=== PATIENT | female | born 1935 | race Caucasian/White ===

== ENCOUNTER → 2016-08-16 | Outpatient (CLI) | payer OTHER, MEDICARE ==
[~2016-08-16] MED LIST: AMX500 PO; ARTISOL8 OP; CALCIUM PLUS PO; CENTTAB41 PO; CRG3125 PO; FEXO60TA PO; FLUT50SP14 NAE; HYDC25 PO; LISI-461 PO; co q 10 PO
[2016-08-16 10:54] LABS: BLOOD UREA NITROGEN 16 mg/dl (7-18); CREATININE 0.69 mg/dl (0.60-1.20); GLUCOSE 96 mg/dl (70-99)
[2016-08-16 10:55] LABS: ALT/SGPT 27 U/L (12-78); AST/SGOT 16 U/L (15-37); CALCIUM 8.6 mg/dl (8.5-10.1); CARBON DIOXIDE 24 mmol/L (21-32); CHLORIDE 105 mmol/L (98-107); MAGNESIUM 2.1 mg/dl (1.8-2.4); POTASSIUM 3.9 mmol/L (3.5-5.1); SODIUM 139 mmol/L (136-145)
[2016-08-16 11:06] LABS: FERRITIN 114.2 ng/ml (8.0-388.0)
== END | disposition home or self-care (01) ==
LOC: C.LABVPSUW 10:06
DX: E78.5 Hyperlipidemia, unspecified (principal); I10 Essential (primary) hypertension; R53.83 Other fatigue

== ENCOUNTER → 2016-08-22 | Outpatient (CLI) | payer OTHER, MEDICARE ==
--- NOTE | 2016-08-22 15:52 | ECHOCARDIOGRAM REPORT ---
*NOTICE TO RECEIVING [employer]ENCY This information is strictly Confidential and protected under [place] law. [place] law prohibits you from making any further disclosure of this information unless further disclosure is expressly permitted by the written consent of the person to whom it pertains or is authorized by law. A general authorization for the release of medical or other information is not sufficient for this purpose. Hospital accepts no responsibility if the information is made available to any other person, INCLUDING THE PATIENT. Interpretation Summary * Name: JACOB LOVETT Study Date: 08/22/2016 01:06 PM BP: 129/70 mmHg * Patient Location: [facility] HR: 81 * : 1935 (M/d/yyyy) Gender: Female Height: 62 in * Age: 81 yrs Ethnicity: CA Weight: 180 lb * Ordering Physician: Fritz Bartholomew * Referring Physician: Fritz Bartholomew D.O. * Performed By: Viri Xiao RCS * * Reason For Study: Valvular Heart Dz, Myxomatous Mitral Valve * BSA: 1.8 m2 * Normal biventricular systolic function. * Left ventricular diastolic dysfunction. * Mild left atrial dilatation. * Mild- moderate mitral regurgitation. * Mild tricuspid regurgitation. * Mildly elevated estimated right ventricular systolic pressure. * Normal central venous pressure. * Compared to an echo of 09/09/2015 there has been no significant interval change. Procedure Details * A complete two-dimensional transthoracic echocardiogram was performed (2D, M-mode, Doppler and color flow Doppler). Left Ventricle * The left ventricle is normal in size. * There is normal left ventricular wall thickness. * Ejection Fraction = 65-70%. * A full diastolic examination was done with clinical findings of Class I diastolic dysfunction. * The left ventricular wall motion is normal. Right Ventricle * The right ventricle is normal in size and function. Atria * The left atrium is mildly dilated. * Right atrial size is normal. * No ASD detected; PFO is not assessed. Mitral Valve * Mild myxomatous changes. * There is no evidence of mitral valve prolapse. * There is no mitral valve stenosis. * There is mild to moderate mitral regurgitation. Tricuspid Valve * The tricuspid valve is normal. * There is no tricuspid stenosis. * There is mild tricuspid regurgitation. * Right ventricular systolic pressure is elevated at 30-40mmHg. Aortic Valve * The aortic valve is trileaflet. * The aortic valve opens well. * Aortic stenosis is absent. * No aortic regurgitation is present. Pulmonic Valve * The pulmonic valve is not well seen, but is grossly normal. * There is no pulmonic valvular regurgitation. Great Vessels * The aortic root is normal size. Pericardium/Pleural * There is no pericardial effusion. Great Vessels * Normal inferior vena cava diameter and respiratory variation suggests normal central venous pressure. MMode 2D Measurements and Calculations IVSd 1.0 cm IVSs 1.2 cm LVIDd 4.8 cm LVIDs 2.9 cm LVPWd 0.89 cm LVPWs 1.2 cm IVS/LVPW 1.2 FS 39.5 % EDV(Teich) 108.0 ml ESV(Teich) 32.5 ml EF(Teich) 69.9 % EDV(cubed) 111.3 ml ESV(cubed) 24.7 ml EF(cubed) 77.8 % % IVS thick 15.7 % % LVPW thick 39.8 % LV mass(C)d 163.5 grams LV mass(C)dI 89.4 grams/m\S\2 LV mass(C)s 108.7 grams LV mass(C)sI 59.5 grams/m\S\2 CO(Teich) 5.2 l/min CI(Teich) 2.9 l/min/m\S\2 SV(Teich) 75.5 ml SI(Teich) 41.3 ml/m\S\2 CO(cubed) 6.0 l/min CI(cubed) 3.3 l/min/m\S\2 SV(cubed) 86.6 ml SI(cubed) 47.4 ml/m\S\2 Ao root diam 3.6 cm Ao root area 10.4 cm\S\2 ACS 1.6 cm LA dimension 4.2 cm LA/Ao 1.1 LVAd ap4 27.6 cm\S\2 LVLd ap4 7.3 cm EDV(MOD-sp4) 86.0 ml LVAs ap4 15.0 cm\S\2 LVLs ap4 6.0 cm ESV(MOD-sp4) 32.0 ml EF(MOD-sp4) 62.8 % LVAd ap2 30.1 cm\S\2 LVLd ap2 8.2 cm EDV(MOD-sp2) 96.0 ml LVAs ap2 14.5 cm\S\2 LVLs ap2 6.3 cm ESV(MOD-sp2) 29.0 ml EF(MOD-sp2) 69.8 % CO(MOD-sp4) 3.7 l/min CI(MOD-sp4) 2.0 l/min/m\S\2 SV(MOD-sp4) 54.0 ml SI(MOD-sp4) 29.5 ml/m\S\2 CO(MOD-sp2) 4.6 l/min CI(MOD-sp2) 2.5 l/min/m\S\2 SV(MOD-sp2) 67.0 ml SI(MOD-sp2) 36.7 ml/m\S\2 Doppler Measurements and Calculations MV E max jez 66.6 cm/sec MV A max jez 94.8 cm/sec MV E/A 0.70 MV P1/2t max jez 92.7 cm/sec MV P1/2t 75.4 msec MVA(P1/2t) 2.9 cm\S\2 MV dec slope 360.1 cm/sec\S\2 MV dec time 0.28 sec Ao V2 max 143.2 cm/sec Ao max PG 8.2 mmHg Ao max PG (full) 1.5 mmHg LV V1 max PG 6.7 mmHg LV V1 max 129.5 cm/sec PA V2 max 127.8 cm/sec PA max PG 6.5 mmHg TR max jez 273.1 cm/sec
== END | disposition home or self-care (01) ==
LOC: C.CPL 12:53
DX: I34.1 Nonrheumatic mitral (valve) prolapse (principal); I34.0 Nonrheumatic mitral (valve) insufficiency

== ENCOUNTER → 2017-02-12 | Outpatient (CLI) | payer OTHER, MEDICARE ==
--- NOTE | 2017-02-12 09:20 | DIAGNOSTIC IMAGING REPORT ---
RIGHT HAND MIN 3 VIEWS ROUTINE CLINICAL HISTORY: ARHRITIS,PT TO LAB 1 Right COMPARISON STUDY: None. FINDINGS: The bones are osteopenic. No acute fractures within the right hand. Severe cartilage space narrowing with large marginal osteophytes at the DIP joints. There is moderate to severe cartilage space narrowing at the PIP and MCP joints. There are severe cartilage space narrowing with [id number] articulation at the STT joint. Mild widening of the scapholunate joint consistent with this dissociation. Mild subluxation and angulation at the DIP joints of the second and third digits likely due to the long-standing degenerative change. Mild erosive component to the interphalangeal joint of the thumb and DIP joints of the second and third digits. 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 Electronically signed by: Edvin Tamez M.D. 02/12/2017 9:18 AM Dictated Date/Time: 02/12/2017 9:14 AM
[2017-02-12 09:37] LABS: BASO ABS # 0.06 K/uL (0-0.2); COMPLETE YES; EOS % 18.3 %; HEMATOCRIT 40.9 % (37-47); IG% 0.2 %; MEAN CELL VOLUME 96.5 fL (80-100); MEAN CORPUSCULAR HGB CONC 34.2 g/dl (32-36); MEAN PLATELET VOLUME 10.2 fL (7.4-10.4); MONO % 11.5 %; PLATELET COUNT 217 K/uL (130-400); RED BLOOD COUNT 4.24 M/uL (4.2-5.4); WHITE BLOOD COUNT 6.19 K/uL (4.8-10.8)
[2017-02-12 10:23] LABS: CHOLESTEROL 210 mg/dl (0-200); CHOLESTEROL/HDL RATIO 3.8; FERRITIN 138.3 ng/ml (8.0-388.0); HDL CHOLESTEROL 56 mg/dl; LDL CHOLESTEROL CALCULATED 138 mg/dl; MAGNESIUM 2.1 mg/dl (1.8-2.4); RHEUMATOID FACTOR < 10.0 U/mL (0-15); TRIGLYCERIDES 82 mg/dl (0-150); VERY LOW DENSITY LIPOPROT CALC 16 mg/dl
[2017-02-14 15:55] LABS: ANA TITER 1:40 TITER (<1:40)
--- NOTE | 2017-02-19 13:22 | CODING QUERY MEDICAL NECESSITY ---
SUPPORTING DIAGNOSIS NEEDED A supporting diagnosis is required for the test/procedure performed on this patient in order for us to be reimbursed by the patient's insurance. Please provide a supporting diagnosis for the following test/procedure listed below next to the test name along with your signature. *If there is no additional diagnosis for this patient that would support the following test/procedure please document that below next to the test/procedure. Test(s)/Procedure(s) that require a supporting diagnosis: * VITAMIN B12 DIAGNOSIS: * VITAMIN D, 25-HYDROXY DIAGNOSIS: Provider Signature: Date: Thank you Caryn Lima [employer] Information Management Once completed, please kindly fax back to [phone] For questions please call [phone]
== END | disposition home or self-care (01) ==
LOC: C.RAD 08:33
DX: R53.83 Other fatigue (principal); M19.90 Unspecified osteoarthritis, unspecified site; I10 Essential (primary) hypertension; E78.5 Hyperlipidemia, unspecified; E55.9 Vitamin D deficiency, unspecified; E53.8 Deficiency of other specified B group vitamins

== ENCOUNTER → 2017-03-22 | Outpatient (CLI) | payer OTHER, MEDICARE ==
--- NOTE | 2017-03-22 13:47 | DIAGNOSTIC IMAGING REPORT ---
ULTRASOUND LEFT VENOUS DOPP LOWER EXT UNILAT CLINICAL HISTORY: Left leg swelling COMPARISON STUDY: No previous studies for comparison. FINDINGS: Real-time and color flow Doppler imaging were performed. Flow was seen within the femoral, popliteal and calf veins with no intraluminal thrombus demonstrated. The saphenous vein is patent. There is a 8 x 2 x 4 cm complex left popliteal cyst. IMPRESSION: No evidence of left lower extremity DVT. Electronically signed by: Augusto Renee M.D. 03/22/2017 1:46 PM Dictated Date/Time: 03/22/2017 1:45 PM
--- NOTE | 2017-03-26 13:35 | CODING QUERY MEDICAL NECESSITY ---
SUPPORTING DIAGNOSIS NEEDED A supporting diagnosis is required for the test/procedure performed on this patient in order for us to be reimbursed by the patient's insurance. Please provide a supporting diagnosis for the following test/procedure listed below next to the test name along with your signature. *If there is no additional diagnosis for this patient that would support the following test/procedure please document that below next to the test/procedure. Test(s)/Procedure(s) that require a supporting diagnosis: * ([id number]) VENOUS DOPPLER LOWER EXT UNILA DIAGNOSIS: DATE OF SERVICE: 03/22/17 Provider Signature: Date: Thank you Ernesto Coates [facility] Information Management Once completed, please kindly fax back to [phone] For questions please call [phone]
== END | disposition home or self-care (01) ==
LOC: C.ULTRBC 13:23
DX: M79.89 Other specified soft tissue disorders (principal)

== ENCOUNTER → 2017-04-17 | Outpatient (CLI) | payer OTHER, MEDICARE ==
[2017-04-17 10:20] LABS: BLOOD UREA NITROGEN 12 mg/dl (7-18); BUN/CREATININE RATIO 20.7 (10-20); CALCIUM 9.1 mg/dl (8.5-10.1); CARBON DIOXIDE 24 mmol/L (21-32); CHLORIDE 104 mmol/L (98-107); CREATININE 0.59 mg/dl (0.60-1.20); GLUCOSE 86 mg/dl (70-99); POTASSIUM 4.2 mmol/L (3.5-5.1); SODIUM 136 mmol/L (136-145)
== END | disposition home or self-care (01) ==
LOC: C.LABVPSUW 09:19
DX: R60.9 Edema, unspecified (principal)

== ENCOUNTER → 2017-05-01 | Outpatient (CLI) | payer OTHER, MEDICARE ==
[2017-05-01 10:14] LABS: IMMUNOGLOBULN M 20.7 mg/dL (40-230)
[2017-05-03 03:41] LABS: ANTI-SS-A <1.0 NEG AI (<1.0 NEG); ANTI-SS-B <1.0 NEG AI (<1.0 NEG)
== END | disposition home or self-care (01) ==
LOC: C.LABVPSUW 09:21
PROVIDERS: ATTEND Internal Medicine
DX: H04.123 Dry eye syndrome of bilateral lacrimal glands (principal); R89.4 Abnormal immunological findings in specimens from other organs, systems and tissues

== ENCOUNTER → 2017-05-03 | Outpatient (CLI) | payer OTHER, MEDICARE | END | disposition home or self-care (01) | LOC: C.LABVPSUW 09:16 | PROVIDERS: ATTEND Internal Medicine | DX: H04.123 Dry eye syndrome of bilateral lacrimal glands (principal); R89.4 Abnormal immunological findings in specimens from other organs, systems and tissues ==

== ENCOUNTER → 2017-05-06 | Outpatient (CLI) | payer OTHER, MEDICARE ==
--- NOTE | 2017-05-06 14:28 | DIAGNOSTIC IMAGING REPORT ---
LUMBAR SPINE 2 OR 3 VIEWS CLINICAL HISTORY: M48.061 LOW BACK PAIN, SPINAL STENOSIS BY HISTORY pain COMPARISON STUDY: None FINDINGS: Mild S-shaped scoliosis. Slight grade 1 retrolisthesis L2 on L3. Moderate degenerative disc change throughout. Moderate anterior osteophytic change from L1 through L4. No evidence for an acute compression deformity. IMPRESSION: Moderate degenerative change. Scoliosis. No acute process. The above report was generated using voice recognition software. It may contain grammatical, syntax or spelling errors. Electronically signed by: Shaka Segura M.D. 05/06/2017 2:27 PM Dictated Date/Time: 05/06/2017 2:25 PM
== END | disposition home or self-care (01) ==
LOC: C.RAD 14:01
PROVIDERS: ATTEND Internal Medicine
DX: M48.061 Spinal stenosis, lumbar region without neurogenic claudication (principal); M51.36 Other intervertebral disc degeneration, lumbar region; M41.9 Scoliosis, unspecified

== ENCOUNTER → 2017-05-13 | Outpatient (CLI) | payer OTHER, MEDICARE | END | disposition home or self-care (01) | LOC: C.LABSPEC 16:25 | PROVIDERS: ATTEND Obstetrics & Gynecology | DX: N81.11 Cystocele, midline (principal); N76.0 Acute vaginitis ==

== ENCOUNTER → 2017-06-24 | Outpatient (CLI) | payer OTHER, MEDICARE ==
--- NOTE | 2017-06-25 07:49 | MAMMOGRAPHY REPORT ---
BILATERAL DIGITAL DIAGNOSTIC MAMMOGRAM TOMOSYNTHESIS WITH CAD AND TARGETED BILATERAL ULTRASOUND: 06/14 CLINICAL HISTORY: 82-year-old woman presents for diagnostic evaluation of both breasts. She underwen t ultrasound-guided core biopsy in the 8:00 right breast on 07/11/2016, which yielded benign patholog y results. After the biopsy, a short interval follow-up was recommended in the right breast in 6 mon ths to ensure stability of other nodularity in the lateral right breast. Patient failed to follow-up and presents one year after the biopsy, at the time of annual screening exam. TECHNIQUE: Bilateral breast tomosynthesis in addition to standard 2D mammography was performed. Curre nt study was also evaluated with a Computer Aided Detection (CAD) system. COMPARISON: Comparison is made to exams dated: 06/26/2016 ultrasound, 06/26/2016 mammogram, 6 mammogram, 12/26/2009 mammogram, 04/20/2004 mammogram, and 11/11/1998 mammogram - [facility]. BREAST COMPOSITION: There are scattered areas of fibroglandular density in both breasts. FINDINGS: There is a stable ribbon-shaped biopsy marker clip in the 8:00 middle one third of the rig ht breast, denoting the site of prior benign ultrasound-guided core biopsy. Mammographically based o n the CC view, there is stable nodularity when comparing to the 06/21/2016 mammogram and also likely the 12/26/2009 mammogram. No obvious new mass, asymmetry, area of distortion or new suspicious calci fications are seen in the right breast. There is a stable intramammary lymph node in the upper outer middle one third of the left breast. Th ere is a small focal area of architectural distortion in the lateral, middle one third of the left br east on the CC view (tomosynthesis slice 20-23/70), thought to project along the posterior nipple joseph e on the MLO view, for which further evaluation with ultrasound was performed. No other suspicious ma ss, architectural distortion or cluster of microcalcifications is seen. Targeted ultrasound was performed in the lateral aspect of each breast. In the left 2:00 axis, 6 in meters from the nipple, a lymph node is identified measuring 5.3 mm in length with a thin cortex aline uring 2.1 mm. A small hypoechoic solid versus cystic mass measuring 4.3 x 2.4 mm is identified in th e 3:00 left breast, 4 cm from the nipple. It is unclear if this correlates with the mammographic fin ding. In the right breast, masses are no longer identified in the 11:00 axis, and the previously biopsied b enign mass in the 8:00 axis is no longer clearly identified. However, in the 9:30 right breast, 3 cm from the nipple, a previously observed cystic appearing mass now has a more lobulated contour and po ssible solid component. This measures approximately 3 x 5 mm and is indeterminate. Given the interv al change in size, definitive characterization with an ultrasound-guided core biopsy is recommended. IMPRESSION: ACR BI-RADS CATEGORY 4: SUSPICIOUS, TARGETED ULTRASOUND ACR BI-RADS CATEGORY 4: SUSPICIO US 1. Stereotactic tomosynthesis guided biopsy is recommended for a newly visualized small subtle focal area of architectural distortion in the lateral, middle one third of the left breast, best seen on t he CC tomosynthesis images (slice 2023), without definite sonographic correlate. 2. Ultrasound-guided core biopsy is also recommended in the 9:30 right breast for increased size and lobulated contour of a small partially cystic and solid mass identified on ultrasound. 3. Stable postbiopsy changes in the 8:00 right breast mammographically, with decreased visibility of the lesion on ultrasound. Other indeterminate subcentimeter masses in the 11:00 right breast are no longer seen, confirming benignity. These results and recommendations were discussed with the patient at the time of the exam. She tenta tively scheduled the bilateral breast biopsies prior to leaving our department. Approximately 10% of breast cancers are not detected with mammography. A negative mammographic report should not delay biopsy if a clinically suggestive mass is present. Neealm Rodriguez M.D. ay/:06/24/2017 15:26:43 [employer] Coordinator: Stacy MARIE)(Kim), [facility] letter sent: Abnormal 4/5 BI-RADS Code: ACR BI-RADS Category 4: Suspicious Ultrasound BI-RADS: ACR BI-RADS Category 4: Suspici ous
== END | disposition home or self-care (01) ==
LOC: C.MAMM 13:35
PROVIDERS: ATTEND Obstetrics & Gynecology
DX: R92.8 Other abnormal and inconclusive findings on diagnostic imaging of breast (principal); N63.10 Unspecified lump in the right breast, unspecified quadrant

== ENCOUNTER → 2017-08-29 | Outpatient (CLI) | payer OTHER, MEDICARE ==
[2017-08-29 10:08] LABS: BLOOD UREA NITROGEN 18 mg/dl (7-18); CALCIUM 8.7 mg/dl (8.5-10.1); CARBON DIOXIDE 26 mmol/L (21-32); CREATININE 0.67 mg/dl (0.60-1.20); GLUCOSE 109 mg/dl (70-99); POTASSIUM 3.8 mmol/L (3.5-5.1); SODIUM 135 mmol/L (136-145)
[2017-08-30 14:28] LABS: ANTI-SS-A <1.0 NEG AI (<1.0 NEG); ANTI-SS-B <1.0 NEG AI (<1.0 NEG)
== END | disposition home or self-care (01) ==
LOC: C.LABVPSUW 09:35
PROVIDERS: ATTEND Internal Medicine
DX: H04.123 Dry eye syndrome of bilateral lacrimal glands (principal)

== ENCOUNTER → 2017-11-21 | Outpatient (CLI) | payer OTHER, MEDICARE ==
[2017-11-21 10:03] LABS: BASO % 0.5 %; BASO ABS # 0.03 K/uL (0-0.2); EOS % 5.9 %; EOS ABS # 0.35 K/uL (0-0.5); HEMATOCRIT 39.9 % (37-47); HEMOGLOBIN 13.6 g/dL (12.0-16.0); IG# 0.01 K/uL (0.00-0.02); LYMPH ABS # 1.79 K/uL (1.2-3.4); MEAN CELL VOLUME 95.2 fL (80-100); MEAN CORPUSCULAR HEMOGLOBIN 32.5 pg (25-34); MEAN CORPUSCULAR HGB CONC 34.1 g/dl (32-36); MEAN PLATELET VOLUME 9.7 fL (7.4-10.4); MONO % 7.2 %; MONO ABS # 0.43 K/uL (0.11-0.59); NEUT % 56.2 %; NEUT ABS # 3.35 K/uL (1.4-6.5); PLATELET COUNT 246 K/uL (130-400); RED CELL DISTRIBUTION WIDTH CV 12.6 % (11.5-14.5); RED CELL DISTRIBUTION WIDTH SD 43.5 fL (36.4-46.3); WHITE BLOOD COUNT 5.96 K/uL (4.8-10.8)
[2017-11-21 10:12] LABS: BLOOD UREA NITROGEN 15 mg/dl (7-18); CALCIUM 8.5 mg/dl (8.5-10.1); CARBON DIOXIDE 24 mmol/L (21-32); CHOLESTEROL 132 mg/dl (0-200); CREATININE 0.69 mg/dl (0.60-1.20); GLUCOSE 101 mg/dl (70-99); POTASSIUM 4.3 mmol/L (3.5-5.1); SODIUM 137 mmol/L (136-145)
[2017-11-21 10:22] LABS: LDL CHOLESTEROL CALCULATED 59 mg/dl; TRANSFERRIN 245 mg/dl (200-360)
== END ==
LOC: C.LABVPSUW 09:54
DX: E78.5 Hyperlipidemia, unspecified (principal); I10 Essential (primary) hypertension; R60.9 Edema, unspecified; R53.83 Other fatigue; M19.90 Unspecified osteoarthritis, unspecified site

== ENCOUNTER 2018-02-27 21:07 | Emergency (ER) | payer OTHER, MEDICARE ==
[~2018-02-27] VITALS: Ht 157.5 cm; Wt 84.1 kg
[2018-02-27 21:28] VITALS: TEMP 36.6; Ht 157.5 cm; Wt 84.1 kg
[2018-02-27] MEDS ORDERED: LORAZEPAM 0.5 MG TAB PO STA (22:07)
[2018-02-27 22:58] LABS: BASO % 0.4 %; BASO ABS # 0.03 K/uL (0-0.2); EOS % 2.4 %; EOS ABS # 0.17 K/uL (0-0.5); HEMATOCRIT 39.5 % (37-47); HEMOGLOBIN 13.5 g/dL (12.0-16.0); IG# 0.02 K/uL (0.00-0.02); LYMPH % 16.3 %; LYMPH ABS # 1.18 K/uL (1.2-3.4); MEAN CELL VOLUME 96.1 fL (80-100); MEAN CORPUSCULAR HEMOGLOBIN 32.8 pg (25-34); MEAN CORPUSCULAR HGB CONC 34.2 g/dl (32-36); MEAN PLATELET VOLUME 9.6 fL (7.4-10.4); MONO % 11.8 %; MONO ABS # 0.85 K/uL (0.11-0.59); NEUT % 68.8 %; NEUT ABS # 4.97 K/uL (1.4-6.5); PLATELET COUNT 212 K/uL (130-400); RED CELL DISTRIBUTION WIDTH CV 12.6 % (11.5-14.5); WHITE BLOOD COUNT 7.22 K/uL (4.8-10.8)
[2018-02-27 23:28] LABS: ALBUMIN 3.6 gm/dl (3.4-5.0); ALKALINE PHOSPHATASE 64 U/L (45-117); ALT/SGPT 26 U/L (12-78); AST/SGOT 22 U/L (15-37); BLOOD UREA NITROGEN 12 mg/dl (7-18); CALCIUM 8.6 mg/dl (8.5-10.1); CARBON DIOXIDE 23 mmol/L (21-32); CREATININE 0.55 mg/dl (0.60-1.20); GLUCOSE 110 mg/dl (70-99); POTASSIUM 3.7 mmol/L (3.5-5.1); SODIUM 133 mmol/L (136-145); TOTAL PROTEIN 7.3 gm/dl (6.4-8.2)
[2018-02-27 23:50] VITALS: BP 151/77; PULSE 75; O2SAT 95
--- NOTE | 2018-02-27 23:50 | EMERGENCY ROOM VISIT NOTE ---
History Report prepared by Eunice: Gabriela Flower Under the Supervision of: Dr. Lexx Carbajal M.D. First contact with patient: 21:48 Chief Complaint: HYPERTENSION Stated Complaint: ELEVATED BP 182/99 History of Present Illness The patient is an 82 year old female with a past medical history of HTN who presents to the ED with a cc of an episode of hypertension beginning this morning. The patient states that she did not feel well when she woke up this morning. She states that she felt dizzy and weak. She states that she had her blood pressure checked and it was elevated. She reports that it was 182/99. She states that she has been taking her blood pressure medications and there have been no changes to it, but notes that she was placed on Prednisone for her Rheumatoid Arthritis a little bit ago. She states that the first week of taking it she felt lightheaded, but it passed. The patient's daughter notes that she missed her diuretic a few days, but did take it today. Positive chronic leg swelling. Negative headache, chest pain, abdominal pain, urinary symptoms, abnormal bowel movements, and a history of chronic kidney problems. Source of History: patient Onset: this morning Symptom Intensity: 182/99 Quality: other (hypertension) Timing: other (episode) Associated Symptoms: + weakness, No headache, No chest pain, No abdominal pain, No urinary symptoms Note: The patient complains of dizziness and chronic leg swelling. The patient denies abnormal bowel movements. Review of Systems See HPI for pertinent positives and negatives. A total of ten systems were reviewed and were otherwise negative. Past Medical & Surgical Medical Problems: (1) HTN (hypertension) Family History Hypertension Social History Smoking Status: Never Smoker Marital Status: Housing Status: mcc Current/Historical Medications Scheduled Amoxicillin (Amoxil *), 500 MG PO UD Artificial Tears (Artificial Tears), 1-2 DROPS OP PRN Carvedilol (Coreg *), 3.125 MG PO BID Fexofenadine Hcl (Abbey Allergy), 30 MG PO DAILY PRN Fluticasone Propionate (Flonase Nasal [place]), 2 SPRAYS GLADYS DAILY PRN Hydrochlorothiazide (Hctz *), 25 MG PO DAILY Lisinopril (Zestril), 20 MG PO BID [Calcium Plus], 1 TAB PO DAILY [Centrum Silver], 1 TAB PO DAILY [co q 10], 1 TAB PO DAILY Allergies Coded Allergies: Dust (Verified Allergy, Unknown, UNKNOWN, 10/23/11) Prednisone (Verified Adverse Reaction, Unknown, HEADACHE, 10/23/11) Physical Exam Vital Signs Date Time Temp Pulse Resp B/P (MAP) Pulse Ox O2 Delivery O2 Flow Rate FiO2 02/27/18 23:23 80 18 154/78 94 Room Air 02/27/18 22:37 Room Air 02/27/18 21:28 36.6 77 18 172/89 93 Room Air Physical Exam GENERAL: Awake, alert, anxious-appearing, NAD HENT: Normocephalic, atraumatic. EYES: Normal conjunctiva. Sclera non-icteric. PERRL. No anisocoria. NECK: Supple. No nuchal rigidity. FROM. RESPIRATORY: CTAB, no rhonchi, wheezing, crackles CARDIAC: RRR, no MRG ABDOMEN: Soft, NTND, BS+ MSK: No chest wall TTP, trace bilateral LE edema. No asymmetry. NEURO: GCS 15, CN 2-12 intact, moves all 4s on command SKIN: No rash or jaundice noted. Medical Decision & Procedures Laboratory Results 02/27/18 22:47 Red Blood Count 4.11, Mean Corpuscular Volume 96.1, Mean Corpuscular Hemoglobin 32.8, Mean Corpuscular Hemoglobin Concent 34.2, Mean Platelet Volume 9.6, Neutrophils (%) (Auto) 68.8, Lymphocytes (%) (Auto) 16.3, Monocytes (%) (Auto) 11.8, Eosinophils (%) (Auto) 2.4, Basophils (%) (Auto) 0.4, Neutrophils # (Auto ) 4.97, Lymphocytes # (Auto) 1.18, Monocytes # (Auto) 0.85, Eosinophils # (Auto ) 0.17, Basophils # (Auto) 0.03 02/27/18 22:47 Test 02/27/18 22:47 White Blood Count 7.22 K/uL (4.8-10.8) Red Blood Count 4.11 M/uL (4.2-5.4) Hemoglobin 13.5 g/dL (12.0-16.0) Hematocrit 39.5 % (37-47) Mean Corpuscular Volume 96.1 fL (80-100) Mean Corpuscular Hemoglobin 32.8 pg (25-34) Mean Corpuscular Hemoglobin Concent 34.2 g/dl (32-36) Platelet Count 212 K/uL (130-400) Mean Platelet Volume 9.6 fL (7.4-10.4) Neutrophils (%) (Auto) 68.8 % Lymphocytes (%) (Auto) 16.3 % Monocytes (%) (Auto) 11.8 % Eosinophils (%) (Auto) 2.4 % Basophils (%) (Auto) 0.4 % Neutrophils # (Auto) 4.97 K/uL (1.4-6.5) Lymphocytes # (Auto) 1.18 K/uL (1.2-3.4) Monocytes # (Auto) 0.85 K/uL (0.11-0.59) Eosinophils # (Auto) 0.17 K/uL (0-0.5) Basophils # (Auto) 0.03 K/uL (0-0.2) RDW Standard Deviation 44.0 fL (36.4-46.3) RDW Coefficient of Variation 12.6 % (11.5-14.5) Immature Granulocyte % (Auto) 0.3 % Immature Granulocyte # (Auto) 0.02 K/uL (0.00-0.02) Prothrombin Time 10.1 SECONDS (9.0-12.0) Prothromb Time International Ratio 1.0 (0.9-1.1) Activated Partial Thromboplast Time 25.0 SECONDS (21.0-31.0) Partial Thromboplastin Ratio 1.0 Anion Gap 10.0 mmol/L (3-11) Est Creatinine Clear Calc Drug Dose 79.3 ml/min Estimated GFR () 101.2 Estimated GFR (Non- 87.4 BUN/Creatinine Ratio 22.2 (10-20) Calcium Level 8.6 mg/dl (8.5-10.1) Magnesium Level 1.9 mg/dl (1.8-2.4) Total Bilirubin 0.5 mg/dl (0.2-1) Direct Bilirubin 0.1 mg/dl (0-0.2) Aspartate Amino Transf (AST/SGOT) 22 U/L (15-37) Alanine Aminotransferase (ALT/SGPT) 26 U/L (12-78) Alkaline Phosphatase 64 U/L (45-117) Troponin I < 0.015 ng/ml (0-0.045) Total Protein 7.3 gm/dl (6.4-8.2) Albumin 3.6 gm/dl (3.4-5.0) Thyroid Stimulating Hormone (TSH) 1.830 uIu/ml (0.300-4.500) Laboratory results reviewed by me Medications Administered Medications (Trade) Dose Ordered Sig/Wilmer Route Start Time Stop Time Status Last Admin Dose Admin Lorazepam (Ativan Tab) 0.5 mg NOW STAT PO 02/27/18 22:07 02/27/18 22:08 DC 02/27/18 22:23 0.5 MG ECG Per My Interpretation Indication: weakness Rate (beats per minute): 76 Rhythm: normal sinus Findings: other (normal intervals, normal axis, no STS change or TWI) ED Course 2155: The patient was evaluated in room B5. A complete history and physical exam was performed. 0: I reevaluated the patient. Discussed results and discharge instructions: She verbalized understanding and agreement. The patient is ready for discharge. Medical Decision The patient is an 82 year old female with a past medical history of HTN who presents to the ED with a cc of an episode of hypertension beginning this morning. Nursing notes reviewed. Ancillary studies and prior records reviewed. Differential diagnosis: Etiologies such as metabolic, infection, hypo/hyperglycemia, electrolyte abnormalities, cardiac sources, intracerebral event, toxicologic, neurologic, as well as others were entertained. Patient was seen and evaluated the bedside. Patient was referred for hypertension. The patient is fairly well-appearing although the patient does complain of feeling a little anxious and restless. Patient is requesting something to relax. The patient denies any chest pain shortness of breath or headache. The patient does not have any focal neuro deficits. The patient states that she has been intermittently taking her diuretic medication. The patient has also recently started taking prednisone. I discussed with the patient that is important that she continues to take her medication as prescribed although could consider stopping the prednisone as this is likely causing an increase in fluid retention as well as increase in blood pressure. Patient did have blood work completed along with an EKG. The patient was also given 0.5 mg of Ativan. The patient's blood work is fairly unremarkable. EKG is nonischemic. Patient has normal kidney function and normal TSH. I believe the patient's hypertension is a combination of factors which include the noncompliance with the medication, starting prednisone, and being preoccupied with her blood pressure numbers. Patient was given strict follow-up, discharge , and return precautions. All questions were answered. Patient was deemed suitable for outpatient follow-up at this time. Patient agreed with the plan of care and was safely discharged home. Medication Reconcilliation Current Medication List: was personally reviewed by me Blood Pressure Screening Patient's blood pressure: Elevated blood pressure Blood pressure disposition: Referred to PCP Impression Primary Impression: HTN (hypertension) Additional Impression: Acute anxiety Scribe Attestation The scribe's documentation has been prepared under my direction and personally reviewed by me in its entirety. I confirm that the note above accurately reflects all work, treatment, procedures, and medical decision making performed by me. Departure Information Dispostion Home / Self-Care Referrals [facility] (PCP) Forms HOME CARE DOCUMENTATION FORM, IMPORTANT VISIT INFORMATION, WORK / SCHOOL INSTRUCTIONS Patient Instructions Hypertension Dc, My [facility] Additional Instructions Please return to the emergency department if you have worsening or recurrent symptoms not amenable to at-home treatment. Please call for a follow-up appointment with her primary care physician. Please take your medications as prescribed. If you have other concerns and/or complaints please feel free to also call your primary care physician's office or return the ED for further evaluation, management, and treatment. You may take tylenol 650 mg every 6 hours as needed for pain/fever unless told by your physician to not take it or have liver problems. Take your medications as prescribed. You have been examined and treated today on an emergency basis only. This is not a substitute for, or an effort to provide, complete comprehensive medical care. It is impossible to recognize and treat all injuries or illnesses in a single emergency department visit. It is therefore important that you follow up closely with [facility], your PCP, and/or your specialist(s). Call as soon as possible for an appointment. Thank you for your time and consideration. I look forward to speaking with you again soon. Please don't hesitate to call us if you have any questions. Problem Qualifiers Primary Impression: HTN (hypertension) Hypertension type: unspecified Qualified Codes: I10 - Essential (primary) hypertension
== END 2018-02-28 00:06 | disposition home or self-care (01) ==
LOC: C.EDB 21:09
DX: I10 Essential (primary) hypertension (principal); F41.9 Anxiety disorder, unspecified; M06.9 Rheumatoid arthritis, unspecified; Z82.49 Family history of ischemic heart disease and other diseases of the circulatory system; Z79.899 Other long term (current) drug therapy; Z88.8 Allergy status to other drugs, medicaments and biological substances; Z91.048 Other nonmedicinal substance allergy status

== ENCOUNTER 2023-01-24 11:25 | Inpatient (IN) ==
--- NOTE | 2023-01-24 12:14 | Emergency Department Note ---
Impression & Plan MITCH (acute kidney injury), Bladder cancer, Ureteral obstruction ED Provider Note NAME: JACOB LOVETT AGE: 87 SEX: F : 1935 ARRIVES VIA: Walk-In INFORMANT: Patient ED PROVIDER(S): Willy Suarez DO CHIEF COMPLAINT: weak HPI: Patient is an 87-year-old female who presents the ER for increasing renal function. Patient notes that she does feel little weak and rundown. She denies any headache or change in vision. She had a creatinine checked as an outpatient and was significantly elevated as well as having ultrasound which showed no ureteral jet. 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 She denies any headache or change in vision. No chest pain or shortness of breath. No dysuria urgency or frequency. No other exacerbating or remitting factors. She been eating and drinking normally. PAST MEDICAL HISTORY:See Below PAST SURGICAL HISTORY:See Below FAMILY HISTORY:See Below SOCIAL HISTORY:See Below HOME MEDICATIONS:See Below ALLERGIES:See Below VITALS:See Below PHYSICAL EXAMINATION: GENERAL: Sitting up in bed, alert, chronically ill-appearing, disheveled EYE EXAM: normal conjunctiva. PERRL and EOM's grossly intact. OROPHARYNX: no exudate, no erythema, lips, buccal mucosa, and tongue normal and mucous membranes are moist NECK: supple, no nuchal rigidity, no adenopathy, non-tender LUNGS: Clear to auscultation. Normal chest wall mechanics HEART: no murmurs, S1 normal and S2 normal ABDOMEN: abdomen soft, non-tender, normo-active bowel sounds, no masses, no rebound or guarding. UPPER EXTREMITIES: upper extremities are grossly normal. LOWER EXTREMITIES: No pitting edema. NEURO EXAM: Normal sensorium, cranial nerves II-XII grossly intact, normal speech, no gross weakness of arms, no gross weakness of legs. MEDICAL DECISION MAKING: Patient is an 87-year-old female with a past medical history of nephrectomy secondary to kidney cancer. She has been following with Dr. Wang from [facility]. Ultrasound was done as an outpatient which showed no ureteral jet. Creatinine has been trending up and is 3 yesterday. IV was established blood work was obtained. Labs show no leukocytosis. Mild anemia at 8.8. BMP with creatinine 2.5 which is actually improved from yesterday of 3. LFTs bilirubin was unremarkable. UA was slightly contaminated. Will cover with a dose of Rocephin to be on the safe side. Patient was given IV fluids. Discussed with urology who recommended transfer after seeing the patient at bedside. Discussed with Dr. Imtiaz Raymond at [facility]. He will speak with interventional radiology as well as urology and likely accept however he notes that they will not have a bed until tomorrow. I discussed with Dr. Joel Haas for further evaluation management treatment here. Did update family. Triage Nursing notes reviewed. Limited review of prior medical records performed Vital Signs: reviewed and remarkable for no significant abnormalities Differential diagnosis: Infection, dehydration, metabolic abnormality, hypo/hyperglycemia, electrolyte disturbance, anemia, hypoxia, cardiac sources, intracerebral event, toxicologic, neurologic, as well as other pathologies. ER treatment provided: See below Diagnostics interpreted by me include EKG and cardiac monitoring as listed below: -Cardiac Monitoring: An order was placed for continuous cardiac monitoring. The monitor shows a rate of 60 with sinus rhythm. -ECG: none -Laboratory studies:Interpreted by me as stated above in MDM and shown below. 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 no longer is presribed omeprazole. Hyperlipidemia Hypertension Hypothyroidism Immunotherapy currently receiving through [facility]. & to follow up with [facility] Heme/Oncology Macular degeneration Migraines Mitral valve regurgitation Moderate - follows with Dr. Hernandez Nausea and vomiting after administration of anesthetic agent nausea after procedure feb 2022/given pill for nausea and that helped Osteopenia PMR (polymyalgia rheumatica) Follows with rheum - Dr. Mays Port-A-Cath in place Power Port - implantable port [place]. patient will bring the device card DOS. placed 11/14/2022 at [facility] Presence of pessary Renal arterial aneurysm Follows with Dr. 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 [id number]. Recurrence/progression 02/2022 s/p large TURBT 03/08/22& repeat cystoscopy TURBT 04/2022 and 07/2022 Cutaneous metastases On Keytruda Venous insufficiency Both legs Surgical History H/O nephroureterectomy left kidney and ureter at [facility]. H/O transurethral resection of bladder tumor (TURBT) multiple; last done 11/27/2022 08/02/2022 at [facility] Grade 1 view, MAC 3, ETT 7. H/O unilateral oophorectomy History of colonoscopy History of dilatation and curettage History of surgery feb 2022 for bladder cancer History of surgery "power port, implantable port [place]" Power port placed per patient and daughter at [facility] 11/14/22 History of surgery Resection of uterine fibroid History of transurethral resection of bladder tumor (TURBT) 04/2022 [facility] S/P biopsy ureter S/p nephrectomy left kidney and left ureter 10/30/2021 [facility] [place] teeth removed Family History Sister Breast cancer Mother , 88yo Stroke Hypertension Father , 54yo Black lung disease Brother Aneurysm Hypertension Brother Lung cancer Brother Addiction Daughter No problems noted. Other No family history of adverse response to anesthesia No pertinent family history Denies family history of Ovarian cancer Prostate cancer Myocardial infarction Colorectal cancer Social History Smoking Status: Never smoker Second Hand Exposure: No; Do You Dip or Chew Tobacco: No; Hx Alcohol Use: No Hx Substance Use: No Preferred Language: Sudanese Communication Ability: Effective Visual Impairment: No Limitations Hearing Ability: Normal Color Coater Required: No Beliefs That Will Affect Care: None marital status: / Current Living Situation: Alone Current Living Situation Comment: L[facility] INDEPEND[facility] AT [facility] current occupational status: retired current occupation: [employer] How many Children do You have: 1 Feels Safe at Home: Yes Diet: regular caffeine: No during the past year weight has: remained stable Seatbelt Use: always Sunscreen Use: Yes Assistive Devices: CPAP, Glasses and Walker Allergies Allergies Allergy/AdvReac Type Severity Reaction Status Date / Time pepper (genus Capsicum) Allergy Intermediate Gastrointestinal Unverified 01/24/23 12:30 Upset capsaicin Allergy Unknown Verified 01/23/23 14:07 prednisone AdvReac Intermediate Dizziness Verified 01/23/23 14:07 & weird dreams gabapentin Allergy Nausea Uncoded 01/23/23 14:07 vomiting tramadol Allergy Vomiting Uncoded 01/23/23 14:07 collin inhibitors AdvReac Mild Cough Uncoded 01/23/23 14:07 arb angiotensin receptor AdvReac Mild Cough Uncoded 01/23/23 14:07 antagonist Home Meds Home Medications Medication Instructions Recorded Confirmed fexofenadine 180 mg tablet 180 mg PO QAM PRN ALLERGY RELIEF 04/01/19 01/24/23 (Abbey Allergy) multivitamin (Daily Multi-Vitamin 1 tab PO QPM 04/01/19 01/24/23 tablet) simethicone 125 mg capsule 125 mg PO QAM PRN BLOATING/GAS 10/21/20 01/24/23 RELIEF vit C 250 mg-vit E 90 mg-zinc 40 1 tab PO BID 10/21/20 01/24/23 mg-copper 1 [id number] capsule (PreserVision AREDS-2) famotidine 20 mg tablet (Pepcid AC) 20 mg PO BID 08/09/21 01/24/23 ascorbic acid 1,000 1 ea PO QAM 09/26/21 01/24/23 [id number]-[id number] powder effervescent pack (Emergen-C) acetaminophen 500 mg capsule 500 mg PO UD PRN Pain 04/16/22 01/24/23 levothyroxine 50 mcg tablet 50 mcg PO 1600 04/16/22 01/24/23 cholecalciferol (vitamin D3) 25 25 mcg PO QAM 11/19/22 01/24/23 mcg (1,000 unit) tablet (Vitamin D3) estradiol 0.01% (0.1 mg/gram) 1 g vaginal .Once/week 11/20/22 01/24/23 vaginal cream lidocaine 5 % topical ointment 1 applic topical BID PRN pain 11/20/22 01/24/23 sennosides 8.6 mg tablet (senna) 8.6 mg PO DAILY Constipation 01/22/23 01/24/23 Previous Rx's Medication Instructions Recorded carvedilol 3.125 mg tablet (Coreg) 3.125 mg PO BID #180 tabs 04/13/22 diphenhydramine-zinc acetate 2 1 applic topical TID PRN itching 07/11/22 %-0.1 % topical cream (Anti-Itch on back #35 grams (diphenhydramine) with Zinc) hydroxyzine HCl 25 mg tablet 25 mg PO TID PRN anxiety #90 tabs 12/07/22 fluocinolone acetonide oil 0.01 % 4 drp otic (ear) BID PRN ear 12/18/22 ear drops itching #20 mL ipratropium bromide 21 mcg (0.03 2 spray intranasal BID PRN nasal 12/18/22 %) nasal spray drainage #30 mL Results & Data (ED) Vital Signs Vital Signs - 24 hr 01/24/23 11:29 01/24/23 13:00 01/24/23 13:44 Temperature 37.2 C Temperature Source Temporal Artery Scan Pulse Rate 70 63 Pulse Rate [Right Brachial] 97 H Pulse Rhythm Pulse Rhythm [Right Brachial] Regular Pulse Strength [Right Brachial] Normal Respiratory Rate 20 19 Respiratory Effort / Characteristics Non-Labored Non-Labored Spontaneous Respiratory Depth Normal Normal Respiratory Pattern Regular Blood Pressure 159/89 H Blood Pressure [Right Arm] 163/85 H Blood Pressure Mean 112 Blood Pressure Mean [Right Arm] 111 Blood Pressure Position [Right Arm] Lying Pulse Oximetry 98 95 Oxygen Delivery Method Room Air Room Air Oxygen Flow Rate Sepsis Recent Fever Within 48 Hours No Sepsis New/Unexplained Change in Mental Status N/A Sepsis Action Taken by Nursing No Action Required 01/24/23 13:55 Temperature Temperature Source Pulse Rate 58 L Pulse Rate [Right Brachial] Pulse Rhythm Regular Pulse Rhythm [Right Brachial] Pulse Strength [Right Brachial] Respiratory Rate 18 Respiratory Effort / Characteristics Respiratory Depth Respiratory Pattern Blood Pressure Blood Pressure [Right Arm] Blood Pressure Mean Blood Pressure Mean [Right Arm] Blood Pressure Position [Right Arm] Pulse Oximetry 93 Oxygen Delivery Method Nasal Cannula Oxygen Flow Rate 2 Sepsis Recent Fever Within 48 Hours Sepsis New/Unexplained Change in Mental Status Sepsis Action Taken by Nursing Laboratory Data 01/24/23 12:22 01/24/23 14:15 Lab Results 01/24/23 01/24/23 01/24/23 Range/Units 12:22 12:22 12:22 WBC 6.22 (4.8-10.8) K/ul RBC 2.74 L (4.20-5.40) M/uL Hgb 8.8 L (12.0-16.0) g/dl Hct 26.6 L (37.0-47.0) % MCV 97.1 (80.0-100.0) fL MCH 32.1 (25.0-34.0) pg MCHC 33.1 (32.0-36.0) g/dL RDW Std Deviation 48.9 H (36.4-46.3) fL RDW Coeff of Cathy 13.6 (11.5-14.5) % Plt Count 244 (130-400) K/uL MPV 9.3 L (9.4-12.4) fL Immature Gran % (Auto) 0.5 % Neut % (Auto) 54.6 % Lymph % (Auto) 20.1 % [place] % (Auto) 13.7 % Eos % (Auto) 10.5 % Baso % (Auto) 0.6 % Neut # (Auto) 3.40 (1.40-6.50) K/uL Lymph # (Auto) 1.25 (1.2-3.4) K/uL [place] # (Auto) 0.85 H (0.11-0.59) K/uL Eos # (Auto) 0.65 H (0-0.50) K/uL Baso # (Auto) 0.04 (0-0.2) K/uL Immature Gran # (Auto) 0.03 (0.01-0.20) K/uL Sodium Cancelled Potassium Cancelled Chloride Cancelled Carbon Dioxide Cancelled Anion Gap Cancelled BUN Cancelled Creatinine Cancelled Est Cr Clr Drug Dosing Cancelled Est GFR ( Amer) Cancelled Est GFR (Non-Af Amer) Cancelled BUN/Creatinine Ratio Cancelled Glucose Cancelled Calcium Cancelled Total Bilirubin Cancelled AST Cancelled ALT Cancelled Alkaline Phosphatase Cancelled Total Protein Cancelled Albumin Cancelled Globulin Cancelled Albumin/Globulin Ratio Cancelled Lipase Cancelled Urine Color Yellow Urine Appearance Cloudy A (Clear) Urine pH 6.0 (4.5-7.5) Ur Specific [place] 1.008 (1.000-1.030) Urine Protein Negative (Negative) Urine Glucose (UA) Negative (Negative) Urine Ketones Negative (Negative) Urine Blood Trace H (Negative) Urine Nitrite Negative (Negative) Urine Bilirubin Negative (Negative) Urine Urobilinogen Negative (Negative) Ur Leukocyte Esterase 3+ H (Negative) Urine WBC (Auto) >30 H (0-5) /hpf Urine RBC (Auto) 0-4 (0-4) /hpf U Hyaline Cast (Auto) 1-5 (0-5) /lpf U Epithel Cells (Auto) 20-30 H (0-5) /lpf Urine Bacteria (Auto) Negative (Negative) SARS-CoV-2, RNA, NAAT (NEGATIVE) 01/24/23 01/24/23 Range/Units 14:15 Unknown WBC (4.8-10.8) K/ul RBC (4.20-5.40) M/uL Hgb (12.0-16.0) g/dl Hct (37.0-47.0) % MCV (80.0-100.0) fL MCH (25.0-34.0) pg MCHC (32.0-36.0) g/dL RDW Std Deviation (36.4-46.3) fL RDW Coeff of Cathy (11.5-14.5) % Plt Count (130-400) K/uL MPV (9.4-12.4) fL Immature Gran % (Auto) % Neut % (Auto) % Lymph % (Auto) % [place] % (Auto) % Eos % (Auto) % Baso % (Auto) % Neut # (Auto) (1.40-6.50) K/uL Lymph # (Auto) (1.2-3.4) K/uL [place] # (Auto) (0.11-0.59) K/uL Eos # (Auto) (0-0.50) K/uL Baso # (Auto) (0-0.2) K/uL Immature Gran # (Auto) (0.01-0.20) K/uL Sodium 139 Potassium 3.9 Chloride 111 H Carbon Dioxide 20 L Anion Gap 8 BUN 34 H Creatinine 2.58 H D Est Cr Clr Drug Dosing 13.9 Est GFR ( Amer) 18.7 Est GFR (Non-Af Amer) 16.1 BUN/Creatinine Ratio 13.2 Glucose 86 Calcium 8.4 L Total Bilirubin 0.5 AST 14 ALT 10 Alkaline Phosphatase 74 Total Protein 6.4 Albumin 3.5 Globulin 2.9 Albumin/Globulin Ratio 1.2 Lipase 21 Urine Color Urine Appearance (Clear) Urine pH (4.5-7.5) Ur Specific [place] (1.000-1.030) Urine Protein (Negative) Urine Glucose (UA) (Negative) Urine Ketones (Negative) Urine Blood (Negative) Urine Nitrite (Negative) Urine Bilirubin (Negative) Urine Urobilinogen (Negative) Ur Leukocyte Esterase (Negative) Urine WBC (Auto) (0-5) /hpf Urine RBC (Auto) (0-4) /hpf U Hyaline Cast (Auto) (0-5) /lpf U Epithel Cells (Auto) (0-5) /lpf Urine Bacteria (Auto) (Negative) SARS-CoV-2, RNA, NAAT NEGATIVE (NEGATIVE) Imaging Data Radiologist's Impression: Abdomen/Pelvis CT 01/24/23 11:34 CT abd pelvis wo con CLINICAL HISTORY: stone TECHNIQUE: Helical axial images of the abdomen and pelvis were obtained. Automated dose lowering techniques and/or adjustment according to patient size were utilized for this exam. This exam was performed without intravenous contrast. CT DOSE: 1262.38 mGy.cm COMPARISON: None available at the time of this dictation. FINDINGS: Lower chest: Bibasilar atelectasis versus scarring is seen. Liver: Hepatic cysts are seen. Gallbladder and biliary tree: No calcified gallstones. Normal caliber wall. Physiologic prominence of the biliary ducts is noted. Pancreas: Unremarkable, no focal lesions. Spleen: Unremarkable. Adrenals: Unremarkable. Kidneys and ureters: Patient is status post left nephrectomy. Multiple right renal cysts are seen. There is right hydronephrosis and hydroureter ureter. Bladder: Diffuse homogeneous wall thickening is seen. Reproductive organs: Unremarkable. Bowel: Diverticulosis is seen without diverticulitis. The appendix is normal. A small hiatal hernia is seen. Lymph nodes Retroperitoneal: Unremarkable. Pelvic: Unremarkable. Mesenteric: Unremarkable. Peritoneum: Mild fat stranding seen about the right ureter. Vessels: Atherosclerotic calcifications are seen. Abdominal wall: Midline incision and fat-containing hernia noted. Bones: Degenerative changes in the visualized spine. IMPRESSION: 1. There is right hydronephrosis and hydroureter without visualized stone. Findings may represent recently passed stone. 2. Thickening of the bladder wall is noted, urinalysis correlation is recommended to exclude cystitis and/or ascending infection. 3. Additional findings as above. ACT 112: Negative or not required by law. Electronically signed by: Phan Dumas M.D. 01/24/2023 12:44 PM Discharge Plan Visit Data Chief Complaint: Referred by Doctor Stated Complaint: KIDNEY BLOCKAGE ED Provider: Willy Suarez Discharge Problem: MITCH (acute kidney injury), Bladder cancer, Ureteral obstruction Forms Stand Alone Forms: [facility] Daily Prescriptions Prescriptions: No Action lidocaine 5 % ointment 1 applic topical BID PRN (Reason: pain) hydroxyzine HCl 25 mg tablet 25 mg PO TID PRN (Reason: anxiety) Qty: 90 1RF Anti-Itch(diphenhyd) with Zinc 2-0.1 % cream 1 applic topical TID PRN (Reason: itching on back) Qty: 35 3RF ipratropium bromide 21 mcg (0.03 %) spray,non-aerosol 2 spray intranasal BID PRN (Reason: nasal drainage) Qty: 30 2RF Rx Instructions: administer into each nostril fluocinolone acetonide oil 0.01 % drops 4 drp otic (ear) BID PRN (Reason: ear itching) Qty: 20 3RF Rx Instructions: Apply to affected ear BID 2-3 days/week PRN itchy ear carvedilol [Coreg] 3.125 mg tablet 3.125 mg PO BID Qty: 180 3RF sennosides [senna] 8.6 mg tablet 8.6 mg PO DAILY fexofenadine [Abbey Allergy] 180 mg tablet 180 mg PO QAM PRN (Reason: ALLERGY RELIEF) multivitamin [Daily Multi-Vitamin] tablet 1 tab PO QPM PreserVision AREDS-2 250-90-40-1 mg capsule 1 tab PO BID simethicone 125 mg capsule 125 mg PO QAM PRN (Reason: BLOATING/GAS RELIEF) Patient Comments: very seldom famotidine [Pepcid AC] 20 mg Tablet 20 mg PO BID Hold Instructions: pt not taking Patient Comments: and maybe during the day as needed an exra one Emergen-C 1,000 mg Powder Effervescent In Packet 1 ea PO QAM levothyroxine 50 mcg tablet 50 mcg PO 1600 Patient Comments: take at 4 pm acetaminophen 500 mg Capsule 500 mg PO UD PRN (Reason: Pain) estradiol 0.01 % (0.1 mg/gram) cream 1 g PV .Once/week Rx Instructions: Saturday cholecalciferol (vitamin D3) [Vitamin D3] 25 mcg (1,000 unit) Tablet 25 mcg PO QAM Referrals Referrals: Megan Escalona MD [Primary Care Provider] -
[2023-01-24 12:38] LABS: Appearance Urine Cloudy (Clear); Bacteria Urine Automated Negative (Negative); Bilirubin Urine Negative (Negative); Blood Urine Trace (Negative); Color Urine Yellow; Epithelial Cell Urine Auto 20-30 /lpf (0-5); Glucose Urine UA Negative (Negative); Ketones Urine Negative (Negative); Leukocyte Esterase Urine 3+ (Negative); Nitrite Urine Negative (Negative); Protein Urine Negative (Negative); RBC Urine Automated 0-4 /hpf (0-4); Specific Gravity Urine 1.008 (1.000-1.030); Urobilinogen Urine Negative (Negative); WBC Urine Automated >30 /hpf (0-5)
--- NOTE | 2023-01-24 12:46 | CT Scan Report ---
CT abd pelvis wo con CLINICAL HISTORY: stone TECHNIQUE: Helical axial images of the abdomen and pelvis were obtained. Automated dose lowering tech niques and/or adjustment according to patient size were utilized for this exam. This exam was perfor med without intravenous contrast. CT DOSE: 1262.38 mGy.cm COMPARISON: None available at the time of this dictation. FINDINGS: Lower chest: Bibasilar atelectasis versus scarring is seen. Liver: Hepatic cysts are seen. Gallbladder and biliary tree: No calcified gallstones. Normal caliber wall. Physiologic prominence of the biliary ducts is noted. Pancreas: Unremarkable, no focal lesions. Spleen: Unremarkable. Adrenals: Unremarkable. Kidneys and ureters: Patient is status post left nephrectomy. Multiple right renal cysts are seen. Th ere is right hydronephrosis and hydroureter ureter. Bladder: Diffuse homogeneous wall thickening is seen. Reproductive organs: Unremarkable. Bowel: Diverticulosis is seen without diverticulitis. The appendix is normal. A small hiatal hernia i s seen. Lymph nodes Retroperitoneal: Unremarkable. Pelvic: Unremarkable. Mesenteric: Unremarkable. Peritoneum: Mild fat stranding seen about the right ureter. Vessels: Atherosclerotic calcifications are seen. Abdominal wall: Midline incision and fat-containing hernia noted. Bones: Degenerative changes in the visualized spine. IMPRESSION: 1. There is right hydronephrosis and hydroureter without visualized stone. Findings may represent re cently passed stone. 2. Thickening of the bladder wall is noted, urinalysis correlation is recommended to exclude cystiti s and/or ascending infection. 3. Additional findings as above. ACT 112: Negative or not required by law. Electronically signed by: Phan Dumas M.D. 01/24/2023 12:44 PM
[2023-01-24 13:29] LABS: Basophils # (auto) 0.04 K/uL (0-0.2); Basophils % (auto) 0.6 %; Eosinophils # (auto) 0.65 K/uL (0-0.50); Eosinophils % (auto) 10.5 %; Hematocrit (blood only) 26.6 % (37.0-47.0); Hemoglobin 8.8 g/dl (12.0-16.0); Immature Granulocytes # (auto) 0.03 K/uL (0.01-0.20); Immature Granulocytes % (auto) 0.5 %; Lymphocytes # (auto) 1.25 K/uL (1.2-3.4); Lymphocytes % (auto) 20.1 %; Mean Corpuscular Hemoglobin 32.1 pg (25.0-34.0); Mean Corpuscular Hgb Conc 33.1 g/dL (32.0-36.0); Mean Corpuscular Volume 97.1 fL (80.0-100.0); Mean Platelet Volume 9.3 fL (9.4-12.4); Monocytes # (auto) 0.85 K/uL (0.11-0.59); Monocytes % (auto) 13.7 %; Neutrophils % (auto) 54.6 %; Platelet Count 244 K/uL (130-400); RDW Coefficient of Variation 13.6 % (11.5-14.5); RDW Standard Deviation 48.9 fL (36.4-46.3); Red Blood Count 2.74 M/uL (4.20-5.40); White Blood Count 6.22 K/ul (4.8-10.8)
--- NOTE | 2023-01-24 14:25 | History & Physical Report ---
Date of Service January 24, 2023 History of Present Illness Primary Care Provider: Megan Escalona MD Allergies Allergy/AdvReac Type Severity Reaction Status Date / Time pepper (genus Capsicum) Allergy Intermediate Gastrointestinal Unverified 01/24/23 12:30 Upset capsaicin Allergy Unknown Verified 01/23/23 14:07 prednisone AdvReac Intermediate Dizziness Verified 01/23/23 14:07 & weird dreams gabapentin Allergy Nausea Uncoded 01/23/23 14:07 vomiting tramadol Allergy Vomiting Uncoded 01/23/23 14:07 collin inhibitors AdvReac Mild Cough Uncoded 01/23/23 14:07 arb angiotensin receptor AdvReac Mild Cough Uncoded 01/23/23 14:07 antagonist Home Medications Medication Instructions Recorded Confirmed Type fexofenadine 180 mg tablet 180 mg PO QAM PRN ALLERGY RELIEF 04/01/19 01/24/23 History ([place] Allergy) multivitamin (Daily Multi-Vitamin 1 tab PO QPM 04/01/19 01/24/23 History tablet) simethicone 125 mg capsule 125 mg PO QAM PRN BLOATING/GAS 10/21/20 01/24/23 History RELIEF vit C 250 mg-vit E 90 mg-zinc 40 1 tab PO BID 10/21/20 01/24/23 History mg-copper 1 jc-tjeyhl-bclrfq capsule (PreserVision AREDS-2) famotidine 20 mg tablet (Pepcid AC) 20 mg PO BID 08/09/21 01/24/23 History ascorbic acid 1,000 1 ea PO QAM 09/26/21 01/24/23 History hi-wnfpzxtxajah-qnrfisav powder effervescent pack (Emergen-C) carvedilol 3.125 mg tablet (Coreg) 3.125 mg PO BID #180 tabs 04/13/22 01/24/23 Rx acetaminophen 500 mg capsule 500 mg PO UD PRN Pain 04/16/22 01/24/23 History levothyroxine 50 mcg tablet 50 mcg PO 1600 04/16/22 01/24/23 History diphenhydramine-zinc acetate 2 1 applic topical TID PRN itching 07/11/22 01/24/23 Rx %-0.1 % topical cream (Anti-Itch on back #35 grams (diphenhydramine) with Zinc) cholecalciferol (vitamin D3) 25 25 mcg PO QAM 11/19/22 01/24/23 History mcg (1,000 unit) tablet (Vitamin D3) estradiol 0.01% (0.1 mg/gram) 1 g vaginal .Once/week 11/20/22 01/24/23 History vaginal cream lidocaine 5 % topical ointment 1 applic topical BID PRN pain 11/20/22 01/24/23 History hydroxyzine HCl 25 mg tablet 25 mg PO TID PRN anxiety #90 tabs 12/07/22 01/24/23 Rx fluocinolone acetonide oil 0.01 % 4 drp otic (ear) BID PRN ear 12/18/22 01/24/23 Rx ear drops itching #20 mL ipratropium bromide 21 mcg (0.03 2 spray intranasal BID PRN nasal 12/18/22 01/24/23 Rx %) nasal spray drainage #30 mL sennosides 8.6 mg tablet (senna) 8.6 mg PO DAILY Constipation 01/22/23 01/24/23 History Past Med/Surg History Medical History (Updated 01/24/23 @ 08:54 by Catia Ramsey PA-C) Allergic rhinitis Anemia Anxiety Bladder carcinoma High grade s/p TURBT 02/2022, 04/2022, and 07/2022- on Keytruda Cardiomyopathy Valvular cardiomyopathy, 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 no longer is presribed omeprazole. Hyperlipidemia Hypertension Hypothyroidism Immunotherapy currently receiving through [facility]. & to follow up with [facility] Heme/Oncology Macular degeneration Migraines Mitral valve regurgitation Moderate - follows with Dr. Hernandez Nausea and vomiting after administration of anesthetic agent nausea after procedure feb 2022/given pill for nausea and that helped Osteopenia PMR (polymyalgia rheumatica) Follows with rheum - Dr. Mays Port-A-Cath in place Power Port - implantable port [place]. patient will bring the device card DOS. placed 11/14/2022 at [facility] Presence of pessary Renal arterial aneurysm Follows with Dr. 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 [id number]. Recurrence/progression 02/2022 s/p large TURBT 03/08/22& repeat cystoscopy TURBT 04/2022 and 07/2022 Cutaneous metastases On Keytruda Venous insufficiency Both legs Surgical History H/O nephroureterectomy left kidney and ureter at [facility]. H/O transurethral resection of bladder tumor (TURBT) multiple; last done 11/27/2022 08/02/2022 at [facility] Grade 1 view, MAC 3, ETT 7. H/O unilateral oophorectomy History of colonoscopy History of dilatation and curettage History of surgery feb 2022 for bladder cancer History of surgery "power port, implantable port [place]" Power port placed per patient and daughter at [facility] 11/14/22 History of surgery Resection of uterine fibroid History of transurethral resection of bladder tumor (TURBT) 04/2022 [facility] S/P biopsy ureter S/p nephrectomy left kidney and left ureter 10/30/2021 [facility] [place] teeth removed Family History Sister Breast cancer Mother , 88yo Stroke Hypertension Father , 54yo Black lung disease Brother Aneurysm Hypertension Brother Lung cancer Brother Addiction Daughter No problems noted. Other No family history of adverse response to anesthesia No pertinent family history Denies family history of Ovarian cancer Prostate cancer Myocardial infarction Colorectal cancer Social History Smoking Status: Never smoker Second Hand Exposure: No; Do You Dip or Chew Tobacco: No; Hx Alcohol Use: No Hx Substance Use: No Preferred Language: Finnish Communication Ability: Effective Visual Impairment: No Limitations Hearing Ability: Normal Hogshead Head Matcher Required: No Beliefs That Will Affect Care: None marital status: / Current Living Situation: Alone Current Living Situation Comment: LIVES INDEPENDENT AT [facility] 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 How many Children do You have: 1 Feels Safe at Home: Yes Diet: regular caffeine: No during the past year weight has: remained stable Seatbelt Use: always Sunscreen Use: Yes Assistive Devices: CPAP, Glasses and Walker Results & Data Results & Data Vital Signs (Past 12 Hours) Vital Signs Temp Pulse Pulse Resp BP BP Pulse Ox 01/24/23 13:55 58 L 18 93 01/24/23 13:44 63 01/24/23 13:00 97 H 19 163/85 H 95 01/24/23 11:29 37.2 C 70 20 159/89 H 98 O2 Del Method O2 Flow Rate 01/24/23 13:55 Nasal Cannula 2 01/24/23 13:44 01/24/23 13:00 Room Air 01/24/23 11:29 Room Air Laboratory Results Abnormal lab results 01/24/23 01/24/23 Range/Units 12:22 12:22 RBC 2.74 L (4.20-5.40) M/uL Hgb 8.8 L (12.0-16.0) g/dl Hct 26.6 L (37.0-47.0) % RDW Std Deviation 48.9 H (36.4-46.3) fL MPV 9.3 L (9.4-12.4) fL [place] # (Auto) 0.85 H (0.11-0.59) K/uL Eos # (Auto) 0.65 H (0-0.50) K/uL Urine Appearance Cloudy A (Clear) Urine Blood Trace H (Negative) Ur Leukocyte Esterase 3+ H (Negative) Urine WBC (Auto) >30 H (0-5) /hpf U Epithel Cells (Auto) 20-30 H (0-5) /lpf Diagnostic Findings CT abd pelvis wo con CLINICAL HISTORY: stone TECHNIQUE: Helical axial images of the abdomen and pelvis were obtained. Automated dose lowering techniques and/or adjustment according to patient size were utilized for this exam. This exam was performed without intravenous contrast. CT DOSE: 1262.38 mGy.cm COMPARISON: None available at the time of this dictation. FINDINGS: Lower chest: Bibasilar atelectasis versus scarring is seen. Liver: Hepatic cysts are seen. Gallbladder and biliary tree: No calcified gallstones. Normal caliber wall. Physiologic prominence of the biliary ducts is noted. Pancreas: Unremarkable, no focal lesions. Spleen: Unremarkable. Adrenals: Unremarkable. Kidneys and ureters: Patient is status post left nephrectomy. Multiple right rico al cysts are seen. There is right hydronephrosis and hydroureter ureter. Bladder: Diffuse homogeneous wall thickening is seen. Reproductive organs: Unremarkable. Bowel: Diverticulosis is seen without diverticulitis. The appendix is normal. A small hiatal hernia is seen. Lymph nodes Retroperitoneal: Unremarkable. Pelvic: Unremarkable. Mesenteric: Unremarkable. Peritoneum: Mild fat stranding seen about the right ureter. Vessels: Atherosclerotic calcifications are seen. Abdominal wall: Midline incision and fat-containing hernia noted. Bones: Degenerative changes in the visualized spine. IMPRESSION: 1. There is right hydronephrosis and hydroureter without visualized stone. Findings may represent recently passed stone. 2. Thickening of the bladder wall is noted, urinalysis correlation is rec ommended to exclude cystitis and/or ascending infection. 3. Additional findings as above. PG Care Time/CCT Total # of Minutes Spent Total Time Spent with Patient: Total time spent is greater than 50% in coordination of care (as documented) at patient's floor/unit and/or counseling patient: Coding Diagnoses
[2023-01-24 14:53] LABS: Albumin Globulin Ratio 1.2 (0.9-2); Albumin Level 3.5 gm/dl (3.4-5.0); BUN Creatinine Ratio 13.2 (10-20); Bilirubin,Total 0.5 mg/dl (0.2-1.0); Calcium 8.4 mg/dl (8.6-10.3); Creatinine Clr Calc Pharmacy 13.9 ml/min; Est GFR (African American) 18.7 ml/min; Est GFR (Non-African American) 16.1 ml/min; Globulin 2.9 gm/dl (2.5-4.0); Potassium 3.9 mmol/L (3.5-5.1); Total Protein 6.4 gm/dl (6.0-8.3)
--- NOTE | 2023-01-24 14:58 | Urology Consultation ---
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 Plan of care and imaging reviewed with Dr. Wang. She is afebrile, hypertensive. Labs show no leukocytosis and repeat creatinine of 2.58 (was previously 3.04). Urine culture pending- IV Ceftriaxone given in ED. We reviewed her renal ultrasound and CT abdomen pelvis today showing right-sided hydronephrosis. We discussed that given her history and new finding of right hydronephrosis and worsening renal function, our recommendation would be for transfer to tertiary center with IR for nephrostomy tube placement. We discussed that we could attempt cystoscopy and ureteral stent placement, however there is a chance that this would be unsuccessful and would still require transfer for nephrostomy tube placement. Patient/daughter agreeable to transfer to tertiary center for nephrostomy tube placement. Discussed with ED provider who will initiate transfer. Please see attending note. History of Present Illness History of Present Illness 87-year-old female with a history of metastatic upper tract urothelial carcinoma status post left nephroureterectomy 10/2021 who presented to the ED today due to worsening renal function on outpatient labs. Patient is well-known to the urology service, follows with Dr. Wang. Hx of metastatic upper tract urothelial carcinoma s/p left nephroureterecomy in [place] 10/2021. Hx recurrent high-grade noninvasive bladder cancer s/p TURBT 03/08/2022. Repeat TURBT showed identical pathology, which was performed on 04/19/2022. She completed 5 courses of induction BCG but then developed gross hematuria. Cystoscopy showed recurrence of bladder tumor. She underwent another TURBT on 08/02/2022 which returned high-grade pool player. She is currently on Keytruda and has had palliative radiation to a metastatic site on her abdomen. Recently found to have another recurrence of bladder cancer and was scheduled for repeat TURBT 01/29/[address] Wang. She had outpatient labs showing a creatinine of 3.04 and a renal ultrasound that showed right hydronephrosis and the right ureteral jet was not seen and concerning for ureteral obstruction. On arrival to the ED, she was afebrile, hypertensive, otherwise stable. Labs show no leukocytosis, hemoglobin 8.8, creatinine Urinalysis with trace blood, negative nitrite, 3+ LE, negative bacteria. CT abdomen pelvis shows right hydronephrosis and hydroureter, no stones, and bladder wall thickening. Patient was examined at bedside in the ED. Daughter at bedside. She is awake and resting in bed in no acute distress. Daughter reports she has been feeling tired. Also reported a low-grade temp of 99 at home. She denies any significant pain or discomfort at present. Allergies Allergy/AdvReac Type Severity Reaction Status Date / Time pepper (genus Capsicum) Allergy Intermediate Gastrointestinal Unverified 01/24/23 12:30 Upset capsaicin Allergy Unknown Verified 01/23/23 14:07 prednisone AdvReac Intermediate Dizziness Verified 01/23/23 14:07 & weird dreams gabapentin Allergy Nausea Uncoded 01/23/23 14:07 vomiting tramadol Allergy Vomiting Uncoded 01/23/23 14:07 collin inhibitors AdvReac Mild Cough Uncoded 01/23/23 14:07 arb angiotensin receptor AdvReac Mild Cough Uncoded 01/23/23 14:07 antagonist Home Medications Medication Instructions Recorded Confirmed Type fexofenadine 180 mg tablet 180 mg PO QAM PRN ALLERGY RELIEF 04/01/19 01/24/23 History ([place] Allergy) multivitamin (Daily Multi-Vitamin 1 tab PO QPM 04/01/19 01/24/23 History tablet) simethicone 125 mg capsule 125 mg PO QAM PRN BLOATING/GAS 10/21/20 01/24/23 History RELIEF vit C 250 mg-vit E 90 mg-zinc 40 1 tab PO BID 10/21/20 01/24/23 History mg-copper 1 na-cybayc-cfqxvo capsule (PreserVision AREDS-2) famotidine 20 mg tablet (Pepcid AC) 20 mg PO BID 08/09/21 01/24/23 History ascorbic acid 1,000 1 ea PO QAM 09/26/21 01/24/23 History vn-comhbltmjwqj-qmgpwhbe powder effervescent pack (Emergen-C) carvedilol 3.125 mg tablet (Coreg) 3.125 mg PO BID #180 tabs 04/13/22 01/24/23 Rx acetaminophen 500 mg capsule 500 mg PO UD PRN Pain 04/16/22 01/24/23 History levothyroxine 50 mcg tablet 50 mcg PO 1600 04/16/22 01/24/23 History diphenhydramine-zinc acetate 2 1 applic topical TID PRN itching 07/11/22 01/24/23 Rx %-0.1 % topical cream (Anti-Itch on back #35 grams (diphenhydramine) with Zinc) cholecalciferol (vitamin D3) 25 25 mcg PO QAM 11/19/22 01/24/23 History mcg (1,000 unit) tablet (Vitamin D3) lidocaine 5 % topical ointment 1 applic topical BID PRN pain 11/20/22 01/24/23 History hydroxyzine HCl 25 mg tablet 25 mg PO TID PRN anxiety #90 tabs 12/07/22 01/24/23 Rx fluocinolone acetonide oil 0.01 % 4 drp otic (ear) BID PRN ear 12/18/22 01/24/23 Rx ear drops itching #20 mL ipratropium bromide 21 mcg (0.03 2 spray intranasal BID PRN nasal 12/18/22 01/24/23 Rx %) nasal spray drainage #30 mL sennosides 8.6 mg tablet (senna) 8.6 mg PO DAILY Constipation 01/22/23 01/24/23 History estradiol 0.01% (0.1 mg/gram) 1 g vaginal .Once/week #42.5 grams 01/24/23 Rx vaginal cream Patient History Medical History (Updated 01/24/23 @ 16:05 by Alexandre Cardoso PA-C) Allergic rhinitis Anemia Anxiety Bladder carcinoma High grade s/p TURBT 02/2022, 04/2022, and 07/2022- on Keytruda Cardiomyopathy Valvular cardiomyopathy, 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 no longer is presribed omeprazole. Hyperlipidemia Hypertension Hypothyroidism Immunotherapy currently receiving through [facility]. & to follow up with [facility] Heme/Oncology Macular degeneration Migraines Mitral valve regurgitation Moderate - follows with Dr. Hernandez Nausea and vomiting after administration of anesthetic agent nausea after procedure feb 2022/given pill for nausea and that helped Osteopenia PMR (polymyalgia rheumatica) Follows with rheum - Dr. Mays Port-A-Cath in place Power Port - implantable port [place]. patient will bring the device card DOS. placed 11/14/2022 at [facility] Presence of pessary Renal arterial aneurysm Follows with Dr. 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 [id number]. Recurrence/progression 02/2022 s/p large TURBT 03/08/22& repeat cystoscopy TURBT 04/2022 and 07/2022 Cutaneous metastases On Keytruda Venous insufficiency Both legs Surgical History H/O nephroureterectomy left kidney and ureter at [facility]. H/O transurethral resection of bladder tumor (TURBT) multiple; last done 11/27/2022 08/02/2022 at [facility] Grade 1 view, MAC 3, ETT 7. H/O unilateral oophorectomy History of colonoscopy History of dilatation and curettage History of surgery feb 2022 for bladder cancer History of surgery "power port, implantable port [place]" Power port placed per patient and daughter at [facility] 11/14/22 History of surgery Resection of uterine fibroid History of transurethral resection of bladder tumor (TURBT) 04/2022 [facility] S/P biopsy ureter S/p nephrectomy left kidney and left ureter 10/30/2021 [facility] [place] teeth removed Family History Sister Breast cancer Mother , 88yo Stroke Hypertension Father , 54yo Black lung disease Brother Aneurysm Hypertension Brother Lung cancer Brother Addiction Daughter No problems noted. Other No family history of adverse response to anesthesia No pertinent family history Denies family history of Ovarian cancer Prostate cancer Myocardial infarction Colorectal cancer Social History Smoking Status: Never smoker Second Hand Exposure: No; Do You Dip or Chew Tobacco: No; Hx Alcohol Use: No Hx Substance Use: No Preferred Language: Danish Communication Ability: Effective Visual Impairment: No Limitations Hearing Ability: Normal Securities Analyst Required: No Beliefs That Will Affect Care: None marital status: / Current Living Situation: Alone Current Living Situation Comment: LIVES INDEPENDENT AT [facility] 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 How many Children do You have: 1 Feels Safe at Home: Yes Diet: regular caffeine: No during the past year weight has: remained stable Seatbelt Use: always Sunscreen Use: Yes Assistive Devices: CPAP, Glasses and Walker Review of Systems Review of Systems: All systems reviewed & are unremarkable except as noted in HPI & below Physical Exam Constitutional: no acute distress chronically ill-appearing Neck: normal visual inspection Respiratory: no respiratory distress and no labored breathing Gastrointestinal (Abdomen): Inspection/Auscultation: abdomen normal to inspection Musculoskeletal: Head/Neck/Chest: normocephalic Skin: Warm and dry Neurologic: awake Psychiatric: Orientation: alert, oriented x 3 and cooperative Results & Data Vital Signs (Past 12 Hours) Vital Signs Temp Pulse Pulse Resp BP BP Pulse Ox 01/24/23 13:44 63 01/24/23 13:00 97 H 19 163/85 H 95 01/24/23 11:29 37.2 C 70 20 159/89 H 98 O2 Del Method 01/24/23 13:44 01/24/23 13:00 Room Air 01/24/23 11:29 Room Air PG Care Time/CCT Total # of Minutes Spent Total Time Spent with Patient: Total time spent is greater than 50% in coordination of care (as documented) at patient's floor/unit and/or counseling patient: Coding Level of Care Code 09206 INT INP/OBS CARE 2/55MIN Diagnoses Metastatic urothelial carcinoma C79.10 Bladder carcinoma C67.9 Hydronephrosis, right N13.30
[2023-01-24] MEDS ORDERED: ONDANSETRON INJ 2 MG/ML 2 ML VIAL IV STA (15:10)
[2023-01-24] MEDS ORDERED: SODIUM CHLORIDE 0.9% 1000ML 1,000 ML IV ONE (15:10)
[2023-01-24] MEDS ORDERED: cefTRIAXone SODIUM 2,000 MG/70 ML BAG IV STA (15:11)
--- NOTE | 2023-01-24 15:26 | History & Physical Report ---
Date of Service January 24, 2023 Assessment & Plan (1) MITCH (acute kidney injury): Plan: -Admit to med/tele -Currently stable -Initially found to have a Cr of 3.0 earlier today, baseline is approximately 1.0 -Cr down to 2.53 after initial treated in the ED, patient is making urine -Likely due to obstruction causing right hydronephrosis and hydroureter, no stone seen on CT today -Evaluated by Urology who recommended transfer for IR placement of right nephrostomy tube -Patient has been accepted to [facility], confirmed she was accepted by Dr.Samjeev Eagle >Transfer paperwork completed by the ED staff -Will stop the NSS and start her on Sodium bicarb drip at 80/mL/hr for now with her elevated chloride level and mildly decreased bicarb -Patient received a dose of Ceftriaxone in the ED, UA is equivocal and patient is asymptomatic, will hold additional abx at this time, continue to monitor urine culture and fever curve -Avoid nephrotoxic agents -Monitor intake and output q6h -SQ heparin for DVT PPX -HH diet once she takes her afternoon levothyroxine -AM CBC, CMP, Mag (2) Hyperchloremia: Plan: -Chloride elevated at 111 with Bicarb of 20 and AG WNL -Likely due to her MITCH -Received 1L NSS in the ED -Switching her to Sodium Bicarb drip ay 80 mL/hr for now -Monitor am renal function and electrolytes (3) Hydronephrosis, right: Plan: -See MITCH (4) Bladder carcinoma: Plan: -Follows with [facility] Urology and [facility] Oncology -Currently receiving q3w Keytruda treatment, last dose was January 16 -Continue to FU with Oncology and Urology (5) Hypertension: Plan: -Improved since arrival -Continue Coreg (6) Hypothyroidism: Plan: -Continue levothyroxine Plan The patient was discussed with Dr. 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 Urology, [facility] Onc), HTN, and hypothyroidism who presented to the [facility] ED on 01/24 at the recommendation of her PCP due to abnormal outpatient labs and imaging. Per chart review, the patient had a follow-up appointment with her PCP on 01/22 and was noted to have an MITCH on labs. They ordered an US of her right kidney and repeat labs for today. Her Cr today was noted to be 3.04 (baseline is approximately 1.0) and renal US was read as "Right hydronephrosis and cysts. Right jet is not seen concerning for ureteral obstruction. Patient is status post left nephrectomy.". In the ED today she was noted to be hypertensive at 176/80 but otherwise stable. Labs were significant for an improving Cr of 2.58, chloride of 111, with AG WNL and bicarb of 20, and UA noting cloudy urine with trace blood, 3+ leukocyte esterase, > 30 WBC, 20-30 epithelial cells, and negative bacteria. CT of the abd/pelvis without con was read as "1. There is right hydronephrosis and hydroureter without visualized stone. Findings may represent recently passed stone. 2. Thickening of the bladder wall is noted, urinalysis correlation is recommended to exclude cystitis and/or ascending infection. 3. Additional findings as above.". Urology was consulted and recommended transfer to [facility] with IR for nephrostomy tube placement. The patient was accepted by Dr Lambert Eagle at [facility] but will likely not have an available bed until tomorrow. We were asked to admit the patient until she can be transferred to [facility] for further treatment. Prior to admission the patient was given a dose of ceftriaxone, 1L NSS, and 4 mg IV zofran. At the time of the exam the patient was lying in bed in no acute distress with her Daughter/POA sitting bedsides. They confirmed the history as stated above. She is currently cold and hungry but is otherwise without complaints. She receives Keytruda every 3 weeks with her last dose of January 16. She denies recent fever, chest pain, SOB, abd pain, nausea, vomiting, diarrhea, dysuria hematuria, increased urinary frequency, diarrhea, LE swelling, and recent trauma. She is a full code and would want her Daughter to make medical decisions for her if she could not make them herself. Please refer to Dr. Haas's attestation for any changes to the treatment plan Allergies Allergy/AdvReac Type Severity Reaction Status Date / Time pepper (genus Capsicum) Allergy Intermediate Gastrointestinal Unverified 01/24/23 12:30 Upset capsaicin Allergy Unknown Verified 01/23/23 14:07 prednisone AdvReac Intermediate Dizziness Verified 01/23/23 14:07 & weird dreams gabapentin Allergy Nausea Uncoded 01/23/23 14:07 vomiting tramadol Allergy Vomiting Uncoded 01/23/23 14:07 collin inhibitors AdvReac Mild Cough Uncoded 01/23/23 14:07 arb angiotensin receptor AdvReac Mild Cough Uncoded 01/23/23 14:07 antagonist Home Medications Medication Instructions Recorded Confirmed Type fexofenadine 180 mg tablet 180 mg PO QAM PRN ALLERGY RELIEF 04/01/19 01/24/23 History ([place] Allergy) multivitamin (Daily Multi-Vitamin 1 tab PO QPM 04/01/19 01/24/23 History tablet) simethicone 125 mg capsule 125 mg PO QAM PRN BLOATING/GAS 10/21/20 01/24/23 His tory RELIEF vit C 250 mg-vit E 90 mg-zinc 40 1 tab PO BID 10/21/20 01/24/23 History mg-copper 1 lr-qflzau-ivtqpu capsule (PreserVision AREDS-2) famotidine 20 mg tablet (Pepcid AC) 20 mg PO BID 08/09/21 01/24/23 History ascorbic acid 1,000 1 ea PO QAM 09/26/21 01/24/23 History pu-bumvtcsahbcu-mekkirjc powder effervescent pack (Emergen-C) carvedilol 3.125 mg tablet (Coreg) 3.125 mg PO BID #180 tabs 04/13/22 01/24/23 Rx acetaminophen 500 mg capsule 500 mg PO UD PRN Pain 04/16/22 01/24/23 History levothyroxine 50 mcg tablet 50 mcg PO 1600 04/16/22 01/24/23 History diphenhydramine-zinc acetate 2 1 applic topical TID PRN itching 07/11/22 01/24/23 Rx %-0.1 % topical cream (Anti-Itch on back #35 grams (diphenhydramine) with Zinc) cholecalciferol (vitamin D3) 25 25 mcg PO QAM 11/19/22 01/24/23 History mcg (1,000 unit) tablet (Vitamin D3) lidocaine 5 % topical ointment 1 applic topical BID PRN pain 11/20/22 01/24/23 History hydroxyzine HCl 25 mg tablet 25 mg PO TID PRN anxiety #90 tabs 12/07/22 01/24/23 Rx fluocinolone acetonide oil 0.01 % 4 drp otic (ear) BID PRN ear 12/18/22 01/24/23 Rx ear drops itching #20 mL ipratropium bromide 21 mcg (0.03 2 spray intranasal BID PRN nasal 12/18/22 01/24/23 Rx %) nasal spray drainage #30 mL sennosides 8.6 mg tablet (senna) 8.6 mg PO DAILY Constipation 01/22/23 01/24/23 History estradiol 0.01% (0.1 mg/gram) 1 g vaginal .Once/week #42.5 grams 01/24/23 Rx vaginal cream Past Med/Surg History Medical History (Updated 01/24/23 @ 16:05 by Alexandre Cardoso PA-C) Allergic rhinitis Anemia Anxiety Bladder carcinoma High grade s/p TURBT 02/2022, 04/2022, and 07/2022- on Keytruda Cardiomyopathy Valvular cardiomyopathy, 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 no longer is presribed omeprazole. Hyperlipidemia Hypertension Hypothyroidism Immunotherapy currently receiving through [facility]. & to follow up with [facility] Heme/Oncology Macular degeneration Migraines Mitral valve regurgitation Moderate - follows with Dr. Hernandez Nausea and vomiting after administration of anesthetic agent nausea after procedure feb 2022/given pill for nausea and that helped Osteopenia PMR (polymyalgia rheumatica) Follows with rheum - Dr. Mays Port-A-Cath in place Power Port - implantable port [place]. patient will bring the device card DOS. placed 11/14/2022 at [facility] Presence of pessary Renal arterial aneurysm Follows with Dr. 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 [id number]. Recurrence/progression 02/2022 s/p large TURBT 03/08/22& repeat cystoscopy TURBT 04/2022 and 07/2022 Cutaneous metastases On Keytruda Venous insufficiency Both legs Surgical History H/O nephroureterectomy left kidney and ureter at [facility]. H/O transurethral resection of bladder tumor (TURBT) multiple; last done 11/27/2022 08/02/2022 at [facility] Grade 1 view, MAC 3, ETT 7. H/O unilateral oophorectomy History of colonoscopy History of dilatation and curettage History of surgery feb 2022 for bladder cancer History of surgery "power port, implantable port [place]" Power port placed per patient and daughter at [facility] 11/14/22 History of surgery Resection of uterine fibroid History of transurethral resection of bladder tumor (TURBT) 04/2022 [facility] S/P biopsy ureter S/p nephrectomy left kidney and left ureter 10/30/2021 [facility] [place] teeth removed Family History Sister Breast cancer Mother , 88yo Stroke Hypertension Father , 54yo Black lung disease Brother Aneurysm Hypertension Brother Lung cancer Brother Addiction Daughter No problems noted. Other No family history of adverse response to anesthesia No pertinent family history Denies family history of Ovarian cancer Prostate cancer Myocardial infarction Colorectal cancer Social History Smoking Status: Never smoker Second Hand Exposure: No; Do You Dip or Chew Tobacco: No; Hx Alcohol Use: No Hx Substance Use: No Preferred Language: Singaporean Communication Ability: Effective Visual Impairment: No Limitations Hearing Ability: Normal Basting Puller Required: No Beliefs That Will Affect Care: None marital status: / Current Living Situation: Alone and Personal Care Facility Current Living Situation Comment: [facility] 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 How many Children do You have: 1 Feels Safe at Home: Yes Diet: regular caffeine: No during the past year weight has: remained stable Seatbelt Use: always Sunscreen Use: Yes Assistive Devices: CPAP Physical Exam Physical Exam: Physical Exam: General: In no acute distress, stated age, well-nourished, non-toxic appearing HEENT: Normocephalic, atraumatic, no scleral icterus, pupils around round, symmetrical, and reactive to light, moist mucus membranes, trachea midline, no thyromegaly Chest/Pulm: Mediport located in the right upper chest is without signs of in fection, No respiratory distress, symmetrical chest expansion, clear breath sounds throughout Cardiac: RRR, systolic murmur noted Abdomen: Negative for ascites and bruising, normoactive bowel sounds, soft, non-tender to palpation throughout Musculoskeletal: Symmetrical and without signs of acute trauma, upper and lower extremities with full ROM, no atrophy, spasticity, or flaccidity Extremities: Radial, dorsalis pedis, and posterior tibial pulses are intact and symmetrical, no edema noted in the BL LE's Skin: Warm, dry, no rashes , lesions, or scars noted Neuro: Alert and oriented to person, place, month, year, and president, no fo michael defects, no tremors noted Psych: No acute distress, calm and cooperative during the exam Results & Data Results & Data Vital Signs (Past 12 Hours) Vital Signs Temp Pulse Pulse Resp BP BP Pulse Ox 01/24/23 13:55 58 L 18 93 01/24/23 13:44 63 01/24/23 13:00 97 H 19 163/85 H 95 01/24/23 11:29 37.2 C 70 20 159/89 H 98 O2 Del Method O2 Flow Rate 01/24/23 13:55 Nasal Cannula 2 01/24/23 13:44 01/24/23 13:00 Room Air 01/24/23 11:29 Room Air Laboratory Results Abnormal lab results 01/24/23 01/24/23 01/24/23 Range/Units 12:22 12:22 14:15 RBC 2.74 L (4.20-5.40) M/uL Hgb 8.8 L (12.0-16.0) g/dl Hct 26.6 L (37.0-47.0) % RDW Std Deviation 48.9 H (36.4-46.3) fL MPV 9.3 L (9.4-12.4) fL Clarke # (Auto) 0.85 H (0.11-0.59) K/uL Eos # (Auto) 0.65 H (0-0.50) K/uL Chloride 111 H (98-107) mmol/L Carbon Dioxide 20 L (21-32) mmol/L BUN 34 H (6-23) mg/dl Creatinine 2.58 H D (0.6-1.2) mg/dl Calcium 8.4 L (8.6-10.3) mg/dl Urine Appearance Cloudy A (Clear) Urine Blood Trace H (Negative) Ur Leukocyte Esterase 3+ H (Negative) Urine WBC (Auto) >30 H (0-5) /hpf U Epithel Cells (Auto) 20-30 H (0-5) /lpf Diagnostic Findings Abdomen/Pelvis CT 01/24/23 11:34 CT abd pelvis wo con CLINICAL HISTORY: stone TECHNIQUE: Helical axial images of the abdomen and pelvis were obtained. Automated dose lowering techniques and/or adjustment according to patient size were utilized for this exam. This exam was performed without intravenous contrast. CT DOSE: 1262.38 mGy.cm COMPARISON: None available at the time of this dictation. FINDINGS: Lower chest: Bibasilar atelectasis versus scarring is seen. Liver: Hepatic cysts are seen. Gallbladder and biliary tree: No calcified gallstones. Normal caliber wall. Physiologic prominence of the biliary ducts is noted. Pancreas: Unremarkable, no focal lesions. Spleen: Unremarkable. Adrenals: Unremarkable. Kidneys and ureters: Patient is status post left nephrectomy. Multiple right renal cysts are seen. There is right hydronephrosis and hydroureter ureter. Bladder: Diffuse homogeneous wall thickening is seen. Reproductive organs: Unremarkable. Bowel: Diverticulosis is seen without diverticulitis. The appendix is normal. A small hiatal hernia is seen. Lymph nodes Retroperitoneal: Unremarkable. Pelvic: Unremarkable. Mesenteric: Unremarkable. Peritoneum: Mild fat stranding seen about the right ureter. Vessels: Atherosclerotic calcifications are seen. Abdominal wall: Midline incision and fat-containing hernia noted. Bones: Degenerative changes in the visualized spine. IMPRESSION: 1. There is right hydronephrosis and hydroureter without visualized stone. Findings may represent recently passed stone. 2. Thickening of the bladder wall is noted, urinalysis correlation is recommended to exclude cystitis and/or ascending infection. 3. Additional findings as above. ACT 112: Negative or not required by law. Electronically signed by: Phan Dumas M.D. 01/24/2023 12:44 PM ECG Additional Comments: Will obtain on admission Code Status & VTE Plan Code Status Full code VTE Prophylaxis Plan VTE Prophylaxis will be ordered: Yes Supervising Physician Co-Signing Physician Notes I personally saw and examined the patient. I verified all wang points and agree with Alexandre Cardoso PA-C with the following exceptions and/or additions: 87 year old female presents to the ER on advice of PCP for abnormal outpatient labs and imaging. Plan from urology is for transfer to [facility] once bed becaomes available for MITCH. In the mean time will place on sodium bicarb IV drip for minimally low bicarb with hyperchloremia. No acute urinary symptoms per patient. O/E HS RRR, no murmurs, Chest CTAB, Abdo SNT, No CVA tednerness A/P MITCH - Sodium bicarb 150 meq in sterile water @ 80ml/hr, transfer to [facility] once bed available. PG Care Time/CCT Total # of Minutes Spent Total Time Spent with Patient: Total time spent is greater than 50% in coordination of care (as documented) at patient's floor/unit and/or counseling patient: Coding [place] [address] INT INP/OBS CARE 2/55MIN Patient Type Established Medical Decision Making High Complexity Diagnoses MITCH (acute kidney injury) N17.9 Hyperchloremia E87.8 Hydronephrosis, right N13.30 Bladder carcinoma C67.9 Hypertension I10 Hypothyroidism E03.9
[2023-01-24] MEDS ORDERED: SODIUM BICARBONATE 8.4% 150 MEQ in WATER, STERILE 1,000 ML IV SCH (15:45)
[2023-01-24] MEDS ORDERED: LEVOTHYROXINE SODIUM 50 MCG TABLET PO STA (15:52)
[2023-01-24] MEDS ORDERED: FEXOFENADINE HCL 180 MG TAB PO PRN (18:22)
[2023-01-24] MEDS ORDERED: hydrOXYzine HCl 25 MG TAB PO PRN (18:22)
[2023-01-24] MEDS ORDERED: CALCIUM CARBONATE 500 MG CHEWABLE TAB PO PRN (19:48)
[2023-01-24] MEDS ORDERED: FAMOTIDINE 20 MG TAB PO SCH (21:00)
[2023-01-24] MEDS ORDERED: HEPARIN SOD 5,000 UNIT/0.5 ML VIAL SQ SCH (21:00)
[2023-01-24] MEDS ORDERED: carvediloL 3.125 MG TAB PO SCH (21:00)
[2023-01-25] MEDS ORDERED: FAMOTIDINE 20 MG TAB PO SCH (09:00)
[2023-01-25] MEDS ORDERED: CEROVITE ADV FORMULA TAB PO SCH (09:00)
--- NOTE | 2023-01-25 12:10 | Electrocardiogram Report ---
Test Reason : Blood Pressure : / mmHG Vent. Rate : 058 BPM Atrial Rate : 058 BPM P-R Int : 164 ms QRS Dur : 082 ms QT Int : 450 ms P-R-T Axes : 066 049 062 degrees QTc Int : 441 ms Sinus bradycardia with Premature atrial complexes Otherwise normal ECG When compared with ECG of 23-JAN-2023 15:52, Premature atrial complexes are now Present Confirmed by Dillon Bello ([id number]) on 01/25/2023 12:10:27 PM Referred By: REFERRED SELF Confirmed By:Deep Bello
--- NOTE | 2023-01-25 12:15 | Discharge Summary ---
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 Per chart review, the patient had a follow-up appointment with her PCP on 01/22 and was noted to have an MITCH on labs. They ordered an US of her right kidney and repeat labs for today. Her Cr today was noted to be 3.04 (baseline is approximately 1.0) and renal US was read as "Right hydronephrosis and cysts. Right jet is not seen concerning for ureteral obstruction. Patient is status post left nephrectomy.". In the ED today she was noted to be hypertensive at 176/80 but otherwise stable. Labs were significant for an improving Cr of 2.58, chloride of 111, with AG WNL and bicarb of 20, and UA noting cloudy urine with trace blood, 3+ leukocyte esterase, > 30 WBC, 20-30 epithelial cells, and negative bacteria. CT of the abd/pelvis without con was read as "1. There is right hydronephrosis and hydroureter without visualized stone. Findings may represent recently passed stone. 2. Thickening of the bladder wall is noted, urinalysis correlation is recommended to exclude cystitis and/or ascending infection. 3. Additional findings as above.". Urology was consulted [facility]. [facility] but will likely not have an available bed until tomorrow. We were asked to admit the patient until she can be transferred to [facility] for further treatment. Prior to admission the patient was given a dose of ceftriaxone, 1L NSS, and 4 mg IV zofran. At the time of the exam the patient was lying in bed in no acute distress with her Daughter/POA sitting bedsides. They confirmed the history as stated above. She is currently cold and hungry but is otherwise without complaints. She receives Keytruda every 3 weeks with her last dose of January 16. She denies recent fever, chest pain, SOB, abd pain, nausea, vomiting, diarrhea, dysuria hematuria, increased urinary frequency, diarrhea, LE swelling, and recent trauma. She is a full code and would want her Daughter to make medical decisions for her if she could not make them herself. Please refer to Dr. Haas's attestation for any changes to the treatment plan Admission Exam Per Admitting Provider Physical Exam: General:In no acute distress, stated age, well-nourished, non-toxic appearing HEENT:Normocephalic, atraumatic, no scleral icterus, pupils around round, symmetrical, and reactive to light, moist mucus membranes, trachea midline, no thyromegaly Chest/Pulm:Mediport located in the right upper chest is without signs of infection, No respiratory distress, symmetrical chest expansion, clear breath sounds throughout Cardiac:RRR, systolic murmur noted Abdomen:Negative for ascites and bruising, normoactive bowel sounds, soft, non-tender to palpation throughout Musculoskeletal:Symmetrical and without signs of acute trauma, upper and lower extremities with full ROM, no atrophy, spasticity, or flaccidity Extremities:Radial, dorsalis pedis, and posterior tibial pulses are intact and symmetrical, no edema noted in the BL LE's Skin:Warm, dry, no rashes , lesions, or scars noted Neuro:Alert and oriented to person, place, month, year, and president, no focal defects, no tremors noted Psych:No acute distress, calm and cooperative during the exam Principal Diagnosis Acute renal failure, hydronephrosis, hydroureter Discharge Exam Patient was not examined on day of discharge as she was transferred overnight Discharge Data Allergies Allergy/AdvReac Type Severity Reaction Status Date / Time pepper (genus Capsicum) Allergy Intermediate Gastrointestinal Unverified 01/24/23 12:30 Upset capsaicin Allergy Unknown Verified 01/23/23 14:07 prednisone AdvReac Intermediate Dizziness Verified 01/23/23 14:07 & weird dreams gabapentin Allergy Nausea Uncoded 01/23/23 14:07 vomiting tramadol Allergy Vomiting Uncoded 01/23/23 14:07 collin inhibitors AdvReac Mild Cough Uncoded 01/23/23 14:07 arb angiotensin receptor AdvReac Mild Cough Uncoded 01/23/23 14:07 antagonist Consultations 01/24/23 18:18 Burn CD for patient Stat Ordered Studies 01/24/23 11:34 CT stones [CT abd pelvis wo con] Stat Hospital Course (1) MITCH (acute kidney injury): -Patient presented to the [facility] ED on 01/24 at the recommendation of her PCP for MITCH on outpatient labs and abnormal outpatient renal US. In the ED the patient remained stable. Labs confirmed an MITCH as Cr was 2.58, with a baseline of 1.0. CT of the abdomen/pelvis wo con showed right hydronephrosis and hydroureter without visualized stone. Urology was consulted and recommended transfer to a tertiary care center for right nephrostomy tube placement as she has a complex Urologic history. The patient was admitted to [facility] for medical management until she had an available bed at [facility]. She was transferred to [facility] [place] on the morning of 01/25 in stable condition (2) Hydronephrosis, right: -See MITCH Plan Transferred to [facility] for possible IR placement of nephrostomy tube Total Time Total Time Spent Total Time Spent (In Minutes): 15 Discharge Plan Discharge Items Patient Disposition: Transfer Acute Care Hospital Reason For Visit: MITCH, HYDRONEPHROSIS Discharge Diagnosis: MITCH, hydronephrosis, hydroureter Condition on Discharge: Fair Activity: Resume your previous activity Lifting: Wait until after follow-up appointment Bathing: No limitations Sexual Activity: When tolerated Exercise/Sports: Wait until after follow-up appointment Non-emergency contact: Primary Care Provider Call non-emergency contact if: you have any medication questions Follow-up/Referrals: Megan Escalona MD [Primary Care Provider] - Diet: Heart Healthy Addtl Attending Provider Instructions: Follow up with Urology and your regular oncologist Pending Studies at Discharge: No Stand-Alone Forms: My [facility] Skilled Items Patient informed of condition?: Yes DNR: No Discharge Level of Care: Other Communicable Disease: No Discharge Prognosis: Stable Lines: Mid-Line Urinary Catheter: No Medications and DC Order Prescriptions: Continued lidocaine 5 % ointment 1 applic topical BID PRN (Reason: pain) hydroxyzine HCl 25 mg tablet 25 mg PO TID PRN (Reason: anxiety) Qty: 90 1RF estradiol 0.01 % (0.1 mg/gram) cream 1 g PV .Once/week Qty: 42.5 3RF Rx Instructions: Saturday Anti-Itch(diphenhyd) with Zinc 2-0.1 % cream 1 applic topical TID PRN (Reason: itching on back) Qty: 35 3RF ipratropium bromide 21 mcg (0.03 %) spray,non-aerosol 2 spray intranasal BID PRN (Reason: nasal drainage) Qty: 30 2RF Rx Instructions: administer into each nostril fluocinolone acetonide oil 0.01 % drops 4 drp otic (ear) BID PRN (Reason: ear itching) Qty: 20 3RF Rx Instructions: Apply to affected ear BID 2-3 days/week PRN itchy ear carvedilol [Coreg] 3.125 mg tablet 3.125 mg PO BID Qty: 180 3RF sennosides [senna] 8.6 mg tablet 8.6 mg PO DAILY fexofenadine [Abbey Allergy] 180 mg tablet 180 mg PO QAM PRN (Reason: ALLERGY RELIEF) multivitamin [Daily Multi-Vitamin] tablet 1 tab PO QPM PreserVision AREDS-2 250-90-40-1 mg capsule 1 tab PO BID simethicone 125 mg capsule 125 mg PO QAM PRN (Reason: BLOATING/GAS RELIEF) Patient Comments: very seldom famotidine [Pepcid AC] 20 mg Tablet 20 mg PO BID Hold Instructions: pt not taking Patient Comments: and maybe during the day as needed an exra one Emergen-C 1,000 mg Powder Effervescent In Packet 1 ea PO QAM levothyroxine 50 mcg tablet 50 mcg PO 1600 Patient Comments: take at 4 pm acetaminophen 500 mg Capsule 500 mg PO UD PRN (Reason: Pain) cholecalciferol (vitamin D3) [Vitamin D3] 25 mcg (1,000 unit) Tablet 25 mcg PO QAM Discharge Orders: Discharge Order (Routine); Ordered 01/24/23 Ordered By: Cierra Gardner Admission Data Admit Date/Time: 01/24/23 15:33 Attending Provider: Joel Haas Admit Provider: Joel Haas Primary Care Provider: Megan Escalona Other Interventions: Discharge Summary Assessment (RN) Last Done: 01/25/23 01:00 Coding Level of Care Code None Diagnoses IMTCH (acute kidney injury) N17.9 Hydronephrosis, right N13.30
[2023-01-25] MEDS ORDERED: LEVOTHYROXINE SODIUM 50 MCG TABLET PO SCH (16:00)
== END 2023-01-24 23:30 | disposition short-term general hospital (02) | DRG 694 ==
LOC: ED 11:25 → 2N 15:33

== ENCOUNTER 2023-09-27 18:30 | Inpatient (IN) ==
[2023-09-27 19:17] LABS: Hematocrit (blood only) 26.4 % (37.0-47.0); Hemoglobin 8.1 g/dl (12.0-16.0); Mean Corpuscular Hemoglobin 31.4 pg (25.0-34.0); Mean Corpuscular Hgb Conc 30.7 g/dL (32.0-36.0); Mean Corpuscular Volume 102.3 fL (80.0-100.0); Mean Platelet Volume 9.2 fL (9.4-12.4); Platelet Count 191 K/uL (130-400); RDW Coefficient of Variation 16.1 % (11.5-14.5); RDW Standard Deviation 60.4 fL (36.4-46.3); Red Blood Count 2.58 M/uL (4.20-5.40); White Blood Count 8.48 K/ul (4.8-10.8)
[2023-09-27 19:38] LABS: Albumin Globulin Ratio 1.2 (0.9-2); Albumin Level 3.3 gm/dl (3.4-5.0); Bilirubin,Total 0.6 mg/dl (0.2-1.0); Calcium 7.9 mg/dl (8.6-10.3); Creatinine Clr Calc Pharmacy 35.3 ml/min; Est GFR (African American) 67.1 ml/min; Est GFR (Non-African American) 57.9 ml/min; Globulin 2.8 gm/dl (2.5-4.0); Magnesium 1.7 mg/dl (1.7-2.4); Potassium 3.7 mmol/L (3.5-5.1); Total Protein 6.1 gm/dl (6.0-8.3)
[2023-09-27 19:44] LABS: Basophils # (auto) 0.02 K/uL (0.00-0.20); Basophils % (auto) 0.2 %; Eosinophils # (auto) 0.01 K/uL (0.00-0.50); Eosinophils % (auto) 0.1 %; Immature Granulocytes # (auto) 0.05 K/uL (0.01-0.20); Immature Granulocytes % (auto) 0.6 %; Lymphocytes # (auto) 0.24 K/uL (1.20-3.40); Lymphocytes % (auto) 2.8 %; Monocytes # (auto) 0.15 K/uL (0.11-0.59); Monocytes % (auto) 1.8 %; Neutrophils # (auto) 8.01 K/uL (1.40-6.50); Neutrophils % (auto) 94.5 %; Troponin I High Sensitivity 16.3 pg/ml (0-14)
[2023-09-27 19:45] LABS: Partial Thromboplastin Ratio 1.1; Partial Thromboplastin Time 31 Seconds (21-31); Prothrombin Time 11.4 Seconds (9.0-12.0)
[2023-09-27] MEDS: SODIUM CHLORIDE 0.9% 500 ML IV SCH (19:50)
[2023-09-27] MEDS: SODIUM CHLORIDE 0.9% 500 ML IV ONE (19:50)
[2023-09-27] MEDS: cefTRIAXone SODIUM 2,000 MG/50 ML BAG IV STA (19:50)
[2023-09-27 19:52] LABS: Appearance Urine Clear (Clear); Bacteria Urine Automated Negative (Negative); Bilirubin Urine Negative (Negative); Blood Urine 3+ (Negative); Color Urine Yellow; Glucose Urine UA Negative (Negative); Ketones Urine Negative (Negative); Leukocyte Esterase Urine 1+ (Negative); Nitrite Urine Negative (Negative); Protein Urine 1+ (Negative); RBC Urine Automated >30 /hpf (0-4); Specific Gravity Urine 1.012 (1.000-1.030); Urobilinogen Urine Negative (Negative)
[2023-09-27 19:53] LABS: Thyroid Stimulating Hormone 1.023 uIu/ml (0.300-4.500)
--- NOTE | 2023-09-27 20:24 | CT Scan Report ---
Exam(s): CT ABDOMEN + PELVIS Without Contrast EXAM: CT Abdomen and Pelvis Without Intravenous Contrast CLINICAL HISTORY: Reason for exam: abdominal wall cellulitis, umbilical hernia, fever. TECHNIQUE: Axial computed tomography images of the abdomen and pelvis without intravenous contrast. CTDI is 24.66 mGy and DLP is 1153.79 mGy-cm. Automated exposure control was utilized for the study. A dose lowering technique was utilized adhering to the principles of ALARA. COMPARISON: CT chest/abdomen/pelvis on 05/28/2023 FINDINGS: Lung bases: Unremarkable. No mass. No consolidation. Mediastinum: Small hiatal hernia. ABDOMEN: Liver: Small left hepatic cysts. Gallbladder and bile ducts: Unremarkable. No calcified stones. No ductal dilation. Pancreas: Unremarkable. No ductal dilation. Spleen: Unremarkable. No splenomegaly. Adrenals: Unremarkable. No mass. Kidneys and ureters: Stable severe right hydronephrosis with right ureteral stent in place. No significant hydroureter. Left nephrectomy change. Stomach and bowel: Evaluation of the stomach is limited by underdistention. Similar small to moderate fat-containing umbilical or periumbilical hernia with fat stranding. Small to moderate right paraumbilical hernia containing nonobstructed small bowel. Diverticulosis without evidence of diverticulitis. No small bowel obstruction. PELVIS: Appendix: Normal appendix. Bladder: Unremarkable. No stones. Reproductive: Vaginal pessary noted. Subperitoneal space: Trace presacral fluid. ABDOMEN and PELVIS: Intraperitoneal space: Unremarkable. No free air. No significant fluid collection. Bones/joints: Degenerative changes of the hips and spine. Grade 1 anterolisthesis of L5 on S1. No acute fracture. No dislocation. Soft tissues: Injection granuloma in the right gluteal soft tissues. Small calcification in the right breast. Vasculature: Atherosclerotic changes of the vasculature. No aortic aneurysm. Phleboliths in the pelvis. Lymph nodes: Unremarkable. No enlarged lymph nodes. IMPRESSION: 1. Stable severe right hydronephrosis with right ureteral stent in place. No significant hydroureter. 2. Similar small to moderate fat-containing umbilical or periumbilical hernia with fat stranding. Small to moderate right paraumbilical hernia containing nonobstructed small bowel. Electronically signed by: Ketan Kaufman M.D. 09/27/23 20:23 PM
--- NOTE | 2023-09-27 23:07 | Emergency Department Note ---
Impression & Plan Febrile illness, acute, Cellulitis, History of chemotherapy ED Provider Note NAME: JACOB LOVETT AGE: 88 SEX: Female INFORMANT: Patient and granddaughter ED PROVIDER(S): Ramin Power MD CHIEF COMPLAINT: Weakness and fever PLAN: Disposition: Admitted Outpatient prescription management: none Referral: None MEDICAL DECISION MAKING: Patient presented because of profound weakness. She had a fever. Patient was found to have a large erythematous area on her lower abdominal wall concerning for cellulitis. Family noted that this was new. She has an old umbilical hernia. CT imaging was performed of the abdomen pelvis as well as blood work and cath urinalysis specimen. Patient has a indwelling stent and chronic appearing hydronephrosis per radiology patient does have some red and white cells on urine. Culture was sent. Patient had blood work including blood cultures. Lactate normal. Patient does have a stable anemia on CBC. Patient has mild hyponatremia. Troponin is borderline. Patient was hydrated and given Rocephin. Given her profound weakness to the point where she cannot get up and ambulate on her own further management in the hospital was deemed appropriate. [facility] Patient was evaluated in the ER and admitted for further management. 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 Vital Signs: reviewed and remarkable for no significant abnormalities Additional History obtained from: Family. No prior history of the abdominal wall erythema. No prior history of trauma or injection in that area Chronic Medical/Social Conditions affecting care: Bladder cancer, chemotherapy, hydronephrosis Prior/ Outside/ External records reviewed: none Differential Diagnosis: Infection, dehydration, metabolic abnormality, hypo/hyperglycemia, electrolyte disturbance, anemia, hypoxia, cardiac sources, intracerebral event, toxicologic, neurologic, as well as other pathologies. Diagnostics, independently interpreted by me: ECG: Twelve-lead ECG reveals normal sinus rhythm at [address] elevation or depression. No PACs or PVCs Cardiac Monitoring: Cardiac monitoring ordered by me: The patient was placed on continuous cardiac monitoring and observed. It revealed a normal sinus rhythm at 90 beats per minute without ectopy or evidence of dysrhythmia. Medical decision rules: none Imaging studies: Chest x-ray. Findings: A chest x-ray was performed and revealed no pneumothorax, effusion, infiltrate, pulmonary edema, free air under the diaphragm, or wide mediastinum. Mediport present HPI: 88 year old Female arrives for evaluation of weakness and fever. This started today. Family is present and helps with history. Patient was found to have a temperature of 100.9 at home. She became increasingly weak throughout the day. She had chemotherapy for a bladder cancer last week. Patient had increasing weakness throughout the day to the point where she could not get out of her chair. Due to the increased weakness and fever patient was brought to emergency department for further evaluation. No sick contacts. Patient denies any headache, chest pain, shortness of breath, abdominal pain, flank pain, bloody stool, diarrhea, numbness, or other complaints. PAST MEDICAL HISTORY: See Below, bladder CA PAST SURGICAL HISTORY: See Below, SOCIAL HISTORY: Retired, see below HOME MEDICATIONS: See Below ALLERGIES: See Below VITALS: See Below PHYSICAL EXAMINATION: GENERAL: Awake, alert, mildly ill-appearing, in no distress HENT: Normocephalic, atraumatic. Oropharynx unremarkable. EYES: Normal conjunctiva. Sclera non-icteric. NECK: Inspection normal. Non-tender. Supple. No nuchal rigidity. FROM. No masses. RESPIRATORY: Clear to auscultation. No wheezes. No rales. Normal respiratory effort. CARDIAC: Normal rate. Normal rhythm. No murmurs. No rubs. Extremities warm and well perfused. Pulses equal. No JVD. GI: Soft, non-distended. Umbilical hernia present. This is nontender. The patient does have lower abdominal wall erythema from below the umbilicus to the suprapubic area and extending all the way to the left and right hips. This is warm and mildly tender. No rebound or guarding. No masses. RECTAL: Deferred. MUSCULOSKELETAL: Atraumatic. Chest examination reveals no tenderness. The back is symmetrical on inspection without obvious abnormality. There is no CVA tenderness to palpation. No joint edema. LOWER EXTREMITIES: Calves are equal size bilaterally and non-tender. No edema. No discoloration. NEURO: Normal sensorium. No sensory or motor deficits noted. SKIN: No other rash or jaundice noted. PROCEDURES: none CRITICAL CARE: none OBSERVATION NOTE: none Past Med/Surg History Medical History CKD (chronic kidney disease), stage III Pelvis neoplasm Ureteral obstruction Anemia Osteopenia Allergic rhinitis Migraines Hyperlipidemia Cardiomyopathy Immunotherapy Port-A-Cath in place Bladder carcinoma Presence of pessary Anxiety Mitral valve regurgitation Urothelial cancer Renal arterial aneurysm Stress incontinence GERD (gastroesophageal reflux disease) Hypothyroidism Macular degeneration Venous insufficiency Cystocele with prolapse PMR (polymyalgia rheumatica) Sleep apnea Hypertension Surgical History History of surgery History of dilatation and curettage History of surgery H/O nephroureterectomy H/O transurethral resection of bladder tumor (TURBT) History of transurethral resection of bladder tumor (TURBT) Nausea and vomiting after administration of anesthetic agent History of surgery S/P biopsy S/p nephrectomy H/O unilateral oophorectomy History of colonoscopy [place] teeth removed Family History Sister Breast cancer Mother Stroke Hypertension Father Black lung disease Brother Aneurysm Hypertension Brother Lung cancer Brother Addiction Daughter No problems noted. Other No family history of adverse response to anesthesia No pertinent family history Denies family history of Ovarian cancer Prostate cancer Myocardial infarction Colorectal cancer Social History Smoking Status: Former smoker Second Hand Exposure: No; Do You Dip or Chew Tobacco: No; Hx Alcohol Use: No Hx Substance Use: No Preferred Language: Montenegrin Communication Ability: Effective Visual Impairment: No Limitations Hearing Ability: Normal Welt Sewer Required: No Beliefs That Will Affect Care: None marital status: / Current Living Situation: Alone and Personal Care Facility Current Living Situation Comment: [facility]. 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 How many Children do You have: 1 Feels Safe at Home: Yes Diet: regular caffeine: No during the past year weight has: remained stable Seatbelt Use: always Sunscreen Use: Yes Assistive Devices: CPAP, Glasses and Walker Allergies Allergies Allergy/AdvReac Type Severity Reaction Status Date / Time capsaicin Allergy Unknown Unknown Verified 09/06/23 14:26 pepper (genus Capsicum) AdvReac Intermediate Gastrointestinal Verified 09/06/23 14:26 Upset prednisone AdvReac Intermediate Dizziness Verified 09/06/23 14:26 & weird dreams SARA Inhibitors AdvReac Mild Cough Verified 09/06/23 14:26 ARB-Angiotensin Receptor AdvReac Mild Cough Verified 09/06/23 14:26 Antagonist gabapentin AdvReac Mild Nausea Verified 09/06/23 14:26 tramadol AdvReac Mild Vomiting Verified 09/06/23 14:26 Home Meds Home Medications Medication Instructions Recorded Confirmed multivitamin (Daily Multi-Vitamin 1 tab PO QDL 04/01/19 09/27/23 tablet) famotidine 20 mg tablet (Pepcid AC) 20 mg PO BID 08/09/21 09/27/23 ascorbic acid 1,000 1 ea PO QAM 09/26/21 09/27/23 pb-ayybyneozyeh-odmhnhln powder effervescent pack (Emergen-C) cholecalciferol (vitamin D3) 25 25 mcg PO QAM 11/19/22 09/27/23 mcg (1,000 unit) tablet (Vitamin D3) sennosides 8.6 mg tablet (senna) 8.6 mg PO AMPM Constipation 03/07/23 09/27/23 lidocaine-prilocaine 2.5 %-2.5 % 1 applic topical UD 04/19/23 09/27/23 topical cream acetaminophen 500 mg capsule 1,000 mg PO QAM Pain 04/24/23 09/27/23 docusate sodium 100 mg capsule 100 mg PO DAILY PRN Constipation 09/27/23 09/27/23 (Stool Softener) estradiol 0.01% (0.1 mg/gram) 1 g vaginal 3XWK 09/27/23 09/27/23 vaginal cream hydrocortisone 2.5 % topical cream 1 applic topical BID 09/27/23 09/27/23 levothyroxine 50 mcg tablet 50 mcg PO .DAILY AT 4PM 09/27/23 09/27/23 polyethylene glycol 3350 17 17 g PO 3XWK 09/27/23 09/27/23 gram/dose oral powder (Miralax) vit C 250 mg-E 90 mg-zinc 40 1 tab PO AMPM 09/27/23 09/27/23 mg-copper 1 od-kqkrac-yqkvbp chew tablet (PreserVision AREDS-2) Previous Rx's Medication Instructions Recorded ipratropium bromide 21 mcg (0.03 2 spray intranasal BID PRN nasal 12/18/22 %) nasal spray drainage #30 mL oxycodone 5 mg tablet 5 mg PO Q6H PRN pain #5 tabs 02/18/23 carvedilol 3.125 mg tablet (Coreg) 3.125 mg PO BID #180 tabs 05/01/23 hydroxyzine HCl 50 mg tablet 50 mg PO HS itching #30 tabs 09/11/23 Results & Data (ED) Vital Signs Vital Signs - 24 hr 09/27/23 18:40 09/27/23 18:40 09/27/23 18:40 Temperature 37.2 C 37.2 C Temperature Source Oral Oral Pulse Rate 83 Pulse Rate from SpO2 Sensor Pulse Rhythm Regular Pulse Strength Normal Respiratory Rate 20 19 Respiratory Effort / Characteristics Non-Labored Spontaneous Non-Labored Spontaneous Respiratory Depth Normal Normal Respiratory Pattern Regular Blood Pressure 124/75 Blood Pressure Mean 91 Blood Pressure Position Semi-fowlers Pulse Oximetry 93 93 93 Oxygen Delivery Method Room Air Room Air Room Air Sepsis Recent Fever Within 48 Hours Yes Sepsis New/Unexplained Change in Mental Status No Sepsis Action Taken by Nursing No Action Required 09/27/23 18:51 09/27/23 18:56 09/27/23 18:56 Temperature Temperature Source Pulse Rate 85 Pulse Rate from SpO2 Sensor Pulse Rhythm Pulse Strength Respiratory Rate 17 Respiratory Effort / Characteristics Respiratory Depth Respiratory Pattern Blood Pressure Blood Pressure Mean Blood Pressure Position Pulse Oximetry 93 93 Oxygen Delivery Method Room Air Room Air Sepsis Recent Fever Within 48 Hours Sepsis New/Unexplained Change in Mental Status Sepsis Action Taken by Nursing 09/27/23 20:00 09/27/23 20:30 09/27/23 21:00 Temperature Temperature Source Pulse Rate 77 74 73 Pulse Rate from SpO2 Sensor 73 74 74 Pulse Rhythm Pulse Strength Respiratory Rate 20 20 20 Respiratory Effort / Characteristics Respiratory Depth Respiratory Pattern Blood Pressure 106/60 101/62 109/52 L Blood Pressure Mean 75 75 71 Blood Pressure Position Pulse Oximetry 98 96 95 Oxygen Delivery Method Room Air Room Air Room Air Sepsis Recent Fever Within 48 Hours Sepsis New/Unexplained Change in Mental Status Sepsis Action Taken by Nursing 09/27/23 21:30 09/27/23 22:00 09/27/23 22:30 Temperature Temperature Source Pulse Rate 75 77 73 Pulse Rate from SpO2 Sensor 77 72 Pulse Rhythm Pulse Strength Respiratory Rate 20 20 21 Respiratory Effort / Characteristics Respiratory Depth Respiratory Pattern Blood Pressure 104/51 L 102/53 L 97/53 L Blood Pressure Mean 68 69 71 Blood Pressure Position Pulse Oximetry 98 96 95 Oxygen Delivery Method Room Air Room Air Sepsis Recent Fever Within 48 Hours Sepsis New/Unexplained Change in Mental Status Sepsis Action Taken by Nursing 09/27/23 22:50 09/27/23 22:57 Temperature 37.6 C Temperature Source Oral Pulse Rate 74 Pulse Rate from SpO2 Sensor Pulse Rhythm Pulse Strength Respiratory Rate Respiratory Effort / Characteristics Respiratory Depth Respiratory Pattern Blood Pressure Blood Pressure Mean Blood Pressure Position Pulse Oximetry Oxygen Delivery Method Sepsis Recent Fever Within 48 Hours Sepsis New/Unexplained Change in Mental Status Sepsis Action Taken by Nursing Laboratory Data 09/27/23 19:00 09/27/23 19:00 Lab Results 09/27/23 09/27/23 Range/Units 19:00 19:19 WBC 8.48 (4.8-10.8) K/ul RBC 2.58 L (4.20-5.40) M/uL Hgb 8.1 L (12.0-16.0) g/dl Hct 26.4 L (37.0-47.0) % MCV 102.3 H (80.0-100.0) fL MCH 31.4 (25.0-34.0) pg MCHC 30.7 L (32.0-36.0) g/dL RDW Std Deviation 60.4 H (36.4-46.3) fL RDW Coeff of Cathy 16.1 H (11.5-14.5) % Plt Count 191 (130-400) K/uL MPV 9.2 L (9.4-12.4) fL Immature Gran % (Auto) 0.6 % Neut % (Auto) 94.5 % Lymph % (Auto) 2.8 % Day % (Auto) 1.8 % Eos % (Auto) 0.1 % Baso % (Auto) 0.2 % Neut # (Auto) 8.01 H (1.40-6.50) K/uL Lymph # (Auto) 0.24 L (1.20-3.40) K/uL Day # (Auto) 0.15 (0.11-0.59) K/uL Eos # (Auto) 0.01 (0.00-0.50) K/uL Baso # (Auto) 0.02 (0.00-0.20) K/uL Immature Gran # (Auto) 0.05 (0.01-0.20) K/uL PT 11.4 (9.0-12.0) Seconds INR 1.0 (0.9-1.1) APTT 31 (21-31) Seconds PTT Ratio 1.1 Sodium 129 L (136-145) mmol/L Potassium 3.7 (3.5-5.1) mmol/L Chloride 101 (98-107) mmol/L Carbon Dioxide 22 (21-32) mmol/L Anion Gap 6 (3-11) BUN 24 H (6-23) mg/dl Creatinine 0.89 (0.6-1.2) mg/dl Est Cr Clr Drug Dosing 35.3 ml/min Est GFR ( Amer) 67.1 ml/min Est GFR (Non-Af Amer) 57.9 ml/min BUN/Creatinine Ratio 27.0 H (10-20) Glucose 131 H (70-99(Fasting)) mg/dl Calcium 7.9 L (8.6-10.3) mg/dl Magnesium 1.7 (1.7-2.4) mg/dl Total Bilirubin 0.6 (0.2-1.0) mg/dl AST 28 (13-39) U/L ALT 15 (7-52) U/L Alkaline Phosphatase 68 (34-104) U/L Troponin I High Sens 16.3 H (0-14) pg/ml Total Protein 6.1 (6.0-8.3) gm/dl Albumin 3.3 L (3.4-5.0) gm/dl Globulin 2.8 (2.5-4.0) gm/dl Albumin/Globulin Ratio 1.2 (0.9-2) TSH 1.023 (0.300-4.500) uIu/ml Urine Color Yellow Urine Appearance Clear (Clear) Urine pH 7.0 (4.5-7.5) Ur Specific Echo 1.012 (1.000-1.030) Urine Protein 1+ H (Negative) Urine Glucose (UA) Negative (Negative) Urine Ketones Negative (Negative) Urine Blood 3+ H (Negative) Urine Nitrite Negative (Negative) Urine Bilirubin Negative (Negative) Urine Urobilinogen Negative (Negative) Ur Leukocyte Esterase 1+ H (Negative) Urine WBC (Auto) 10-30 H (0-5) /hpf Urine RBC (Auto) >30 H (0-4) /hpf U Hyaline Cast (Auto) 1-5 (0-5) /lpf U Epithel Cells (Auto) 10-20 H (0-5) /lpf Urine Bacteria (Auto) Negative (Negative) Administered Medications Sodium Chloride (Nss) 500 mls @ 125 mls/hr IV .Q4H JACOBY Stop: 10/27/23 19:29 Last Admin: 09/27/23 19:50 Dose: 125 mls/hr Documented By: DANIELITO Discontinued Medications Ceftriaxone Sodium (Rocephin) 2,000 mg in 50 mls @ 100 mls/hr IV NOW STA Stop: 09/27/23 19:55 Last Infusion: 09/27/23 22:14 Dose: Infused Documented By: Admin: 09/27/23 19:50 Dose: 100 mls/hr Documented By: DANIELITO Sodium Chloride (Nss) 500 mls @ 999 mls/hr IV .Q31M ONE Stop: 09/27/23 19:57 Last Infusion: 09/27/23 22:14 Dose: Infused Documented By: Admin: 09/27/23 19:50 Dose: 999 mls/hr Documented By: DANIELITO Imaging Data Radiologist's Impression: Abdomen/Pelvis CT 09/27/23 19:26 Exam(s): CT ABDOMEN + PELVIS Without Contrast EXAM: CT Abdomen and Pelvis Without Intravenous Contrast CLINICAL HISTORY: Reason for exam: abdominal wall cellulitis, umbilical hernia, fever. TECHNIQUE: Axial computed tomography images of the abdomen and pelvis without intravenous contrast. CTDI is 24.66 mGy and DLP is 1153.79 mGy-cm. Automated exposure control was utilized for the study. A dose lowering technique was utilized adhering to the principles of ALARA. COMPARISON: CT chest/abdomen/pelvis on 05/28/2023 FINDINGS: Lung bases: Unremarkable. No mass. No consolidation. Mediastinum: Small hiatal hernia. ABDOMEN: Liver: Small left hepatic cysts. Gallbladder and bile ducts: Unremarkable. No calcified stones. No ductal dilation. Pancreas: Unremarkable. No ductal dilation. Spleen: Unremarkable. No splenomegaly. Adrenals: Unremarkable. No mass. Kidneys and ureters: Stable severe right hydronephrosis with right ureteral stent in place. No significant hydroureter. Left nephrectomy change. Stomach and bowel: Evaluation of the stomach is limited by underdistention. Similar small to moderate fat-containing umbilical or periumbilical hernia with fat stranding. Small to moderate right paraumbilical hernia containing nonobstructed small bowel. Diverticulosis without evidence of diverticulitis. No small bowel obstruction. PELVIS: Appendix: Normal appendix. Bladder: Unremarkable. No stones. Reproductive: Vaginal pessary noted. Subperitoneal space: Trace presacral fluid. ABDOMEN and PELVIS: Intraperitoneal space: Unremarkable. No free air. No significant fluid collection. Bones/joints: Degenerative changes of the hips and spine. Grade 1 anterolisthesis of L5 on S1. No acute fracture. No dislocation. Soft tissues: Injection granuloma in the right gluteal soft tissues. Small calcification in the right breast. Vasculature: Atherosclerotic changes of the vasculature. No aortic aneurysm. Phleboliths in the pelvis. Lymph nodes: Unremarkable. No enlarged lymph nodes. IMPRESSION: 1. Stable severe right hydronephrosis with right ureteral stent in place. No significant hydroureter. 2. Similar small to moderate fat-containing umbilical or periumbilical hernia with fat stranding. Small to moderate right paraumbilical hernia containing nonobstructed small bowel. Electronically signed by: Ketan Kaufman M.D. 09/27/23 20:23 PM Discharge Plan Visit Data Chief Complaint: Weakness Stated Complaint: WEAKNESS ED Provider: Ramin Power Discharge Problem: Febrile illness, acute, Cellulitis, History of chemotherapy Forms Stand Alone Forms: My [facility] Prescriptions Prescriptions: No Action carvedilol [Coreg] 3.125 mg tablet 3.125 mg PO BID Qty: 180 3RF hydroxyzine HCl 50 mg tablet 50 mg PO HS Qty: 30 0RF ipratropium bromide 21 mcg (0.03 %) spray,non-aerosol 2 spray intranasal BID PRN (Reason: nasal drainage) Qty: 30 2RF Rx Instructions: administer into each nostril sennosides [senna] 8.6 mg tablet 8.6 mg PO AMPM multivitamin [Daily Multi-Vitamin] tablet 1 tab PO QDL oxycodone 5 mg tablet 5 mg PO Q6H PRN (Reason: pain) Qty: 5 0RF Patient Comments: has not used recently lidocaine-prilocaine 2.5-2.5 % Cream 1 applic topical UD Rx Instructions: prior to port access famotidine [Pepcid AC] 20 mg Tablet 20 mg PO BID Hold Instructions: pt not taking Emergen-C 1,000 mg Powder Effervescent In Packet 1 ea PO QAM acetaminophen 500 mg capsule 1,000 mg PO QAM cholecalciferol (vitamin D3) [Vitamin D3] 25 mcg (1,000 unit) Tablet 25 mcg PO QAM hydrocortisone 2.5 % cream 1 applic TOPICAL BID estradiol 0.01 % (0.1 mg/gram) cream 1 g PV 3XWK levothyroxine 50 mcg tablet 50 mcg PO .DAILY AT 4PM PreserVision AREDS-2 250-90-40-1 mg Tablet,Chewable 1 tab PO AMPM docusate sodium [Stool Softener] 100 mg Capsule 100 mg PO DAILY PRN (Reason: Constipation) polyethylene glycol 3350 [Miralax] 17 gram/dose Powder 17 g PO 3XWK Referrals Referrals: Megan Escalona MD [Primary Care Provider] -
--- NOTE | 2023-09-27 23:09 | History & Physical Report ---
Date of Service September 27, 2023 Assessment & Plan (1) Cellulitis: Plan: Patient with new onset rash on lower abdomen. Possibly infectious cellulitis vs adverse effect from Gemcitabine/pseudocellulitis. No crepitus or bullae noted, no evidence of necrosis. -Admit to medical for continued observation - patient immunocompromised on chemotherapy -Ceftriaxone -Follow cultures (2) Metastatic urothelial carcinoma: Plan: Noted. Patient currently on Gemcitabine therapy -Symptomatic management - Oxycodone, Zofran PRN (3) Hypothyroidism: Plan: Chronic. TSH within normal limits at 1.023 -Continue Synthroid History of Present Illness Chief Complaint: weakness and fatigue Primary Care Provider: Megan Escalona MD Karen Rivera is an 88yo female with history of invasive papillary urothelial carcinoma s/p TURBT, intravesicular BCG and Keytruda. Presently on Gemcitabine with improvement in tumor size on last imaging. Patient with known metastatic disease to left anterior abdominal wall. She has a ureteral stent indwelling at this time She presents today with generalized weakness, inability to ambulate as well as fever, chills and body aches. She also noted a rash on her lower abdomen today. No additional complaints - patient denies chest pain, cough or SOB. Denies abdominal pain, nausea, vomiting, diarrhea, urinary complaints. No sick contacts, recent travel or exposure to tick bites. In the ER she is afebrile, HD stable Allergies Allergy/AdvReac Type Severity Reaction Status Date / Time capsaicin Allergy Unknown Unknown Verified 09/06/23 14:26 pepper (genus Capsicum) AdvReac Intermediate Gastrointestinal Verified 09/06/23 14:26 Upset prednisone AdvReac Intermediate Dizziness Verified 09/06/23 14:26 & weird dreams SARA Inhibitors AdvReac Mild Cough Verified 09/06/23 14:26 ARB-Angiotensin Receptor AdvReac Mild Cough Verified 09/06/23 14:26 Antagonist gabapentin AdvReac Mild Nausea Verified 09/06/23 14:26 tramadol AdvReac Mild Vomiting Verified 09/06/23 14:26 Home Medications Medication Instructions Recorded Confirmed Type multivitamin (Daily Multi-Vitamin 1 tab PO QDL 04/01/19 09/27/23 History tablet) famotidine 20 mg tablet (Pepcid AC) 20 mg PO BID 08/09/21 09/27/23 History ascorbic acid 1,000 1 ea PO QAM 09/26/21 09/27/23 History az-bftdsxjmzujd-fyhqgrqg powder effervescent pack (Emergen-C) cholecalciferol (vitamin D3) 25 25 mcg PO QAM 11/19/22 09/27/23 History mcg (1,000 unit) tablet (Vitamin D3) ipratropium bromide 21 mcg (0.03 2 spray intranasal BID PRN nasal 12/18/22 09/27/23 Rx %) nasal spray drainage #30 mL oxycodone 5 mg tablet 5 mg PO Q6H PRN pain #5 tabs 02/18/23 09/27/23 Rx sennosides 8.6 mg tablet (senna) 8.6 mg PO AMPM Constipation 03/07/23 09/27/23 History lidocaine-prilocaine 2.5 %-2.5 % 1 applic topical UD 04/19/23 09/27/23 History topical cream acetaminophen 500 mg capsule 1,000 mg PO QAM Pain 04/24/23 09/27/23 History carvedilol 3.125 mg tablet (Coreg) 3.125 mg PO BID #180 tabs 05/01/23 09/27/23 Rx hydroxyzine HCl 50 mg tablet 50 mg PO HS itching #30 tabs 09/11/23 09/27/23 Rx docusate sodium 100 mg capsule 100 mg PO DAILY PRN Constipation 09/27/23 09/27/23 History (Stool Softener) estradiol 0.01% (0.1 mg/gram) 1 g vaginal 3XWK 09/27/23 09/27/23 History vaginal cream hydrocortisone 2.5 % topical cream 1 applic topical BID 09/27/23 09/27/23 History levothyroxine 50 mcg tablet 50 mcg PO .DAILY AT 4PM 09/27/23 09/27/23 History polyethylene glycol 3350 17 17 g PO 3XWK 09/27/23 09/27/23 History gram/dose oral powder (Miralax) vit C 250 mg-E 90 mg-zinc 40 1 tab PO AMPM 09/27/23 09/27/23 History mg-copper 1 hp-bwsifs-xkgcra chew tablet (PreserVision AREDS-2) Past Med/Surg History Medical History (Updated 09/28/23 @ 04:49 by Cierra Gardner DO) Hypothyroidism CKD (chronic kidney disease), stage III 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) Ureteral obstruction Admitted to [facility] 01/24/23 and transferred to [facility] ([facility]) 01/25/23 with IR for nephrostomy tube placement Anemia Osteopenia Allergic rhinitis Migraines Hyperlipidemia Cardiomyopathy Valvular cardiomyopathy Immunotherapy history of- switched to chemo/no longer on immunotherapy Port-A-Cath in place Power Port - implantable port Puhi Patient will bring the device card DOS Placed 11/14/2022 at [facility] Bladder carcinoma High grade s/p TURBT>currently on chemo @ [facility] weekly Presence of pessary Anxiety Mitral valve regurgitation Echo 01/2023: Moderate to severe MR Follows with Dr. Hernandez Urothelial cancer Dx 07/2021 S/p L nephroureterectomy 10/2021. [id number]. Recurrence/progression 02/2022 > multiple TURBTs Cutaneous metastases On Keytruda in the past- no longer taking per urology records Renal arterial aneurysm Follows with Dr. Archibald- last seen 03/2022- "aneurysm of right renal artery has not changed since her last visit and is only 0.8cm"- follow up in two years Stress incontinence Pessary in place GERD (gastroesophageal reflux disease) Macular degeneration Venous insufficiency Both legs Cystocele with prolapse PMR (polymyalgia rheumatica) Follows with rheum (Dr. Rothman) Sleep apnea CPAP (Compliant) Hypertension Surgical History History of surgery Resection of uterine fibroid History of dilatation and curettage History of surgery "Power Port, implantable port Puhi" H/O nephroureterectomy for ureter cancer > left kidney and ureter at [facility] H/O transurethral resection of bladder tumor (TURBT) multiple>with stent exchanges *last done 05/21/23 at [facility] TURBT (02/18/23): Grade view 1, Graves#2, ETT 7.0 at [facility] History of transurethral resection of bladder tumor (TURBT) 04/2022 [facility] Nausea and vomiting after administration of anesthetic agent History of surgery nephrostomy tube placement, [facility] 01/2023, subsequent removal S/P biopsy ureter S/p nephrectomy left kidney and left ureter 10/2021 [facility] H/O unilateral oophorectomy History of colonoscopy [place] teeth removed Family History Sister Breast cancer Mother , 88yo Stroke Hypertension Father , 54yo Black lung disease Brother Aneurysm Hypertension Brother Lung cancer Brother Addiction Daughter No problems noted. Other No family history of adverse response to anesthesia No pertinent family history Denies family history of Ovarian cancer Prostate cancer Myocardial infarction Colorectal cancer Social History Smoking Status: Never smoker Second Hand Exposure: No; Do You Dip or Chew Tobacco: No; Hx Alcohol Use: No Hx Substance Use: No Preferred Language: [place] Communication Ability: Effective Visual Impairment: No Limitations Hearing Ability: Normal Technical Training Coordinator Required: No Beliefs That Will Affect Care: None marital status: / Current Living Situation: Personal Care Facility Current Living Situation Comment: [facility]. current occupational status: retired current occupation: [employer] How many Children do You have: 1 Other Information That Helps Us Care for You: No Feels Safe at Home: Yes Safety Concerns: Feels Safe At This Time Diet: regular caffeine: No during the past year weight has: remained stable Seatbelt Use: always Sunscreen Use: Yes Assistive Devices: CPAP, Glasses and Walker Review of Systems Review of Systems: All systems reviewed & are unremarkable except as noted in HPI & below Physical Exam Physical Exam: General: chronically ill in appearance, somnolent but arousable, answers questions briefly then returns to sleep Skin: warm, dry, intact, warm erythematous rash present on lower abdomen HEENT: NC/AT, PERRL, EOMI, anicteric sclera, conjunctiva without injection, external ear normal to inspection and nontender, nares patent, dry mucus membranes, dentition intact, no oropharyngeal lesions, neck supple, trachea midline, no LAD, no thyromegaly, no JVD Heart: +S1/S2, regular, no m/r/g Lungs: equal air entry bilaterally, no rales/rhonchi/wheezes Abd: +BS, soft, NT/ND, no masses/organomegaly/ascites Ext: warm, 2+ pulses in UE/LE bilaterally, no clubbing/cyanosis or edema Neuro: nonfocal, patient AA&O x 4, speech intact, no facial droop, moving all extremities on command with equal strength 5/5 Results & Data Results & Data Vital Signs (Past 12 Hours) Vital Signs Temp Pulse Resp BP Pulse Ox O2 Del Method 09/27/23 22:57 37.6 C 09/27/23 22:50 74 09/27/23 22:30 73 21 97/53 L 95 Room Air 09/27/23 22:00 77 20 102/53 L 96 09/27/23 21:30 75 20 104/51 L 98 Room Air 09/27/23 21:00 73 20 109/52 L 95 Room Air 09/27/23 20:30 74 20 101/62 96 Room Air 09/27/23 20:00 77 20 106/60 98 Room Air 09/27/23 18:56 17 93 Room Air 09/27/23 18:56 93 Room Air 09/27/23 18:51 85 09/27/23 18:40 37.2 C 19 93 Room Air 09/27/23 18:40 93 Room Air 09/27/23 18:40 37.2 C 83 20 124/75 93 Room Air Laboratory Results Laboratory Results WBC 8.48 K/ul (4.8-10.8) 09/27/23 19:00 RBC 2.58 M/uL (4.20-5.40) L 09/27/23 19:00 Hgb 8.1 g/dl (12.0-16.0) L 09/27/23 19:00 Hct 26.4 % (37.0-47.0) L 09/27/23 19:00 MCV 102.3 fL (80.0-100.0) H 09/27/23 19:00 MCH 31.4 pg (25.0-34.0) 09/27/23 19:00 MCHC 30.7 g/dL (32.0-36.0) L 09/27/23 19:00 RDW Std Deviation 60.4 fL (36.4-46.3) H 09/27/23 19:00 RDW Coeff of Cathy 16.1 % (11.5-14.5) H 09/27/23 19:00 Plt Count 191 K/uL (130-400) 09/27/23 19:00 MPV 9.2 fL (9.4-12.4) L 09/27/23 19:00 Immature Gran % (Auto) 0.6 % 09/27/23 19:00 Neut % (Auto) 94.5 % 09/27/23 19:00 Lymph % (Auto) 2.8 % 09/27/23 19:00 Rhea % (Auto) 1.8 % 09/27/23 19:00 Eos % (Auto) 0.1 % 09/27/23 19:00 Baso % (Auto) 0.2 % 09/27/23 19:00 Neut # (Auto) 8.01 K/uL (1.40-6.50) H 09/27/23 19:00 Lymph # (Auto) 0.24 K/uL (1.20-3.40) L 09/27/23 19:00 Rhea # (Auto) 0.15 K/uL (0.11-0.59) 09/27/23 19:00 Eos # (Auto) 0.01 K/uL (0.00-0.50) 09/27/23 19:00 Baso # (Auto) 0.02 K/uL (0.00-0.20) 09/27/23 19:00 Immature Gran # (Auto) 0.05 K/uL (0.01-0.20) 09/27/23 19:00 PT 11.4 Seconds (9.0-12.0) 09/27/23 19:00 INR 1.0 (0.9-1.1) 09/27/23 19:00 APTT 31 Seconds (21-31) 09/27/23 19:00 PTT Ratio 1.1 09/27/23 19:00 Sodium 129 mmol/L (136-145) L 09/27/23 19:00 Potassium 3.7 mmol/L (3.5-5.1) 09/27/23 19:00 Chloride 101 mmol/L (98-107) 09/27/23 19:00 Carbon Dioxide 22 mmol/L (21-32) 09/27/23 19:00 Anion Gap 6 (3-11) 09/27/23 19:00 BUN 24 mg/dl (6-23) H 09/27/23 19:00 Creatinine 0.89 mg/dl (0.6-1.2) 09/27/23 19:00 Est Cr Clr Drug Dosing 35.3 ml/min 09/27/23 19:00 Est GFR ( Amer) 67.1 ml/min 09/27/23 19:00 Est GFR (Non-Af Amer) 57.9 ml/min 09/27/23 19:00 BUN/Creatinine Ratio 27.0 (10-20) H 09/27/23 19:00 Glucose 131 mg/dl (70-99(Fasting)) H 09/27/23 19:00 Osmolality 276 mOsm/kg (280-300) L 09/28/23 Unknown Calcium 7.9 mg/dl (8.6-10.3) L 09/27/23 19:00 Phosphorus 2.7 mg/dl (2.5-4.9) 09/27/23 19:00 Magnesium 1.7 mg/dl (1.7-2.4) 09/27/23 19:00 Total Bilirubin 0.6 mg/dl (0.2-1.0) 09/27/23 19:00 AST 28 U/L (13-39) 09/27/23 19:00 ALT 15 U/L (7-52) 09/27/23 19:00 Alkaline Phosphatase 68 U/L (34-104) 09/27/23 19:00 Troponin I High Sens 16.3 pg/ml (0-14) H 09/27/23 19:00 Total Protein 6.1 gm/dl (6.0-8.3) 09/27/23 19:00 Albumin 3.3 gm/dl (3.4-5.0) L 09/27/23 19:00 Globulin 2.8 gm/dl (2.5-4.0) 09/27/23 19:00 Albumin/Globulin Ratio 1.2 (0.9-2) 09/27/23 19:00 Procalcitonin 0.23 ng/ml (0-0.5) 09/28/23 Unknown TSH 1.023 uIu/ml (0.300-4.500) 09/27/23 19:00 Urine Color Yellow 09/27/23 19:19 Urine Appearance Clear (Clear) 09/27/23 19:19 Urine pH 7.0 (4.5-7.5) 09/27/23 19:19 Ur Specific Alston 1.012 (1.000-1.030) 09/27/23 19:19 Urine Protein 1+ (Negative) H 09/27/23 19:19 Urine Glucose (UA) Negative (Negative) 09/27/23 19:19 Urine Ketones Negative (Negative) 09/27/23 19:19 Urine Blood 3+ (Negative) H 09/27/23 19:19 Urine Nitrite Negative (Negative) 09/27/23 19:19 Urine Bilirubin Negative (Negative) 09/27/23 19:19 Urine Urobilinogen Negative (Negative) 09/27/23 19:19 Ur Leukocyte Esterase 1+ (Negative) H 09/27/23 19:19 Urine WBC (Auto) 10-30 /hpf (0-5) H 09/27/23 19:19 Urine RBC (Auto) >30 /hpf (0-4) H 09/27/23 19:19 U Hyaline Cast (Auto) 1-5 /lpf (0-5) 09/27/23 19:19 U Epithel Cells (Auto) 10-20 /lpf (0-5) H 09/27/23 19:19 Urine Bacteria (Auto) Negative (Negative) 09/27/23 19:19 Adenovirus (PCR) Not Detected (NotDetected) 09/27/23 19:19 B. pertussis DNA (PCR) Not Detected (NotDetected) 09/27/23 19:19 B.parapertussis DNA PCR Not Detected (NotDetected) 09/27/23 19:19 C. pneumoniae DNA (PCR) Not Detected (NotDetected) 09/27/23 19:19 Coronavirus OC43 (PCR) Not Detected (NotDetected) 09/27/23 19:19 Coronavirus HKU1 (PCR) Not Detected (NotDetected) 09/27/23 19:19 Coronavirus 229E (PCR) Not Detected (NotDetected) 09/27/23 19:19 SARS-CoV-2 (PCR) Not Detected (NotDetected) 09/27/23 19:19 Coronavirus NL63 (PCR) Not Detected (NotDetected) 09/27/23 19:19 Human Metapneumovir PCR Not Detected (NotDetected) 09/27/23 19:19 Influenza Type A (PCR) Not Detected (NotDetected) 09/27/23 19:19 Influenza Type B (PCR) Not Detected (NotDetected) 09/27/23 19:19 M. pneumoniae (PCR) Not Detected (NotDetected) 09/27/23 19:19 Parainfluenza 1 (PCR) Not Detected (NotDetected) 09/27/23 19:19 Parainfluenza 2 (PCR) Not Detected (NotDetected) 09/27/23 19:19 Parainfluenza 3 (PCR) Not Detected (NotDetected) 09/27/23 19:19 Parainfluenza 4 (PCR) Not Detected (NotDetected) 09/27/23 19:19 RSV (PCR) Not Detected (NotDetected) 09/27/23 19:19 Entero/Rhino (PCR) Not Detected (NotDetected) 09/27/23 19:19 Impressions Abdomen/Pelvis CT 09/27/23 19:26 Exam(s): CT ABDOMEN + PELVIS Without Contrast EXAM: CT Abdomen and Pelvis Without Intravenous Contrast CLINICAL HISTORY: Reason for exam: abdominal wall cellulitis, umbilical hernia, fever. TECHNIQUE: Axial computed tomography images of the abdomen and pelvis without intravenous contrast. CTDI is 24.66 mGy and DLP is 1153.79 mGy-cm. Automated exposure control was utilized for the study. A dose lowering technique was utilized adhering to the principles of ALARA. COMPARISON: CT chest/abdomen/pelvis on 05/28/2023 FINDINGS: Lung bases: Unremarkable. No mass. No consolidation. Mediastinum: Small hiatal hernia. ABDOMEN: Liver: Small left hepatic cysts. Gallbladder and bile ducts: Unremarkable. No calcified stones. No ductal dilation. Pancreas: Unremarkable. No ductal dilation. Spleen: Unremarkable. No splenomegaly. Adrenals: Unremarkable. No mass. Kidneys and ureters: Stable severe right hydronephrosis with right ureteral stent in place. No significant hydroureter. Left nephrectomy change. Stomach and bowel: Evaluation of the stomach is limited by underdistention. Similar small to moderate fat-containing umbilical or periumbilical hernia with fat stranding. Small to moderate right paraumbilical hernia containing nonobstructed small bowel. Diverticulosis without evidence of diverticulitis. No small bowel obstruction. PELVIS: Appendix: Normal appendix. Bladder: Unremarkable. No stones. Reproductive: Vaginal pessary noted. Subperitoneal space: Trace presacral fluid. ABDOMEN and PELVIS: Intraperitoneal space: Unremarkable. No free air. No significant fluid collection. Bones/joints: Degenerative changes of the hips and spine. Grade 1 anterolisthesis of L5 on S1. No acute fracture. No dislocation. Soft tissues: Injection granuloma in the right gluteal soft tissues. Small calcification in the right breast. Vasculature: Atherosclerotic changes of the vasculature. No aortic aneurysm. Phleboliths in the pelvis. Lymph nodes: Unremarkable. No enlarged lymph nodes. IMPRESSION: 1. Stable severe right hydronephrosis with right ureteral stent in place. No significant hydroureter. 2. Similar small to moderate fat-containing umbilical or periumbilical hernia with fat stranding. Small to moderate right paraumbilical hernia containing nonobstructed small bowel. Electronically signed by: Ketan Kaufman M.D. 09/27/23 20:23 PM PG Care Time/CCT Total # of Minutes Spent Total Time Spent with Patient: Total time spent is greater than 50% in coordination of care (as documented) at patient's floor/unit and/or counseling patient: Coding Level of Care Code 27751 INT INP/OBS CARE 2MIN Diagnoses Cellulitis L03.90 Metastatic urothelial carcinoma C79.10 Hypothyroidism E03.9
[2023-09-27 23:50] LABS: Adenovirus PCR Not Detected (NotDetected); Bordetella parapertussis PCR Not Detected (NotDetected); Bordetella pertussis PCR Not Detected (NotDetected); Chlamydia pneumoniae PCR Not Detected (NotDetected); Coronavirus 229E PCR Not Detected (NotDetected); Coronavirus CoV-2 (COVID19)PCR Not Detected (NotDetected); Coronavirus HKU1 PCR Not Detected (NotDetected); Coronavirus NL63 PCR Not Detected (NotDetected); Coronavirus OC43PCR Not Detected (NotDetected); Human Metapneumovirus PCR Not Detected (NotDetected); Influenza A PCR Not Detected (NotDetected); Influenza B PCR Not Detected (NotDetected); Mycoplasma pneumoniae PCR Not Detected (NotDetected); Parainfluenza Virus 1 PCR Not Detected (NotDetected); Parainfluenza Virus 2 PCR Not Detected (NotDetected); Parainfluenza Virus 3 PCR Not Detected (NotDetected); Parainfluenza Virus 4 PCR Not Detected (NotDetected); Respiratory Syncytial VirusPCR Not Detected (NotDetected); Rhinovirus/Enterovirus PCR Not Detected (NotDetected)
[2023-09-28] MEDS ORDERED: DOCUSATE SODIUM 100 MG CAP PO PRN (02:39)
[2023-09-28] MEDS ORDERED: oxyCODONE HCL IR 5 MG TAB (IMMEDIATE RELEASE) PO PRN (02:39)
[2023-09-28] MEDS ORDERED: ONDANSETRON INJ 2 MG/ML 2 ML VIAL IV PRN (02:39)
[2023-09-28] MEDS: SODIUM CHLORIDE 0.9% 1,000 ML IV SCH (02:54)
[2023-09-28 03:22] LABS: Phosphorus 2.7 mg/dl (2.5-4.9)
[2023-09-28 04:48] LABS: Folate (Folic Acid),Ser orPlas > 22.30 ng/ml (>5.38)
[2023-09-28 04:49] LABS: Vitamin B12 307 pg/ml (180-914)
[2023-09-28 06:54] LABS: Hematocrit (blood only) 23.5 % (37.0-47.0); Hemoglobin 7.6 g/dl (12.0-16.0); Mean Corpuscular Hemoglobin 32.9 pg (25.0-34.0); Mean Corpuscular Hgb Conc 32.3 g/dL (32.0-36.0); Mean Corpuscular Volume 101.7 fL (80.0-100.0); Mean Platelet Volume 9.3 fL (9.4-12.4); Platelet Count 183 K/uL (130-400); RDW Coefficient of Variation 16.1 % (11.5-14.5); RDW Standard Deviation 60.2 fL (36.4-46.3); Red Blood Count 2.31 M/uL (4.20-5.40); White Blood Count 7.37 K/ul (4.8-10.8)
[2023-09-28 07:26] LABS: BUN Creatinine Ratio 25.3 (10-20); Calcium 7.7 mg/dl (8.6-10.3); Creatinine Clr Calc Pharmacy 39.8 ml/min; Est GFR (African American) 77.5 ml/min; Est GFR (Non-African American) 66.8 ml/min; Potassium 3.5 mmol/L (3.5-5.1)
[2023-09-28] MEDS: FAMOTIDINE 20 MG TAB PO SCH (08:58)
[2023-09-28] MEDS: SENNA 8.6 MG TAB PO SCH (08:58)
[2023-09-28] MEDS: carvediloL 3.125 MG TAB PO SCH (08:59)
[2023-09-28] MEDS: cefTRIAXone SODIUM 1,000 MG in DEXTROSE 5 % MINI-B 50 ML IV SCH (09:03)
--- NOTE | 2023-09-28 09:40 | XRay Report ---
XR chest 1V not portable CLINICAL HISTORY: Weakness COMPARISON STUDY: Chest CT September 12, 2022. Chest radiograph January 23, 2023. FINDINGS: Right internal jugular [id number] is unchanged in position. Lung volumes are normal. Alka gs are clear. There is no pneumothorax or pleural effusion. Cardiomegaly is stable. Mediastinal conto urs are normal. There is no evidence for pulmonary edema. IMPRESSION: No acute cardiopulmonary findings. No change in appearance of the chest. ACT 112: Negative or not required by law. Electronically signed by: Flip Samayoa M.D. 09/28/2023 9:39 AM
--- NOTE | 2023-09-28 11:28 | Hospitalist Progress Note ---
Date of Service September 28, 2023 Assessment & Plan (1) Cellulitis: Plan: Patient with new onset rash on lower abdomen. Possibly infectious cellulitis vs adverse effect from Gemcitabine/pseudocellulitis. No crepitus or bullae noted, no evidence of necrosis. - Patient immunocompromised due to chemotherapy - abx escalated to daptomycin + cefepime - MRSA nasal swab -troponin downtrending, peak 16 -Urine culture -no growth - Blood cultures: pending - area of infection outlined PT/OT -Vit D3, probiotic restarted at pt request AM CBC, BMP (2) Hypotension: Plan: Baseline hypertension on carvedilol 3.125mg BID - hypotensive since admission, suspect component of dehydration - continue IVFs, NSS x 2L - AM cortisol ordered (3) Metastatic urothelial carcinoma: Plan: - Patient currently on Gemcitabine therapy, last dose 09/24. States that she normally responds well to this, was out exercising/walking the following day. - Follows with [facility] - mets to left abdominal wall 09/2022 -Symptomatic management - Oxycodone, Zofran PRN (4) Anemia: Plan: Hgb on admission 8.1. Baseline of recent ~10, prior ~13 - Iron studies - transferrin stat 5%, TIBC 229 - IV Venofer ordered - Vitamin B12: 307 - folate: >22.3 (5) Hypothyroidism: Plan: Chronic. TSH within normal limits at 1.023 -Continue Synthroid Plan Dispo: continued inpatient stay DVT proh: heparin SQ Daughter updated by phone. States that mom has caregivers coming in to the [facility] 3 times a day when she is not there to provide 24 hour care. Admission and Anticipated Discharge Date Admission Date: September 27, 2023 Supervising Physician Co-Signing Physician Notes PA Supervision Note: I did not personally see or examine the patient today, but I verified all wang points of SHAW Ambrocio's assessment and plan with the following exceptions/additions: None Subjective Patient sitting up in bed, granddaughter Ashley, present at bedside. Patient reports abrupt onset of lower extremity weakness. last dose of chemo 09/24, states she has been tolerating this well. Then went for a walk on 09/25 because the weather was so nice. says she was still drinking water after this. Denies diarrhea or poor appetite at home. Denies abdominal pain, has a chronic hernia, but reports only hurts when you push on it. answers orientation questions appropriately - except that the month is August. Upset she is missing her "Best man's" 89 birthday celebration at her living center. Review of Systems Review of Systems: All systems reviewed & are unremarkable except as noted in Subjective Physical Exam Physical Exam: General: NAD, VS as above Resp: normal respiratory effort, lungs clear to auscultation, coughs with deep breathing CV: RRR, no murmur, Abd: umbilical hernia, non strangulated, painful to palpation. Mild erythema and warmth to bilateral lower abdomen, non painful to palpation. Extremities: Moves all extremities, no edema Neuro: A&O x3, Skin: abdominal erythema as above. sacral wound bandage in place, no other skin possible sources of infection idenitified Results & Data Results & Data Vital Signs (Past 12 Hours) Vital Signs Temp Pulse Pulse Resp BP Pulse Ox O2 Del Method 09/28/23 08:55 78 100/54 L 09/28/23 08:15 Room Air 09/28/23 08:15 105/60 09/28/23 07:21 37.3 C 79 16 91/55 L 96 Room Air 09/28/23 02:39 Room Air, CPAP 09/28/23 02:39 37 C 81 18 110/70 96 Room Air 09/28/23 01:30 74 17 107/57 L 94 Room Air 09/28/23 00:00 75 18 98/55 L 97 Room Air 09/27/23 23:30 77 20 95/48 L 94 Room Air Laboratory Results CBC, chemistry, iron studies and troponin reviewed PG Care Time/CCT Total # of Minutes Spent Total Time Spent with Patient: Total time spent is greater than 50% in coordination of care (as documented) at patient's floor/unit and/or counseling patient: Coding Level of Care Code 32460 SUB INP/OBS CARE 3/50MIN Diagnoses Cellulitis L03.90 Hypotension I95.9 Metastatic urothelial carcinoma C79.10 Anemia D64.9 Hypothyroidism E03.9
[2023-09-28] MEDS: ADVANCED PROBIOTIC 625 MG CAPSULE PO SCH (12:27)
[2023-09-28] MEDS: CHOLECALCIFEROL 25 MCG (1000 UNITS) TAB PO SCH (12:28)
[2023-09-28] MEDS: CEROVITE ADV FORMULA TAB PO SCH (12:28)
[2023-09-28] MEDS: DAPTOmycin 275 MG in SYRINGE 0 ML IV SCH (13:06)
--- NOTE | 2023-09-28 13:26 | Electrocardiogram Report ---
Test Reason : Blood Pressure : / mmHG Vent. Rate : 085 BPM Atrial Rate : 085 BPM P-R Int : 166 ms QRS Dur : 084 ms QT Int : 350 ms P-R-T Axes : 028 041 052 degrees QTc Int : 416 ms Normal sinus rhythm with sinus arrhythmia Normal ECG When compared with ECG of 24-JAN-2023 16:15, Premature atrial complexes are no longer Present Confirmed by German Rodriguez ([id number]) on 09/28/2023 1:25:48 PM Referred By: Megan Escalona Confirmed By:German Rodriguez
[2023-09-28 13:36] LABS: Troponin I High Sensitivity 15.3 pg/ml (0-14)
[2023-09-28 13:50] LABS: Ferritin 128.6 ng/ml (8-388)
[2023-09-28] MEDS: CEFEPIME 2,000 MG in SYRINGE 0 ML IV SCH (13:55)
[2023-09-28] MEDS: LEVOTHYROXINE SODIUM 50 MCG TABLET PO SCH (15:47)
--- OUTSIDE RECORDS SUMMARY | 2023-09-28 16:16 | External Medical Summary | Summary of Care ---
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) Procedures [place] INJ GEMCITABINE HCL (ACCORD) Cullen Hooker MD [address] [place] [address] Anc Hem/Onc Renay Marques DEPT CLOSED - 05/28/23 [facility] [place] [address] Referral ID Status Reason Start Date Expiration Date V isits Requested Visits Authorized [id number] Authorized 05/31/2023 06/14/[phone] Encounter Details Date Type Department Care Team (Latest Contact Info) Description 07/18/2023 3:00 PM EST Hem/Onc Treatment Hematology/Oncolog y Treatment, [place] [address] [place] [address] She[place], Chair 7 Hem Onc Scenery [facility] [place] [address] Cancer, 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 3 04/09/20 16 Active amoxicillin (AMOXIL) 500 MG Capsule TAKE 4 CAPSULES BY MOUTH 1 HOUR PRIOR TO APPOINTMENT 1 04/13/20 17 Active levothyroxine (LEVOXYL) 50 MCG Tablet 1 tab daily 0 12/04/19 18 Active fluticasone (FLONASE) 50 MCG/ACT nasal spray 2 sprays in each nostril twice daily 0 12/08/19 20 Active ProAir HFA 108 (90 Base) MCG/ACT Inhalation Aerosol Solution Inhale 2 Puffs by mouth. As needed 0 10/12/19 20 Active Fexofenadine HCl 180 MG Oral Tablet (Abbey) Take 1 Tablet by mouth. As needed 0 Active Lidocaine 5 % External Ointment Apply to affected area every 4-6 hours as needed. Do not apply more than twice daily. 0 04/28/20 20 Active Estradiol 0.1 MG/GM Vaginal Cream Pt states she is applying once weekly 0 10/28/19 21 Active Ipratropium [place] 0.03 % Nasal Solution (Atrovent) 0 02/10/20 21 Active Omeprazole 10 MG Oral Capsule Delayed Release (Prilosec)Indicati ons:Encounter for long-term (current) use of medications,Urothe lial cancer (HCC) Take 1 Capsule by mouth in the morning. 90 Capsule 3 11/07/19 23 Active Prosight Oral Tablet Start: 04/09/22 13:31:00 EDT, See Instructions, 2 tabs po daily 0 04/09/20 22 Active Emergen-C Vitamin C Oral Packet DAILY IN THE MORNING 0 09/27/19 22 Active Famotidine 20 MG Oral Tablet 1 Tablet. 0 04/09/20 22 Active Cholecalciferol 50 MCG (2000 UT) Oral Tablet DAILY IN THE MORNING 0 09/27/19 22 Active CPAP every night at bedtime. 0 Active Triamcinolone Acetonide 0.1 % External Cream (Aristocort)Indica tions:Dermatitis Apply to itching areas on the back twice daily as needed 80 g 1 12/26/19 23 Active Sodium Chloride (PF) 0.9 % Injection Solution Flush 10 mL catheter in the morning. (Dispense 30 pre-filled flushes for Nephrostomy tube flushes). 300 mL 3 01/27/20 23 Active Lidocaine-Prilocai ne 2.5-2.5 % External Cream (Emla)Indications: Encounter for antineoplastic chemotherapy APPLY TO SKIN OVER MEDIPORT AND COVER 1 HOUR PRIOR TO ACCESSING 30 g 3 03/07/20 23 Active Diclofenac Sodium 1 % External Gel (Voltaren) Apply topically to affected area 2 times a day. Apply to HANDS AND KNEES 100 g 1 04/10/20 23 Active Fluocinolone Acetonide 0.01 % Otic Oil 2 times a day. 0 12/19/19 23 Active Mupirocin 2 % External Ointment 2 times a day. 0 11/28/19 23 Active Keytruda 100 MG/4ML Intravenous Solution (Pembrolizumab) Administer 2 mg/kg intravenously once. 0 Active Ondansetron HCl 8 MG Oral Tablet (Zofran)Indication s:Urothelial cancer (HCC) Take 1 Tablet by mouth every 8 hours as needed for Nausea. 30 Tablet 1 06/19/20 23 Active Docusate Sodium 100 MG Oral Capsule 1 Capsule. 0 03/08/20 22 024 Discontinued Polyethylene Glycol 3350 17 GM/SCOOP Oral Powder (Miralax) Use as Directed 0 04/16/20 22 024 Discontinued(Re fill) hydrOXYzine HCl 25 MG Oral Tablet Take 1 Tablet by mouth 3 times a day as needed. 0 024 Discontinued(Re fill) Sennosides 8.6 MG Oral Tablet Take 1 Tablet by mouth in the morning and 1 Tablet before bedtime. 0 024 Discontinued oxyCODONE-Acetamin ophen 5-325 MG Oral Tablet (Percocet)Indicati ons:Cancer related pain Take 1 Tablet by mouth every 4 hours as needed for Pain, Severe. 15 Tablet 0 04/10/20 23 024 Discontinued dexAMETHasone 2 MG Oral Tablet (Decadron)Indicati ons:Cancer related pain Take 1 Tablet by mouth daily with breakfast. 30 Tablet 0 04/12/20 23 024 Discontinued oxyCODONE HCl 5 MG Oral Tablet (Oxy IR) 1 Tablet. 0 11/28/19 23 024 Discontinued Hydrocortisone 2.5 % External Cream Apply topically to affected area 2 times a day. 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 DDD (degenerative disc disease), lumbar 11/26/19 18 Primary osteoarthritis of both knees 11/25/2017 Lymphedema of left leg Hyperlipidemia HTN (hypertension) Dry eyes documented as of this encounter (statuses as of 09/09/2023) Immunizations Name Administration Dates Next Due COVID-19 mRNA, LNP-s, No Pre serve, 2-Dose Series ([employer]) 03/21/2021,09/07/2020,08/17/2020 Pneumococcal Polysaccharide PPV23 (Pneumovax) 04/29/2020,04/14/2004 Seasonal Influenza, Quadriva lent Hd, 65+ Yrs 04/30/2020 Seasonal Influenza, Split, I IV3, With Preserve, Inj 04/28/2019,05/28/2011 Seasonal Influenza, Trivalen t, High Dose, No Preserve, IM 04/28/2019,05/02/2018 Zoster Vaccine Recombinant (Shingrix) 09/12/2019 ,05/23/2019 documented as of this encounter Social History Tobacco Use Types Packs/Day Years Used Date Smoking Tobacco: Never Smokeless Tobacco: Never Alcohol Use Standard Drinks/Week Comments Yes 0 (1 standard drink = 0.6 oz pur e alcohol) Sex and Gender Information Value Date Recorded Sex Assigned at Female 03/19/2021 12:48 PM EDT Gender Identity Female 03/19/2021 12:48 PM EDT Sexual Orientation Straight 03/19/2021 12 :48 PM EDT Job Start Date Occupation Industry Not on file Not on file Not on file documented as of this encounter Last Filed Vital Signs Vital Sign Reading Time Taken Comments Blood Pressure 122/83 07/18/2023 3:12 PM EST Pulse 80 07/18/2023 3:12 PM EST Temperature 36.6 C (97.8 F) 07/18/2023 3:12 PM ES T Respiratory Rate 18 07/18/2023 3:12 PM EST Oxygen Saturation 98% 07/18/2023 3:12 PM EST Inhaled Oxygen Concentration - - Weight - - Height - - Body Mass Index - - documented in this encounter Functional Status Functional Status Response Date of Assess ment Are you deaf or do you have serious difficulty h earing? No 01/25/2023 Are you blind or do you have serious difficulty seeing, even when wearing glasses? No 01/25/2023 Do you have serious difficul ty walking or climbing stairs? (5 years old or older) No 01/25/2023 Do you have difficulty dress ing or bathing? (5 years old or older) No 01/25/2023 Because of a physical, menta l, or emotional condition, do you have difficulty doing errands alone such as visiting a doctor s office or shopping? (15 years old or older) No 01/26/20 Cognitive Status Response Date of Assessm ent Because of a physical, menta l, or emotional condition, do you have serious difficulty concentrating, remembering, or making decisions? (5 years old or older) No 01/25/2023 documented as of this encounter Nursing Notes * Bia Rosen, RN - 07/18/2023 4:30 PM EST Functional status at today's visit: Capable of only limited selfcare, confined to bed or chair more than 50% of waking hours The drug name, dose, infusion volume, rate and route of administration, expiration date and time, appearance and physical integrity of the drug and rate set on the pump and sequencing of drug administration (as applicable) were verified by me and second sign-in RN. Patient was assessed for symptoms or adverse side effects during treatment. Pt completed treatment without issues. VAD flushed with 10 ml NSS and Heparin 5 ml (100 units/ml). Sierra needle removed intact. Goals: Pt will remain free from injury. Possible barriers to meeting goals: pt is a high fall risk Stability of the patient: Moderately stable - low risk of patient condition declining or worsening Summary regarding today's goals: Met: Pt remained free from injury during treatment today. Discharged in stable condition. No coverage. * Bia Rosen RN - 07/18/2023 4:03 PM EST Chair 8 Chemo agents Gemzar Appetite stable Nausea/Vomiting no Diarrhea intermittent, but managing Constipation no Mucositis no Fatigue yes, stable Bleeding no Infection no Rash no Numbness tingling no Pain no Radiation n/a ABN Labs okay for treatment Alt in Tx: no Return in 2 weeks VAD accessed; NSS infusing. Safety and Risk for Injury Patient will remain free from injury. Ensure appropriate safety devices are available. Provide and maintain safe environment. documented in this encounter Plan of Treatment Upcoming Encounters Date Type Department Care Team (Late st Contact Info) Description 09/12/2023 9:00 AM EST Scheduled Telephone Palliative Medicine, [address] [place] [address] Fl, Nurse Palliative Medicine [facility] [address] [place] [address] 09/18/2023 1:10 PM EST Laboratory Laboratory Scenery [place] [address] [place] [phone] She[place], Lab Scenery [address] [place] [address] 09/18/2023 1:45 PM EST Hem/Onc Treatment Hematology/Oncology Treatment, [place] [address] [place] [phone] Shelli, Chair 2 Hem Onc Scenery [address] [place] [address] 09/25/2023 1:00 PM EDT Laboratory Laboratory [facility] [place] [address] [place], [place] [phone] She[place], Lab Scenery [address] [place], [place] [address] 09/25/2023 1:30 PM EDT [facility], [place] [phone] Shelli, Chair 8 Hem Onc Scenery [address] [place], [place] [address] 10/10/2023 9:10 AM EDT Laboratory Laboratory [facility] [place] [address] [place], [place] [phone] She[place], Lab Scenery [address] [place], [place] [address] 10/10/2023 9:30 AM EDT Office Visit Hematology/Oncology [facility] [place] [address] [place], [place] [phone] Lizzy Rosales CRNP [address] [place] [address] 10/10/2023 10:00 AM EDT Hem/Onc Treatment Hematology/Oncology Treatment [place] 200 [facility], [place] [phone] She[place], Chair 1 Hem Onc Scenery [address] [place] [address] 04/20/2024 11:00 AM EDT Office Visit Rheumatology [place] [phone] [facility] [place], [place] [address] Iglesia Rothman MD [address] [place], [place] [address] Health Maintenance Due Date Last Done Comments Depression Screening 1947 Albumin/Creatinine Ratio 1953 DTaP,Tdap,and Td Vaccines (1 - Tdap) 1954 Pneumococcal Vaccine: 65+ Years (3 of 3 - PCV) 04/29/2021 04/29/2020, 04/14/2004 Influenza Vaccine (FLU shot) (#1) 2023 04/30/2020, 04/28/2019, 04/28/2019, Additional history exists TSH 09/05/2024 09/05/2023, 08/15, 08/15/2023, Additional history exists DXA Scan 07/26/2027 07/26/2020 Zoster Vaccines Completed 09/12/2019, 05/23/2019 COVID-19 Vaccine Completed 04/26/2023, , 10/20/2021, Additional history exists GARDASIL-HPV IMMUNIZATION SERIES Aged Out No longer eligible based on patient's age to complete this topic Hepatitis B Aged Out No longer eligi ble based on patient's age to complete this topic MENINGOCOCCAL (MENACTRA/MENVEO) Aged Out No longer eligible based on patient's age to complete this topic documented as of this encounter Medical Devices Implanted Type Area Pastrycook'S Assistant Device Identifier Shelf Expiration Date Model / Serial / Lot Port Implant W/8f Poly Cath - [id number] Implanted:Qty : 1 on 11/14/2022 by Shaka Sims DO at OR 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 Encounter for antineoplastic chemotherapy documented in this encounter Administered Medications Inactive Administered Medications - up to 3 most recent administrations Medication Order MAR Action Action Date Dose Rate Site gemcitabine (Gemzar) 1,400 mg in NSS 250 mL infusion 1,400 mg (rounded from 1,380 mg = 750 mg/m2 1.84 m2 Treatment Plan BSA from Recorded weight), IV Piggyback, ONCE, 1 dose, On Keri 07/18/23 at 1645, Administer over 30 Minutes Start Infusion 07/18/2023 3:34 PM EST 1,400 mg 500 mL/hr hEParin 100 UNIT/ML Lock Flush inj 500 Units 500 Units (5 mL), IV Lock, PRN Other, IV Flush, Starting on Keri 07/18/23 at 1506, Until Keri 07/18/23 at 2033, For 24 hours, Do not flush if lock, PICC, or central line not in place; IV infusing or unable to flush. Given 07/18/2023 4:08 PM EST 500 Units NSS infusion Intravenous, at 50 mL/hr, PRN, Starting on Keri 07/18/23 at 1615, Until Keri 07/18/23 at 2033, Maintenance line Start Infusion 07/18/2023 3:32 PM EST 50 mL/hr ondansetron (Zofran) tab 8 mg 8 mg, Oral, ONCE, On Keri 07/18/23 at 1615, For 1 dose, Give 30 minutes prior to chemotherapy. Given 07/18/2023 3:31 PM EST 8 mg sodium chloride 0.9 % flush central line 10 mL 10 mL, IV Push, PRN Other, IV Flush, Starting on Keri 07/18/23 at 1506, Until Keri 07/18/23 at 2033, For 24 hours, Do not flush if lock, PICC, or central line not in place; IV infusing or unable to flush. 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 Question Answer Comments Discussion of Advance Directives occurred with: Patient Care Teams Associate Brand Manager Relationship Specialty Start Date End Date Megan Escalona MD [address] [place] [address] PCP - General Internal Medicine 10/24/22 documented as of this encounter
--- OUTSIDE RECORDS SUMMARY | 2023-09-28 16:16 | External Medical Summary ---
Author Name Unknown Address Unknown Organization [id number]:[facility] [place] [address] Laboratory Report Ordering Provider Test Date Status SARAHI AQUINO 09/25/2023 13:01:02 Final Observation Date Value Abnormality Reference (Units ) Status WBC, Total 09/25/2023 13:01:02 7.11 4.00-10.8 0 (K/uL) Final RBC 09/25/2023 13:01:02 2.79 3.85-5.15 (M/uL) Final Hemoglobin 09/25/2023 13:01:02 9.1 Below low normal 12 .0-15.3 (g/dL) Final HCT 09/25/2023 13:01:02 29.7 Below low normal 36. 0-45.2 (%) Final MCV 09/25/2023 13:01:02 106.5 81.5-97.5 (fL) Final MCH 09/25/2023 13:01:02 32.6 27.0-34.0 (pg) Final MCHC 09/25/2023 13:01:02 30.6 32.0-36.0 (g/dL) Final RDW 09/25/2023 13:01:02 18.2 11.5-15.5 (%) Final Platelets 09/25/2023 13:01:02 314 140-400 (K /uL) Final MPV 09/25/2023 13:01:02 8.6 6.6-11.1 ( fL) Final Performing Location [facility] [place] [address]
--- OUTSIDE RECORDS SUMMARY | 2023-09-28 16:16 | External Medical Summary | Summary of Care ---
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) Procedures [place] INJ GEMCITABINE HCL (ACCORD) Cullen Hooker MD [address] [place] [address] Anc Hem/Onc Renay Marques DEPT CLOSED - 05/28/23 200 [facility] [place] [phone] Referral ID Status Reason Start Date Expiration Date V isits Requested Visits Authorized [id number] Authorized 05/31/2023 06/14/[phone] Encounter Details Date Type Department Care Team (Latest Contact Info) Description 07/18/2023 3:00 PM EST Hem/Onc Treatment Hematology/Oncolog y Treatment, [place] [address] [place] [phone] [place], Chair 7 Hem Onc Scenery 200 [facility] [place] [address] Cancer, 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)*; Urothelial [...] once weekly 0 10/28/19 21 Active Ipratropium [place] 0.03 % Nasal Solution (Atrovent) 0 02/10/20 [...] mRNA, LNP-s, No Pre serve, 2-Dose Series ([employer]) 03/21/2021,09/07/2020,08/17/2020 Pneumococcal Polysaccharide PPV23 (Pneumovax) 04/29/2020,04/14/2004 Seasonal [...] 9:00 AM EST Scheduled Telephone Palliative Medicine, [address]th [place] [address] Fl, Nurse Palliative Medicine [facility] [address] [place] [address] 09/18/2023 1:10 PM EST Laboratory Laboratory Scenery [place] [address] [place] [phone] She[place], Lab Scenery [address] [place] [address] 09/18/2023 1:45 PM EST Hem/Onc Treatment Hematology/Oncology Treatment, [place] [address] [place] [phone] She[place], Chair 2 Hem Onc Scenery [address] [place] [address] 09/25/2023 1:00 PM EDT Laboratory Laboratory [facility] [place] [address] [place], [place] [phone] She[place], Lab Scenery [address] [place], [place] [address] 09/25/2023 1:30 PM EDT [facility], [place] [phone] She[place], Chair 8 Hem Onc Scenery [address] [place], [place] [address] 10/10/2023 9:10 AM EDT Laboratory Laboratory [facility] [place] [address] [place], [place] [phone] She[place], Lab Scenery [address] [place], [place] [address] 10/10/2023 9:30 AM EDT Office Visit Hematology/Oncology [facility] [place] [address] [place], [place] [phone] Lizzy Rosales CRNP [address] [place] [address] 10/10/2023 10:00 AM EDT Hem/Onc Treatment Hematology/Oncology Treatment [place] 200 [facility], [place] [phone] She[place], Chair 1 Hem Onc Scenery [address] [place] [address] 04/20/2024 11:00 AM EDT Office Visit Rheumatology [place] [phone] [facility] [place], [place] [address] Iglesia Rothman MD [address] [place], [place] [address] Health Maintenance Due Date Last Done Comments [...] this encounter Medical Devices Implanted Type Area Room Service Attendant Device Identifier Shelf Expiration Date Model / Serial / Lot Port Implant W/8f Poly Cath - [id number] Implanted:Qty : 1 on 11/14/2022 by Shaka Sims DO at OR [facility] Right: Chest CR BARD : PERIPHERAL VASCULAR [id number] 11/12/2023 [id number] / / [id number] documented as of this encounter Visit Diagnoses [...] Documents on File Type Date Recorded Patient Petroleum Geologist Expl anation POLST 04/10/2023 [place] OR [facility] FOR LIFE-SUSTAINING TREATMENT Latest Code Status on File Code Status Date Activated Date Inactivated Comments Full Code 01/25/2023 2:55 AM 01/26/2023 5:53 PM This order reflects the patients wishes and were consensually agreed upon. Question Answer Comments Discussion of Advance Directives occurred with: Patient Care Teams Slab Lifting Supervisor Relationship Specialty Start Date End Date Megan Escalona MD [address] [place] [address] PCP - General Internal Medicine 10/24/22 documented as of this encounter
--- OUTSIDE RECORDS SUMMARY | 2023-09-28 16:16 | External Medical Summary ---
Author Name Unknown Address Unknown Organization K09:[facility] [address] [place] [address] Laboratory Report Ordering Provider Test Date Status SARAHI AQUINO 09/18/2023 12:54:01 Final Observation Date Value Abnormality Reference (Units ) Status BUN 09/18/2023 12:54:01 19 6-20 (mg/dL) Final Creatinine 09/18/2023 12:54:01 0.9 0.5-1.0 (mg/dL) Final Glomerular filtration rate/1.73 sq M.predicted [Volume Rate/Area] in Serum, Plasma or Blood by Creatinine-based formula (CKD-EPI) 09/18/2023 12:54:01 60 >=60 (mL/min) Final eGFR is calculated based on the CKD-EPI 2020 equation SODIUM 09/18/2023 12:54:01 136 135-146 (m mol/L) Final Potassium 09/18/2023 12:54:01 4.8 3.5-5.1 (m mol/L) Final Cl 09/18/2023 12:54:01 104 98-107 (mm ol/L) Final CO2 09/18/2023 12:54:01 24 22-32 (mmo l/L) Final Anion gap 09/18/2023 12:54:01 8 7-15 (mmol /L) Final Glucose 09/18/2023 12:54:01 93 70-120 (mg /dL) Final Albumin 09/18/2023 12:54:01 3.6 Below low normal 3.8 -5.0 (g/dL) Final AST (Aspartate aminotransferase) 09/18/2023 12:54:01 17 10-35 (U/L) Fin al Alk Phos 09/18/2023 12:54:01 109 35-130 (U/ L) Final Bilirubin, Total 09/18/2023 12:54:01 0.2 <=1 .2 (mg/dL) Final Calcium 09/18/2023 12:54:01 9.1 8.4-10.2 ( mg/dL) Final Protein 09/18/2023 12:54:01 6.4 6.0-8.3 (g /dL) Final ALT (Alanine aminotransferase) 09/18/2023 12:54:01 13 10-35 (U/L) Serge pappas Performing Location [facility] [address] [place] [address]
--- OUTSIDE RECORDS SUMMARY | 2023-09-28 16:16 | External Medical Summary | Summary of Care ---
Author Name Unknown Organization [facility] Address [address] [place] [address] Phone [phone] Care Team Providers Care Plumbing Inspector Name Role Phone Megan Escalona MD Primary Care Provide r Reason for Visit * Reason Comments Outpatient Testing Encounter Details Date Type Department Care Team (Late st Contact Info) Description 09/25/2023 1:00 PM EDT Laboratory Laboratory [facility] [address] [place] [phone] [place], Lab Scenery [address] [place], [place] [address] Urothelial cancer (HCC); Dehydration; Stage 3a chronic kidney disease (HCC); Encounter for antineoplastic chemotherapy; Personal history of kidney cancer; Encounter for long-term (current) use of other medications Allergies Active Allergy Reactions Criticality Noted Date Comments Capsaicin 11/03/2020 GENERALIZED DERMATITIS Prednisone High 04/30/2017 Severe headache Other reaction(s): Dizziness & weird dreams documented as of this encounter (statuses as of 09/25/2023) Medications Medication Sig Dispensed Refills Start Date End Date Status carvedilol (COREG) 3.125 MG Tablet Take 1 Tablet by mouth in the morning and 1 Tablet before bedtime. 3 04/09/2016 Active amoxicillin (AMOXIL) 500 MG Capsule TAKE 4 CAPSULES BY MOUTH 1 HOUR PRIOR TO APPOINTMENT 1 04/13/2017 Active levothyroxine (LEVOXYL) 50 MCG Tablet 1 tab daily 0 12/03/2017 Active fluticasone (FLONASE) 50 MCG/ACT nasal spray 2 sprays in each nostril twice daily 0 12/08/2019 Active ProAir HFA 108 (90 Base) MCG/ACT Inhalation Aerosol Solution Inhale 2 Puffs by mouth. As needed 0 10/12/2019 Active Fexofenadine HCl 180 MG Oral Tablet (Abbey) Take 1 Tablet by mouth. As needed 0 Active Lidocaine 5 % External Ointment Apply to affected area every 4-6 hours as needed. Do not apply more than twice daily. 0 04/28/2020 Active Estradiol 0.1 MG/GM Vaginal Cream Pt states she is applying once weekly 0 10/27/2020 Active Ipratropium [place] 0.03 % Nasal Solution (Atrovent) 0 02/09/2021 Activ e Omeprazole 10 MG Oral Capsule Delayed Release (Prilosec)Indication s:Encounter for long-term (current) use of medications,Urotheli al cancer (HCC) Take 1 Capsule by mouth in the morning. 90 Capsule 3 11/06/2022 Active Prosight Oral Tablet Start: 04/09/22 13:31:00 EDT, See Instructions, 2 tabs po daily 0 04/09/2022 Active Emergen-C Vitamin C Oral Packet DAILY IN THE MORNING 0 09/26/2021 Active Famotidine 20 MG Oral Tablet 1 Tablet. 0 04/09/2022 Active Cholecalciferol 50 MCG (2000 UT) Oral Tablet DAILY IN THE MORNING 0 09/26/2021 Active CPAP every night at bedtime. 0 Active Triamcinolone Acetonide 0.1 % External Cream (Aristocort)Indicati ons:Dermatitis Apply to itching areas on the back twice daily as needed 80 g 1 12/25/2022 Active Sodium Chloride (PF) 0.9 % Injection Solution Flush 10 mL catheter in the morning. (Dispense 30 pre-filled flushes for Nephrostomy tube flushes). 300 mL 3 01/26/2023 Active Lidocaine-Prilocaine 2.5-2.5 % External Cream (Emla)Indications:En counter for antineoplastic chemotherapy APPLY TO SKIN OVER MEDIPORT AND COVER 1 HOUR PRIOR TO ACCESSING 30 g 3 03/07/2023 Active Diclofenac Sodium 1 % External Gel (Voltaren) Apply topically to affected area 2 times a day. Apply to HANDS AND KNEES 100 g 1 04/10/2023 Active Fluocinolone Acetonide 0.01 % Otic Oil 2 times a day. 0 12/18/2022 Active Mupirocin 2 % External Ointment 2 times a day. 0 11/27/2022 Act filemon Keytruda 100 MG/4ML Intravenous Solution (Pembrolizumab) Administer 2 mg/kg intravenously once. 0 Active Ondansetron HCl 8 MG Oral Tablet (Zofran)Indications: Urothelial cancer (HCC) Take 1 Tablet by mouth every 8 hours as needed for Nausea. 30 Tablet 1 06/19/2023 Active hydrOXYzine HCl 25 MG Oral Tablet Take 2 Tablets by mouth at bedtime. 0 08/28/2023 Active Polyethylene Glycol 3350 17 GM/SCOOP Oral Powder (Miralax)Indications :Constipation, unspecified constipation type Take 17 g by mouth in the morning. Use as directed.. 255 g 0 08/28/2023 Active Hydrocortisone 2.5 % External Cream Apply topically to affected area 2 times a day. 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 DDD (degenerative disc disease), lumbar 11/26/19 Primary osteoarthritis of both knees 11/25/2017 Lymphedema of left leg Hyperlipidemia HTN (hypertension) Dry eyes documented as of this encounter (statuses as of 09/25/2023) Immunizations Name Administration Dates Next Due COVID-19 mRNA, LNP-s, No Pre serve, 2-Dose Series ([employer]) 03/21/2021,09/07/2020,08/17/2020 Pneumococcal Polysaccharide PPV23 (Pneumovax) 04/29/2020,04/14/2004 Seasonal [...] on file documented as of this encounter Functional Status Functional Status Response [...] No 01/25/2023 documented as of this encounter Plan of Treatment Upcoming Encounters Date Type Department Care Team (Late st Contact Info) Description 09/25/2023 1:30 PM EDT Hem/Onc Treatment Hematology/Oncology Treatment, [place] [address] [place] [phone] Shelli, Chair 8 Hem Onc Scenery [address] [place] [address] Arrived 10/10/2023 1:30 PM EDT Laboratory Laboratory [facility] [address] [place] [phone] She[place], Lab [facility] [address] [facility] [place] [address] 10/10/2023 2:00 PM EDT Office Visit Hematology/Oncology [facility] [place] [address] [place] [phone] Lizzy Rosales CRNP [address] [facility] [place] [address] 10/10/2023 2:30 PM EDT Hem/Onc Treatment Hematology/Oncology [facility] [address] [place] [phone] Shelli, Chair 1 Hem Onc [facility] [address] [facility] [place] [address] 04/20/2024 11:00 AM EDT Office Visit Rheumatology [place] [phone] [employer] [place], [place] [address] Iglesia Rothman MD [address] [place], [place] [address] Pending Results Name Type Priority Associated Diagnoses Date /Time COMPREHENSIVE METABOLIC PANEL Lab STAT Urothelial cancer (HCC) Dehydration Stage 3a chronic kidney disease (HCC) Encounter for antineoplastic chemotherapy Personal history of kidney cancer Encounter for long-term (current) use of other medications 09/25/2023 1:01 PM EDT Health Maintenance Due Date Last Done Comments [...] this encounter Medical Devices Implanted Type Area Registered Nurse Device Identifier Shelf Expiration Date Model / Serial / Lot Port Implant W/8f Poly Cath - [id number] Implanted:Qty : 1 on 11/14/2022 by Shaka Sims, DO at OR [facility] Right: Chest CR BARD : PERIPHERAL VASCULAR [id number] 11/12/2023 [id number] / / [id number] documented as of this encounter Procedures Procedure Name Priority Date/Time Associated Diagnosis Comments DIFFERENTIAL, AUTOMATED STAT 09/25/2023 1:01 PM EDT Urothelial cancer (HCC) Dehydration Stage 3a chronic kidney disease (HCC) Encounter for antineoplastic chemotherapy Personal history of kidney cancer Encounter for long-term (current) use of other medications CBC STAT 09/25/2023 1:01 PM EDT Urothelial cancer (HCC) Dehydration Stage 3a chronic kidney disease (HCC) Encounter for antineoplastic chemotherapy Personal history of kidney cancer Encounter for long-term (current) use of other medications CBC STAT 09/25/2023 1:01 PM EDT Urothelial cancer (HCC) Dehydration Stage 3a chronic kidney disease (HCC) Encounter for antineoplastic chemotherapy Personal history of kidney cancer Encounter for long-term (current) use of other medications documented in this encounter Results * (ABNORMAL) DIFFERENTIAL, AUTOMATED (09/25/2023 1:01 PM EDT) WBC 7.11 4.00 - 10.80 K/uL 09/25/2023 1:06 PM EDT [facility] 56-02 Neutrophils % 65.2 40.0 - 75.0 % 09/25/2023 1:06 PM EDT [facility] 56- Lymphocytes % 12.1(L) 18.0 - 42.0 % 09/25/2023 1:06 PM EDT [facility] 56 Monocytes % 16.6(H) 1.0 - 11.0 % 09/25/2023 1:06 PM EDT [facility] 56 Eosinophils % 5.8 0.0 - 6.0 % 09/25/2023 1:06 PM EDT [facility] 56 Basophils % 0.3 0.0 - 2.0 % 09/25/2023 1:06 PM EDT [facility] 56- Absolute Neutrophils 4.64 1.80 - 7.70 K/uL 09/25/2023 1:06 PM EDT [facility] 56 Absolute Lymphocytes 0.86(L) 1.00 - 4.80 K/ul 09/25/2023 1:06 PM EDT [facility] 56 Absolute Monocytes 1.18(H) 0.00 - 1.10 K/uL 09/25/2023 1:06 PM EDT [facility] 56 Absolute Eosinophils 0.41 0.00 - 0.70 K/uL 09/25/2023 1:06 PM EDT [facility] 56 Absolute Basophils 0.02 0.00 - 0.20 K/uL 09/25/2023 1:06 PM EDT [facility] 56 Blood Venous blood specimen / Unknown Venipuncture / Unknown 09/25/2023 1:01 PM EDT 09/25/2023 1:01 PM EDT Cullen Hooker MD LAB BLOOD ORDERABLES [facility] [address] [place] [address] * (ABNORMAL) CBC (09/25/2023 1:01 PM EDT) WBC 7.11 4.00 - 10.80 K/uL 09/25/2023 1:[address]T [address] RBC 2.79 3.85 - 5.15 M/uL 09/25/2023 1:[address]T [address] HGB 9.1(L) 12.0 - 15.3 g/dL 09/25/2023 1:[address] HCT 29.7(L) 36.0 - 45.2 % 09/25/2023 1:[address]T [address] MCV 106.5 81.5 - 97.5 fL 09/25/2023 1:[address] PM EDT [address] MCH 32.6 27.0 - 34.0 pg 09/25/2023 1:06 PM EDT [address] MCHC 30.6 32.0 - 36.0 g/dL 09/25/2023 1:06 PM EDT [address] RDW 18.2 11.5 - 15.5 % 09/25/2023 1:[address] PLT 314 140 - 400 K/uL 09/25/2023 1:06 PM EDT [address] MPV 8.6 6.6 - 11.1 fL 09/25/2023 1:06 PM EDT [address] Blood Venous blood specimen / Unknown Venipuncture / Unknown 09/25/2023 1:01 PM EDT 09/25/2023 1:01 PM EDT Cullen Hooker MD LAB BLOOD ORDERABLES [address] [place] [address] documented in this encounter Visit Diagnoses Diagnosis 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 Dehydration Stage 3a chronic kidney disease (HCC) Encounter for antineoplastic chemotherapy Personal history of kidney cancer Personal history of malignant neoplasm of kidney Encounter for long-term (current) use of other medications documented in this encounter Advance Directives Documents on File Type Date Recorded Patient Tree Farmer Expl anation POLST 04/10/2023 [place] [facility] FOR LIFE-SUSTAINING TREATMENT Latest Code Status on File Code Status Date Activated Date Inactivated Comments Full Code 01/25/2023 2:55 AM 01/26/2023 5:53 PM This order reflects the patients wishes and were consensually agreed upon. Question Answer Comments Discussion of Advance Directives occurred with: Patient Care Teams Plumbing Inspector Relationship Specialty Start Date End Date Megan Escalona MD [address] [place] [address] PCP - General Internal Medicine 10/24/22 documented as of this encounter
--- OUTSIDE RECORDS SUMMARY | 2023-09-28 16:16 | External Medical Summary ---
Author Name Unknown Address Unknown Organization K09:[facility] [address] [place] [address] Laboratory Report Ordering Provider Test Date Status SARAHI AQUINO 09/25/2023 13:01:02 Final Observation Date Value Abnormality Reference (Units ) Status BUN 09/25/2023 13:01:02 22 Above high normal 6-20 (mg/dL) Final Creatinine 09/25/2023 13:01:02 1.0 0.5-1.0 (mg/dL) Final Glomerular filtration rate/1.73 sq M.predicted [Volume Rate/Area] in Serum, Plasma or Blood by Creatinine-based formula (CKD-EPI) 09/25/2023 13:01:02 56 Below low normal >=60 (mL/min) Final eGFR is calculated based on the CKD-EPI 2020 equation SODIUM 09/25/2023 13:01:02 139 135-146 (m mol/L) Final Potassium 09/25/2023 13:01:02 4.5 3.5-5.1 (m mol/L) Final Cl 09/25/2023 13:01:02 106 98-107 (mm ol/L) Final CO2 09/25/2023 13:01:02 25 22-32 (mmo l/L) Final Anion gap 09/25/2023 13:01:02 8 7-15 (mmol /L) Final Glucose 09/25/2023 13:01:02 106 70-120 (mg /dL) Final Albumin 09/25/2023 13:01:02 3.6 Below low normal 3.8 -5.0 (g/dL) Final AST (Aspartate aminotransferase) 09/25/2023 13:01:02 19 10-35 (U/L) Fin al Alk Phos 09/25/2023 13:01:02 119 35-130 (U/ L) Final Bilirubin, Total 09/25/2023 13:01:02 0.2 <=1 .2 (mg/dL) Final Calcium 09/25/2023 13:01:02 9.2 8.4-10.2 ( mg/dL) Final Protein 09/25/2023 13:01:02 6.7 6.0-8.3 (g /dL) Final ALT (Alanine aminotransferase) 09/25/2023 13:01:02 11 10-35 (U/L) Serge pappas Performing Location [facility] [address] [place] [address]
--- OUTSIDE RECORDS SUMMARY | 2023-09-28 16:16 | External Medical Summary | Summary of Care ---
Author Name Unknown Organization [facility] Address [address] [place] [address] Phone [phone] Care Team Providers Care Stove Mounter Name Role Phone Megan Escalona MD Primary Care Provide r Reason for Visit * Reason Onset Date Comments Advice 09/10/2023 [place] Encounter Details Date Type Department Care Team (Late st Contact Info) Description 09/10/2023 Telephone Hematology/Oncology [facility] [address] [place] [address] Services, Scheduling [address] [place] [address] Advice ([place] ) Allergies Active Allergy Reactions Criticality Noted Date Comments Capsaicin 11/03/2020 GENERALIZED DERMATITIS Prednisone High 04/30/2017 Severe headache Other reaction(s): Dizziness & weird dreams documented as of this encounter (statuses as of 09/10/2023) Medications Medication Sig Dispensed Refills Start Date [...] Active Fexofenadine HCl 180 MG Oral Tablet (Abeby) Take 1 Tablet by mouth. As needed 0 Active Lidocaine 5 % External Ointment Apply to affected area every 4-6 hours as needed. Do not apply more than twice daily. 0 04/28/2020 Active Estradiol 0.1 MG/GM Vaginal Cream Pt states she is applying once weekly 0 10/27/2020 Active Ipratropium [place] 0.03 % Nasal Solution (Atrovent) 0 02/09/2021 [...] Tablet. 0 04/09/2022 Active Cholecalciferol 50 MCG (1999 UT) Oral Tablet DAILY IN THE MORNING [...] as of this encounter (statuses as of 09/10/2023) Active Problems Problem Noted Date Diagnosed Date [...] as of this encounter (statuses as of 09/10/2023) Immunizations Name Administration Dates Next Due COVID-19 mRNA, LNP-s, No Pre serve, 2-Dose Series ([employer]) 03/21/2021,09/07/2020,08/17/2020 Pneumococcal Polysaccharide PPV23 (Pneumovax) 04/29/2020,04/14/2004 Seasonal [...] No 01/25/2023 documented as of this encounter Miscellaneous Notes * Telephone Encounter - Rachel Henry LPN - 09/10/2023 1:40 PM EST Called and spoke with Tamra; advised I was able to reschedule an afternoon patient to the morning andput Karen in the afternoon . So is still scheduled for 10/09 130lab 2pm Lizzy and 230pm for tx * Telephone Encounter - Nayely Riggins OSA - 09/10/2023 9:57 AM EST Hello, Daughter Juliette would like to change 3/28 appt to 10/08 if possible. Patient can't do an early appt.So she can either do 10/08 or 10/09 but after 1:30 pm. Please advise. Thank you! documented in this encounter Plan of Treatment Upcoming Encounters Date Type Department Care Team (Late st Contact Info) Description 09/12/2023 9:00 AM EST Scheduled Telephone Palliative Medicine, [facility] [address] [facility] 5th Floor [place] [address] [place], Nurse Palliative Medicine [facility] 5th 400 [facility] [place] [address] 09/18/2023 1:10 PM EST Laboratory Laboratory [facility] [place] [address] [place] [phone] Shelli, Lab Scen[address] [facility], [place] [address] 09/18/2023 1:45 PM EST Hem/Onc Treatment Hematology/Oncology Treatment, [place] [address] [facility] [address] [place] [phone] Shelli, Chair 2 Hem Onc Scenery [address] [place] [address] 09/25/2023 1:00 PM EDT Laboratory Laboratory [facility] [place] [address] [place] [address] Shelli, Lab Scenery [address] [facility] [place] [address] 09/25/2023 1:30 PM EDT Hem/Onc Treatment Hematology/Oncology Treatment, [place] [address] [place] [address] Shelli, Chair 8 Hem Onc Scenery [address] [place] [address] 10/10/2023 1:30 PM EDT Laboratory Laboratory [facility] [address] [place] [phone] Shelli, Lab [facility] [address] [facility] [place] [address] 10/10/2023 2:00 PM EDT Office Visit Hematology/Oncology [facility] [place] [address] [place] [phone] Lizzy Rosales CRNP [address] [facility] [place] [address] 10/10/2023 2:30 PM EDT Hem/Onc Treatment Hematology/Oncology [facility] [address] [place] [phone] Shelli, Chair 1 Hem Onc [facility] [address] [facility] [place] [address] 04/20/2024 11:00 AM EDT Office Visit Rheumatology [facility] [address] [place], [place] [address] Iglesia Rothman MD [address] [employer] [place], [place] [address] Health Maintenance Due Date Last Done Comments [...] this encounter Medical Devices Implanted Type Area Staff Nuclear Medicine Technologist Device Identifier Shelf Expiration Date Model / Serial / Lot Port Implant W/8f Poly Cath - [id number] Implanted:Qty : 1 on 11/14/2022 by Shaka Sims, DO at OR [facility] Right: Chest CR BARD : PERIPHERAL VASCULAR [id number] 11/12/2023 [id number] / / [id number] documented as of this encounter Advance Directives Documents on File Type Date Recorded Patient Apparel Merchandiser Expl anation POLST 04/10/2023 [place] OR [facility] FOR LIFE-SUSTAINING TREATMENT Latest Code Status on File Code Status Date Activated Date Inactivated Comments Full Code 01/25/2023 2:55 AM 01/26/2023 5:53 PM This order reflects the patients wishes and were consensually agreed upon. Question Answer Comments Discussion of Advance Directives occurred with: Patient Care Teams Stove Mounter Relationship Specialty Start Date End Date Megan Escalona MD [address] [place] [address] PCP - General Internal Medicine 10/24/22 documented as of this encounter
--- OUTSIDE RECORDS SUMMARY | 2023-09-28 16:16 | External Medical Summary | Summary of Care ---
Author Name Unknown Organization [facility] Address [address] [place] [address] Phone [phone] Care Team Providers Care White Kid Buffer Name Role Phone Megan Escalona MD Primary Care Provide r Reason for Visit * Reason Comments Nurse Documentation Delay treatment Encounter Details Date Type Department Care Team (Late st Contact Info) Description 09/18/2023 1:45 PM EST Hem/Onc Treatment Hematology/Oncology Treatment, [place] [address] [place] [address] Shelli, Chair 2 Hem Onc Scenery [address] [place] [address] Allergies Active Allergy Reactions Criticality Noted Date Comments Capsaicin 11/03/2020 GENERALIZED DERMATITIS Prednisone High 04/30/2017 Severe headache Other reaction(s): Dizziness & weird dreams documented as of this encounter (statuses as of 09/18/2023) Medications Medication Sig Dispensed Refills Start Date [...] applying once weekly 0 10/27/2020 Active Ipratropium [place] 0.03 % Nasal Solution (Atrovent) 0 02/09/2021 [...] as of this encounter (statuses as of 09/18/2023) Active Problems Problem Noted Date Diagnosed Date [...] as of this encounter (statuses as of 09/18/2023) Immunizations Name Administration Dates Next Due COVID-19 mRNA, LNP-s, No Pre serve, 2-Dose Series ([employer]) 03/21/2021,09/07/2020,08/17/2020 Pneumococcal Polysaccharide PPV23 (Pneumovax) 04/29/2020,04/14/2004 Seasonal [...] (15 years old or older) No 01/26/20 23 Cognitive Status Response Date of Assessm ent Because of a physical, menta l, or emotional condition, do you have serious difficulty concentrating, remembering, or making decisions? (5 years old or older) No 01/25/2023 documented as of this encounter Nursing Notes * Bia Rosen, VINITA - 09/18/2023 3:[address] Hooker, delay treatment 1 week due to Hgb downward trend. Reviewed labs with pt and caregiver; pt verbalized understanding. Pt discharged in stable condition. documented in this encounter Plan of Treatment Upcoming Encounters Date Type Department Care Team (Late st Contact Info) Description 09/25/2023 1:00 PM EDT Laboratory Laboratory [facility] [place] [address] [place] [phone] Shelli, Lab [facility] [address] [facility] [place], [place] [address] 09/25/2023 1:30 PM EDT [facility] 200 [facility], [place] [phone] Shelli, Chair 8 Hem Onc [facility] [address] [facility] [place], [place] [address] 10/10/2023 1:30 PM EDT Laboratory Laboratory [facility] [place] [address] [facility] [place] [phone] Shelli, Lab [facility] [address] [facility] [place] [address] 10/10/2023 2:00 PM EDT Office Visit Hematology/Oncology [facility] [place] [address] [facility] [place], [place] [phone] Lizzy Rosales CRNP [address] [place] [address] 10/10/2023 2:30 PM EDT Hem/Onc Treatment [facility]/Oncology [facility] 200 [facility], [place] [phone] Shelli, Chair 1 Hem Onc [facility] [address] [facility] [place], [place] [address] 04/20/2024 11:00 AM EDT Office Visit Rheumatology [place] [address] [employer] [place], [place] [address] Iglesia Rothman MD [address] [place], [place] [address] Health Maintenance Due Date Last Done Comments [...] this encounter Medical Devices Implanted Type Area Piano Regulator Inspector Device Identifier Shelf Expiration Date Model / Serial / Lot Port Implant W/8f Poly Cath - [id number] Implanted:Qty : 1 on 11/14/2022 by Shaka Sims, at OR [facility] Right: Chest CR BARD : PERIPHERAL VASCULAR [id number] 11/12/2023 [id number] / / [id number] documented as of this encounter Advance Directives Documents on File Type Date Recorded Patient Shopper Marketing Manager Expl anation POLST 04/10/2023 [place] [facility] FOR LIFE-SUSTAINING TREATMENT Latest Code Status on File Code Status Date Activated Date Inactivated Comments Full Code 01/25/2023 2:55 AM 01/26/2023 5:53 PM This order reflects the patients wishes and were consensually agreed upon. Question Answer Comments Discussion of Advance Directives occurred with: Patient Care Teams White Kid Buffer Relationship Specialty Start Date End Date Megan Escalona MD [address] [address] PCP - General Internal Medicine 10/24/22 documented as of this encounter
--- OUTSIDE RECORDS SUMMARY | 2023-09-28 16:16 | External Medical Summary | Summary of Care ---
Author Name Unknown Organization [facility] Address [address] [place] [address] Phone [phone] Care Team Providers Care Lumber Bearer Name Role Phone Megan Escalona MD Primary Care Provide r Reason for Visit * Reason Comments Outpatient Testing Encounter Details Date Type Department Care Team (Late st Contact Info) Description 09/18/2023 1:10 PM EST Laboratory Laboratory [facility] [address] [place] [address] [place], Lab Scenery [address] [place] [address] Urothelial cancer (HCC); Dehydration; Stage 3a chronic [...] applying once weekly 0 10/27/2020 Active Ipratropium [place] 0.03 % Nasal Solution (Atrovent) 0 02/09/2021 [...] mRNA, LNP-s, No Pre serve, 2-Dose Series (Hublished) 03/21/2021,09/07/2020,08/17/2020 Pneumococcal Polysaccharide PPV23 (Pneumovax) 04/29/2020,04/14/2004 Seasonal [...] 1:45 PM EST Hem/Onc Treatment Hematology/Oncology Treatment, [place] [address] [place] [phone] She[place], Chair 2 Hem Onc Scenery [address] [place] [address] Arrived 09/25/2023 1:00 PM EDT Laboratory Laboratory [facility] [address] [place], [place] [phone] She[place], Lab Scenery [address] [place], [place] [address] 09/25/2023 1:30 PM EDT [facility] [phone] She[place], Chair 8 Hem Onc [facility] 200 [facility] [place], [place] [phone] 10/10/2023 1:30 PM EDT Laboratory Laboratory [facility] [place] [address] [place] [phone] [place], Lab [facility] 200 [facility] [place] [address] 10/10/2023 2:00 PM EDT Office Visit Hematology/Oncology [facility] [place] [address] [place] [phone] Lizzy Rosales CRNP [facility] [address] 10/10/2023 2:30 PM EDT Hem/Onc Treatment [facility]/Oncology [address], [place] [phone] Shelli, Chair 1 Hem Onc [facility] 200 [facility] [place], [place] [address] 04/20/2024 11:00 AM EDT Office Visit Rheumatology [place] [phone] [employer] [place], [place] [address] Iglesia Rothman MD [address] [place], [place] [address] Pending Results Name Type Priority Associated Diagnoses Date /Time COMPREHENSIVE METABOLIC PANEL Lab STAT Urothelial cancer (HCC) Dehydration Stage 3a chronic kidney disease (HCC) Encounter for antineoplastic chemotherapy Personal history of kidney cancer Encounter for long-term (current) use of other medications 09/18/2023 12:54 PM EST Health Maintenance Due Date Last Done Comments [...] this encounter Medical Devices Implanted Type Area Ball Shagger Device Identifier Shelf Expiration Date Model / Serial / Lot Port Implant W/8f Poly Cath - [id number] Implanted:Qty : 1 on 11/14/2022 by Shaka Sims DO at [facility] Right: Chest CR BARD : PERIPHERAL VASCULAR [id number] 11/12/2023 [id number] / / [id number] documented as of this encounter Procedures Procedure Name Priority Date/Time Associated Diagnosis Comments DIFFERENTIAL, AUTOMATED STAT 09/18/2023 12:54 PM EST Urothelial cancer (HCC) Dehydration Stage 3a chronic kidney disease (HCC) Encounter for antineoplastic chemotherapy Personal history of kidney cancer Encounter for long-term (current) use of other medications CBC STAT 09/18/2023 12:54 PM EST Urothelial cancer (HCC) Dehydration Stage 3a chronic kidney disease (HCC) Encounter for antineoplastic chemotherapy Personal history of kidney cancer Encounter for long-term (current) use of other medications CBC STAT 09/18/2023 12:54 PM EST Urothelial cancer (HCC) Dehydration Stage 3a chronic kidney disease (HCC) Encounter for antineoplastic chemotherapy Personal history of kidney cancer Encounter for long-term (current) use of other medications documented in this encounter Results * (ABNORMAL) DIFFERENTIAL, AUTOMATED (09/18/2023 12:54 PM EST) WBC 6.49 4.00 - 10.80 K/uL 09/18/2023 1:02 PM EST [facility] 56-02 Neutrophils % 55.5 40.0 - 75.0 % 09/18/2023 1:02 PM EST [facility] 56-02 Lymphocytes % 15.7(L) 18.0 - 42.0 % 09/18/2023 1:02 PM [facility] 56-02 Monocytes % 21.4(H) 1.0 - 11.0 % 09/18/2023 1:02 PM EST [facility] 56-02 Eosinophils % 6.8(H) 0.0 - 6.0 % 09/18/2023 1:02 PM EST [facility] 56-02 Basophils % 0.6 0.0 - 2.0 % 09/18/2023 1:02 PM EST [facility] 56-02 Absolute Neutrophils 3.60 1.80 - 7.70 K/uL 09/18/2023 1:02 PM [facility] 56-02 Absolute Lymphocytes 1.02 1.00 - 4.80 K/ul 09/18/2023 1:02 PM [facility] 56-02 Absolute Monocytes 1.39(H) 0.00 - 1.10 K/uL 09/18/2023 1:02 PM EST [facility] 56-02 Absolute Eosinophils 0.44 0.00 - 0.70 K/uL 09/18/2023 1:02 PM [facility] 56-02 Absolute Basophils 0.04 0.00 - 0.20 K/uL 09/18/2023 1:02 PM [facility] 56-02 Blood Venous blood specimen / Unknown Venipuncture / Unknown 09/18/2023 12:54 PM EST 09/18/2023 12:54 PM EST Cullen Hooker MD LAB BLOOD ORDERABLES [facility] 56- [address] [place] [address] * (ABNORMAL) CBC (09/18/2023 12:54 PM EST) WBC 6.49 4.00 - 10.80 K/uL 09/18/2023 1:02 PM [facility] 56- RBC 2.69 3.85 - 5.15 M/uL 09/18/2023 1:02 PM [facility] 56 HGB 8.7(L) 12.0 - 15.3 g/dL 09/18/2023 1:02 PM [facility] 56 HCT 28.3(L) 36.0 - 45.2 % 09/18/2023 1:02 PM [facility] 56 MCV 105.2 81.5 - 97.5 fL 09/18/2023 1:02 PM [facility] 56 MCH 32.3 27.0 - 34.0 pg 09/18/2023 1:02 PM [facility] 5602 MCHC 30.7 32.0 - 36.0 g/dL 09/18/2023 1:02 PM [facility] 5602 RDW 18.9 11.5 - 15.5 % 09/18/2023 1:02 PM [facility] 56-02 PLT 251 140 - 400 K/uL 09/18/2023 1:02 PM [facility] 56-02 MPV 8.7 6.6 - 11.1 fL 09/18/2023 1:02 PM [facility] 56-02 Blood Venous blood specimen / Unknown Venipuncture / Unknown 09/18/2023 12:54 PM EST 09/18/2023 12:54 PM EST Cullen Hooker MD LAB BLOOD ORDERABLES [facility] 56- 200 [facility] [place] [id number] documented in this encounter Visit Diagnoses Diagnosis 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 Dehydration Stage 3a chronic kidney disease (HCC) Encounter for antineoplastic chemotherapy Personal history of kidney cancer Personal history of malignant neoplasm of kidney Encounter for long-term (current) use of other medications documented in this encounter Advance Directives Documents on File Type Date Recorded Patient Captain Waiter Expl anation POLST 04/10/2023 [place] [facility] FOR LIFE-SUSTAINING TREATMENT Latest Code Status on File Code Status Date Activated Date Inactivated Comments Full Code 01/25/2023 2:55 AM 01/26/2023 5:53 PM This order reflects the patients wishes and were consensually agreed upon. Question Answer Comments Discussion of Advance Directives occurred with: Patient Care Teams Lumber Bearer Relationship Specialty Start Date End Date Megan Escalona MD [address] [facility] [place] [address] PCP - General Internal Medicine 10/24/22 documented as of this encounter
--- OUTSIDE RECORDS SUMMARY | 2023-09-28 16:16 | External Medical Summary | Summary of Care ---
Author Name Unknown Organization [facility] Address [address] [place] [address] Phone [phone] Care Team Providers Care Senior User Experience Architect Name Role Phone Megan Escalona MD Primary Care Provide r Reason for Visit * Reason Comments Chemotherapy Gemzar 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) Procedures [place] INJ GEMCITABINE HCL (ACCORD) Cullen Hooker MD [address] [place] [address] Anc Hem/Onc Renay Marques DEPT CLOSED - 05/28/23 200 [facility] [place] [phone] Referral ID Status Reason Start Date Expiration Date V isits Requested Visits Authorized [id number] Authorized 05/31/2023 06/14/[phone] Encounter Details Date Type Department Care Team (Latest Contact Info) Description 07/18/2023 3:00 PM EST Hem/Onc Treatment Hematology/Oncolog y Treatment, [place] [address] [place] [address] [place], Chair 7 Hem Onc Scenery 200 [facility] [place] [address] Cancer, 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)*; Urothelial [...] once weekly 0 10/28/19 21 Active Ipratropium [place] 0.03 % Nasal Solution (Atrovent) 0 02/10/20 [...] mRNA, LNP-s, No Pre serve, 2-Dose Series ([employer]) 03/21/2021,09/07/2020,08/17/2020 Pneumococcal Polysaccharide PPV23 (Pneumovax) 04/29/2020,04/14/2004 Seasonal [...] 9:00 AM EST Scheduled Telephone Palliative Medicine, [address] 5th [place] [address] Fl, Nurse Palliative Medicine [facility] [address] [place] [address] 09/18/2023 1:10 PM EST Laboratory Laboratory [facility]ery [place] [address] [place] [address] She[place], Lab Scenery [address] [place] [address] 09/18/2023 1:45 PM EST Hem/Onc Treatment Hematology/Oncology Treatment, [place] [address] [place] [phone] She[place], Chair 2 Hem Onc Scenery [address] [place] [address] 09/25/2023 1:00 PM EDT Laboratory Laboratory [facility] [place] [address] [place], [place] [phone] She[place], Lab Scenery [address] [place], [place] [address] 09/25/2023 1:30 PM EDT [facility] 200 [facility], [place] [address] She[place], Chair 8 Hem Onc Scenery [address] [place], [place] [address] 10/10/2023 9:10 AM EDT Laboratory Laboratory [facility] [place] [address] [place], [place] [phone] She[place], Lab Scenery [address] [place], [place] [address] 10/10/2023 9:30 AM EDT Office Visit Hematology/Oncology [facility] [place] [address] [place], [place] [phone] Lizzy Rosales CRNP [address] [place] [address] 10/10/2023 10:00 AM EDT Hem/Onc Treatment Hematology/Oncology Treatment [place] 200 [facility], [place] [phone] She[place], Chair 1 Hem Onc Scenery [address] [place] [address] 04/20/2024 11:00 AM EDT Office Visit Rheumatology [place] [phone] [facility] [place], [place] [address] Iglesia Rothman MD [address] [employer] [place], [place] [address] Health Maintenance Due Date Last Done Comments [...] this encounter Medical Devices Implanted Type Area Link Trainer Operator Device Identifier Shelf Expiration Date Model / Serial / Lot Port Implant W/8f Poly Cath - [id number] Implanted:Qty : 1 on 11/14/2022 by Shaka Sims DO at OR [facility] Right: Chest CR BARD : PERIPHERAL VASCULAR [id number] 11/12/2023 [id number] / / [id number] documented as of this encounter Visit Diagnoses [...] Documents on File Type Date Recorded Patient Moisture Meter Reader Expl anation POLST 04/10/[address] [place] [address] [facility] FOR LIFE-SUSTAINING TREATMENT Latest Code Status on File Code Status Date Activated Date Inactivated Comments Full Code 01/25/2023 2:55 AM 01/26/2023 5:53 PM This order reflects the patients wishes and were consensually agreed upon. Question Answer Comments Discussion of Advance Directives occurred with: Patient Care Teams Senior User Experience Architect Relationship Specialty Start Date End Date Megan Escalona MD [address] [place] [address] PCP - General Internal Medicine 10/24/22 documented as of this encounter
--- OUTSIDE RECORDS SUMMARY | 2023-09-28 16:16 | External Medical Summary | Summary of Care ---
Author Name Unknown Organization [facility] Address [address] [place] [address] Phone [phone] Care Team Providers Care Grading Machine Operator Name Role Phone Megan Escalona MD Primary Care Provide r Reason for Visit * Reason Onset Date Comments Palliative Care Follow-up 09/12/2023 Encounter Details Date Type Department Care Team (Late st Contact Info) Description 09/12/2023 9:00 AM EST Scheduled Telephone Palliative Medicine, [address] 5th Floor [place] [id number] [place], Nurse Palliative Medicine [address] [place] [address] Arrived Allergies Active Allergy Reactions Criticality Noted Date Comments Capsaicin 11/03/2020 GENERALIZED DERMATITIS Prednisone High 04/30/2017 Severe headache Other reaction(s): Dizziness & weird dreams documented as of this encounter (statuses as of 09/12/2023) Medications Medication Sig Dispensed Refills Start Date [...] applying once weekly 0 10/27/2020 Active Ipratropium [place] 0.03 % Nasal Solution (Atrovent) 0 02/09/2021 [...] as of this encounter (statuses as of 09/12/2023) Active Problems Problem Noted Date Diagnosed Date [...] as of this encounter (statuses as of 09/12/2023) Immunizations Name Administration Dates Next Due COVID-19 mRNA, LNP-s, No Pre serve, 2-Dose Series (Attunity) 03/21/2021,09/07/2020,08/17/2020 Pneumococcal Polysaccharide PPV23 (Pneumovax) 04/29/2020,04/14/2004 Seasonal [...] encounter Miscellaneous Notes * Telephone Encounter - Quyen Ng LPN - 09/12/2023 10:41 AM EST Palliative f/u phone call To check on bowels, and schedule visit in about 2 months Last visit 08/28: ASSESSMENT/PLAN: Karen Rivera is a 88 year old female seen in follow-up for goals of care and pain and symptom management. 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 - Pt is ok continuing chemo, has been doing well Cancer related pain - is off all narcotics now Constipation - Will switch Senna to Miralax or Metamucil Follow up w/phone call in 2 weeks, can always bring back in 2 mo or so if needed Call to Tamra currie No answer Left message requesting return call to [phone] documented in this encounter Plan of Treatment Upcoming Encounters Date Type Department Care Team (Late st Contact Info) Description 09/18/2023 1:10 PM EST Laboratory Laboratory [facility] [address] [place], [place] [address] She[place], Lab Scenery [address] [place], [place] [address] 09/18/2023 1:45 PM EST Hem/Onc Treatment Hematology/Oncology Treatment, [place] 200 [facility], [place] [address] Shelli, Chair 2 Hem Onc Scenery [address] [place], [place] [address] 09/25/2023 1:00 PM EDT Laboratory Laboratory [facility] [place] [address] [place], [place] [address] She[place], Lab Scenery [address] [place] [address] 09/25/2023 1:30 PM EDT Hem/Onc Treatment Hematology/Oncology Treatment, [place] 200 [facility], [place] [address] Shelli, Chair 8 Hem Onc Scenery [address] [place] [address] 10/10/2023 1:30 PM EDT Laboratory Laboratory [facility] [address] [place] [address] She[place], Lab Scenery [address] [place] [address] 10/10/2023 2:00 PM EDT Office Visit Hematology/Oncology [facility] 200 [facility] [place], [place] [address] Lizzy Rosales CRNP [address] [place] [address] 10/10/2023 2:30 PM EDT Hem/Onc Treatment Hematology/Oncology Treatment, [place] [facility] [phone] Shelli, Chair 1 Hem Onc [facility] 200 [facility] [place] [address] 04/20/2024 11:00 AM EDT Office Visit Rheumatology [facility] [address] [place] [address] Iglesia Rothman MD [address] [employer] [place] [address] Health Maintenance Due Date Last Done Comments [...] this encounter Medical Devices Implanted Type Area Cuprous Chloride Helper Device Identifier Shelf Expiration Date Model / Serial / Lot Port Implant W/8f Poly Cath - [id number] Implanted:Qty : 1 on 11/14/2022 by Shaka Sims DO at OR [facility] Right: Chest CR BARD : PERIPHERAL VASCULAR [id number] 11/12/2023 [id number] / / [id number] documented as of this encounter Advance Directives Documents on File Type Date Recorded Patient First Mate Expl anation POLST 04/10/2023 [place] OR [facility] FOR LIFE-SUSTAINING TREATMENT Latest Code Status on File Code Status Date Activated Date Inactivated Comments Full Code 01/25/2023 2:55 AM 01/26/2023 5:53 PM This order reflects the patients wishes and were consensually agreed upon. Question Answer Comments Discussion of Advance Directives occurred with: Patient Care Teams Grading Machine Operator Relationship Specialty Start Date End Date Megan Escalona MD [address] [place] [address] PCP - General Internal Medicine 10/24/22 documented as of this encounter
--- OUTSIDE RECORDS SUMMARY | 2023-09-28 16:16 | External Medical Summary | Summary of Care ---
Author Name Unknown Organization [facility] Address [address] [place] [address] Phone [phone] Care Team Providers Care Design Assembler Name Role Phone Megan Escalona MD Primary Care Provide r Reason for Visit * Reason Comments Chemotherapy Gemzar 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) Procedures [place] INJ GEMCITABINE HCL (ACCORD) Cullen Hooker MD [address] [place] [address] Anc Hem/Onc Renay Marques DEPT CLOSED - 05/28/23 200 [facility] [place] [place] [address] Referral ID Status Reason Start Date Expiration Date V isits Requested Visits Authorized [id number] Authorized 05/31/2023 06/14/[phone] Encounter Details Date Type Department Care Team (Latest Contact Info) Description 07/18/2023 3:00 PM EST Hem/Onc Treatment Hematology/Oncolog y Treatment, [place] [address] [place] [address] Shelli, Chair 7 Hem Onc Scenery 200 [facility] [address] [place] [address] Cancer, 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)*; Urothelial [...] once weekly 0 10/28/19 21 Active Ipratropium [place] 0.03 % Nasal Solution (Atrovent) 0 02/10/20 [...] mRNA, LNP-s, No Pre serve, 2-Dose Series ([employer]) 03/21/2021,09/07/2020,08/17/2020 Pneumococcal Polysaccharide PPV23 (Pneumovax) 04/29/2020,04/14/2004 Seasonal [...] 9:00 AM EST Scheduled Telephone Palliative Medicine, [address] 5th [place] [address] Fl, Nurse Palliative Medicine [facility] [address] [place] [address] 09/18/2023 1:10 PM EST Laboratory Laboratory Scenery [place] [address] [place] [address] Shelli, Lab Scenery [address] [place] [address] 09/18/2023 1:45 PM EST Hem/Onc Treatment Hematology/Oncology Treatment, [place] [address] [place] [phone] Shelli, Chair 2 Hem Onc Scenery [address] [place] [address] 09/25/2023 1:00 PM EDT Laboratory Laboratory [facility] [place] [address] [place], [place] [phone] She[place], Lab Scenery [address] [place], [place] [address] 09/25/2023 1:30 PM EDT Hem[facility] 200 [facility], [place] [address] Shelli, Chair 8 Hem Onc Scenery [address] [place], [place] [address] 10/10/2023 9:10 AM EDT Laboratory Laboratory [facility] [place] [address] [place], [place] [phone] She[place], Lab Scenery [address] [place], [place] [address] 10/10/2023 9:30 AM EDT Office Visit Hematology/Oncology [facility] [place] [address] [place], [place] [phone] Lizzy Rosales CRNP [address] [place] [address] 10/10/2023 10:00 AM EDT Hem/Onc Treatment Hematology/Oncology Treatment [place] 200 [facility], [place] [phone] Shelli, Chair 1 Hem Onc Scenery [address] [place] [address] 04/20/2024 11:00 AM EDT Office Visit Rheumatology [place] [address] [facility] [place], [place] [address] Iglesia Rothman MD [address] [place], [place] [address] Health Maintenance Due Date Last Done Comments [...] this encounter Medical Devices Implanted Type Area Exhibit Artist Device Identifier Shelf Expiration Date Model / Serial / Lot Port Implant W/8f Poly Cath - [id number] Implanted:Qty : 1 on 11/14/2022 by Shaka Sims DO at OR [facility] Right: Chest CR BARD : PERIPHERAL VASCULAR [id number] 11/12/2023 [id number] / / [id number] documented as of this encounter Visit Diagnoses [...] Documents on File Type Date Recorded Patient Plating Equipment Tender Expl anation POLST 04/10/2023 [place] [facility] FOR LIFE-SUSTAINING TREATMENT Latest Code Status on File Code Status Date Activated Date Inactivated Comments Full Code 01/25/2023 2:55 AM 01/26/2023 5:53 PM This order reflects the patients wishes and were consensually agreed upon. Question Answer Comments Discussion of Advance Directives occurred with: Patient Care Teams Design Assembler Relationship Specialty Start Date End Date Megan Escalona MD [address] [place] [address] PCP - General Internal Medicine 10/24/22 documented as of this encounter
--- OUTSIDE RECORDS SUMMARY | 2023-09-28 16:16 | External Medical Summary | Summary of Care ---
Author Name Unknown Organization [facility] Address [address] [place] [address] Phone [phone] Care Team Providers Care Adjunct Philosophy Faculty Name Role Phone Megan Escalona MD Primary Care Provide r Reason for Visit * Reason Comments Chemotherapy Gemzar. 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) Procedures [place] INJ GEMCITABINE HCL (ACCORD) Cullen Hooker MD [address] [place] [address] Anc Hem/Onc Renay Marques DEPT CLOSED - 05/28/23 [facility] [address] [place] [address] Referral ID Status Reason Start Date Expiration Date V isits Requested Visits Authorized [id number] Authorized 05/31/2023 06/14/2099 [id number] Encounter Details Date Type Department Care Team (Latest Contact Info) Description 09/25/2023 1:30 PM EDT Hem/Onc Treatment Hematology/Oncolog y Treatment, [place] [address] [place] [address] She[place], Chair 8 Hem Onc Scenery [address] [place] [address] Cancer, 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)*; Urothelial [...] applying once weekly 0 10/27/2020 Active Ipratropium [place] 0.03 % Nasal Solution (Atrovent) 0 02/09/2021 [...] mRNA, LNP-s, No Pre serve, 2-Dose Series ([employer]) 03/21/2021,09/07/2020,08/17/2020 Pneumococcal Polysaccharide PPV23 (Pneumovax) 04/29/2020,04/14/2004 Seasonal [...] Sign Reading Time Taken Comments Blood Pressure 124/75 09/25/2023 2:30 PM EDT Pulse 80 09/25/2023 2:30 PM EDT Temperature 36.7 C (98 F) 09/25/2023 2:30 PM EDT Respiratory Rate 18 09/25/2023 2:30 PM EDT Oxygen Saturation 95% 09/25/2023 2:30 PM EDT Inhaled Oxygen Concentration - - Weight 72.8 kg (160 lb 6.4 oz) 09/25/2023 2:30 P M EDT Height - - Body Mass Index 24.39 05/29/2023 9:29 AM EST documented in this encounter Functional Status Functional [...] as of this encounter Nursing Notes * Radhika Xavier RN - 09/25/2023 4:00 PM EDT Goals: Patient will remain free from injury. Possible barriers to meeting goals: Fall risk d/t ambulation with IV pole. Stability of the patient: Moderately unstable - medium risk of patient condition declining or worsening Summary regarding today's goals: Met: Patient remained free of injury. Patient tolerated infusion well. Discharged in stable condition. * Radhika Xavier RN - 09/25/2023 3:21 PM EDT Chair 9. Patient arrived for [facility] with no acute complaints. Labs reviewed with Dr. Hooker and per Dr. Talbot for treatment. VAD accessed. Chemotherapy/Immunotherapy agents: [facility] Consent for chemotherapy drug treatment complete, dated, and signed? yes, date - 05/29/23 Treatment lab parameters met? Yes Has treatment weight changed > than 10%? No Treatment preauthorized? Yes VITALS Filed Vitals: 09/25/23 1430 BP: 124/75 Pulse: 80 Resp: 18 Temp: 36.7 C (98 F) TempSrc: Tympanic SpO2: 95% Weight: 72.8 kg (160 lb 6.4 oz) Urine protein: N/A Patient education completed for treatment? Yes Blood transfusion consent signed and complete? NA Return appointment scheduled? Yes Patient had provider visit today? No - If no provider visit must complete Pretreatment Assessment Functional Status: Functional status at today's visit: Restricted in physically strenuous activity but ambulatory and able to carry out work on a light orsedentary nature, e.g. light house work, office work The drug name, dose, infusion volume, rate and route of administration, expiration date and time, appearance and physical integrity of the drug and rate set on the pump and sequencing of drug administration (as applicable) were verified by me and second sign-in RN. Patient was assessed for symptoms or adverse side effects during treatment. PRE-TREATMENT ASSESSMENT: NEURO: denies symptoms CV/RESP: denies symptoms GI/: denies symptoms OTHER: denies any additional symptoms PAIN: 0 Safety and Risk for Injury Patient will remain free from injury. Ensure appropriate safety devices are available. Provide and maintain safe environment. documented in this encounter Plan of Treatment Upcoming Encounters Date Type Department Care Team (Late st Contact Info) Description 10/02/2023 1:00 PM EDT Hem/Onc Treatment Hematology/Oncology Treatment, [place] [address] [place] [phone] Park, Chair 7 Hem Onc Scenery 200 [facility] [place] [address] 04/20/2024 11:00 AM EDT Office Visit Rheumatology [place] [address] [employer] [place] [address] Iglesia Rothman MD [address] [place] [address] Health Maintenance Due Date Last Done Comments [...] this encounter Medical Devices Implanted Type Area Certified Social Workers In Health Care Device Identifier Shelf Expiration Date Model / Serial / Lot Port Implant W/8f Poly Cath - [id number] Implanted:Qty : 1 on 11/14/2022 by Shaka Sims DO at OR [facility] Right: Chest CR BARD : PERIPHERAL VASCULAR [id number] 11/12/2023 [id number] / / [id number] documented as of this encounter Visit Diagnoses Diagnosis Cancer, 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)- Primary Secondary malignant neoplasm of skin 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 Encounter for antineoplastic chemotherapy documented in this encounter Administered Medications Active Administered Medications - up to 3 most recent administrations Medication Order MAR Action Action Date Dose Rate Site diphenhydrAMINE (Benadryl) inj 50 mg 50 mg, IV Push, ONCE PRN Other, Hypersensitivity Reaction, Starting on Sat09/25/23 at 1439, Until Keri 09/26/23 at 1438, For 24 hours EPINEPHrine 1 MG/ML inj 0.3 mg 0.3 mg, Intramuscular, ONCE PRN Other, Hypersensitivity Reaction or Anaphylaxis, Starting on Sat09/25/23 at 1439, Until Keri 09/26/23 at 1438, For 24 hours hEParin 100 UNIT/ML Lock Flush inj 500 Units 500 Units (5 mL), IV Lock, PRN Other, IV Flush, Starting on Sat09/25/23 at 1439, Until Keri 09/25/24 at 1438, For 24 hours, Do not flush if lock, PICC, or central line not in place; IV infusing or unable to flush. Given 09/25/2023 3:44 PM EDT 500 Units Hydrocortisone Sod Suc (PF) (Solu-Cortef) inj 100 mg 100 mg, IV Push, ONCE PRN Other, Hypersensitivity Reaction, Starting on Sat09/25/23 at 1439, Until Sat09/26/23 at 1438, For 24 hours LORAzepam (Ativan) tab 0.5 mg 0.5 mg, Oral, ONCE PRN Anxiety, Nausea, Starting on Sat09/25/23 at 1545, Until Discontinued NSS infusion Intravenous, at 50 mL/hr, PRN, Starting on Sat09/25/23 at 1545, Until Discontinued, Maintenance line Start Infusion 09/25/2023 2:40 PM EDT 50 mL/hr oxygen GAS Inhalation, OXYGEN, First dose on Sat09/25/23 at 1600, Until Discontinued, Device/Managed by: Low Flow Device, Goal SPO2 (%): 91-95, Starting Device: Nasal Cannula, Initial Flow Rate (LPM): 2, Lowest Support: Nasal Cannula: Flow 0-6 LPM. Titrate up/down by 1 LPM., Higher Support: Non-Rebreather (NRB) Mask: Minimum of 10 LPM. Titrate to maintain bag inflation., Titration Interval: Q2 minutes and as needed., Notify Provider: For sudden DECREASE in resting SPO2 to less than 85% and when escalating delivery device. sodium chloride 0.9 % flush central line 10 mL 10 mL, IV Push, PRN Other, IV Flush, Starting on Sat09/25/23 at 1439, Until Sat09/26/23 at 1438, For 24 hours, Do not flush if lock, PICC, or central line not in place; IV infusing or unable to flush. Given 09/25/2023 3:44 PM EDT 10 mL Inactive Administered Medications - up to 3 most recent administrations Medication Order MAR Action Action Date Dose Rate Site gemcitabine (Gemzar) 1,400 mg in NSS 250 mL infusion 1,400 mg (rounded from 1,380 mg = 750 mg/m2 1.84 m2 Treatment Plan BSA from Recorded weight), IV Piggyback, ONCE, 1 dose, On Sat09/25/23 at 1615, Administer over 30 Minutes Start Infusion 09/25/2023 3:12 PM EDT 1,400 mg 500 mL/hr ondansetron (Zofran) tab 8 mg 8 mg, Oral, ONCE, On Sat09/25/23 at 1545, For 1 dose, Give 30 minutes prior to chemotherapy. Given 09/25/2023 2:54 PM EDT 8 mg documented in this encounter Advance Directives Documents on File Type Date Recorded Patient Barrel Rifler Broach Expl anation POLST 04/10/2023 [place] OR [facility] FOR LIFE-SUSTAINING TREATMENT Latest Code Status on File Code Status Date Activated Date Inactivated Comments Full Code 01/25/2023 2:55 AM 01/26/2023 5:53 PM This order reflects the patients wishes and were consensually agreed upon. Question Answer Comments Discussion of Advance Directives occurred with: Patient Care Teams Adjunct Philosophy Faculty Relationship Specialty Start Date End Date Megan Escalona MD [address] [place] [address] PCP - General Internal Medicine 10/24/22 documented as of this encounter
--- OUTSIDE RECORDS SUMMARY | 2023-09-28 16:16 | External Medical Summary ---
Author Name Unknown Address Unknown Organization K09[facility] [place] [place] [address] Laboratory Report Ordering Provider Test Date Status SARAHI AQUINO 09/18/2023 12:54:01 Final Observation Date Value Abnormality Reference (Units ) Status SYNC LEUKOCYTES IN BLOOD BY AUTOMATED COUNT 09/18/2023 12:54:01 6.49 4.00-10.80 (K/uL) Final Segs 09/18/2023 12:54:01 55.5 40.0-75.0 (%) Final Lymphs % 09/18/2023 12:54:01 15.7 Below low normal 18.0-42.0 (%) Final Monos 09/18/2023 12:54:01 21.4 Above high normal 1.0-11.0 (%) Final Eosinophils 09/18/2023 12:54:01 6.8 Above high normal 0.0-6.0 (%) Final Basos 09/18/2023 12:54:01 0.6 0.0-2.0 (%) Final Absolute Segs 09/18/2023 12:54:01 3.60 1.80-7.70 (K/uL) Final Lymphs, absolute 09/18/2023 12:54:01 1.02 1.00-4.80 (K/ul) Final Monos, Abs 09/18/2023 12:54:01 1.39 Above high normal 0.00-1.10 (K/uL) Final Eos, Abs 09/18/2023 12:54:01 0.44 0.00-0.70 (K/uL) Final Basos, Abs 09/18/2023 12:54:01 0.04 0.00-0.20 (K/uL) Final Performing Location [facility] [place] [address]
--- OUTSIDE RECORDS SUMMARY | 2023-09-28 16:16 | External Medical Summary ---
Author Name Unknown Address Unknown Organization K09:[facility] [place] [address] Laboratory Report Ordering Provider Test Date Status SARAHI AQUINO 09/25/2023 13:01:02 Final Observation Date Value Abnormality Reference (Units ) Status SYNC LEUKOCYTES IN BLOOD BY AUTOMATED COUNT 09/25/2023 13:01:02 7.11 4.00-10.80 (K/uL) Final Segs 09/25/2023 13:01:02 65.2 40.0-75.0 (%) Final Lymphs % 09/25/2023 13:01:02 12.1 Below low normal 18.0-42.0 (%) Final Monos 09/25/2023 13:01:02 16.6 Above high normal 1.0-11.0 (%) Final Eosinophils 09/25/2023 13:01:02 5.8 0.0-6.0 (%) Final Basos 09/25/2023 13:01:02 0.3 0.0-2.0 (%) Final Absolute Segs 09/25/2023 13:01:02 4.64 1.80-7.70 (K/uL) Final Lymphs, absolute 09/25/2023 13:01:02 0.86 Below low normal 1.00-4.80 (K/ul) Final Monos, Abs 09/25/2023 13:01:02 1.18 Above high normal 0.00-1.10 (K/uL) Final Eos, Abs 09/25/2023 13:01:02 0.41 0.00-0.70 (K/uL) Final Basos, Abs 09/25/2023 13:01:02 0.02 0.00-0.20 (K/uL) Final Performing Location [facility] [place] [address]
--- OUTSIDE RECORDS SUMMARY | 2023-09-28 16:16 | External Medical Summary | Summary of Care ---
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) Procedures [place] INJ GEMCITABINE HCL (ACCORD) Cullen Hooker MD [address] [place] [address] Anc Hem/Onc Renay Marques DEPT CLOSED - 05/28/23 [facility] [address] [place] [address] Referral ID Status Reason Start Date Expiration Date V isits Requested Visits Authorized [id number] Authorized 05/31/2023 06/14/[phone] Encounter Details Date Type Department Care Team (Latest Contact Info) Description 07/18/2023 3:00 PM EST Hem/Onc Treatment Hematology/Oncolog y Treatment, [place] [address] [place] [address] [place], Chair 7 Hem Onc Scenery 200 [facility] [address] [place] [address] Cancer, 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)*; Urothelial [...] once weekly 0 10/28/19 21 Active Ipratropium [place] 0.03 % Nasal Solution (Atrovent) 0 02/10/20 [...] mRNA, LNP-s, No Pre serve, 2-Dose Series ([employer]) 03/21/2021,09/07/2020,08/17/2020 Pneumococcal Polysaccharide PPV23 (Pneumovax) 04/29/2020,04/14/2004 Seasonal [...] as of this encounter Nursing Notes * Bai Rosen, RN - 07/18/2023 4:30 PM EST [...] 9:00 AM EST Scheduled Telephone Palliative Medicine, [address] 5th [place] [address] Fl, Nurse Palliative Medicine [facility] [address] [place] [address] 09/18/2023 1:10 PM EST Laboratory Laboratory Sc[place]ery [place] [address] [place] [address] [place], Lab Scenery [address] [place] [address] 09/18/2023 1:45 PM EST Hem/Onc Treatment Hematology/Oncology Treatment, [place] [address] [place] [phone] [place], Chair 2 Hem Onc Scenery [address] [place] [address] 09/25/2023 1:00 PM EDT Laboratory Laboratory [facility] [place] [address] [place], [place] [phone] [place], Lab Scenery [address] [place], [place] [address] 09/25/2023 1:30 PM EDT [facility] 200 [facility] [place] [phone] Shelli, Chair 8 Hem Onc Scenery [address] [place], [place] [address] 10/10/2023 9:10 AM EDT Laboratory Laboratory [facility] [place] [address] [place], [place] [phone] [place], Lab Scenery [address] [place], [place] [address] 10/10/2023 9:30 AM EDT Office Visit Hematology/Oncology [facility] [place] [address] [place], [place] [phone] Lizzy Rosales CRNP [address] [place] [address] 10/10/2023 10:00 AM EDT Hem/Onc Treatment Hematology/Oncology Treatment [place] 200 [facility], [place] [phone] Shelli, Chair 1 Hem Onc Scenery [address] [place] [address] 04/20/2024 11:00 AM EDT Office Visit Rheumatology [place] [address] [facility] [place], [place] [address] Iglesia Rothman MD [address] [employer] [place], [place] [address] Health Maintenance Due Date Last Done Comments [...] this encounter Medical Devices Implanted Type Area Technical Applications Specialist Device Identifier Shelf Expiration Date Model / Serial / Lot Port Implant W/8f Poly Cath - [id number] Implanted:Qty : 1 on 11/14/2022 by Shaka Sims DO at OR [facility] Right: Chest CR BARD : PERIPHERAL VASCULAR [id number] 11/12/2023 [id number] / / [id number] documented as of this encounter Visit Diagnoses [...] Documents on File Type Date Recorded Patient Retirement Benefits Specialist Expl anation POLST 04/10/2023 [place] [facility] FOR LIFE-SUSTAINING TREATMENT Latest Code Status on File Code Status Date Activated Date Inactivated Comments Full Code 01/25/2023 2:55 AM 01/26/2023 5:53 PM This order reflects the patients wishes and were consensually agreed upon. Question Answer Comments Discussion of Advance Directives occurred with: Patient Care Teams Health Education Aide Relationship Specialty Start Date End Date Megan Escalona MD [address] [place] [address] PCP - General Internal Medicine 10/24/22 documented as of this encounter
--- OUTSIDE RECORDS SUMMARY | 2023-09-28 16:17 | External Medical Summary | Summary of Care ---
Author Name Unknown Organization [facility] Address [address] [place] [address] Phone [phone] Care Team Providers Care Bellhop Service Captain Name Role Phone Megan Escalona MD Primary Care Provide r Reason for Visit * Reason Onset Date Comments Appointment 09/09/2023 Dr. Morro francis Encounter Details Date Type Department Care Team (Late st Contact Info) Description 09/09/2023 Telephone Hematology/Oncology [facility] [address] [place] [address] Services, Scheduling [address] [place] [address] Appointment (Dr. Hooker patient ) Allergies Active Allergy Reactions Criticality Noted [...] applying once weekly 0 10/27/2020 Active Ipratropium [place] 0.03 % Nasal Solution (Atrovent) 0 02/09/2021 [...] mRNA, LNP-s, No Pre serve, 2-Dose Series ([employer]) 03/21/2021,09/07/2020,08/17/2020 Pneumococcal Polysaccharide PPV23 (Pneumovax) 04/29/2020,04/14/2004 Seasonal [...] encounter Miscellaneous Notes * Telephone Encounter - Edvin Bowen RN - 09/09/2023 11:19 AM EST Scheduling- please assist with rescheduling patients lab/Gemzar appointments as requested. Thank you. * Telephone Encounter - Mikayla Paz OSA - 09/09/2023 11:07 AM EST Patients daughter Tamra called to reschedule her September 18 and treatments. She advised she wouldlike to reschedule these to 3/6 and 3/13 in the afternoon if possible. If those days are unavailable she would like to keep them on 3/7 and 314 but change the time to around 1-1:30 pm. Please contact Tamra at [phone]. Thank you. documented in this encounter Plan of Treatment Upcoming Encounters Date Type Department Care Team (Late st Contact Info) Description 09/12/2023 9:00 AM EST Scheduled Telephone Palliative Medicine, [facility] [address] [facility] 5[address] [place] [address] Fl, Nurse Palliative Medicine [address] [address] 09/19/2023 10:00 AM EST Laboratory Laboratory [facility] [address] [place] [address] [place] [phone] Shelli Lab Scenery [address] [place], [place] [address] 09/19/2023 10:30 AM EST Hem/Onc Treatment Hematology/Oncology Treatment [place] 200 [facility], [place] [address] Shelli, Chair 6 Hem Onc Scene [address] [place], [place] [address] 09/26/2023 10:20 AM EDT Laboratory Laboratory [facility] [address] [place] [address] [place] [address] Shelli, Lab Scenery [address] [place] [address] 09/26/2023 11:00 AM EDT Hem/Onc Treatment Hematology/Oncology Treatment, [place] 200 [facility] [address] [place], [place] [address] Shelli, Chair 10 Hem Onc Scenery [address] [place] [address] 10/10/2023 9:10 AM EDT Laboratory Laboratory [facility] [place] [address] [place] [address] [place], Lab Scenery [address] [facility] [place] [address] 10/10/2023 9:30 AM EDT Office Visit Hematology/Oncology [facility] [place] [address] [place] [phone] Lizzy Rosales CRNP [address] [facility] [place] [address] 10/10/2023 10:00 AM EDT Hem/Onc Treatment Hematology/Oncology [facility] [address] [place] [phone] [place], Chair 1 Hem Onc [facility] [address] [place] [address] 04/20/2024 11:00 AM EDT Office Visit Rheumatology [place] [phone] [employer] [facility] [place], [place] [address] Iglesia Rothman MD [address] [employer] [place], [place] [address] Health Maintenance Due Date Last Done Comments [...] this encounter Medical Devices Implanted Type Area Microsoft Infrastructure Consultant Device Identifier Shelf Expiration Date Model / Serial / Lot Port Implant W/8f Poly Cath - [id number] Implanted:Qty : 1 on 11/14/2022 by Shaka Sism, DO at OR [facility] Right: Chest CR BARD : PERIPHERAL VASCULAR [id number] 11/12/2023 [id number] / / [id number] documented as of this encounter Advance Directives Documents on File Type Date Recorded Patient Housekeeping Worker Expl anation POLST 04/10/2023 [place] OR [facility] FOR LIFE-SUSTAINING TREATMENT Latest Code Status on File Code Status Date Activated Date Inactivated Comments Full Code 01/25/2023 2:55 AM 01/26/2023 5:53 PM This order reflects the patients wishes and were consensually agreed upon. Question Answer Comments Discussion of Advance Directives occurred with: Patient Care Teams Bellhop Service Captain Relationship Specialty Start Date End Date Mgean Escalona MD [address] [facility] [place] [address] PCP - General Internal Medicine 10/24/22 documented as of this encounter
--- OUTSIDE RECORDS SUMMARY | 2023-09-28 16:17 | External Medical Summary | Summary of Care ---
Author Name Unknown Organization [facility] Address [address] [place] [address] Phone [phone] Care Team Providers Care Sheetfed Press Operator Name Role Phone Megan Escalona MD Primary Care Provide r Reason for Visit * Reason Onset Date Comments Appointment 09/09/2023 Dr. Morro francis Encounter Details Date Type Department Care Team (Late st Contact Info) Description 09/09/2023 Telephone Hematology/Oncology [facility] [address] [place] [address] Services, Scheduling [address] [place] [address] Appointment (Dr. Hooker patient ) Allergies Active [...] applying once weekly 0 10/27/2020 Active Ipratropium [place] 0.03 % Nasal Solution (Atrovent) 0 02/09/2021 [...] mRNA, LNP-s, No Pre serve, 2-Dose Series ([place]) 03/21/2021,09/07/2020,08/17/2020 Pneumococcal Polysaccharide PPV23 (Pneumovax) 04/29/2020,04/14/2004 Seasonal [...] around 1-1:30 pm. Please contact Tamra at [phone]. Thank you. documented in this encounter Plan of Treatment Upcoming Encounters Date Type Department Care Team (Late st Contact Info) Description 09/12/2023 9:00 AM EST Scheduled Telephone Palliative Medicine, [facility] [address] [facility] 5th [place] [address] [place], Nurse Palliative Medicine [address] [address] 09/19/2023 10:00 AM EST Laboratory Laboratory [facility] [place]lli [place] [address] [place] [phone] Shelli Lab Scenery [address] [place], [place] [address] 09/19/2023 10:30 AM EST Hem/Onc Treatment Hematology/Oncology Treatment [place] [address] [facility], [place] [address] Shelli, Chair 6 Hem Onc Scene [address] [place], [place] [address] 09/26/2023 10:20 AM EDT Laboratory Laboratory [facility] She[place] [address] [place] [address] Shelli, Lab Scenery [address] [place] [address] 09/26/2023 11:00 AM EDT Hem/Onc Treatment Hematology/Oncology Treatment, [place] 200 [facility] Daniela [place], [place] [address] Shelli, Chair 10 Hem Onc Scenery [address] [place] [address] 10/10/2023 9:10 AM EDT Laboratory Laboratory [facility] [place] [address] [place] [address] Shelli, Lab Scenery [address] [facility] [place] [address] 10/10/2023 9:30 AM EDT Office Visit Hematology/Oncology [facility] [place] [address] [place] [phone] Lizzy Rosales CRNP [address] [facility] [place] [address] 10/10/2023 10:00 AM EDT Hem/Onc Treatment Hematology/Oncology [facility] [address] [place] [phone] Shelli, Chair 1 Hem Onc [facility] [address] [place] [address] 04/20/2024 11:00 AM EDT Office Visit Rheumatology [place] [phone] [employer] [place], [place] [address] Iglesia Rothman MD [address] [place], [place] [address] Health Maintenance Due Date Last Done Comments [...] this encounter Medical Devices Implanted Type Area Aligner Barrel And Receiver Device Identifier Shelf Expiration Date Model / Serial / Lot Port Implant W/8f Poly Cath - [id number] Implanted:Qty : 1 on 11/14/2022 by Shaka Sims, DO at OR [facility] Right: Chest CR BARD : PERIPHERAL VASCULAR [id number] 11/12/2023 [id number] / / [id number] documented as of this encounter Advance Directives Documents on File Type Date Recorded Patient Anesthesiologist Expl anation POLST 04/10/2023 [place] [facility] FOR LIFE-SUSTAINING TREATMENT Latest Code Status on File Code Status Date Activated Date Inactivated Comments Full Code 01/25/2023 2:55 AM 01/26/2023 5:53 PM This order reflects the patients wishes and were consensually agreed upon. Question Answer Comments Discussion of Advance Directives occurred with: Patient Care Teams Sheetfed Press Operator Relationship Specialty Start Date End Date Megan Escalona MD [address] [place] [facility] [place] [address] PCP - General Internal Medicine 10/24/22 documented as of this encounter
--- OUTSIDE RECORDS SUMMARY | 2023-09-28 16:17 | External Medical Summary | Summary of Care ---
Author Name Unknown Organization [facility] Address [address] [place] [address] Phone [phone] Care Team Providers Care Director Of Casino Marketing Name Role Phone Megan Escalona MD Primary Care Provide r Reason for Visit * Reason Onset Date Comments Appointment 09/09/2023 Dr. Morro francis Encounter Details Date Type Department Care Team (Late st Contact Info) Description 09/09/2023 Telephone Hematology/Oncology [facility] [address] [place] [address] Services, Scheduling [address] [place] [address] Appointment (Dr. Hooker patient ) Allergies Active [...] applying once weekly 0 10/27/2020 Active Ipratropium [place] 0.03 % Nasal Solution (Atrovent) 0 02/09/2021 [...] mRNA, LNP-s, No Pre serve, 2-Dose Series ([employer]) 03/21/2021,09/07/2020,08/17/2020 Pneumococcal Polysaccharide PPV23 (Pneumovax) 04/29/2020,04/14/2004 Seasonal [...] Telephone Encounter - Rachel Henry LPN - 09/09/2023 12:43 PM EST Called Tamra's cell phone advised were able to move appointment as follows: 09/18 to 3 1pm lab and 145pm tx 09/25 to 09/24 lpm lab and 130 tx * Telephone Encounter - Edvin Bowen RN - 09/09/2023 11:19 AM EST Scheduling- please assist with rescheduling patients lab/G[place] appointments as requested. Thank you. * Telephone Encounter - Mikayla Paz OSA - 09/09/2023 11:07 AM EST Patients daughter Tamra called to reschedule her September 18 and treatments. She advised she wouldlike to reschedule these to 3/6 and 3 in the afternoon if possible. If those days are unavailable she would like to keep them on 3/7 and 3 but change the time to around 1-1:30 pm. Please contact Tamra at [phone]. Thank you. documented in this encounter Plan of Treatment Upcoming Encounters Date Type Department Care Team (Late st Contact Info) Description 09/12/2023 9:00 AM EST Scheduled Telephone Palliative Medicine, [address] 5[address] [place] [address] [place], Nurse Palliative Medicine [address] [address] 09/18/2023 1:10 PM EST Laboratory Laboratory [facility] Shelli [place] [address] [place] [phone] Shelli Lab Scenery [address] [facility] [place] [address] 09/18/2023 1:45 PM EST Hem/Onc Treatment Hematology/Oncology Treatment, [place] [address] [place] [phone] Shelli, Chair 2 Hem Onc Scenery [address] [place] [address] 09/25/2023 1:00 PM EDT Laboratory [facility] [place] [address] [place] [phone] Shelli Lab Scenery [address] [place] [address] 09/25/2023 1:30 PM EDT Hem[facility] 200 [facility], [place] [phone] Shelli, Chair 8 Hem Onc Scenery 200 [facility] [place], [place] [address] 10/10/2023 9:10 AM EDT Laboratory Laboratory [facility] [place] [address] [facility] [place], [place] [phone] Shelli, Lab [facility] [address] [facility] [place], [place] [address] 10/10/2023 9:30 AM EDT Office Visit Hematology/Oncology [facility] [address] [facility] [place], [place] [phone] Lizzy Rosales CRNP [address] [place] [address] 10/10/2023 10:00 AM EDT Hem/Onc Treatment [facility] 200 [facility], [place] [phone] Shelli, Chair 1 Hem Onc [facility] [address] [facility] [place], [place] [address] 04/20/2024 11:00 AM EDT Office Visit Rheumatology [place] [phone] [employer] [place], [place] [address] Iglesia Rothman MD [address] [place] [address] Health Maintenance Due Date Last Done Comments [...] this encounter Medical Devices Implanted Type Area Chief Diversity Officer Device Identifier Shelf Expiration Date Model / Serial / Lot Port Implant W/8f Poly Cath - [id number] Implanted:Qty : 1 on 11/14/2022 by Shaka Sims, at OR [facility] Right: Chest CR BARD : PERIPHERAL VASCULAR [id number] 11/12/2023 [id number] / / [id number] documented as of this encounter Advance Directives Documents on File Type Date Recorded Patient Sexer Expl anation POLST 04/10/2023 [place] OR [facility] FOR LIFE-SUSTAINING TREATMENT Latest Code Status on File Code Status Date Activated Date Inactivated Comments Full Code 01/25/2023 2:55 AM 01/26/2023 5:53 PM This order reflects the patients wishes and were consensually agreed upon. Question Answer Comments Discussion of Advance Directives occurred with: Patient Care Teams Director Of Casino Marketing Relationship Specialty Start Date End Date Megan Escalona MD [address] [place] [address] PCP - General Internal Medicine 10/24/22 documented as of this encounter
[2023-09-28] MEDS: IRON SUCROSE 300 MG in SODIUM CHLORIDE 0.9% 250 ML IV ONE (18:04)
[2023-09-28] MEDS: hydrOXYzine HCl 25 MG TAB PO SCH (20:16)
[2023-09-28] MEDS: HEPARIN SOD 5,000 UNIT/0.5 ML VIAL SQ SCH (20:17)
[2023-09-29] MEDS: HEPARIN 100 UNIT/ML 5ML FLUSH IV PRN (01:35)
[2023-09-29 08:01] LABS: BUN Creatinine Ratio 23.9 (10-20); Calcium 7.4 mg/dl (8.6-10.3); Creatinine Clr Calc Pharmacy 35.7 ml/min; Est GFR (Non-African American) 58.7 ml/min; Potassium 3.6 mmol/L (3.5-5.1)
[2023-09-29 08:04] LABS: Basophils # (auto) 0.03 K/uL (0.00-0.20); Basophils % (auto) 0.4 %; Eosinophils # (auto) 0.31 K/uL (0.00-0.50); Eosinophils % (auto) 4.6 %; Hematocrit (blood only) 23.4 % (37.0-47.0); Hemoglobin 7.6 g/dl (12.0-16.0); Immature Granulocytes # (auto) 0.02 K/uL (0.01-0.20); Immature Granulocytes % (auto) 0.3 %; Lymphocytes # (auto) 0.35 K/uL (1.20-3.40); Lymphocytes % (auto) 5.2 %; Mean Corpuscular Hgb Conc 32.5 g/dL (32.0-36.0); Mean Corpuscular Volume 101.7 fL (80.0-100.0); Mean Platelet Volume 9.7 fL (9.4-12.4); Neutrophils # (auto) 5.83 K/uL (1.40-6.50); Neutrophils % (auto) 86.5 %; Platelet Count 188 K/uL (130-400); RDW Coefficient of Variation 15.7 % (11.5-14.5); RDW Standard Deviation 58.8 fL (36.4-46.3); White Blood Count 6.74 K/ul (4.8-10.8)
[2023-09-29 08:21] LABS: RBC Morphology Unremarkable
[2023-09-29] MEDS: ACETAMINOPHEN 325 MG TAB PO PRN (08:34)
--- NOTE | 2023-09-29 09:20 | Hospitalist Progress Note ---
Date of Service September 29, 2023 Assessment & Plan (1) Cellulitis: Plan: Patient with new onset rash on lower abdomen. Possibly infectious cellulitis vs adverse effect from Gemcitabine/pseudocellulitis. No crepitus or bullae noted, no evidence of necrosis. - Patient immunocompromised due to chemotherapy - continue daptomycin + cefepime - MRSA nasal swab - negative, plan to stop dapto if blood cultures remain negative at 48 hrs -troponin downtrending, peak 16 - Blood cultures: no growth 24 hours - area of infection outlined, area is receding PT/OT pending -Vit D3, probiotic restarted at pt request AM CBC, BMP (2) Hypotension: Plan: Baseline hypertension on carvedilol 3.125mg BID - hypotensive since admission, suspect component of dehydration - continue IVFs, NSS x 2L - AM cortisol WNL BP improving (3) Metastatic urothelial carcinoma: Plan: - Patient currently on Gemcitabine therapy, last dose 09/24. States that she normally responds well to this, was out exercising/walking the following day. - Follows with [facility] - mets to left abdominal wall 09/2022 -Symptomatic management - Oxycodone, Zofran PRN (4) Anemia: Plan: Hgb on admission 8.1. Baseline of recent ~10, prior ~13 - Iron studies - transferrin stat 5%, TIBC 229 - IV Venofer x3 ordered - Vitamin B12: 307 - folate: >22.3 (5) Hypothyroidism: Plan: Chronic. TSH within normal limits at 1.023 -Continue Synthroid Plan Dispo: continued inpatient stay DVT proh: heparin SQ Daughter reports that mom has caregivers coming in to the [facility] 3 times a day when she is not there to provide 24 hour care. Admission and Anticipated Discharge Date Admission Date: September 27, 2023 Supervising Physician Co-Signing Physician Notes PA Supervision Note: I did not personally see or examine the patient today, but I verified all wang points of [place] Ambrocio's assessment and plan with the following exceptions/additions: None Subjective Patient reports feeling okay today, might need to have a BM. Has not been out of bed yet. denies pain Review of Systems Review of Systems: All systems reviewed & are unremarkable except as noted in Subjective Physical Exam Physical Exam: General: NAD, VS as above Resp: normal respiratory effort, lungs clear to auscultation, coughs with deep breathing CV: RRR, no murmur, Abd: umbilical hernia, non strangulated, painful to palpation. Mild erythema and warmth to bilateral lower abdomen, not exceeding markered outline. erythema imporving Extremities: Moves all extremities, no edema Neuro: A&O x3, Results & Data Results & Data Vital Signs (Past 12 Hours) Vital Signs Temp Pulse Pulse Resp BP Pulse Ox O2 Del Method 09/29/23 07:31 37.6 C H 79 16 111/66 95 Room Air 09/29/23 03:40 88 24 97 09/28/23 23:21 57 L 18 92 FiO2 09/29/23 07:31 09/29/23 03:40 21 09/28/23 23:21 21 Laboratory Results CBC, chemistry and BC reviewed PG Care Time/CCT Total # of Minutes Spent Total Time Spent with Patient: Total time spent is greater than 50% in coordination of care (as documented) at patient's floor/unit and/or counseling patient: Coding Level of Care Code 56265 SUB INP/OBS CARE 2/35MIN Diagnoses Cellulitis L03.90 Hypotension I95.9 Metastatic urothelial carcinoma C79.10 Anemia D64.9 Hypothyroidism E03.9
[2023-09-29] MEDS: IRON SUCROSE 300 MG in SODIUM CHLORIDE 0.9% 250 ML IV SCH (13:04)
[2023-09-29] MEDS ORDERED: CETIRIZINE HCL 10 MG TABLET PO PRN (15:52)
[2023-09-30 08:30] LABS: Basophils # (auto) 0.02 K/uL (0.00-0.20); Basophils % (auto) 0.3 %; Eosinophils # (auto) 0.43 K/uL (0.00-0.50); Eosinophils % (auto) 7.5 %; Hematocrit (blood only) 24.7 % (37.0-47.0); Immature Granulocytes # (auto) 0.05 K/uL (0.01-0.20); Immature Granulocytes % (auto) 0.9 %; Lymphocytes # (auto) 0.59 K/uL (1.20-3.40); Lymphocytes % (auto) 10.3 %; Mean Corpuscular Hemoglobin 32.7 pg (25.0-34.0); Mean Corpuscular Hgb Conc 32.4 g/dL (32.0-36.0); Mean Corpuscular Volume 100.8 fL (80.0-100.0); Mean Platelet Volume 9.2 fL (9.4-12.4); Monocytes # (auto) 0.43 K/uL (0.11-0.59); Monocytes % (auto) 7.5 %; Neutrophils # (auto) 4.23 K/uL (1.40-6.50); Neutrophils % (auto) 73.5 %; Platelet Count 182 K/uL (130-400); RDW Coefficient of Variation 15.7 % (11.5-14.5); RDW Standard Deviation 57.3 fL (36.4-46.3); Red Blood Count 2.45 M/uL (4.20-5.40); White Blood Count 5.75 K/ul (4.8-10.8)
[2023-09-30] MEDS: POLYETHYLENE (MIRALAX) 17 GM PACK PO SCH (08:42)
[2023-09-30 08:45] LABS: Calcium 7.8 mg/dl (8.6-10.3); Est GFR (African American) 70.9 ml/min; Est GFR (Non-African American) 61.2 ml/min; Potassium 3.5 mmol/L (3.5-5.1)
--- NOTE | 2023-09-30 16:09 | Hospitalist Progress Note ---
Date of Service September 30, 2023 Assessment & Plan (1) Cellulitis: Plan: Patient with new onset rash on lower abdomen. Possibly infectious cellulitis vs adverse effect from Gemcitabine/pseudocellulitis. No crepitus or bullae noted, no evidence of necrosis. - Patient immunocompromised due to chemotherapy - continue daptomycin + cefepime - MRSA nasal swab - negative, plan to stop dapto if blood cultures remain negative at 48 hrs -troponin downtrending, peak 16 - Blood cultures: no growth 24 hours - area of infection outlined, area is receding PT/OT pending -Vit D3, probiotic restarted at pt request AM CBC, BMP (2) Hypotension: Plan: Baseline hypertension on carvedilol 3.125mg BID - hypotensive since admission, suspect component of dehydration - continue IVFs, NSS x 2L - AM cortisol WNL BP improving (3) Metastatic urothelial carcinoma: Plan: - Patient currently on Gemcitabine therapy, last dose 09/24. States that she normally responds well to this, was out exercising/walking the following day. - Follows with [facility] - mets to left abdominal wall 09/2022 -Symptomatic management - Oxycodone, Zofran PRN (4) Anemia: Plan: Hgb on admission 8.1. Baseline of recent ~10, prior ~13 - Iron studies - transferrin stat 5%, TIBC 229 - IV Venofer x3 ordered - Vitamin B12: 307 - folate: >22.3 (5) Hypothyroidism: Plan: Chronic. TSH within normal limits at 1.023 -Continue Synthroid Plan Dispo: continued inpatient stay DVT proh: heparin SQ Daughter reports that mom has caregivers coming in to the [facility] 3 times a day when she is not there to provide 24 hour care. Admission and Anticipated Discharge Date Admission Date: September 27, 2023 Results & Data Results & Data Vital Signs (Past 12 Hours) Vital Signs Temp Pulse Pulse Resp BP Pulse Ox O2 Del Method 09/30/23 14:51 36.6 C 65 16 117/74 98 Room Air 09/30/23 14:20 36.6 C 09/30/23 12:24 78 17 130/80 98 Room Air 09/30/23 08:25 36.6 C 80 18 124/74 99 Room Air PG Care Time/CCT Total # of Minutes Spent Total Time Spent with Patient: Total time spent is greater than 50% in coordination of care (as documented) at patient's floor/unit and/or counseling patient: Coding Diagnoses Cellulitis L03.90 Hypotension I95.9 Metastatic urothelial carcinoma C79.10 Anemia D64.9 Hypothyroidism E03.9
--- NOTE | 2023-09-30 18:04 | Discharge Summary ---
Discharge Summary Date of Service September 30, 2023 Notes For Next Care Provider admitted with abdominal cellulitis, escalated antibiotics due to chemotherapy and having a port. Responded well to dapto and cefepime, discharged with CTX and doxycycline to start 09/30 Medication Changes From Visit doxycyline and keflex for 7 days Admission HPI Per Admitting Provider Karen Rivera is an 88yo female with history of invasive papillary urothelial carcinoma s/p TURBT, intravesicular BCG and Keytruda. Presently on Gemcitabine with improvement in tumor size on last imaging. Patient with known metastatic disease to left anterior abdominal wall. She has a ureteral stent indwelling at this time She presents today with generalized weakness, inability to ambulate as well as fever, chills and body aches. She also noted a rash on her lower abdomen today. No additional complaints - patient denies chest pain, cough or SOB. Denies abdominal pain, nausea, vomiting, diarrhea, urinary complaints. No sick contacts, recent travel or exposure to tick bites. In the ER she is afebrile, HD stable Principal Dx & Hospital Course #1 = Principal Diagnosis (1) Cellulitis: Patient with new onset rash on lower abdomen. Possibly infectious cellulitis vs adverse effect from Gemcitabine/pseudocellulitis. No crepitus or bullae noted, no evidence of necrosis. - Patient immunocompromised due to chemotherapy - recieved daptomycin + cefepime while inpatient --> doxycycline and Keflex at discharge - MRSA nasal swab - however without wound culture will empirically cover for MRSA -troponin downtrending, peak 16 - Blood cultures: no growth 48 hours - area of infection outlined, area is receding. erythema improving PT/OT - recommend return to [facility], script for therapy provided to case management -Vit D3, probiotic restarted at pt request, continue at discharge (2) Hypotension: Baseline hypertension on carvedilol 3.125mg BID - hypotensive since admission, suspect component of dehydration - continue IVFs, NSS x 2L - AM cortisol WNL BP improving, stable at discharge (3) Metastatic urothelial carcinoma: - Patient currently on Gemcitabine therapy, last dose 09/24. States that she normally responds well to this, was out exercising/walking the following day. - Follows with [facility] - mets to left abdominal wall 09/2022 -Symptomatic management - Oxycodone, Zofran PRN (4) Anemia: Hgb on admission 8.1. Baseline of recent ~10, prior ~13 - Iron studies - transferrin stat 5%, TIBC 229 - IV Venofer x3 received - Vitamin B12: 307 - folate: >22.3 (5) Hypothyroidism: Chronic. TSH within normal limits at 1.023 -Continue Synthroid Plan Dispo: return to [facility] today daughter updated by phone Discharge Exam General: NAD, VS as above Resp: normal respiratory effort, lungs clear to auscultation, no coughing CV: RRR, no murmur, Abd: umbilical hernia, non strangulated, painful to palpation. erythema continues to improve, not warm today Extremities: Moves all extremities, no edema Neuro: A&O x3, Updated Medication List Medication Instructions Recorded Confirmed Type multivitamin (Daily Multi-Vitamin 1 tab PO QDL 04/01/19 09/27/23 History tablet) famotidine 20 mg tablet (Pepcid AC) 20 mg PO BID 08/09/21 09/27/23 History ascorbic acid 1,000 1 ea PO QAM 09/26/21 09/27/23 History uj-suplmllvcips-wlyujjrz powder effervescent pack (Emergen-C) cholecalciferol (vitamin D3) 25 25 mcg PO QAM 11/19/22 09/27/23 History mcg (1,000 unit) tablet (Vitamin D3) ipratropium bromide 21 mcg (0.03 2 spray intranasal BID PRN nasal 12/18/22 09/27/23 Rx %) nasal spray drainage #30 mL oxycodone 5 mg tablet 5 mg PO Q6H PRN pain #5 tabs 02/18/23 09/27/23 Rx sennosides 8.6 mg tablet (senna) 8.6 mg PO AMPM Constipation 03/07/23 09/27/23 History lidocaine-prilocaine 2.5 %-2.5 % 1 applic topical UD 04/19/23 09/27/23 History topical cream acetaminophen 500 mg capsule 1,000 mg PO QAM Pain 04/24/23 09/27/23 History carvedilol 3.125 mg tablet (Coreg) 3.125 mg PO BID #180 tabs 05/01/23 09/27/23 Rx hydroxyzine HCl 50 mg tablet 50 mg PO HS itching #30 tabs 09/11/23 09/27/23 Rx docusate sodium 100 mg capsule 100 mg PO DAILY PRN Constipation 09/27/23 09/27/23 History (Stool Softener) estradiol 0.01% (0.1 mg/gram) 1 g vaginal 3XWK 09/27/23 09/27/23 History vaginal cream hydrocortisone 2.5 % topical cream 1 applic topical BID 09/27/23 09/27/23 History levothyroxine 50 mcg tablet 50 mcg PO .DAILY AT 4PM 09/27/23 09/27/23 History polyethylene glycol 3350 17 17 g PO 3XWK 09/27/23 09/27/23 History gram/dose oral powder (Miralax) vit C 250 mg-E 90 mg-zinc 40 1 tab PO AMPM 09/27/23 09/27/23 History mg-copper 1 yz-yqjedh-yvxkuu chew tablet (PreserVision AREDS-2) cephalexin 500 mg capsule 500 mg PO QID 7 days #28 caps 09/30/23 Rx doxycycline hyclate 100 mg capsule 100 mg PO BID 7 days #14 caps 09/30/23 Rx Hospital Stay Data Diagnostic Imagining Performed Chest X-Ray 09/27/23 18:56 XR chest 1V not portable CLINICAL HISTORY: Weakness COMPARISON STUDY: Chest CT September 12, 2022. Chest radiograph January 23, 2023. FINDINGS: Right internal jugular [id number] is unchanged in position. Lung volumes are normal. Lungs are clear. There is no pneumothorax or pleural effusion. Cardiomegaly is stable. Mediastinal contours are normal. There is no evidence for pulmonary edema. IMPRESSION: No acute cardiopulmonary findings. No change in appearance of the chest. ACT 112: Negative or not required by law. Electronically signed by: Flip Samayoa M.D. 09/28/2023 9:39 AM Abdomen/Pelvis CT 09/27/23 19:26 Exam(s): CT ABDOMEN + PELVIS Without Contrast EXAM: CT Abdomen and Pelvis Without Intravenous Contrast CLINICAL HISTORY: Reason for exam: abdominal wall cellulitis, umbilical hernia, fever. TECHNIQUE: Axial computed tomography images of the abdomen and pelvis without intravenous contrast. CTDI is 24.66 mGy and DLP is 1153.79 mGy-cm. Automated exposure control was utilized for the study. A dose lowering technique was utilized adhering to the principles of ALARA. COMPARISON: CT chest/abdomen/pelvis on 05/28/2023 FINDINGS: Lung bases: Unremarkable. No mass. No consolidation. Mediastinum: Small hiatal hernia. ABDOMEN: Liver: Small left hepatic cysts. Gallbladder and bile ducts: Unremarkable. No calcified stones. No ductal dilation. Pancreas: Unremarkable. No ductal dilation. Spleen: Unremarkable. No splenomegaly. Adrenals: Unremarkable. No mass. Kidneys and ureters: Stable severe right hydronephrosis with right ureteral stent in place. No significant hydroureter. Left nephrectomy change. Stomach and bowel: Evaluation of the stomach is limited by underdistention. Similar small to moderate fat-containing umbilical or periumbilical hernia with fat stranding. Small to moderate right paraumbilical hernia containing nonobstructed small bowel. Diverticulosis without evidence of diverticulitis. No small bowel obstruction. PELVIS: Appendix: Normal appendix. Bladder: Unremarkable. No stones. Reproductive: Vaginal pessary noted. Subperitoneal space: Trace presacral fluid. ABDOMEN and PELVIS: Intraperitoneal space: Unremarkable. No free air. No significant fluid collection. Bones/joints: Degenerative changes of the hips and spine. Grade 1 anterolisthesis of L5 on S1. No acute fracture. No dislocation. Soft tissues: Injection granuloma in the right gluteal soft tissues. Small calcification in the right breast. Vasculature: Atherosclerotic changes of the vasculature. No aortic aneurysm. Phleboliths in the pelvis. Lymph nodes: Unremarkable. No enlarged lymph nodes. IMPRESSION: 1. Stable severe right hydronephrosis with right ureteral stent in place. No significant hydroureter. 2. Similar small to moderate fat-containing umbilical or periumbilical hernia with fat stranding. Small to moderate right paraumbilical hernia containing nonobstructed small bowel. Electronically signed by: Ketan Kaufman M.D. 09/27/23 20:23 PM Pending Results Patient Have Any Pending Studies at Discharge: Yes (blood cultures ) Discharge Instructions Given to Patient (Per Discharging Provider) Ms. Rivera, You were hospitalized after having concerns for cellulitis on your abdomen. You have greatly improved after IV antibiotics and we will continue oral antibiotics at discharge for 7 more days. You will start these in the morning of 09/30 -Doxycyline 100mg BID x 7 days, take this with food and glass of liquid -Keflex 500 mg 4 times a day x 7 days Your blood pressure were low when you arrived, and we suspect that is due to dehydration. THey have improved after we gave you fluids and we were able to continue your blood pressure medication. We also gave you 3 doses of IV iron, to held with your anemia. Consider taking it easy the day after chemo next time! Activity: You can do normal everyday activities as your body allows. Take rest breaks if you feel tired. Do not overexert. Stop activity if you have pain, shortness of breath or feel dizzy. Follow-up appointments: Make an appointment with your primary care physician within one week of discharge. A copy of this summary will be sent to them. Every time you see your primary care physician, or any other doctor, bring your medication list, and a list of questions. CONTACT YOUR PRIMARY CARE PROVIDER if you experience any of the following: Shortness of breath or difficulty breathing Fevers or chills Feeling tired with normal activity or experiencing dizziness or fainting Difficulty following your treatment plan, or difficulty taking medications CALL 911 OR GO TO THE EMERGENCY DEPARTMENT if you experience any of the following: Severe abdominal pain or nausea/vomiting Severe chest pain, or chest pain that radiates (moves) to your jaw or arm Sudden, severe shortness of breath or difficulty breathing Thank you for allowing us to participate in your care. Total Time Total Time Spent Total Time Spent (In Minutes): Time spend day of discharge 45 minutes including direct patient care, medication reconciliation, documentation, review of labs and images, and coordination of care. Coding Level of Care Code 46019 INP/OBS DISCH >30 MIN Diagnoses Cellulitis L03.90 Hypotension I95.9 Metastatic urothelial carcinoma C79.10 Anemia D64.9 Hypothyroidism E03.9
== END 2023-09-30 18:59 | disposition home or self-care (01) | DRG 603 ==
LOC: ED 18:30 → 3W 23:09 → SUATTDRO 23:09 → 3W 09-28 01:46

== ENCOUNTER 2023-11-09 18:30 | Inpatient (IN) ==
--- NOTE | 2023-11-09 18:56 | Emergency Department Note ---
Impression & Plan Sepsis, Elevated troponin, Pulmonary embolism, Hydronephrosis, right, Bladder cancer, Complicated UTI (urinary tract infection), Ureteral stent present ED Provider Note NAME: JACOB LOVETT AGE: 88 SEX: F : 1935 ARRIVES VIA: Ambulance INFORMANT: Patient ED PROVIDER(S): Augusto Gama MD CHIEF COMPLAINT: Fever, weakness. 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 Patient presents to the emergency department febrile and with delirium and is a poor historian at this time does not recall any details of any fall. She reports she did not hit her head or lose consciousness. Family at the bedside reports that they are aware that she had a ureteral stent replacement last week. She had been doing okay otherwise the rest of the week. She recently received chemotherapy and radiation treatment. On arrival the patient is ill-appearing but no acute distress, febrile to 39.3 with heart rate in the 90s, blood pressure 150s/120s and O2 saturation low 90s on 2 L nasal cannula. She appears clinically dry. She is moving all extremities equally with generalized weakness. Range of motion of bilateral shoulders is limited symmetrically to less than 90 degrees. Family bedside does not recall her ever having to lift her arms higher than that anyway. There is no gross deformity or tenderness to palpation. Distal PMS is intact. EKG without overt acute ischemia. CXR demonstrates interstitial thickening and lower lung airspace opacities which is nonspecific and may relate to pulmonary edema or infectious process better characterized on CT imaging. WBC within normal limits but with left shift. H/H similar to prior. Platelets within normal limits. Chemistry without metabolic acidosis. BUNs/creatinine 22, consistent the patient clinically dry appearance. AST is 43 and LFTs are otherwise unremarkable. Initial high-sensitivity troponin 78 with delta 2-hour HS troponin 91, nonspecific. Lipase is not elevated. Procalcitonin is elevated at 1.9. UA is suspicious for infection with 2+ leuk esterase and WBC is. Respiratory viral panel/[employer] was negative. CT of the head negative for acute abnormalities. CT of the C-spine negative for acute abnormalities. CT of the chest demonstrates lower lobe segmental and subsegmental pulmonary emboli without evidence of right heart strain. Additional description of small airway disease and superimposed pneumonitis is described. CT of the abdomen pelvis demonstrates persistence of right-sided hydronephrosis with right ureteral stent in place which is stable or minimally progressed. There is mild enhancement of the wall through the right ureter and urinary bladder which may be consistent with cystitis. Thickening of the wall to the left of the urinary bladder is consistent with patient's prior history of bladder cancer. The patient was treated with 30 cc/KG per IBW with 2 L normal saline with empiric antibiotics initially with cefepime which would be effective per patient's most recent urine culture from 10/27 which grew E. coli and Enterobacter cloacae. She additionally treated with IV APAP. Heparin drip initiated without bolus for treatment of PE. Close deferred at this time due to the patient being hemodynamically stable and risk of bleeding in the setting of patient age and comorbidities. Case was [place] [facility] [place] who will evaluate the patient for admission. Further management per admitting team Triage Nursing notes reviewed and agree them. Prior/external medical records reviewed Vital Signs: reviewed Differential diagnosis: Viral syndrome, otitis, pharyngitis, pneumonia, influenza, meningitis, urinary tract infection, sepsis, bacteremia, as well as other pathologies. ER treatment provided: See below. Diagnostics interpreted by me: ECG: Normal sinus rhythm, 95 bpm, no ectopy, no overt ST elevation or depression, QTc 429, QRS 90. Cardiac Monitoring: An order for continuous cardiac monitoring was placed and demonstrated Normal sinus rhythm, 95 bpm, no ectopy. Laboratory studies: See below Imaging studies: See below Consultation(s): Case was discussed with Dr. Marinelli [facility] [place], who will evaluate the patient for admission. HPI: The patient is a pleasant 88-year-old woman with a past medical history of metastatic bladder cancer/invasive papillary urothelial carcinoma s/p post TURBT, intravesicular BCG and Keytruda, right-sided hydronephrosis with indwelling ureteral stent following removal of right nephrostomy tube who presents to the emergency department from her assisted living at the [facility] for evaluation of generalized weakness, fever with unwitnessed fall where there was question of right shoulder pain. Patient presents to the emergency department febrile and with delirium and is a poor historian at this time does not recall any details of any fall. She reports she did not hit her head or lose consciousness. Family at the bedside reports that they are aware that she had a ureteral stent replacement last week. She had been doing okay otherwise the rest of the week. She recently received chemotherapy and radiation treatment. ROS: See above HPI for pertinent positives & negatives. A total of 10 systems reviewed and were otherwise negative. VITALS:See Below PHYSICAL EXAMINATION: GENERAL: Awake, alert, ill-appearing, in no distress HENT: Normocephalic, atraumatic. Oropharynx with dry mucous membranes and otherwise unremarkable. EYES: Normal conjunctiva. Sclera non-icteric. EOMI. No nystamgus. PEARRL. NECK: Supple. No nuchal rigidity. FROM. No JVD. RESPIRATORY: Clear to auscultation. CARDIAC: Regular rate, normal rhythm. Extremities warm and well perfused. Pulses equal. ABDOMEN: Soft, non-distended. No tenderness to palpation. No rebound or guarding. No masses. MUSCULOSKELETAL: Chest examination reveals no tenderness. The back is symmetrical on inspection without obvious abnormality. There is no CVA tenderness to palpation. No joint edema. Range of motion of bilateral shoulders is limited symmetrically to less than 90 degrees. LOWER EXTREMITIES: Calves are equal size bilaterally and non-tender. No edema. No discoloration. NEURO: Mild delirium, poor attention, alert and oriented to self and place. Confused to situation. No focal motor deficits noted. Generalized weakness in all extremities with 4/5 strength. SKIN: No rash or jaundice noted. ED COURSE: Critical Care: I have personally spent greater than 75 minutes of critical care time in the direct management of this patient. This includes bedside care, interpretation of diagnostic studies, and testing, discussion with consultants, patient, and family members, and other required patient management activities. This 75 minutes is in excess of all separately billable procedures. 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) Ureteral obstruction Admitted to [facility] 01/24/23 and transferred to [facility] ([facility]) 01/25/23 with IR for nephrostomy tube placement Anemia Osteopenia Allergic rhinitis Migraines Hyperlipidemia Cardiomyopathy Valvular cardiomyopathy Immunotherapy history of- switched to chemo/no longer on immunotherapy Port-A-Cath in place (~11/14/22) Power Port - implantable port [place] Patient will bring the device card DOS Placed 11/14/2022 at [facility] Bladder carcinoma High grade s/p TURBT>currently on chemo @ [facility] weekly Presence of pessary Anxiety Mitral valve regurgitation Echo 07/2023:Severe MR Follows with Dr. Hernandez Urothelial cancer Dx 07/2021 S/p L nephroureterectomy 10/2021. [id number]. Recurrence/progression 02/2022 > multiple TURBTs Cutaneous metastases On Keytruda in the past- no longer taking per urology records Renal arterial aneurysm Follows with Dr. Archibald- last seen 03/2022- "aneurysm of right renal artery has not changed since her last visit and is only 0.8cm"- follow up in two years Stress incontinence Pessary in place GERD (gastroesophageal reflux disease) Macular degeneration Venous insufficiency Both legs Cystocele with prolapse PMR (polymyalgia rheumatica) Follows with rheum (Dr. 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 H/O transurethral resection of bladder tumor (TURBT) multiple>with stent exchanges *last done 08/05/23 at [facility] Nausea and vomiting after administration of anesthetic agent History of surgery nephrostomy tube placement, [facility] 01/2023, subsequent removal S/P biopsy ureter S/p nephrectomy (~10[facility]2021[facility] unilateral [facility]omy History of colonoscopy [place] teeth removed Family History Sister Breast cancer Mother , 88yo Stroke Hypertension Father , 54yo Black lung disease Brother Aneurysm Hypertension Brother Lung cancer Brother Addiction Daughter No problems noted. Other No family history of adverse response to anesthesia No pertinent family history Denies family history of Ovarian cancer Prostate cancer Myocardial infarction Colorectal cancer Social History Smoking Status: Never smoker Second Hand Exposure: No; Do You Dip or Chew Tobacco: No; Hx Alcohol Use: No Hx Substance Use: No Preferred Language: [place] Communication Ability: Effective Visual Impairment: No Limitations Hearing Ability: Normal Multiple Resaw Operator Required: No Beliefs That Will Affect Care: None marital status: / Current Living Situation: Personal Care Facility Current Living Situation Comment: [facility] 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 states they use wheelchair and walker Allergies Allergies Allergy/AdvReac Type Severity Reaction Status Date / Time capsaicin Allergy Unknown Unknown Verified 11/07/23 11:42 house dust Allergy Unknown [place] Verified 11/09/23 19:17 MED LIST mold Allergy Unknown [place] Verified 11/09/23 19:17 MED LIST pollen extracts Allergy Unknown [place] Verified 11/09/23 19:17 MED LIST sulfamethoxazole Allergy Unknown [place] Verified 11/09/23 19:17 [From Bactrim] MED LIST trimethoprim [From Bactrim] Allergy Unknown [place] Verified 11/09/23 19:17 MED LIST SARA Inhibitors AdvReac Intermediate Cough Verified 11/09/23 19:17 ARB-Angiotensin Receptor AdvReac Intermediate Cough Verified 11/09/23 19:17 Antagonist pepper (genus Capsicum) AdvReac Intermediate Gastrointestinal Verified 11/09/23 19:17 Upset prednisone AdvReac Intermediate Dizziness Verified 11/09/23 19:17 & weird dreams tramadol AdvReac Intermediate Vomiting Verified 11/09/23 19:17 gabapentin AdvReac Mild Nausea Verified 11/09/23 19:17 Home Meds Home Medications Medication Instructions Recorded Confirmed multivitamin (Daily Multi-Vitamin 1 tab PO QDL 04/01/19 11/09/23 tablet) famotidine 20 mg tablet (Pepcid AC) 20 mg PO BID 08/09/21 11/09/23 ascorbic acid 1,000 1 ea PO QAM 09/26/21 11/09/23 [id number]-[id number] powder effervescent pack (Emergen-C) cholecalciferol (vitamin D3) 25 25 mcg PO QDD 11/19/22 11/09/23 mcg (1,000 unit) tablet (Vitamin D3) lidocaine-prilocaine 2.5 %-2.5 % 1 applic topical DIRECTED PRN 04/19/23 11/09/23 topical cream PORT ACCESS acetaminophen 500 mg capsule 1,000 mg PO QAM Pain 04/24/23 11/09/23 estradiol 0.01% (0.1 mg/gram) 1 g vaginal [id number] 09/27/23 11/09/23 vaginal cream (Estrace) levothyroxine 50 mcg tablet 50 mcg PO .DAILY AT 4PM 09/27/23 11/09/23 vit C 250 mg-E 90 mg-zinc 40 1 tab PO QDL 09/27/23 11/09/23 mg-copper 1 [id number] chew tablet (PreserVision AREDS-2) hydroxyzine HCl 50 mg tablet 50 mg PO HS PRN itching/anxiety 10/22/23 11/09/23 hydrocortisone 2.5 % topical cream 1 applic topical BID PRN Other 10/23/23 11/09/23 psyllium husk 0.4 gram capsule 0.4 g PO DAILY PRN Constipation 11/04/23 11/09/23 (Metamucil) acetaminophen 500 mg tablet 1,000 mg PO Q6H PRN PAIN/FEVER 11/09/23 11/09/23 (Tylenol Extra Strength) carvedilol 3.125 mg tablet (Coreg) 3.125 mg PO BIDM 11/09/23 11/09/23 diphenhydramine HCl 25 mg capsule 25 mg PO DIRECTED PRN Itching 11/09/23 11/09/23 (Benadryl) fexofenadine 180 mg tablet 180 mg PO DAILY PRN Itching 11/09/23 11/09/23 Results & Data (ED) Vital Signs Vital Signs - 24 hr 11/09/23 18:38 11/09/23 18:41 11/09/23 18:42 Temperature 39.3 C H Temperature Source Oral Pulse Rate 97 H 95 H Pulse Rate from SpO2 Sensor Respiratory Rate 12 Respiratory Effort / Characteristics Non-Labored Spontaneous Respiratory Depth Normal Blood Pressure Blood Pressure [Right Arm] 159/124 H Blood Pressure Mean Blood Pressure Mean [Right Arm] 135 Pulse Oximetry 93 Oxygen Delivery Method Room Air Oxygen Flow Rate Sepsis Recent Fever Within 48 Hours Yes Sepsis New/Unexplained Change in Mental Status N/A Sepsis Action Taken by Nursing No Action Required 11/09/23 18:42 11/09/23 18:45 11/09/23 18:51 Temperature Temperature Source Pulse Rate 95 H 91 H Pulse Rate from SpO2 Sensor 93 H 91 H Respiratory Rate 29 H 26 H Respiratory Effort / Characteristics Respiratory Depth Blood Pressure Blood Pressure [Right Arm] Blood Pressure Mean Blood Pressure Mean [Right Arm] Pulse Oximetry 88 L 97 94 Oxygen Delivery Method Room Air Nasal Cannula Nasal Cannula Oxygen Flow Rate 2 2 Sepsis Recent Fever Within 48 Hours Sepsis New/Unexplained Change in Mental Status Sepsis Action Taken by Nursing 11/09/23 19:00 11/09/23 19:00 11/09/23 19:15 Temperature Temperature Source Pulse Rate 90 91 H Pulse Rate from SpO2 Sensor 91 H 92 H Respiratory Rate 25 H 26 H Respiratory Effort / Characteristics Respiratory Depth Blood Pressure 170/93 H Blood Pressure [Right Arm] Blood Pressure Mean 126 Blood Pressure Mean [Right Arm] Pulse Oximetry 99 98 Oxygen Delivery Method Oxygen Flow Rate Sepsis Recent Fever Within 48 Hours Sepsis New/Unexplained Change in Mental Status Sepsis Action Taken by Nursing 11/09/23 19:30 11/09/23 19:31 11/09/23 19:31 Temperature Temperature Source Pulse Rate 88 88 Pulse Rate from SpO2 Sensor 88 88 Respiratory Rate 17 29 H Respiratory Effort / Characteristics Respiratory Depth Blood Pressure 154/89 H Blood Pressure [Right Arm] Blood Pressure Mean 104 Blood Pressure Mean [Right Arm] Pulse Oximetry 97 96 Oxygen Delivery Method Oxygen Flow Rate Sepsis Recent Fever Within 48 Hours Sepsis New/Unexplained Change in Mental Status Sepsis Action Taken by Nursing 11/09/23 19:45 11/09/23 19:51 11/09/23 20:08 Temperature 37.6 C H Temperature Source Oral Pulse Rate 85 Pulse Rate from SpO2 Sensor 85 81 Respiratory Rate 13 Respiratory Effort / Characteristics Respiratory Depth Blood Pressure Blood Pressure [Right Arm] Blood Pressure Mean Blood Pressure Mean [Right Arm] Pulse Oximetry 95 94 Oxygen Delivery Method Oxygen Flow Rate Sepsis Recent Fever Within 48 Hours Sepsis New/Unexplained Change in Mental Status Sepsis Action Taken by Nursing 11/09/23 20:15 11/09/23 20:15 11/09/23 20:30 Temperature Temperature Source Pulse Rate 83 82 Pulse Rate from SpO2 Sensor 83 81 Respiratory Rate 23 29 H Respiratory Effort / Characteristics Respiratory Depth Blood Pressure 116/60 Blood Pressure [Right Arm] Blood Pressure Mean 94 Blood Pressure Mean [Right Arm] Pulse Oximetry 96 96 Oxygen Delivery Method Oxygen Flow Rate Sepsis Recent Fever Within 48 Hours Sepsis New/Unexplained Change in Mental Status Sepsis Action Taken by Nursing 11/09/23 20:30 11/09/23 20:45 11/09/23 21:00 Temperature Temperature Source Pulse Rate 80 80 Pulse Rate from SpO2 Sensor 80 80 Respiratory Rate 32 H 21 Respiratory Effort / Characteristics Respiratory Depth Blood Pressure 116/62 Blood Pressure [Right Arm] Blood Pressure Mean 79 Blood Pressure Mean [Right Arm] Pulse Oximetry 96 98 Oxygen Delivery Method Oxygen Flow Rate Sepsis Recent Fever Within 48 Hours Sepsis New/Unexplained Change in Mental Status Sepsis Action Taken by Nursing 11/09/23 21:00 Temperature Temperature Source Pulse Rate Pulse Rate from SpO2 Sensor Respiratory Rate Respiratory Effort / Characteristics Respiratory Depth Blood Pressure 120/62 Blood Pressure [Right Arm] Blood Pressure Mean 86 Blood Pressure Mean [Right Arm] Pulse Oximetry Oxygen Delivery Method Oxygen Flow Rate Sepsis Recent Fever Within 48 Hours Sepsis New/Unexplained Change in Mental Status Sepsis Action Taken by Nursing Laboratory Data Attestation: I reviewed the patient's lab results. 11/09/23 18:45 11/09/23 18:45 Lab Results 11/09/23 11/09/23 11/09/23 Range/Units 18:45 19:09 19:11 WBC 8.13 (4.8-10.8) K/ul RBC 3.23 L (4.20-5.40) M/uL Hgb 10.5 L (12.0-16.0) g/dl Hct 31.4 L (37.0-47.0) % MCV 97.2 (80.0-100.0) fL MCH 32.5 (25.0-34.0) pg MCHC 33.4 (32.0-36.0) g/dL RDW Std Deviation 55.8 H (36.4-46.3) fL RDW Coeff of Cathy 15.9 H (11.5-14.5) % Plt Count 171 (130-400) K/uL MPV 10.1 (9.4-12.4) fL Immature Gran % (Auto) 4.1 % Neut % (Auto) 72.4 % Lymph % (Auto) 5.7 % Churchill % (Auto) 13.7 % Eos % (Auto) 3.7 % Baso % (Auto) 0.4 % Neut # (Auto) 5.90 (1.40-6.50) K/uL Lymph # (Auto) 0.46 L (1.20-3.40) K/uL Churchill # (Auto) 1.11 H (0.11-0.59) K/uL Eos # (Auto) 0.30 (0.00-0.50) K/uL Baso # (Auto) 0.03 (0.00-0.20) K/uL Immature Gran # (Auto) 0.33 H (0.01-0.20) K/uL PT 11.7 (9.0-12.0) Seconds INR 1.1 (0.9-1.1) VBG pH 7.46 H (7.36-7.41) VBG pCO2 36 L (38-50) mmHg VBG pO2 39 mmHg VBG HCO3 26 mmol/L VBG O2 Saturation 69.7 % VBG Base Excess 2.0 mEq/L Sodium 131 L (136-145) mmol/L Potassium 4.0 (3.5-5.1) mmol/L Chloride 99 (98-107) mmol/L Carbon Dioxide 22 (21-32) mmol/L Anion Gap 10 (3-11) BUN 24 H (6-23) mg/dl Creatinine 1.05 (0.6-1.2) mg/dl Est Cr Clr Drug Dosing 37.6 ml/min Est GFR ( Amer) 54.9 ml/min Est GFR (Non-Af Amer) 47.4 ml/min BUN/Creatinine Ratio 22.9 H (10-20) Glucose 115 H (70-99(Fasting)) mg/dl Lactate 1.0 (0.4-2.0) mmol/L Calcium 10.1 (8.6-10.3) mg/dl Magnesium 1.9 (1.7-2.4) mg/dl Total Bilirubin 0.5 (0.2-1.0) mg/dl Direct Bilirubin 0.2 (0-0.2) mg/dl AST 43 H (13-39) U/L ALT 21 (7-52) U/L Alkaline Phosphatase 89 (34-104) U/L Troponin I High Sens 78.6 H* (0-14) pg/ml Total Protein 6.5 (6.0-8.3) gm/dl Albumin 3.5 (3.4-5.0) gm/dl Lipase 12 (11-82) U/L Procalcitonin 1.94 H (0-0.5) ng/ml Urine Color Urine Appearance (Clear) Urine pH (4.5-7.5) Ur Specific [place] (1.000-1.030) Urine Protein (Negative) Urine Glucose (UA) (Negative) Urine Ketones (Negative) Urine Blood (Negative) Urine Nitrite (Negative) Urine Bilirubin (Negative) Urine Urobilinogen (Negative) Ur Leukocyte Esterase (Negative) Urine WBC (Auto) (0-5) /hpf Urine RBC (Auto) (0-2) /hpf U Hyaline Cast (Auto) (0-2) /lpf U Epithel Cells (Auto) (0-2) /hpf Urine Bacteria (Auto) (None Seen) Calcium Oxalate Crystal (None Prsent) Adenovirus (PCR) (NotDetected) B. pertussis DNA (PCR) (NotDetected) B.parapertussis DNA PCR (NotDetected) C. pneumoniae DNA (PCR) (NotDetected) Coronavirus OC43 (PCR) (NotDetected) Coronavirus HKU1 (PCR) (NotDetected) Coronavirus 229E (PCR) (NotDetected) SARS-CoV-2 (PCR) (NotDetected) Coronavirus NL63 (PCR) (NotDetected) Human Metapneumovir PCR (NotDetected) Influenza Type A (PCR) (NotDetected) Influenza Type B (PCR) (NotDetected) M. pneumoniae (PCR) (NotDetected) Parainfluenza 1 (PCR) (NotDetected) Parainfluenza 2 (PCR) (NotDetected) Parainfluenza 3 (PCR) (NotDetected) Parainfluenza 4 (PCR) (NotDetected) RSV (PCR) (NotDetected) Entero/Rhino (PCR) (NotDetected) 11/09/23 11/09/23 11/09/23 Range/Units 19:51 21:35 21:42 WBC (4.8-10.8) K/ul RBC (4.20-5.40) M/uL Hgb (12.0-16.0) g/dl Hct (37.0-47.0) % MCV (80.0-100.0) fL MCH (25.0-34.0) pg MCHC (32.0-36.0) g/dL RDW Std Deviation (36.4-46.3) fL RDW Coeff of Cathy (11.5-14.5) % Plt Count (130-400) K/uL MPV (9.4-12.4) fL Immature Gran % (Auto) % Neut % (Auto) % Lymph % (Auto) % [place] % (Auto) % Eos % (Auto) % Baso % (Auto) % Neut # (Auto) (1.40-6.50) K/uL Lymph # (Auto) (1.20-3.40) K/uL [place] # (Auto) (0.11-0.59) K/uL Eos # (Auto) (0.00-0.50) K/uL Baso # (Auto) (0.00-0.20) K/uL Immature Gran # (Auto) (0.01-0.20) K/uL PT (9.0-12.0) Seconds INR (0.9-1.1) VBG pH (7.36-7.41) VBG pCO2 (38-50) mmHg VBG pO2 mmHg VBG HCO3 mmol/L VBG O2 Saturation % VBG Base Excess mEq/L Sodium (136-145) mmol/L Potassium (3.5-5.1) mmol/L Chloride (98-107) mmol/L Carbon Dioxide (21-32) mmol/L Anion Gap (3-11) BUN (6-23) mg/dl Creatinine (0.6-1.2) mg/dl Est Cr Clr Drug Dosing ml/min Est GFR ( Amer) ml/min Est GFR (Non-Af Amer) ml/min BUN/Creatinine Ratio (10-20) Glucose (70-99(Fasting)) mg/dl Lactate (0.4-2.0) mmol/L Calcium (8.6-10.3) mg/dl Magnesium (1.7-2.4) mg/dl Total Bilirubin (0.2-1.0) mg/dl Direct Bilirubin (0-0.2) mg/dl AST (13-39) U/L ALT (7-52) U/L Alkaline Phosphatase (34-104) U/L Troponin I High Sens 91.5 H* D (0-14) pg/ml Total Protein (6.0-8.3) gm/dl Albumin (3.4-5.0) gm/dl Lipase (11-82) U/L Procalcitonin (0-0.5) ng/ml Urine Color Yellow Urine Appearance Cloudy A (Clear) Urine pH 7.5 (4.5-7.5) Ur Specific [place] 1.019 (1.000-1.030) Urine Protein 2+ H (Negative) Urine Glucose (UA) Negative (Negative) Urine Ketones Negative (Negative) Urine Blood 3+ H (Negative) Urine Nitrite Negative (Negative) Urine Bilirubin Negative (Negative) Urine Urobilinogen Negative (Negative) Ur Leukocyte Esterase 2+ H (Negative) Urine WBC (Auto) >50 H (0-5) /hpf Urine RBC (Auto) >20 H (0-2) /hpf U Hyaline Cast (Auto) 0-2 (0-2) /lpf U Epithel Cells (Auto) 0-2 (0-2) /hpf Urine Bacteria (Auto) None Seen (None Seen) Calcium Oxalate Crystal Present A (None Prsent) Adenovirus (PCR) Not Detected (NotDetected) B. pertussis DNA (PCR) Not Detected (NotDetected) B.parapertussis DNA PCR Not Detected (NotDetected) C. pneumoniae DNA (PCR) Not Detected (NotDetected) Coronavirus OC43 (PCR) Not Detected (NotDetected) Coronavirus HKU1 (PCR) Not Detected (NotDetected) Coronavirus 229E (PCR) Not Detected (NotDetected) SARS-CoV-2 (PCR) Not Detected (NotDetected) Coronavirus NL63 (PCR) Not Detected (NotDetected) Human Metapneumovir PCR Not Detected (NotDetected) Influenza Type A (PCR) Not Detected (NotDetected) Influenza Type B (PCR) Not Detected (NotDetected) M. pneumoniae (PCR) Not Detected (NotDetected) Parainfluenza 1 (PCR) Not Detected (NotDetected) Parainfluenza 2 (PCR) Not Detected (NotDetected) Parainfluenza 3 (PCR) Not Detected (NotDetected) Parainfluenza 4 (PCR) Not Detected (NotDetected) RSV (PCR) Not Detected (NotDetected) Entero/Rhino (PCR) Not Detected (NotDetected) Administered Medications Heparin Sodium/Dextrose (Heparin Sodium/Dextrose) 25,000 units in 500 mls @ 23 mls/hr IV .[id number] [facility]; Protocol Stop: 12/09/23 21:29 Last Admin: 11/09/23 21:46 Dose: 1,150 units/hr, 23 mls/hr Documented By: ACC Co-signed By: DANIELITO Discontinued Medications Heparin Sodium/Dextrose (Heparin Iv Adult Wt-Based Standard *No* Initial Bolus Protocol) 1 each IV ONE STA; Protocol Stop: 11/09/23 21:04 Last Admin: 11/09/23 21:48 Dose: Not Given Documented By: ACC Sodium Chloride (Nss) 1,000 mls @ 999 mls/hr IV .Q1H1M JACOBY Stop: 11/09/23 21:00 Last Infusion: 11/09/23 21:58 Dose: Infused Documented By: Admin: 11/09/23 19:40 Dose: 999 mls/hr Documented By: Infusion: 11/09/23 19:40 Dose: Infused Documented By: Admin: 11/09/23 19:24 Dose: 999 mls/hr Documented By: ACC Acetaminophen (Ofirmev) 1,000 mg in 100 mls @ 400 mls/hr IV NOW STA Stop: 11/09/23 19:06 Last Infusion: 11/09/23 19:34 Dose: Infused Documented By: Admin: 11/09/23 19:17 Dose: 400 mls/hr Documented By: ACC Cefepime HCl (Maxipime) 2,000 mg in 20 mls @ 5 mls/min IV NOW STA; Protocol Stop: 11/09/23 18:55 Last Admin: 11/09/23 19:17 Dose: 5 mls/min Documented By: ACC Ioversol (Optiray 320 125ml) 93 ml IV ONCE ONE Stop: 11/09/23 19:58 Last Admin: 11/09/23 19:58 Dose: 93 ml Documented By: EDK Imaging Data Radiologist's Impression: Chest X-Ray 11/09/23 18:51 XR chest 1V portable CLINICAL HISTORY: Sepsis. COMPARISON STUDY: Chest CT September 12, 2022. Chest radiograph September 27, 2023. FINDINGS: Right internal jugular [id number] is in place. Lung volumes are mildly diminished. No pneumothorax or pleural effusion is identified. There is mild fissural thickening. Left basilar opacity is also noted. There is minimal right basilar opacity. Mild cardiomegaly is unchanged. Mediastinal contours are stable. IMPRESSION: Mild interstitial thickening and lower lung airspace opacities. Although possibly related to a hypoventilatory study, pulmonary edema or an infectious process could have this imaging appearance. ACT 112: Negative or not required by law. Electronically signed by: Flip Samayoa M.D. 11/09/2023 7:40 PM Abdomen/Pelvis CT 11/09/23 19:36 Exam(s): CT ABDOMEN + PELVIS With Contrast IV Amt: OPTIRAY 320 93ML EXAM: CT Abdomen and Pelvis With Intravenous Contrast CLINICAL HISTORY: Reason for exam: sepsis, uti, ureteral stent. TECHNIQUE: Axial computed tomography images of the abdomen and pelvis with intravenous contrast. CTDI is 23.51 mGy and DLP is 1182.46 mGy-cm. Automated exposure control was utilized for the study. A dose lowering technique was utilized adhering to the principles of ALARA. CONTRAST: Patient received OPTIRAY 320 93ML of IV contrast COMPARISON: 09/27/2023. FINDINGS: Lung bases: Significant vascular crowding with mild vascular congestion not excluded. Posterior dependent atelectasis. Pleural space: Unremarkable. No pleural effusion or pneumothorax. Heart: Mild cardiomegaly. ABDOMEN: Liver: 2 adjacent cysts within the left liver lobe measuring total dimension of 2.5 cm. Otherwise normal liver. Gallbladder and bile ducts: Over distended gallbladder otherwise unremarkable gallbladder and biliary system. No calcified stones. No ductal dilation. Pancreas: Unremarkable. No mass. No ductal dilation. Spleen: Unremarkable. No splenomegaly. Adrenals: Unremarkable. No mass. Kidneys and ureters: There is moderate to severe right-sided hydronephrosis with right ureteral stent in place. There are right-sided simple renal cysts, largest seen in the lower pole measuring 5.6 x 6.0 cm. There is mild enhancement through the wall of the right renal pelvis and right ureter with mild stranding surrounding the urinary bladder, combination of findings suggestive of cystitis/urothelial infectious process. There is more focal urinary bladder wall thickening on the left side which may indicate the site of previous neoplasm, recurrent process versus scarring/inflammatory changes included in the differential diagnosis. Nonvisualized left kidney suggestive of previous nephrectomy. Stomach and bowel: There is a right para ventral hernia containing several small bowel loops with no signs of obstruction. There is a second umbilical hernia containing small amount of peritoneal fat with vascular structures. Diverticulosis throughout the colon more severe through the sigmoid. There is no focal inflammatory process to suggest diverticulitis, abnormal finding stable in the interval. There is a round structure in the right adnexa junction with the right sigmoid, image 67, series 11 measuring 2.2 cm, stable in the interval which could represent ovarian complex cyst versus prominent sigmoid diverticula. PELVIS: Appendix: No findings to suggest acute appendicitis. Bladder: Small amount of punctate air along the anterior and the dependent portion of the urinary bladder loss, and the associated with post catheterization attempt. Reproductive: The uterus is anteverted. A pessary is seen in place. ABDOMEN and PELVIS: Intraperitoneal space: There is indeterminate stranding in the right side of the peritoneum, unchanged in the interval. No free air. No significant fluid collection. Bones/joints: Degenerative disease of the lumbar spine with multilevel vacuum phenomenon. No acute fracture. No dislocation. Soft tissues: See above. Vasculature: Unremarkable. No abdominal aortic aneurysm. Lymph nodes: Indeterminate scattered lymph nodes along the distal periaortic region, stable in the interval and of indeterminate etiology. Tubes, lines and devices: Right-sided chest port in place. IMPRESSION: 1. Right-sided hydronephrosis with right ureteral stent in place, stable or minimally progressed in the interval. There is mild enhancement of the wall through the right ureter and urinary bladder wall which may indicate cystitis, correlation with urinalysis recommended. 2. Mild thickening of the wall to the left urinary bladder which may indicate the site of previous neoplasm, combination findings which may indicate residual inflammatory process versus scarring with recurrent neoplasm not entirely excluded. 3. Right-sided paracentral hernia containing small bowel loops with no signs of obstruction. No acute appendicitis. 4. Diverticulosis with no signs of diverticulitis. 5. Status post left nephrectomy. Electronically signed by: Elsa Palma MD 11/09/23 21:[address] 11/09/23 19:36 Exam(s): CT C SPINE EXAM: CT Cervical Spine Without Intravenous Contrast CLINICAL HISTORY: Reason for exam: sepsis, fall. TECHNIQUE: Axial computed tomography images of the cervical spine without intravenous contrast. CTDI is 23.74 mGy and DLP is 436.44 mGy-cm. Automated exposure control was utilized for the study. A dose lowering technique was utilized adhering to the principles of ALARA. COMPARISON: None. 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 No acute fracture. Discs/spinal canal/neural foramina: Degenerative disease with significant narrowing of disc height at C6-C7. Multilevel bilateral apophyseal hypertrophy contributing to variable degrees of neuroforaminal encroachment. No central canal stenosis. Soft tissues: Unremarkable. Vasculature: Calcified atherosclerotic disease throughout the bilateral carotid arteries. Lung apices: Question ground glass opacity within the right lung apex which may indicate pneumonitis versus pulmonary contusion in the appropriate clinical context. These findings are described in detail on the accompanying CTA chest. Pleural space: Lung apices revealed no pneumothorax. Tubes, lines and devices: There is a right-sided central line in place. IMPRESSION: Multilevel degenerative disease as described with no acute fracture or subluxation. Underlying osteopenia. Electronically signed by: Elsa Palma MD 11/09/23 20:45 PM Chest CTA 11/09/23 19:36 CR Exam(s): CTA CHEST IV Amt: OPTIRAY 320 93ML EXAM: CT Angiography Chest With Intravenous Contrast CLINICAL HISTORY: Reason for exam: sepsis, elevated trop, sob, r/o PE. TECHNIQUE: Axial computed tomographic angiography images of the chest with intravenous contrast. CTDI is 21.07 mGy and DLP is 627.64 mGy-cm. Automated exposure control was utilized for the study. A dose lowering technique was utilized adhering to the principles of ALARA. MIP reconstructed images were created and reviewed. COMPARISON: 08/20/2023. FINDINGS: Pulmonary arteries: There is filling defect identified within the right posterior proximal segmental pulmonary arteries and within the several additional right lower lobe mid distal subsegmental pulmonary arteries consistent with multiple pulmonary emboli. Aorta: Mild calcified atherosclerotic disease throughout the aorta with no aneurysm or dissection. Lungs: Decreased inspiratory effort with vascular crowding. Areas of myocyte pattern versus groundglass densities most compatible with small airway disease with superimposed pneumonitis not excluded. There is superimposed dependent atelectasis within the bilateral upper lobe and more severe through the bilateral lower lobes. No mass. Pleural space: Unremarkable. No pleural effusion or pneumothorax. Heart: RV/LV ratio is no evidence of right-sided cardiac strain. No cardiomegaly. No significant pericardial effusion. Bones/joints: Multilevel degenerative disease of the spine with no acute fracture or subluxation. Soft tissues: Unremarkable. Lymph nodes: Unremarkable. No enlarged lymph nodes. Liver: There is low attenuation structure at the anterior subcapsular region of the left liver lobe compatible with liver cysts measuring 1.4 and 1.3 cm. Remainder of the upper abdominal structures are unremarkable. Tubes, lines and devices: There is a right-sided chest port in place. IMPRESSION: 1. Lower lobe segmental and subsegmental pulmonary emboli. No evidence of right-sided cardiac strain. 2. Vascular crowding with suggestion of small airway disease with superimposed scattered pneumonitis not excluded. Depending atelectasis within the bilateral upper and lower lobes and more severe in the lower lobes. Communications: Call Doctor Other Electronically signed by: Elsa Palma MD 11/09/23 20:[address] 11/09/23 19:36 Exam(s): CT HEAD Without Contrast EXAM: CT Head Without Intravenous Contrast CLINICAL HISTORY: Reason for exam: sepsis, ams. TECHNIQUE: Axial computed tomography images of the head/brain without intravenous contrast. CTDI is 37.22 mGy and DLP is 546.36 mGy-cm. Automated exposure control was utilized for the study. A dose lowering technique was utilized adhering to the principles of ALARA. COMPARISON: 12/01/2019. FINDINGS: Brain: Mild to moderate generalized brain atrophy. Scattered decreased attenuation within the deep white matter including periventricular region compatible with microangiopathic disease. No hemorrhage. Ventricles: Unremarkable. No ventriculomegaly. Bones/joints: Unremarkable. No acute fracture. Soft tissues: Unremarkable. Sinuses: Unremarkable as visualized. No acute sinusitis. Mastoid air cells: Unremarkable as visualized. No mastoid effusion. IMPRESSION: 1. Chronic changes as described, stable study in the interval. 2. Specifically, no acute intracranial hemorrhage. No intra-parenchymal space-occupying lesion. Electronically signed by: Elsa Palma MD 11/09/23 20:42 PM Discharge Plan Visit Data Chief Complaint: Weakness Stated Complaint: ILLNESS, WEAKNESS ED Provider: Augusto Gama Discharge Problem: Sepsis, Elevated troponin, Pulmonary embolism, Hydronephrosis, right, Bladder cancer, Complicated UTI (urinary tract infection), Ureteral stent present Patient Disposition: Admitted As Inpatient Discharge Instructions Interventions: ED Discharge Assessment Last Done: 11/09/23 23:15 Discharge Problem: Sepsis Qualifiers: Sepsis type: sepsis due to unspecified organism Sepsis acute organ dysfunction status: without acute organ dysfunction Qualified Code(s): A41.9 - Sepsis, unspecified organism Pulmonary embolism Qualifiers: Pulmonary embolism type: unspecified Chronicity: acute Acute cor pulmonale presence: without acute cor pulmonale Qualified Code(s): I26.99 - Other pulmonary embolism without acute cor pulmonale Bladder cancer Qualifiers: Bladder location: unspecified site Qualified Code(s): C67.9 - Malignant neoplasm of bladder, unspecified
[2023-11-09 19:09] LABS: Basophils # (auto) 0.03 K/uL (0.00-0.20); Basophils % (auto) 0.4 %; Eosinophils % (auto) 3.7 %; Hematocrit (blood only) 31.4 % (37.0-47.0); Hemoglobin 10.5 g/dl (12.0-16.0); Immature Granulocytes # (auto) 0.33 K/uL (0.01-0.20); Immature Granulocytes % (auto) 4.1 %; Lymphocytes # (auto) 0.46 K/uL (1.20-3.40); Lymphocytes % (auto) 5.7 %; Mean Corpuscular Hemoglobin 32.5 pg (25.0-34.0); Mean Corpuscular Hgb Conc 33.4 g/dL (32.0-36.0); Mean Corpuscular Volume 97.2 fL (80.0-100.0); Mean Platelet Volume 10.1 fL (9.4-12.4); Monocytes # (auto) 1.11 K/uL (0.11-0.59); Monocytes % (auto) 13.7 %; Neutrophils % (auto) 72.4 %; Platelet Count 171 K/uL (130-400); RDW Coefficient of Variation 15.9 % (11.5-14.5); RDW Standard Deviation 55.8 fL (36.4-46.3); Red Blood Count 3.23 M/uL (4.20-5.40); White Blood Count 8.13 K/ul (4.8-10.8)
[2023-11-09 19:16] LABS: Albumin Level 3.5 gm/dl (3.4-5.0); BUN Creatinine Ratio 22.9 (10-20); Bilirubin Direct 0.2 mg/dl (0-0.2); Bilirubin,Total 0.5 mg/dl (0.2-1.0); Calcium 10.1 mg/dl (8.6-10.3); Creatinine Clr Calc Pharmacy 37.6 ml/min; Est GFR (African American) 54.9 ml/min; Est GFR (Non-African American) 47.4 ml/min; Magnesium 1.9 mg/dl (1.7-2.4); Total Protein 6.5 gm/dl (6.0-8.3)
[2023-11-09 19:17] LABS: HCO3 VBG 26 mmol/L; Oxygen Saturation VBG 69.7 %; PCO2 VBG 36 mmHg (38-50); PO2 VBG 39 mmHg; pH VBG 7.46 (7.36-7.41)
[2023-11-09] MEDS: CEFEPIME 2,000 MG/20 ML VIAL IV STA (19:17)
[2023-11-09] MEDS: ACETAMINOPHEN 1,000 MG/100 ML VIAL IV STA (19:17)
[2023-11-09] MEDS: SODIUM CHLORIDE 0.9% 1,000 ML IV SCH (19:24)
[2023-11-09 19:27] LABS: Troponin I High Sensitivity 78.6 pg/ml (0-14)
[2023-11-09 19:35] LABS: INR 1.1 (0.9-1.1); Prothrombin Time 11.7 Seconds (9.0-12.0)
--- NOTE | 2023-11-09 19:43 | XRay Report ---
XR chest 1V portable CLINICAL HISTORY: Sepsis. COMPARISON STUDY: Chest CT September 12, 2022. Chest radiograph September 27, 2023. FINDINGS: Right internal jugular [id number] is in place. Lung volumes are mildly diminished. No pn eumothorax or pleural effusion is identified. There is mild fissural thickening. Left basilar opacity is also noted. There is minimal right basilar opacity. Mild cardiomegaly is unchanged. Mediastinal c ontours are stable. IMPRESSION: Mild interstitial thickening and lower lung airspace opacities. Although possibly related to a hypoventilatory study, pulmonary edema or an infectious process could have this imaging appeara nce. ACT 112: Negative or not required by law. Electronically signed by: Flip Samayoa M.D. 11/09/2023 7:40 PM
[2023-11-09] MEDS: OPTIRAY 320 125ml IV ONE (19:58)
--- NOTE | 2023-11-09 20:43 | CT Scan Report ---
Exam(s): CT HEAD Without Contrast EXAM: CT Head Without Intravenous Contrast CLINICAL HISTORY: Reason for exam: sepsis, ams. TECHNIQUE: Axial computed tomography images of the head/brain without intravenous contrast. CTDI is 37.22 mGy and DLP is 546.36 mGy-cm. Automated exposure control was utilized for the study. A dose lowering technique was utilized adhering to the principles of ALARA. COMPARISON: 12/01/2019. FINDINGS: Brain: Mild to moderate generalized brain atrophy. Scattered decreased attenuation within the deep white matter including periventricular region compatible with microangiopathic disease. No hemorrhage. Ventricles: Unremarkable. No ventriculomegaly. Bones/joints: Unremarkable. No acute fracture. Soft tissues: Unremarkable. Sinuses: Unremarkable as visualized. No acute sinusitis. Mastoid air cells: Unremarkable as visualized. No mastoid effusion. IMPRESSION: 1. Chronic changes as described, stable study in the interval. 2. Specifically, no acute intracranial hemorrhage. No intra-parenchymal space-occupying lesion. Electronically signed by: Elsa Palma MD 11/09/23 20:42 PM
--- NOTE | 2023-11-09 20:46 | CT Scan Report ---
Exam(s): CT C SPINE EXAM: CT Cervical Spine Without Intravenous Contrast CLINICAL HISTORY: Reason for exam: sepsis, fall. TECHNIQUE: Axial computed tomography images of the cervical spine without intravenous contrast. CTDI is 23.74 mGy and DLP is 436.44 mGy-cm. Automated exposure control was utilized for the study. A dose lowering technique was utilized adhering to the principles of ALARA. COMPARISON: None. 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 No acute fracture. Discs/spinal canal/neural foramina: Degenerative disease with significant narrowing of disc height at C6-C7. Multilevel bilateral apophyseal hypertrophy contributing to variable degrees of neuroforaminal encroachment. No central canal stenosis. Soft tissues: Unremarkable. Vasculature: Calcified atherosclerotic disease throughout the bilateral carotid arteries. Lung apices: Question ground glass opacity within the right lung apex which may indicate pneumonitis versus pulmonary contusion in the appropriate clinical context. These findings are described in detail on the accompanying CTA chest. Pleural space: Lung apices revealed no pneumothorax. Tubes, lines and devices: There is a right-sided central line in place. IMPRESSION: Multilevel degenerative disease as described with no acute fracture or subluxation. Underlying osteopenia. Electronically signed by: Elsa Palma MD 11/09/23 20:45 PM
--- NOTE | 2023-11-09 20:53 | CT Scan Report ---
Exam(s): CTA CHEST IV Amt: OPTIRAY 320 93ML EXAM: CT Angiography Chest With Intravenous Contrast CLINICAL HISTORY: Reason for exam: sepsis, elevated trop, sob, r/o PE. TECHNIQUE: Axial computed tomographic angiography images of the chest with intravenous contrast. CTDI is 21.07 mGy and DLP is 627.64 mGy-cm. Automated exposure control was utilized for the study. A dose lowering technique was utilized adhering to the principles of ALARA. MIP reconstructed images were created and reviewed. COMPARISON: 08/20/2023. FINDINGS: Pulmonary arteries: There is filling defect identified within the right posterior proximal segmental pulmonary arteries and within the several additional right lower lobe mid distal subsegmental pulmonary arteries consistent with multiple pulmonary emboli. Aorta: Mild calcified atherosclerotic disease throughout the aorta with no aneurysm or dissection. Lungs: Decreased inspiratory effort with vascular crowding. Areas of myocyte pattern versus groundglass densities most compatible with small airway disease with superimposed pneumonitis not excluded. There is superimposed dependent atelectasis within the bilateral upper lobe and more severe through the bilateral lower lobes. No mass. Pleural space: Unremarkable. No pleural effusion or pneumothorax. Heart: RV/LV ratio is no evidence of right-sided cardiac strain. No cardiomegaly. No significant pericardial effusion. Bones/joints: Multilevel degenerative disease of the spine with no acute fracture or subluxation. Soft tissues: Unremarkable. Lymph nodes: Unremarkable. No enlarged lymph nodes. Liver: There is low attenuation structure at the anterior subcapsular region of the left liver lobe compatible with liver cysts measuring 1.4 and 1.3 cm. Remainder of the upper abdominal structures are unremarkable. Tubes, lines and devices: There is a right-sided chest port in place. IMPRESSION: 1. Lower lobe segmental and subsegmental pulmonary emboli. No evidence of right-sided cardiac strain. 2. Vascular crowding with suggestion of small airway disease with superimposed scattered pneumonitis not excluded. Depending atelectasis within the bilateral upper and lower lobes and more severe in the lower lobes. Communications: Call Doctor Other Electronically signed by: Elsa Palma MD 11/09/23 20:52 PM
[2023-11-09 20:54] LABS: Adenovirus PCR Not Detected (NotDetected); Bordetella parapertussis PCR Not Detected (NotDetected); Bordetella pertussis PCR Not Detected (NotDetected); Chlamydia pneumoniae PCR Not Detected (NotDetected); Coronavirus 229E PCR Not Detected (NotDetected); Coronavirus CoV-2 (COVID19)PCR Not Detected (NotDetected); Coronavirus HKU1 PCR Not Detected (NotDetected); Coronavirus NL63 PCR Not Detected (NotDetected); Coronavirus OC43PCR Not Detected (NotDetected); Human Metapneumovirus PCR Not Detected (NotDetected); Influenza A PCR Not Detected (NotDetected); Influenza B PCR Not Detected (NotDetected); Mycoplasma pneumoniae PCR Not Detected (NotDetected); Parainfluenza Virus 1 PCR Not Detected (NotDetected); Parainfluenza Virus 2 PCR Not Detected (NotDetected); Parainfluenza Virus 3 PCR Not Detected (NotDetected); Parainfluenza Virus 4 PCR Not Detected (NotDetected); Respiratory Syncytial VirusPCR Not Detected (NotDetected); Rhinovirus/Enterovirus PCR Not Detected (NotDetected)
--- NOTE | 2023-11-09 21:13 | CT Scan Report ---
Exam(s): CT ABDOMEN + PELVIS With Contrast IV Amt: OPTIRAY 320 93ML EXAM: CT Abdomen and Pelvis With Intravenous Contrast CLINICAL HISTORY: Reason for exam: sepsis, uti, ureteral stent. TECHNIQUE: Axial computed tomography images of the abdomen and pelvis with intravenous contrast. CTDI is 23.51 mGy and DLP is 1182.46 mGy-cm. Automated exposure control was utilized for the study. A dose lowering technique was utilized adhering to the principles of ALARA. CONTRAST: Patient received OPTIRAY 320 93ML of IV contrast COMPARISON: 09/27/2023. FINDINGS: Lung bases: Significant vascular crowding with mild vascular congestion not excluded. Posterior dependent atelectasis. Pleural space: Unremarkable. No pleural effusion or pneumothorax. Heart: Mild cardiomegaly. ABDOMEN: Liver: 2 adjacent cysts within the left liver lobe measuring total dimension of 2.5 cm. Otherwise normal liver. Gallbladder and bile ducts: Over distended gallbladder otherwise unremarkable gallbladder and biliary system. No calcified stones. No ductal dilation. Pancreas: Unremarkable. No mass. No ductal dilation. Spleen: Unremarkable. No splenomegaly. Adrenals: Unremarkable. No mass. Kidneys and ureters: There is moderate to severe right-sided hydronephrosis with right ureteral stent in place. There are right-sided simple renal cysts, largest seen in the lower pole measuring 5.6 x 6.0 cm. There is mild enhancement through the wall of the right renal pelvis and right ureter with mild stranding surrounding the urinary bladder, combination of findings suggestive of cystitis/urothelial infectious process. There is more focal urinary bladder wall thickening on the left side which may indicate the site of previous neoplasm, recurrent process versus scarring/inflammatory changes included in the differential diagnosis. Nonvisualized left kidney suggestive of previous nephrectomy. Stomach and bowel: There is a right para ventral hernia containing several small bowel loops with no signs of obstruction. There is a second umbilical hernia containing small amount of peritoneal fat with vascular structures. Diverticulosis throughout the colon more severe through the sigmoid. There is no focal inflammatory process to suggest diverticulitis, abnormal finding stable in the interval. There is a round structure in the right adnexa junction with the right sigmoid, image 67, series 11 measuring 2.2 cm, stable in the interval which could represent ovarian complex cyst versus prominent sigmoid diverticula. PELVIS: Appendix: No findings to suggest acute appendicitis. Bladder: Small amount of punctate air along the anterior and the dependent portion of the urinary bladder loss, and the associated with post catheterization attempt. Reproductive: The uterus is anteverted. A pessary is seen in place. ABDOMEN and PELVIS: Intraperitoneal space: There is indeterminate stranding in the right side of the peritoneum, unchanged in the interval. No free air. No significant fluid collection. Bones/joints: Degenerative disease of the lumbar spine with multilevel vacuum phenomenon. No acute fracture. No dislocation. Soft tissues: See above. Vasculature: Unremarkable. No abdominal aortic aneurysm. Lymph nodes: Indeterminate scattered lymph nodes along the distal periaortic region, stable in the interval and of indeterminate etiology. Tubes, lines and devices: Right-sided chest port in place. IMPRESSION: 1. Right-sided hydronephrosis with right ureteral stent in place, stable or minimally progressed in the interval. There is mild enhancement of the wall through the right ureter and urinary bladder wall which may indicate cystitis, correlation with urinalysis recommended. 2. Mild thickening of the wall to the left urinary bladder which may indicate the site of previous neoplasm, combination findings which may indicate residual inflammatory process versus scarring with recurrent neoplasm not entirely excluded. 3. Right-sided paracentral hernia containing small bowel loops with no signs of obstruction. No acute appendicitis. 4. Diverticulosis with no signs of diverticulitis. 5. Status post left nephrectomy. Electronically signed by: Elsa Palma MD 11/09/23 21:12 PM
--- NOTE | 2023-11-09 21:16 | History & Physical Report ---
Date of Service November 09, 2023 Assessment & Plan (1) Sepsis: Plan: Intermittent fever over the past week and unwitnessed fall on 11/08 No leukocytosis, but elevated from baseline; febrile in the ED at 39.3 C on arrival Lactate WNL Procalcitonin elevated 1.94 While urinalysis is not back, A/P CT did reveal right-sided hydronephrosis and suggested cystitis In the setting of recent stent removal on 11/03 Urine culture on 10/28/2023 grew E. coli and Enterobacter susceptible to cefepime Cefepime 2000 mg IV q8h Follow current blood/urine cx Acetaminophen as needed for pain/fever A.m. CBC, BMP, mag (2) Pulmonary embolism: Plan: Worsening productive cough x 1 week No hemoptysis or pleural CP Elevated troponin at 78.6-->91.5 Trend q6h x 2 Chest CTA revealed lower lobe segmental and subsegmental pulmonary embolism; no evidence of right-sided heart strain Patient is hypercoagulable in setting of recent cancer chemotherapy; will likely need to transition to Lovenox for DVT/PE PPx upon discharge Heparin standard dose IV started in the ED Continuous telemetry monitoring Continuous pulse oximetry Supplemental oxygen as needed to maintain SpO2 >94% While no RVSP on prior echo (LVEF 55-60%) caution against fluid overload in the setting of pulmonary edema on CXR and acute PE (3) Fall: Plan: Head/cervical spine CTs revealed no acute abnormalities Fall precautions PT/OT consulted (4) Hyponatremia: Plan: Na 131 on arrival NSS 2000 mL IV given in the ED Recheck a.m. 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 Patient was receiving Keytruda every 3 weeks, and recently finished her last chemotherapy treatment on 10/29 (6) Hypertension: Plan: Will hold carvedilol for now in setting of acute PE to maintain blood pressure (7) Sleep apnea: Plan: CPAP at bedtime (8) Elevated troponin: Plan Disposition: Admit to PCU telemetry DNR/DNI AHA diet VTE PPx: Heparin IV History of Present Illness Chief Complaint: Weakness, fever, fall Primary Care Provider: Megan Escalona MD Karen is a 88-year-old female with PMH of 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 She presented via BLS from [place] [facility] for fever, weakness, and fall on 11/08. Patient's granddaughter (Ashley) is present at the bedside and provides additional history. Granddaughter reports that the patient started to decline shortly after she received her final round of chemotherapy on October 29. She developed a fever after chemotherapy that resolved. The patient also had a ureteral stent removed with Dr. Wang on November 03; was placed on ciprofloxacin prophylactically both 3 days before and after the procedure. Patient has become increasingly confused since that time, and often reports that she cannot get her legs to move. Patient is mentating well in the room and is A&O x 3. She does report that she had an unwitnessed fall on 11/08. She was using her walker to get to the bathroom around 6:30 PM, and reports that her legs gave out. No lightheadedness prior to fall. No LOC. No head strike. She reports that she might have hurt her shoulder, and was unable to get off the ground; eventually a preventative maintenance technician came by and helped her get up. No history of blood thinners. No history of bleeding disorders. No history of prior DVT/PE. No supplemental oxygen at baseline, but patient does use CPAP at night. She denies smoking, tobacco use, and recent alcohol use. Patient is febrile at 37.6 C, tachypneic at 29 RPM, and hypertensive at 154/89 at time of admission; SpO2 96% on 2 L NC. ED course: Cefepime 2000 mg IV Acetaminophen 1000 mg IV Heparin IV drip NSS 1000 mL IV ROS: Patient endorses intermittent fever over the past week, runny nose, productive cough that has been worsening this past week, and lower extremity weakness. Patient denies chills, night sweats, body aches, dizziness, lightheadedness, headache, SOB at rest or with exertion, chest pain, pleuritic chest pain, chest palpitations, hemoptysis, abdominal pain, N/V/D, dysuria, burning with urination, or numbness or tingling in arms or legs. Spoke to patient's daughter on the phone and provided update regarding admission. Patient's daughter reconfirms that the patient is a DNR/DNI. She also notes that while her productive cough has been ongoing, she may have noted one instance of dark red blood in a napkin recently to suggest hemoptysis. Allergies Allergy/AdvReac Type Severity Reaction Status Date / Time capsaicin Allergy Unknown Unknown Verified 11/07/23 11:42 house dust Allergy Unknown ON [place] Verified 11/09/23 19:17 MED LIST mold Allergy Unknown ON [place] Verified 11/09/23 19:17 MED LIST pollen extracts Allergy Unknown ON [place] Verified 11/09/23 19:17 MED LIST sulfamethoxazole Allergy Unknown ON [place] Verified 11/09/23 19:17 [From Bactrim] MED LIST trimethoprim [From Bactrim] Allergy Unknown ON [place] Verified 11/09/23 19:17 MED LIST SARA Inhibitors AdvReac Intermediate Cough Verified 11/09/23 19:17 ARB-Angiotensin Receptor AdvReac Intermediate Cough Verified 11/09/23 19:17 Antagonist pepper (genus Capsicum) AdvReac Intermediate Gastrointestinal Verified 11/09/23 19:17 Upset prednisone AdvReac Intermediate Dizziness Verified 11/09/23 19:17 & weird dreams tramadol AdvReac Intermediate Vomiting Verified 11/09/23 19:17 gabapentin AdvReac Mild Nausea Verified 11/09/23 19:17 Home Medications Medication Instructions Recorded Confirmed Type multivitamin (Daily Multi-Vitamin 1 tab PO QDL 04/01/19 11/09/23 History tablet) famotidine 20 mg tablet (Pepcid AC) 20 mg PO BID 08/09/21 11/09/23 History ascorbic acid 1,000 1 ea PO QAM 09/26/21 11/09/23 History qi-nkyctfxcumen-lbivwqdd powder effervescent pack (Emergen-C) cholecalciferol (vitamin D3) 25 25 mcg PO QDD 11/19/22 11/09/23 History mcg (1,000 unit) tablet (Vitamin D3) lidocaine-prilocaine 2.5 %-2.5 % 1 applic topical DIRECTED PRN 04/19/23 11/09/23 History topical cream PORT ACCESS acetaminophen 500 mg capsule 1,000 mg PO QAM Pain 04/24/23 11/09/23 History estradiol 0.01% (0.1 mg/gram) 1 g vaginal 3XWK 09/27/23 11/09/23 History vaginal cream (Estrace) levothyroxine 50 mcg tablet 50 mcg PO .DAILY AT 4PM 09/27/23 11/09/23 History vit C 250 mg-E 90 mg-zinc 40 1 tab PO QDL 09/27/23 11/09/23 History mg-copper 1 bm-rcxahm-wfnvtf chew tablet (PreserVision AREDS-2) hydroxyzine HCl 50 mg tablet 50 mg PO HS PRN itching/anxiety 10/22/23 11/09/23 History hydrocortisone 2.5 % topical cream 1 applic topical BID PRN Other 10/23/23 11/09/23 History psyllium husk 0.4 gram capsule 0.4 g PO DAILY PRN Constipation 11/04/23 11/09/23 History (Metamucil) acetaminophen 500 mg tablet 1,000 mg PO Q6H PRN PAIN/FEVER 11/09/23 11/09/23 History (Tylenol Extra Strength) carvedilol 3.125 mg tablet (Coreg) 3.125 mg PO BIDM 11/09/23 11/09/23 History diphenhydramine HCl 25 mg capsule 25 mg PO DIRECTED PRN Itching 11/09/23 11/09/23 History (Benadryl) fexofenadine 180 mg tablet 180 mg PO DAILY PRN Itching 11/09/23 11/09/23 History Past Med/Surg History Medical History Hypertension History of cellulitis (~09/27/23) abdomen, admit at [facility] x 3days, tx with abx, now resolved History of chemotherapy Hypothyroidism CKD (chronic kidney disease), stage III 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) Ureteral obstruction Admitted to [facility] 01/24/23 and transferred to [facility] ([facility]) 01/25/23 with IR for nephrostomy tube placement Anemia Osteopenia Allergic rhinitis Migraines Hyperlipidemia Cardiomyopathy Valvular cardiomyopathy Immunotherapy history of- switched to chemo/no longer on immunotherapy Port-A-Cath in place (~11/14/22) Power Port - implantable port Rampart Patient will bring the device card DOS Placed 11/14/2022 at [facility] Bladder carcinoma High grade s/p TURBT>currently on chemo @ [facility] weekly Presence of pessary Anxiety Mitral valve regurgitation Echo 07/2023:Severe MR Follows with Dr. Hernandez Urothelial cancer Dx 07/2021 S/p L nephroureterectomy 10/2021. [id number]. Recurrence/progression 02/2022 > multiple TURBTs Cutaneous metastases On Keytruda in the past- no longer taking per urology records Renal arterial aneurysm Follows with Dr. Archibald- last seen 03/2022- "aneurysm of right renal artery has not changed since her last visit and is only 0.8cm"- follow up in two years Stress incontinence Pessary in place GERD (gastroesophageal reflux disease) Macular degeneration Venous insufficiency Both legs Cystocele with prolapse PMR (polymyalgia rheumatica) Follows with rheum (Dr. Rothman) Sleep apnea CPAP (Compliant) Surgical History History of surgery Resection of uterine fibroid History of dilatation and curettage History of surgery "Power Port, implantable port Rampart" H/O nephroureterectomy for ureter cancer > left kidney and ureter at [facility] H/O transurethral resection of bladder tumor (TURBT) multiple>with stent exchanges *last done 08/05/23 at [facility] Nausea and vomiting after administration of anesthetic agent History of surgery nephrostomy tube placement, [facility] 01/2023, subsequent removal S/P biopsy ureter S[facility]2021[facility] History of colonoscopy Export teeth removed Family History Sister Breast cancer Mother , 88yo Stroke Hypertension Father , 54yo Black lung disease Brother Aneurysm Hypertension Brother Lung cancer Brother Addiction Daughter No problems noted. Other No family history of adverse response to anesthesia No pertinent family history Denies family history of Ovarian cancer Prostate cancer Myocardial infarction Colorectal cancer Social History Smoking Status: Never smoker Second Hand Exposure: No; Do You Dip or Chew Tobacco: No; Hx Alcohol Use: No Hx Substance Use: No Preferred Language: Nigerian Communication Ability: Effective Visual Impairment: No Limitations Hearing Ability: Normal Quality Assurance Specialist Required: No Beliefs That Will Affect Care: None marital status: / Current Living Situation: Personal Care Facility Current Living Situation Comment: [facility] current occupational status: retired current occupation: [employer] How many Children do You have: 1 Feels Safe at Home: Yes Safety Concerns: Feels Safe At This Time Diet: regular caffeine: No during the past year weight has: remained stable Seatbelt Use: always Sunscreen Use: Yes Assistive Devices: Glasses and Walker Assistive Devices Comment: Pt. states they use wheelchair and walker Review of Systems Review of Systems: See HPI above Physical Exam Physical Exam: General: no acute distress; pleasant affect; well-nourished; frail appearing; cooperative; SpO2 98% on 2 L NC HEENT: normocephalic, atraumatic; no scleral icterus; PERRLA w/ EOMs intact; moist mucus membrane; vision and hearing grossly intact Neck: supple; no lymphadenopathy; trachea midline Skin: Hot to touch; warm, dry without signs of tenting; no cyanosis; no rashes, bruising, lesions, or erythema noted CV: chest wall NTP; arterial port without signs of erythema or infection; RRR; S1/S2 normal; no murmurs/rubs/gallops; pulses intact and symmetric at radial, DP, and PT Lungs: no acute respiratory distress; symmetrical chest wall expansion; clear breath sounds across all lung lewis w/o adventitious sounds; no wheezing ABD: Soft, NTP; BS present; no rebound/guarding; no distention MSK: no tics or fasciculations; nonpitting edema noted in the LEs b/l, nonerythematous Neuro: A&Ox3; normal mood and affect; fluent speech; no focal deficits; sensation grossly intact in the LEs b/l Results & Data Results & Data Vital Signs (Past 12 Hours) Vital Signs Temp Pulse Resp BP BP Pulse Ox O2 Del Method 11/09/23 19:51 37.6 C H 11/09/23 19:31 154/89 H 11/09/23 19:31 88 29 H 96 11/09/23 19:30 88 17 97 11/09/23 19:15 91 H 26 H 98 11/09/23 19:00 170/93 H 11/09/23 19:00 90 25 H 99 11/09/23 18:51 94 Nasal Cannula 11/09/23 18:45 91 H 26 H 97 Nasal Cannula 11/09/23 18:42 95 H 29 H 88 L Room Air 11/09/23 18:42 95 H 11/09/23 18:41 159/124 H 11/09/23 18:38 39.3 C H 97 H 12 93 Room Air O2 Flow Rate 11/09/23 19:51 11/09/23 19:31 11/09/23 19:31 11/09/23 19:30 11/09/23 19:15 11/09/23 19:00 11/09/23 19:00 11/09/23 18:51 2 11/09/23 18:45 2 11/09/23 18:42 11/09/23 18:42 11/09/23 18:41 11/09/23 18:38 Laboratory Results Abnormal lab results 11/09/23 11/09/23 Range/Units 18:45 19:09 RBC 3.23 L (4.20-5.40) M/uL Hgb 10.5 L (12.0-16.0) g/dl Hct 31.4 L (37.0-47.0) % RDW Std Deviation 55.8 H (36.4-46.3) fL RDW Coeff of Cathy 15.9 H (11.5-14.5) % Lymph # (Auto) 0.46 L (1.20-3.40) K/uL [place] # (Auto) 1.11 H (0.11-0.59) K/uL Immature Gran # (Auto) 0.33 H (0.01-0.20) K/uL VBG pH 7.46 H (7.36-7.41) VBG pCO2 36 L (38-50) mmHg Sodium 131 L (136-145) mmol/L BUN 24 H (6-23) mg/dl BUN/Creatinine Ratio 22.9 H (10-20) Glucose 115 H (70-99(Fasting)) mg/dl AST 43 H (13-39) U/L Troponin I High Sens 78.6 H* (0-14) pg/ml Procalcitonin 1.94 H (0-0.5) ng/ml Diagnostic Findings Chest X-Ray 04/27/24 18:51 XR chest 1V portable CLINICAL HISTORY: Sepsis. COMPARISON STUDY: Chest CT September 12, 2022. Chest radiograph September 27, 2023. FINDINGS: Right internal jugular Yrzhxl-s-Ybmw is in place. Lung volumes are mildly diminished. No pneumothorax or pleural effusion is identified. There is mild fissural thickening. Left basilar opacity is also noted. There is minimal right basilar opacity. Mild cardiomegaly is unchanged. Mediastinal contours are stable. IMPRESSION: Mild interstitial thickening and lower lung airspace opacities. Although possibly related to a hypoventilatory study, pulmonary edema or an infectious process could have this imaging appearance. ACT 112: Negative or not required by law. Electronically signed by: Flip Samayoa M.D. 11/09/2023 7:[address] 11/09/23 19:36 Exam(s): CT C SPINE EXAM: CT Cervical Spine Without Intravenous Contrast CLINICAL HISTORY: Reason for exam: sepsis, fall. TECHNIQUE: Axial computed tomography images of the cervical spine without intravenous contrast. CTDI is 23.74 mGy and DLP is 436.44 mGy-cm. Automated exposure control was utilized for the study. A dose lowering technique was utilized adhering to the principles of ALARA. COMPARISON: None. 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 No acute fracture. Discs/spinal canal/neural foramina: Degenerative disease with significant narrowing of disc height at C6-C7. Multilevel bilateral apophyseal hypertrophy contributing to variable degrees of neuroforaminal encroachment. No central canal stenosis. Soft tissues: Unremarkable. Vasculature: Calcified atherosclerotic disease throughout the bilateral carotid arteries. Lung apices: Question ground glass opacity within the right lung apex which may indicate pneumonitis versus pulmonary contusion in the appropriate clinical context. These findings are described in detail on the accompanying CTA chest. Pleural space: Lung apices revealed no pneumothorax. Tubes, lines and devices: There is a right-sided central line in place. IMPRESSION: Multilevel degenerative disease as described with no acute fracture or subluxation. Underlying osteopenia. Electronically signed by: Elsa Palma MD 11/09/23 20:45 PM Chest CTA 11/09/23 19:36 CR Exam(s): CTA CHEST IV Amt: OPTIRAY [id number] EXAM: CT Angiography Chest With Intravenous Contrast CLINICAL HISTORY: Reason for exam: sepsis, elevated trop, sob, r/o PE. TECHNIQUE: Axial computed tomographic angiography images of the chest with intravenous contrast. CTDI is 21.07 mGy and DLP is 627.64 mGy-cm. Automated exposure control was utilized for the study. A dose lowering technique was utilized adhering to the principles of ALARA. MIP reconstructed images were created and reviewed. COMPARISON: 08/20/2023. FINDINGS: Pulmonary arteries: There is filling defect identified within the right posterior proximal segmental pulmonary arteries and within the several additional right lower lobe mid distal subsegmental pulmonary arteries consistent with multiple pulmonary emboli. Aorta: Mild calcified atherosclerotic disease throughout the aorta with no aneurysm or dissection. Lungs: Decreased inspiratory effort with vascular crowding. Areas of myocyte pattern versus groundglass densities most compatible with small airway disease with superimposed pneumonitis not excluded. There is superimposed dependent atelectasis within the bilateral upper lobe and more severe through the bilateral lower lobes. No mass. Pleural space: Unremarkable. No pleural effusion or pneumothorax. Heart: RV/LV ratio is no evidence of right-sided cardiac strain. No cardiomegaly. No significant pericardial effusion. Bones/joints: Multilevel degenerative disease of the spine with no acute fracture or subluxation. Soft tissues: Unremarkable. Lymph nodes: Unremarkable. No enlarged lymph nodes. Liver: There is low attenuation structure at the anterior subcapsular region of the left liver lobe compatible with liver cysts measuring 1.4 and 1.3 cm. Remainder of the upper abdominal structures are unremarkable. Tubes, lines and devices: There is a right-sided chest port in place. IMPRESSION: 1. Lower lobe segmental and subsegmental pulmonary emboli. No evidence of right-sided cardiac strain. 2. Vascular crowding with suggestion of small airway disease with superimposed scattered pneumonitis not excluded. Depending atelectasis within the bilateral upper and lower lobes and more severe in the lower lobes. Communications: Call Doctor Other Electronically signed by: Elsa Palma MD 11/09/23 20:[address] 11/09/23 19:36 Exam(s): CT HEAD Without Contrast EXAM: CT Head Without Intravenous Contrast CLINICAL HISTORY: Reason for exam: sepsis, ams. TECHNIQUE: Axial computed tomography images of the head/brain without intravenous contrast. CTDI is 37.22 mGy and DLP is 546.36 mGy-cm. Automated exposure control was utilized for the study. A dose lowering technique was utilized adhering to the principles of ALARA. COMPARISON: 12/01/2019. FINDINGS: Brain: Mild to moderate generalized brain atrophy. Scattered decreased attenuation within the deep white matter including periventricular region compatible with microangiopathic disease. No hemorrhage. Ventricles: Unremarkable. No ventriculomegaly. Bones/joints: Unremarkable. No acute fracture. Soft tissues: Unremarkable. Sinuses: Unremarkable as visualized. No acute sinusitis. Mastoid air cells: Unremarkable as visualized. No mastoid effusion. IMPRESSION: 1. Chronic changes as described, stable study in the interval. 2. Specifically, no acute intracranial hemorrhage. No intra-parenchymal space-occupying lesion. Electronically signed by: Elsa Palma MD 11/09/23 20:42 PM ECG Additional Comments: ECG revealed NSR at 95 bpm; QTc 429 Code Status & VTE Plan Code Status DNR/DNI (confirmed via POLST form, as well as in the room with patient, patient's daughter, and patient's granddaughter) VTE Prophylaxis Plan VTE Prophylaxis will be ordered: Yes Supervising Physician Co-Signing Physician Notes Attending addendum: I have physically seen this patient, have supervised the JARED's activities, and agree with the H&P unless as otherwise noted. Assessment and Plan: Sepsis due to UTI- Recent urine culture on 10/28/2023 grew E. coli and Enterobacter Recent removal of ureteral stent on 11/03 Cefepime 2 g IV every 8 hours Follow repeat urine culture and sensitivities Follow blood culture and sensitivities Acetaminophen 650 mg by mouth every 6 hours as needed for mild pain or fever Pulmonary embolism- Lower lobe segmental and subsegmental PEs Troponin initially 78.6 with follow-up 91.5 The patient will be admitted to telemetry for serial cardiac enzymes, serial EKG's, cardiac rhythm monitoring and a 2-D echocardiogram with Dopplers Heparin IV standard dose without bolus per protocol Remaining orders and notations as noted PG Care Time/CCT Total # of Minutes Spent Total Time Spent with Patient: Total time spent is greater than 50% in coordination of care (as documented) at patient's floor/unit and/or counseling patient: Coding [place] [address] INT INP/OBS CARE 3/75MIN Patient Type Established Medical Decision Making High Complexity Diagnoses Sepsis A41.9 Pulmonary embolism I26.99 Fall W19.XXXA Hyponatremia E87.1 Bladder carcinoma C67.9 Hypertension I10 Sleep apnea G47.30 Elevated troponin R79.89
[2023-11-09] MEDS: HEPARIN SODIUM/DEXTROSE 25,000 UNITS/500 ML BAG IV SCH (21:46)
[2023-11-09] MEDS: Heparin IV Adult Wt-Based Standard *NO* INITIAL Bolus Protocol IV STA (21:48)
[2023-11-09 22:06] LABS: Appearance Urine Cloudy (Clear); Bacteria Urine Automated None Seen (None Seen); Bilirubin Urine Negative (Negative); Blood Urine 3+ (Negative); Calcium Oxalate Crystals Urine Present (None Prsent); Cast Urine Automated 0-2 /lpf (0-2); Color Urine Yellow; Epithelial Cell Urine Auto 0-2 /hpf (0-2); Glucose Urine UA Negative (Negative); Ketones Urine Negative (Negative); Leukocyte Esterase Urine 2+ (Negative); Nitrite Urine Negative (Negative); Protein Urine 2+ (Negative); RBC Urine Automated >20 /hpf (0-2); Specific Gravity Urine 1.019 (1.000-1.030); Urobilinogen Urine Negative (Negative); WBC Urine Automated >50 /hpf (0-5); pH Urine 7.5 (4.5-7.5)
[2023-11-09] MEDS ORDERED: ONDANSETRON INJ 2 MG/ML 2 ML VIAL IV PRN (23:46)
[2023-11-09] MEDS ORDERED: LIDOCAINE/PRILOCAINE 2.5% EA CRM EXT PRN (23:46)
[2023-11-10 04:14] LABS: Basophils # (auto) 0.03 K/uL (0.00-0.20); Basophils % (auto) 0.5 %; Eosinophils # (auto) 0.25 K/uL (0.00-0.50); Eosinophils % (auto) 4.3 %; Hematocrit (blood only) 26.9 % (37.0-47.0); Hemoglobin 8.8 g/dl (12.0-16.0); Immature Granulocytes # (auto) 0.28 K/uL (0.01-0.20); Immature Granulocytes % (auto) 4.8 %; Lymphocytes # (auto) 0.62 K/uL (1.20-3.40); Lymphocytes % (auto) 10.7 %; Mean Corpuscular Hemoglobin 32.7 pg (25.0-34.0); Mean Corpuscular Hgb Conc 32.7 g/dL (32.0-36.0); Mean Platelet Volume 9.6 fL (9.4-12.4); Monocytes # (auto) 1.01 K/uL (0.11-0.59); Monocytes % (auto) 17.5 %; Neutrophils # (auto) 3.59 K/uL (1.40-6.50); Neutrophils % (auto) 62.2 %; Platelet Count 160 K/uL (130-400); RDW Coefficient of Variation 16.3 % (11.5-14.5); RDW Standard Deviation 58.7 fL (36.4-46.3); Red Blood Count 2.69 M/uL (4.20-5.40); White Blood Count 5.78 K/ul (4.8-10.8)
[2023-11-10 04:25] LABS: BUN Creatinine Ratio 21.4 (10-20); Calcium 8.8 mg/dl (8.6-10.3); Est GFR (African American) 56.2 ml/min; Est GFR (Non-African American) 48.5 ml/min; Magnesium 1.7 mg/dl (1.7-2.4); Potassium 3.5 mmol/L (3.5-5.1)
[2023-11-10 05:29] LABS: ANTI-Xa, UFH(UnfractionatedHep 0.91 IU/ml (0.3-0.7)
--- NOTE | 2023-11-10 07:39 | Ultrasound Report ---
BILATERAL LOWER EXTREMITY VENOUS DOPPLER HISTORY: Pulmonary embolus. Assess for DVT. COMPARISON STUDY: None. FINDINGS: There is normal compressibility, flow, and augmentation within the bilateral lower extremit y deep venous systems. Elongated fluid collections within the bilateral popliteal fossa which favor B fuentes's cysts. IMPRESSION: No DVT within the right or left lower extremity. ACT 112: Negative or not required by law. Electronically signed by: Edvin Tamez M.D. 11/10/2023 7:37 AM
[2023-11-10] MEDS: CEFEPIME 2,000 MG in SYRINGE 0 ML IV SCH (08:04)
[2023-11-10] MEDS: FAMOTIDINE 20 MG TAB PO SCH (08:05)
[2023-11-10] MEDS: ACETAMINOPHEN 500 MG TAB PO SCH (08:06)
--- NOTE | 2023-11-10 09:31 | Hospitalist Progress Note ---
Date of Service November 10, 2023 Assessment & Plan (1) Sepsis: Plan: Patient admitted to the hospital on account of fall and intermittent fever over the past week No leukocytosis, but elevated from baseline; febrile in the ED at 39.3 C on arrival Lactate WNL Procalcitonin elevated 1.94 CT did reveal right-sided hydronephrosis and suggested cystitis In the setting of recent stent removal on 11/03 Urine culture on 10/28/2023 grew E. coli and Enterobacter susceptible to cefepime Cefepime 2000 mg IV q8h Urine culture and blood culture pending (2) Pulmonary embolism: Plan: Patient admitted with worsening productive cough x 1 week Chest CTA revealed lower lobe segmental and subsegmental pulmonary embolism; no evidence of right-sided heart strain Patient is hypercoagulable in setting of recent cancer chemotherapy Started heparin standard dose IV started in the ED, will transition to Lovenox Supplemental oxygen as needed to maintain SpO2 >94% Physical therapy (3) Fall: Plan: Head/cervical spine CTs revealed no acute abnormalities Fall precautions PT/OT consulted (4) Hyponatremia: Plan: Now resolved (5) Bladder carcinoma: Plan: Follow-up with [facility] oncology/hematology 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 Review of Systems Review of Systems: All systems reviewed are negative, apart from the ones contained in the history. Physical Exam Physical Exam: The patient is awake, alert and oriented 3, well developed and well nourished, normocephalic and atraumatic, lying in bed and in no acute distress. HEENT--PERRL, EOMI, mucous membranes and oropharynx mildly dry Neck--supple. No JVD. No bruits. Thyroid normal, trachea midline, no adenopathy. Heart--normal S1 and S2. No murmurs, rubs or gallops. Lungs--clear bilaterally, no respiratory distress, no accessory muscle use. Abdomen--normal bowel sounds and soft. Extremities--no cyanosis or clubbing. No edema. Dermatologic--normal skin turgor, normal color, no abnormal lymph nodes, no rash. Neurologic--cranial nerves II through XII grossly intact. Rheumatologic--normal range of motion. Psychiatric--normal affect. Results & Data Results & Data Vital Signs (Past 12 Hours) Vital Signs Temp Pulse Pulse Resp BP Pulse Ox O2 Del Method 11/10/23 06:57 97.5 F L 74 18 146/75 H 97 Nasal Cannula 11/10/23 03:40 98.4 F 62 19 129/62 98 Nasal Cannula 11/09/23 23:45 Nasal Cannula 11/09/23 23:45 97.7 F 76 18 121/64 98 Nasal Cannula 11/09/23 23:44 97.7 F 76 19 121/64 98 Nasal Cannula 11/09/23 23:43 71 O2 Flow Rate 11/10/23 06:57 3 11/10/23 03:40 2 11/09/23 23:45 2 11/09/23 23:45 2 11/09/23 23:44 2 11/09/23 23:43 PG Care Time/CCT Total # of Minutes Spent Total Time Spent with Patient: Total time spent is greater than 50% in coordination of care (as documented) at patient's floor/unit and/or counseling patient: Coding Level of Care Code 09137 SUB INP/OBS CARE 2/35MIN Diagnoses Sepsis A41.9 Sepsis acute organ dysfunction status: without acute organ dysfunction Sepsis type: sepsis due to unspecified organism Pulmonary embolism I26.99 Fall W19.XXXA Hyponatremia E87.1 Bladder carcinoma C67.9 Hypertension I10 Sleep apnea G47.30 Elevated troponin R79.89 Time Spent (min) 35 (1) Sepsis Sepsis acute organ dysfunction status: without acute organ dysfunction Sepsis type: sepsis due to unspecified organism Qualified Code(s): A41.9 - Sepsis, unspecified organism
[2023-11-10] MEDS: ENOXAPARIN 80 MG/0.8 ML SYR SQ SCH (10:05)
--- NOTE | 2023-11-10 10:47 | Electrocardiogram Report ---
Test Reason : Blood Pressure : / mmHG Vent. Rate : 095 BPM Atrial Rate : 095 BPM P-R Int : 150 ms QRS Dur : 090 ms QT Int : 342 ms P-R-T Axes : 023 038 043 degrees QTc Int : 429 ms Normal sinus rhythm Normal ECG When compared with ECG of 27-SEP-2023 18:36, No significant change was found Confirmed by German Rodriguez ([id number]) on 11/10/2023 10:47:28 AM Referred By: [facility] Confirmed By:German Rodriguez
[2023-11-10 15:09] LABS: ANTI-Xa, UFH(UnfractionatedHep 0.77 IU/ml (0.3-0.7)
[2023-11-10] MEDS: LEVOTHYROXINE SODIUM 50 MCG TABLET PO SCH (16:22)
[2023-11-10] MEDS: BENZONATATE 100 MG CAPSULE PO PRN (18:29)
[2023-11-10] MEDS: ACETAMINOPHEN 500 MG TAB PO PRN (18:29)
--- NOTE | 2023-11-10 18:58 | CT Scan Report ---
HEAD CT NONCONTRAST CT DOSE: 2034.51 mGy.cm HISTORY: Stroke Like Symptoms TECHNIQUE: Multiaxial CT images of the head were performed without the use of intravenous contrast. A utomated exposure control was utilized for this study. A dose lowering technique was utilized adheri ng to the principles of ALARA. Comparison: Head CT 11/09/2023. Findings: Mild mucosal thickening within the left sphenoid sinus. The remaining paranasal sinuses and mastoid air cells are clear. Motion artifact results in suboptimal evaluation. Stable 6 mm calcifica tion along the right tentorium. There is no mass, hematoma, midline shift, acute infarct. Mild atroph y and microvascular ischemic changes are again noted. Impression: Suboptimal evaluation due to motion artifact. However, no definite acute intracranial abnormality. ACT 112: Negative or not required by law. Electronically signed by: Edvin Tamez M.D. 11/10/2023 6:56 PM
[2023-11-10] MEDS: HYDROCORTISONE 2.5% CR 30 GM TUBE EXT PRN (20:42)
[2023-11-10 21:39] LABS: HCO3 VBG 22 mmol/L; Oxygen Saturation VBG 81.7 %; PCO2 VBG 36 mmHg (38-50); PO2 VBG 48 mmHg
[2023-11-10] MEDS: hydrOXYzine HCl 25 MG TAB PO PRN (21:44)
[2023-11-10 21:50] LABS: Basophils # (auto) 0.04 K/uL (0.00-0.20); Basophils % (auto) 0.6 %; Eosinophils # (auto) 0.21 K/uL (0.00-0.50); Eosinophils % (auto) 2.9 %; Hematocrit (blood only) 28.5 % (37.0-47.0); Hemoglobin 9.2 g/dl (12.0-16.0); Immature Granulocytes # (auto) 0.23 K/uL (0.01-0.20); Immature Granulocytes % (auto) 3.2 %; Lymphocytes # (auto) 0.46 K/uL (1.20-3.40); Lymphocytes % (auto) 6.4 %; Mean Corpuscular Hemoglobin 32.1 pg (25.0-34.0); Mean Corpuscular Hgb Conc 32.3 g/dL (32.0-36.0); Mean Corpuscular Volume 99.3 fL (80.0-100.0); Mean Platelet Volume 9.6 fL (9.4-12.4); Monocytes # (auto) 1.13 K/uL (0.11-0.59); Monocytes % (auto) 15.7 %; Neutrophils # (auto) 5.11 K/uL (1.40-6.50); Neutrophils % (auto) 71.2 %; Platelet Count 200 K/uL (130-400); RDW Standard Deviation 56.7 fL (36.4-46.3); Red Blood Count 2.87 M/uL (4.20-5.40); White Blood Count 7.18 K/ul (4.8-10.8)
--- NOTE | 2023-11-10 21:56 | Communication Note ---
Date of Service: November 10, 2023 Notified by nursing at 2030 of stroke alert which was called at approximally 1830. Went up to evaluated pt. Oriented to person and place, which per report is her baseline. No focal neurologic deficits noted- CN II-XII intact, PERRLA, EOMI, Strength 5/5 UE and LE B/L. Per nursing concern earlier when stroke alert was called was while family was visiting. Got more distorted, was biting down on straw, not responding appropriately to questions. Some concern for left UE weakness. Head CT was completed at that time, no acute pathology. She is on therapeutic dosing of Lovenox for PE. Repeat labs ordered- CBC, CMP, Mg, VBG, TSH, B12, ammonia. I spoke with neurologist technology applications engineer for telestroke. Defer further imaging- CTA/MRA of brain at this time, unlikely to change course given age and comorbidities. Carotid US ordered. Telestroke neurology recommending f/u with neurology as an inpatient here- so neurology consult was placed. If any further episodes/changes in mental status from baseline- would consider EEG.
[2023-11-10 22:14] LABS: Thyroid Stimulating Hormone 1.378 uIu/ml (0.300-4.500)
[2023-11-10 22:23] LABS: Albumin Level 2.9 gm/dl (3.4-5.0); Bilirubin,Total 0.5 mg/dl (0.2-1.0); Magnesium 1.6 mg/dl (1.7-2.4); Potassium 3.9 mmol/L (3.5-5.1)
[2023-11-10 22:29] LABS: Creatinine Clr Calc Pharmacy 29.9 ml/min; Est GFR (African American) 44.9 ml/min; Est GFR (Non-African American) 38.8 ml/min; Globulin 2.8 gm/dl (2.5-4.0); Total Protein 5.7 gm/dl (6.0-8.3)
[2023-11-11 06:31] LABS: Basophils # (auto) 0.04 K/uL (0.00-0.20); Basophils % (auto) 0.5 %; Eosinophils # (auto) 0.37 K/uL (0.00-0.50); Eosinophils % (auto) 5.1 %; Hematocrit (blood only) 29.2 % (37.0-47.0); Hemoglobin 9.3 g/dl (12.0-16.0); Immature Granulocytes # (auto) 0.24 K/uL (0.01-0.20); Immature Granulocytes % (auto) 3.3 %; Lymphocytes # (auto) 0.59 K/uL (1.20-3.40); Lymphocytes % (auto) 8.1 %; Mean Corpuscular Hemoglobin 31.1 pg (25.0-34.0); Mean Corpuscular Hgb Conc 31.8 g/dL (32.0-36.0); Mean Corpuscular Volume 97.7 fL (80.0-100.0); Mean Platelet Volume 9.4 fL (9.4-12.4); Monocytes # (auto) 1.17 K/uL (0.11-0.59); Neutrophils # (auto) 4.89 K/uL (1.40-6.50); Platelet Count 226 K/uL (130-400); RDW Coefficient of Variation 15.9 % (11.5-14.5); RDW Standard Deviation 56.5 fL (36.4-46.3); Red Blood Count 2.99 M/uL (4.20-5.40)
[2023-11-11 06:58] LABS: Calcium 9.2 mg/dl (8.6-10.3); Potassium 3.5 mmol/L (3.5-5.1)
[2023-11-11 07:03] LABS: BUN Creatinine Ratio 20.7 (10-20); Est GFR (African American) 51.3 ml/min; Est GFR (Non-African American) 44.3 ml/min
[2023-11-11 07:29] LABS: A calco-baum cmplx NotReported Not Detected (NotDetected); Bact fragilis Not Reported Not Detected (NotDetected); Blood Culture Id Panel PCR Panel Negative (NotDetected); C auris Not Reported Not Detected (NotDetected); Calbicans Not Reported Not Detected (NotDetected); Candida glabrata Not Reported Not Detected (NotDetected); Candida krusei Not Reported Not Detected (NotDetected); Cneoformans/gatti Not Reported Not Detected (NotDetected); Cparapsilosis Not Reported Not Detected (NotDetected); E cloacae compx Not Reported Not Detected (NotDetected); Efaecalis Not Reported Not Detected (NotDetected); Efaecium Not Reported Not Detected (NotDetected); Enterobacterales Not Reported Not Detected (NotDetected); Escherichia coli Not Reported Not Detected (NotDetected); H influenzae Not Reported Not Detected (NotDetected); K aerogenes Not Reported Not Detected (NotDetected); Koxytoca Not Reported Not Detected (NotDetected); Kpneumoniae grp Not Reported Not Detected (NotDetected); Lmonocyt Not Reported Not Detected (NotDetected); N meningitidis Not Reported Not Detected (NotDetected); P aeruginosa Not Reported Not Detected (NotDetected); Proteus spp Not Reported Not Detected (NotDetected); Salmonella spp Not Reported Not Detected (NotDetected); Smarcescens Not Reported Not Detected (NotDetected); Staph lugdunensis Not Reported Not Detected (NotDetected); Staph spp. Not Reported Not Detected (NotDetected); Staphaureus Not Reported Not Detected (NotDetected); Staphepi Not Reported Not Detected (NotDetected); Stenmaltophilia Not Reported Not Detected (NotDetected); Strep agal(GrpB) Not Reported Not Detected (NotDetected); Strep pneum Not Reported Not Detected (NotDetected); Strep pyog (GrpA) Not Reported Not Detected (NotDetected); Strep spp Not Reported Not Detected (NotDetected)
[2023-11-11] MEDS ORDERED: VANCOMYCIN CONSULT ACTIVE PRN (07:49)
--- NOTE | 2023-11-11 08:57 | Neurology Consultation ---
Date of Consultation November 11, 2023 Assessment & Plan (1) Encephalopathy: Plan 88-year-old female with an episode of altered mental status, generalized weakness, occurring while using the bathroom overnight with assist, in the context of a coughing episode, with associated headache. The symptoms are largely resolved. 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 This finding was present on a CT of the head in 2019 as well. She does not have any localizing signs on neurological examination, no aphasia, dysarthria, cranial neuropathy, hemiparesis, or ataxia. She does have mild myoclonic jerking of the hands. She does exhibit slightly reduced processing speed this morning, and was a little perseverative, she also had some difficulty with delayed recall. She may have some age-related mild cognitive impairment at baseline, but does not appear to have a significant degenerative dementia. Last night's episode was not highly specific for stroke, TIA, or seizure. Additional evaluation such as brain MRI or EEG are not necessary at this time. She does have some mild encephalopathy this morning which is likely multifactorial related to sepsis and pulmonary embolism, she also has chronic hyponatremia, and metastatic bladder cancer. She has been started on Lovenox in light of her pulmonary embolism. As there is no evidence of SOFTWARE DEVELOPMENT INTERN hemorrhage on CT of the head, may continue with anticoagulation as per medical team. May transition to an oral anticoagulant if felt to be appropriate. This patient is getting a carotid ultrasound this morning. If there is evidence of a significant stenotic lesion, could consider consultation with vascular surgery. If there is significant atherosclerotic plaque, could consider starting a statin as well, in that context, would consider checking an up-to-date lipid panel. Of course, given patient's advanced age, multiple significant medical comorbidities, benefit of starting statin therapy at this point in time may be questionable. Please call with any questions. History of Present Illness Reason for Consultation: change in MS, TIA? Requesting Physician: Maico Attending Physician: Parag Kurtz MD History of Present Illness The patient is an 88-year-old female with a history of metastatic bladder cancer who presented to the emergency department November 08 with fever and weakness. She was admitted with a diagnosis of sepsis and pulmonary embolism. She has been hyponatremic and has also had a fall. Last night, at around 7 PM the patient was using the restroom with assist, she began coughing and complained of a headache. She was diffusely weak, unable to hold the arms up and seem to be confused at that time, not following commands although was oriented to place and time. Because of the apparent sudden change in patient's status a CT of the head was obtained which was negative for hemorrhage or acute process. I did independently review the images, there is age-related involutional change including generalized atrophy, no hydrocephalus. No hemorrhage. There is a small chronic appearing infarct within the anterior limb of the right internal capsule adjacent to the caudate head. This finding was also evident on a head CT completed in November 2019 per my review of the images. This morning, the patient no longer complains of significant headache, she has a mild intermittent cough. She does not exhibit any focal weakness or other localizing signs on ex amination. She answers questions appropriately, there is no aphasia or dysarthria. Processing speed is a little slow, she is slightly perseverative at times, attention span seems normal. Allergies Allergy/AdvReac Type Severity Reaction Status Date / Time capsaicin Allergy Unknown Unknown Verified 11/07/23 11:42 house dust Allergy Unknown ON Verified 11/09/23 19:17 MED LIST mold Allergy Unknown ON Verified 11/09/23 19:17 MED LIST pollen extracts Allergy Unknown ON Verified 11/09/23 19:17 MED LIST sulfamethoxazole Allergy Unknown ON Verified 11/09/23 19:17 [From Bactrim] MED LIST trimethoprim [From Bactrim] Allergy Unknown ON Verified 11/09/23 19:17 MED LIST SARA Inhibitors AdvReac Intermediate Cough Verified 11/09/23 19:17 ARB-Angiotensin Receptor AdvReac Intermediate Cough Verified 11/09/23 19:17 Antagonist pepper (genus Capsicum) AdvReac Intermediate Gastrointestinal Verified 11/09/23 19:17 Upset prednisone AdvReac Intermediate Dizziness Verified 11/09/23 19:17 & weird dreams tramadol AdvReac Intermediate Vomiting Verified 11/09/23 19:17 gabapentin AdvReac Mild Nausea Verified 11/09/23 19:17 Home Medications Medication Instructions Recorded Confirmed Type multivitamin (Daily Multi-Vitamin 1 tab PO QDL 04/01/19 11/09/23 History tablet) famotidine 20 mg tablet (Pepcid AC) 20 mg PO BID 08/09/21 11/09/23 History ascorbic acid 1,000 1 ea PO QAM 09/26/21 11/09/23 History jf-ifhnploygghh-jhiwyrnh powder effervescent pack (Emergen-C) cholecalciferol (vitamin D3) 25 25 mcg PO QDD 11/19/22 11/09/23 History mcg (1,000 unit) tablet (Vitamin D3) lidocaine-prilocaine 2.5 %-2.5 % 1 applic topical DIRECTED PRN 04/19/23 11/09/23 History topical cream PORT ACCESS acetaminophen 500 mg capsule 1,000 mg PO QAM Pain 04/24/23 11/09/23 History estradiol 0.01% (0.1 mg/gram) 1 g vaginal 3XWK 09/27/23 11/09/23 History vaginal cream (Estrace) levothyroxine 50 mcg tablet 50 mcg PO .DAILY AT 4PM 09/27/23 11/09/23 History vit C 250 mg-E 90 mg-zinc 40 1 tab PO QDL 09/27/23 11/09/23 History mg-copper 1 hs-cjaojh-xcogrn chew tablet (PreserVision AREDS-2) hydroxyzine HCl 50 mg tablet 50 mg PO HS PRN itching/anxiety 10/22/23 11/09/23 History hydrocortisone 2.5 % topical cream 1 applic topical BID PRN Other 10/23/23 11/09/23 History psyllium husk 0.4 gram capsule 0.4 g PO DAILY PRN Constipation 11/04/23 11/09/23 History (Metamucil) acetaminophen 500 mg tablet 1,000 mg PO Q6H PRN PAIN/FEVER 11/09/23 11/09/23 History (Tylenol Extra Strength) carvedilol 3.125 mg tablet (Coreg) 3.125 mg PO BIDM 11/09/23 11/09/23 History diphenhydramine HCl 25 mg capsule 25 mg PO DIRECTED PRN Itching 11/09/23 11/09/23 History (Benadryl) fexofenadine 180 mg tablet 180 mg PO DAILY PRN Itching 11/09/23 11/09/23 History Patient History Medical History Hypertension History of cellulitis (~09/27/23) abdomen, admit at [facility] x 3days, tx with abx, now resolved History of chemotherapy Hypothyroidism CKD (chronic kidney disease), stage III 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) Ureteral obstruction Admitted to [facility] 01/24/23 and transferred to [facility] ([facility] [place] 01/25/23 with IR for nephrostomy tube placement Anemia Osteopenia Allergic rhinitis Migraines Hyperlipidemia Cardiomyopathy Valvular cardiomyopathy Immunotherapy history of- switched to chemo/no longer on immunotherapy Port-A-Cath in place (~11/14/22) Power Port - implantable port Barber Patient will bring the device card DOS Placed 11/14/2022 at [facility] Bladder carcinoma High grade s/p TURBT>currently on chemo @ [facility] weekly Presence of pessary Anxiety Mitral valve regurgitation Echo 07/2023:Severe MR Follows with Dr. Hernandez Urothelial cancer Dx 07/2021 S/p L nephroureterectomy 10/2021. [id number]. Recurrence/progression 02/2022 > multiple TURBTs Cutaneous metastases On Keytruda in the past- no longer taking per urology records Renal arterial aneurysm Follows with Dr. Archibald- last seen 03/2022- "aneurysm of right renal artery has not changed since her last visit and is only 0.8cm"- follow up in two years Stress incontinence Pessary in place GERD (gastroesophageal reflux disease) Macular degeneration Venous insufficiency Both legs Cystocele with prolapse PMR (polymyalgia rheumatica) Follows with rheum (Dr. 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 at [facility] [place] H/O transurethral resection of bladder tumor (TURBT) multiple>with stent exchanges *last done 08/05/23 at [facility] Nausea and vomiting after administration of anesthetic agent History of surgery [facility], subsequent removal S/P biopsy ureter S[facility]21[facility] History of colonoscopy [place] teeth removed Family History Sister Breast cancer Mother , 88yo Stroke Hypertension Father , 54yo Black lung disease Brother Aneurysm Hypertension Brother Lung cancer Brother Addiction Daughter No problems noted. Other No family history of adverse response to anesthesia No pertinent family history Denies family history of Ovarian cancer Prostate cancer Myocardial infarction Colorectal cancer Social History Smoking Status: Never smoker Second Hand Exposure: No; Do You Dip or Chew Tobacco: No; Hx Alcohol Use: No Hx Substance Use: No Preferred Language: Romanian Communication Ability: Effective Visual Impairment: No Limitations Hearing Ability: Normal Matt[employer] Supervisor Required: No Beliefs That Will Affect Care: None marital status: / Current Living Situation: Personal Care Facility [facility] current occupational status: retired 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 states they use wheelchair and walker Review of Systems Constitutional: no fever and no chills Eyes: no blind spots and no diplopia Ear, Nose, Mouth, Throat: no hearing loss Respiratory: + cough Cardiovascular: no chest pain and no palpitations Gastrointestinal: no nausea and no vomiting Genitourinary: + dysuria Musculoskeletal: no neck pain and no myalgia Integumentary: no rash and no lesions Neurologic: as per Subjective / HPI Psychiatric: no depression and no anxiety Hematologic / Lymphatic: no easy bleeding and no easy bruising Exam (Neuro) Constitutional: well developed; no acute distress Eyes: normal visual lewis by confrontation, PERRL and EOM intact bilaterally; no nystagmus Neurologic: Oriented to:: Person, Place and Time Memory: Remote Intact; negative Short Term Intact Attention: Span Intact and Concentration Intact Speech Fluency: negative Dysarthria or Dysfluency Speech Aphasia: negative Aphasia Fund of Knowledge: Current Events, Past History and Vocabulary Cranial Nerves: Normal II, III, IV, , V, VII, VIII, IX, X, XI and XII Motor Strength: Normal Lower Extremities and Normal Upper Extremities Motor Tone: Normal Lower Extremities and Normal Upper Extremities Muscle Bulk/Involuntary Movements: negative Muscle Atrophy, Intention Tremor, Rest Tremor (Arm) or Head Tremor Sensation: Light Touch Intact, Pain/Temperature Intact, Vibration Intact and Proprioception Intact Coordination: negative Dysdiadochokinesia, Finger-Nose Abnormal or Heel-Corrales Abnormal Deep Tendon Reflexes: Rt Triceps: 2+, Lt Triceps: 2+, Rt Biceps: 2+, Lt Biceps: 2+, Rt Brachioradialis: 2+, Lt Brachioradialis: 2+, Rt Patellar: 2+, Lt Patellar: 2+, Rt Ankle: 1+ and Lt Ankle: 1+ Special Tests: negative Babinski Present Details: Patient has some difficulty with working memory, unable to spell world backwards, 3 out of 5 correct. She was a little perseverative with testing and had mild difficulty with simple computations, required some prompting. She was otherwise oriented and was able to readily identify several family members at bedside, daughter and granddaughter. Patient exhibited mild myoclonus with o utstretched arms. Results & Data Vital Signs (Past 12 Hours) Vital Signs Temp Pulse Pulse Resp BP Pulse Ox O2 Del Method 11/11/23 07:13 37.2 C 71 18 146/72 H 98 Nasal Cannula 11/11/23 02:18 36.7 C 67 18 113/68 100 Nasal Cannula 11/11/23 00:12 Nasal Cannula 11/10/23 22:30 83 11/10/23 22:03 37.2 C 82 18 125/56 L 96 Nasal Cannula O2 Flow Rate 11/11/23 07:13 5 11/11/23 02:18 5.0 11/11/23 00:12 2 11/10/23 22:30 11/10/23 22:03 5.0 Laboratory Results WBC 7.30, hemoglobin 9.3, hematocrit 29.2, MCV 97.7, platelet count 226, sodium 134, potassium 3.5, BUN 23, creatinine 1.11, glucose 91, calcium 9.2, magnesium 1.6, AST 37, ALT 18, ammonia 18.0, vitamin B12 870, TSH 1.378 A lipid panel from July 2021 was reviewed. Triglycerides 71, cholesterol 117, LDL 49, HDL 54. Diagnostic Findings CT of the head is as described in the HPI, I independently reviewed these images. An electrocardiogram completed November 08 revealed a normal sinus rhythm. An echocardiogram completed July 30, 2023 revealed mildly dilated left ventricle, normal systolic function, EF 55 to 60%, no regional wall motion abnormalities, mild concentric LVH, severe left atrial dilation, severe mitral regurgitation, moderate tricuspid regurgitation, no ASD. Coding Level of Care Code 71708 INT INP/OBS CARE 3/75MIN Diagnoses Encephalopathy G93.40 Time Spent (min) 80 Comment Total time includes patient contact, chart review, counseling, note preparation
--- NOTE | 2023-11-11 09:20 | Ultrasound Report ---
US carotid doppler BI CLINICAL HISTORY: 88 years-old Female with Evalaution carotid stenosis. COMPARISON: None TECHNIQUE: Multiple real time sonographic images of the carotid bifurcations were obtained assessing morales scale, color Doppler and spectral wave form appearance FINDINGS: RIGHT CAROTID: The peak systolic velocity measured within the right ICA is 77 cm/sec. The end diast olic velocity measured 15 cm/sec. The ICA to CCA ratio measured 1.3 which correlates with a stenosis of 0-50%. LEFT CAROTID: The peak systolic velocity measured in the left ICA is 66 cm/sec. The end diastolic v elocity measured 10 cm/sec. The ICA to CCA ratio measured 1.6 which correlates with a stenosis of 0-5 0%. Minimal atherosclerosis of the carotid bulb. There is normal antegrade vertebral flow bilaterally. IMPRESSION: 1. No hemodynamically significant stenosis or significant atherosclerotic plaquing. 2. Normal antegrade vertebral flow bilaterally. ACT 112: Negative or not required by law. The above report was generated using voice recognition software. It may contain grammatical, syntax o r spelling errors. Electronically signed by: Carrington Flynn M.D. 11/11/2023 9:19 AM
[2023-11-11] MEDS: VANCOMYCIN HCL 1,500 MG in SODIUM CHLORIDE 0.9% 500 ML IV ONE (10:45)
--- NOTE | 2023-11-11 11:46 | Pharmacy Report ---
Pharmacy PK ABX Note - Date of Service November 11, 2023 - Assessment and Plan Assessment 88 year old F receiving cefepime/vancomycin for treatment of sepsis/bacteremia. Patient previously receiving keyturda, finished last chemo on 10/29. Found to have a PE, normal WBC, febrile on admission with elevated procalcitonin. Possible cystitis on CT, no growth from urine culture. Both aerobic blood culture bottles are now growing a gram positive bacilli- vancomycin added to cefepime for coverage. BCID2 did not identify species. SCr increased yesterday, does seem to be downtrending today. Plan Vancomycin * Loading dose: 1500 mg IV x 1 * Maintenance dose: 1000 mg IV every 24 hours * Regimen is predicted to achieve target AUC/PRASHANT of 400-600 mg/L.hr * Random level ordered for 11/12 @ 1200 Pharmacy will continue to follow and will adjust dose/frequency as necessary. Thank you. Pharmacy has transitioned to AUC monitoring for vancomycin. AUC/PRASHANT is the preferred PK/PD target and is associated with decreased risk of nephrotoxicity compared to traditional trough targets.
--- NOTE | 2023-11-11 13:55 | Hospitalist Progress Note ---
Date of Service November 11, 2023 Assessment & Plan (1) Sepsis: Plan: Intermittent fever over the past week and unwitnessed fall on 11/08 No leukocytosis, but elevated from baseline; febrile in the ED at 39.3 C on arrival Bacteremic. Blood culture growing gram-positive organism Immunocompromised patient on chemotherapy Added vancomycin Consult infectious disease Lactate WNL Procalcitonin elevated 1.94 While urinalysis is not back, A/P CT did reveal right-sided hydronephrosis and suggested cystitis In the setting of recent stent removal on 11/03 Urine culture on 10/28/2023 grew E. coli and Enterobacter susceptible to cefepime although urine culture from 11/08 is negative Continue cefepime 2000 mg IV q8h (2) Pulmonary embolism: Plan: Worsening productive cough x 1 week No hemoptysis or pleural CP Elevated troponin at 78.6-->91.5 Trend q6h x 2 Chest CTA revealed lower lobe segmental and subsegmental pulmonary embolism; no evidence of right-sided heart strain Patient is hypercoagulable in setting of recent cancer chemotherapy; Heparin drip converted to Lovenox therapeutic dose Continuous telemetry monitoring Continuous pulse oximetry Supplemental oxygen as needed to maintain SpO2 >94% While no RVSP on prior echo (LVEF 55-60%) caution against fluid overload in the setting of pulmonary edema on CXR and acute PE (3) Fall: Plan: Head/cervical spine CTs revealed no acute abnormalities Fall precautions PT/OT consulted (4) Hyponatremia: Plan: Na 131 on arrival NSS 2000 mL IV given in the ED Sodium now 134. 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 Still very weak. Slightly confused still. Stroke alert was called yesterday because of concerns of stroke. Neurology is less concerned about a stroke. Review of Systems Review of Systems: All systems reviewed & are unremarkable except as noted in Subjective Physical Exam Physical Exam: General: Awake, conversant. Pleasantly confused Heart: S1, S2/regular rate and rhythm, no murmur rubs or gallops Lungs: Clear to auscultation bilaterally. Normal effort Abdomen: Soft/nontender/nondistended. No hepatosplenomegaly Extremities: No clubbing/cyanosis. No edema Behavior: Appropriate, cooperative Results & Data Results & Data Vital Signs (Past 12 Hours) Vital Signs Temp Pulse Pulse Resp BP Pulse Ox O2 Del Method 11/11/23 12:03 37.2 C 75 18 149/65 H 100 Nasal Cannula 11/11/23 07:13 37.2 C 71 18 146/72 H 98 Nasal Cannula 11/11/23 07:00 74 11/11/23 02:18 36.7 C 67 18 113/68 100 Nasal Cannula O2 Flow Rate 11/11/23 12:03 5 11/11/23 07:13 5 11/11/23 07:00 11/11/23 02:18 5.0 Laboratory Results Abnormal lab results 11/10/23 11/10/23 11/10/23 Range/Units 14:11 18:37 21:29 RBC 2.87 L (4.20-5.40) M/uL Hgb 9.2 L (12.0-16.0) g/dl Hct 28.5 L (37.0-47.0) % MCHC (32.0-36.0) g/dL RDW Std Deviation 56.7 H (36.4-46.3) fL RDW Coeff of Cathy 16.0 H (11.5-14.5) % Lymph # (Auto) 0.46 L (1.20-3.40) K/uL Jennings # (Auto) 1.13 H (0.11-0.59) K/uL Immature Gran # (Auto) 0.23 H (0.01-0.20) K/uL Heparin Anti-Xa, Unfract 0.77 H* (0.3-0.7) IU/ml VBG pCO2 36 L (38-50) mmHg Sodium (136-145) mmol/L BUN (6-23) mg/dl Creatinine (0.6-1.2) mg/dl BUN/Creatinine Ratio (10-20) Glucose (70-99(Fasting)) mg/dl POC Glucose 141 H (70-99) mg/dl Magnesium (1.7-2.4) mg/dl Total Protein (6.0-8.3) gm/dl Albumin (3.4-5.0) gm/dl 11/10/23 11/11/23 Range/Units 21:30 06:09 RBC 2.99 L (4.20-5.40) M/uL Hgb 9.3 L (12.0-16.0) g/dl Hct 29.2 L (37.0-47.0) % MCHC 31.8 L (32.0-36.0) g/dL RDW Std Deviation 56.5 H (36.4-46.3) fL RDW Coeff of Cathy 15.9 H (11.5-14.5) % Lymph # (Auto) 0.59 L (1.20-3.40) K/uL Jennings # (Auto) 1.17 H (0.11-0.59) K/uL Immature Gran # (Auto) 0.24 H (0.01-0.20) K/uL Heparin Anti-Xa, Unfract (0.3-0.7) IU/ml VBG pCO2 (38-50) mmHg Sodium 131 L 134 L (136-145) mmol/L BUN 26 H (6-23) mg/dl Creatinine 1.24 H (0.6-1.2) mg/dl BUN/Creatinine Ratio 21.0 H 20.7 H (10-20) Glucose 112 H (70-99(Fasting)) mg/dl POC Glucose (70-99) mg/dl Magnesium 1.6 L (1.7-2.4) mg/dl Total Protein 5.7 L (6.0-8.3) gm/dl Albumin 2.9 L (3.4-5.0) gm/dl Diagnostic Findings Head CT 11/10/23 18:[address] DOSE: 4.51 mGy.cm HISTORY: Stroke Like Symptoms TECHNIQUE: Multiaxial CT images of the head were performed without the use of intravenous contrast. Automated exposure control was utilized for this study. A dose lowering technique was utilized adhering to the principles of ALARA. Comparison: Head CT 11/09/2023. Findings: Mild mucosal thickening within the left sphenoid sinus. The remaining paranasal sinuses and mastoid air cells are clear. Motion artifact results in suboptimal evaluation. Stable 6 mm calcification along the right tentorium. There is no mass, hematoma, midline shift, acute infarct. Mild atrophy and microvascular ischemic changes are again noted. Impression: Suboptimal evaluation due to motion artifact. However, no definite acute intracranial abnormality. ACT 112: Negative or not required by law. Electronically signed by: Edvin Tamez M.D. 11/10/2023 6:56 PM Carotid Doppler Study 11/11/23 21:19 US carotid doppler BI CLINICAL HISTORY: 88 years-old Female with Evalaution carotid stenosis. COMPARISON: None TECHNIQUE: Multiple real time sonographic images of the carotid bifurcations were obtained assessing morales scale, color Doppler and spectral wave form appearance FINDINGS: RIGHT CAROTID: The peak systolic velocity measured within the right ICA is 77 cm/sec. The end diastolic velocity measured 15 cm/sec. The ICA to CCA ratio measured 1.3 which correlates with a stenosis of 0-50%. LEFT CAROTID: The peak systolic velocity measured in the left ICA is 66 cm/sec. The end diastolic velocity measured 10 cm/sec. The ICA to CCA ratio measured 1.6 which correlates with a stenosis of 0-50%. Minimal atherosclerosis of the carotid bulb. There is normal antegrade vertebral flow bilaterally. IMPRESSION: 1. No hemodynamically significant stenosis or significant atherosclerotic plaquing. 2. Normal antegrade vertebral flow bilaterally. ACT 112: Negative or not required by law. The above report was generated using voice recognition software. It may contain grammatical, syntax or spelling errors. Electronically signed by: Carrington Flynn M.D. 11/11/2023 9:19 AM PG Care Time/CCT Total # of Minutes Spent Total Time Spent with Patient: Total time spent is greater than 50% in coordination of care (as documented) at patient's floor/unit and/or counseling patient: Coding Level of Care Code 37478 SUB INP/OBS CARE 2/35MIN Diagnoses Sepsis A41.9 Sepsis acute organ dysfunction status: without acute organ dysfunction Sepsis type: sepsis due to unspecified organism Pulmonary embolism I26.99 Fall W19.XXXA Hyponatremia E87.1 Bladder carcinoma C67.9 Hypertension I10 Sleep apnea G47.30 Elevated troponin R79.89 (1) Sepsis Sepsis acute organ dysfunction status: without acute organ dysfunction Sepsis type: sepsis due to unspecified organism Qualified Code(s): A41.9 - Sepsis, unspecified organism
--- NOTE | 2023-11-11 14:40 | Infectious Disease Consult ---
Date of Consultation November 11, 2023 Consultation Information Consultation was provided via telemedicine using two-way real-time interactive telecommunication between the patient and the telemedicine provider. For the duration of the visit, the provider was performing the assessment from a different facility than the patient. This includesuse of bluetooth stethoscope forauscultationperformed by the telepresenter that the telemedicine provider can hear if described in the physical exam. Headliner Installer contact information: Please call [facility] . (Phone Number For Physician Use Only) History of Present Illness Reason for Consultation: Gram positive bacilli Requesting Physician: Dr. 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 Allergies Allergy/AdvReac Type Severity Reaction Status Date / Time capsaicin Allergy Unknown Unknown Verified 11/07/23 11:42 house dust Allergy Unknown [place] Verified 11/09/23 19:17 MED LIST mold Allergy Unknown [place] Verified 11/09/23 19:17 MED LIST pollen extracts Allergy Unknown [place] Verified 11/09/23 19:17 MED LIST sulfamethoxazole Allergy Unknown [place] Verified 11/09/23 19:17 [From Bactrim] MED LIST trimethoprim [From Bactrim] Allergy Unknown [place] Verified 11/09/23 19:17 MED LIST SARA Inhibitors AdvReac Intermediate Cough Verified 11/09/23 19:17 ARB-Angiotensin Receptor AdvReac Intermediate Cough Verified 11/09/23 19:17 Antagonist pepper (genus Capsicum) AdvReac Intermediate Gastrointestinal Verified 11/09/23 19:17 Upset prednisone AdvReac Intermediate Dizziness Verified 11/09/23 19:17 & weird dreams tramadol AdvReac Intermediate Vomiting Verified 11/09/23 19:17 gabapentin AdvReac Mild Nausea Verified 11/09/23 19:17 Home Medications Medication Instructions Recorded Confirmed Type multivitamin (Daily Multi-Vitamin 1 tab PO QDL 04/01/19 11/09/23 History tablet) famotidine 20 mg tablet (Pepcid AC) 20 mg PO BID 08/09/21 11/09/23 History ascorbic acid 1,000 1 ea PO QAM 09/26/21 11/09/23 History xf-runbiajkvdco-peapfrhu powder effervescent pack (Emergen-C) cholecalciferol (vitamin D3) 25 25 mcg PO QDD 11/19/22 11/09/23 History mcg (1,000 unit) tablet (Vitamin D3) lidocaine-prilocaine 2.5 %-2.5 % 1 applic topical DIRECTED PRN 04/19/23 11/09/23 History topical cream PORT ACCESS acetaminophen 500 mg capsule 1,000 mg PO QAM Pain 04/24/23 11/09/23 History estradiol 0.01% (0.1 mg/gram) 1 g vaginal 3XWK 09/27/23 11/09/23 History vaginal cream (Estrace) levothyroxine 50 mcg tablet 50 mcg PO .DAILY AT 4PM 09/27/23 11/09/23 History vit C 250 mg-E 90 mg-zinc 40 1 tab PO QDL 09/27/23 11/09/23 History mg-copper 1 cr-agohbr-rvhgkw chew tablet (PreserVision AREDS-2) hydroxyzine HCl 50 mg tablet 50 mg PO HS PRN itching/anxiety 10/22/23 11/09/23 History hydrocortisone 2.5 % topical cream 1 applic topical BID PRN Other 10/23/23 11/09/23 History psyllium husk 0.4 gram capsule 0.4 g PO DAILY PRN Constipation 11/04/23 11/09/23 History (Metamucil) acetaminophen 500 mg tablet 1,000 mg PO Q6H PRN PAIN/FEVER 11/09/23 11/09/23 History (Tylenol Extra Strength) carvedilol 3.125 mg tablet (Coreg) 3.125 mg PO BIDM 11/09/23 11/09/23 History diphenhydramine HCl 25 mg capsule 25 mg PO DIRECTED PRN Itching 11/09/23 11/09/23 History (Benadryl) fexofenadine 180 mg tablet 180 mg PO DAILY PRN Itching 11/09/23 11/09/23 History Patient History Medical History Hypertension History of cellulitis (~09/27/23) abdomen, admit at [facility] x 3days, tx with abx, now resolved History of chemotherapy Hypothyroidism CKD (chronic kidney disease), stage III 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 01/25/23 with IR for nephrostomy tube placement Anemia Osteopenia Allergic rhinitis Migraines Hyperlipidemia Cardiomyopathy Valvular cardiomyopathy Immunotherapy history of- switched to chemo/no longer on immunotherapy Port-A-Cath in place (~11/14/22) Power Port - implantable port [place] Patient will bring the device card DOS Placed 11/14/2022 at [facility] Bladder carcinoma High grade s/p TURBT>currently on chemo @ [facility] weekly Presence of pessary Anxiety Mitral valve regurgitation Echo 07/2023:Severe MR Follows with Dr. Hernandez Urothelial cancer Dx 07/2021 S/p L nephroureterectomy 10/2021. [id number]. Recurrence/progression 02/2022 > multiple TURBTs Cutaneous metastases On Keytruda in the past- no longer taking per urology records Renal arterial aneurysm Follows with Dr. Archibald- last seen 03/2022- "aneurysm of right renal artery has not changed since her last visit and is only 0.8cm"- follow up in two years Stress incontinence Pessary in place GERD (gastroesophageal reflux disease) Macular degeneration Venous insufficiency Both legs Cystocele with prolapse PMR (polymyalgia rheumatica) Follows with rheum (Dr. Rothman) Sleep apnea CPAP (Compliant) Surgical History History of surgery Resection of uterine fibroid History of dilatation and curettage History of surgery "Power Port, implantable port [place]" H/O nephroureterectomy for ureter cancer > left kidney and ureter at [facility] H/O transurethral resection of bladder tumor (TURBT) multiple>with stent exchanges *last done 08/05/23 at [facility] Nausea and vomiting after administration of anesthetic agent History of surgery nephrostomy tube placement, [facility] 01/2023, subsequent removal S/P biopsy ureter S/p [facility]2021[facility] History of colonoscopy [place] teeth removed Family History Sister Breast cancer Mother , 88yo Stroke Hypertension Father , 54yo Black lung disease Brother Aneurysm Hypertension Brother Lung cancer Brother Addiction Daughter No problems noted. Other No family history of adverse response to anesthesia No pertinent family history Denies family history of Ovarian cancer Prostate cancer Myocardial infarction Colorectal cancer Social History Smoking Status: Never smoker Second Hand Exposure: No; Do You Dip or Chew Tobacco: No; Hx Alcohol Use: No Hx Substance Use: No Preferred Language: Cameroonian Communication Ability: Effective Visual Impairment: No Limitations Hearing Ability: Normal Pelota Maker Required: No Beliefs That Will Affect Care: None marital status: / Current Living Situation: Personal Care Facility [facility] Comment[facility] 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 states they use wheelchair and walker Results & Data Vital Signs (Past 12 Hours) Vital Signs Temp Pulse Pulse Resp BP Pulse Ox O2 Del Method 11/11/23 12:03 37.2 C 75 18 149/65 H 100 Nasal Cannula 11/11/23 07:13 37.2 C 71 18 146/72 H 98 Nasal Cannula 11/11/23 07:00 74 O2 Flow Rate 11/11/23 12:03 5 11/11/23 07:13 5 11/11/23 07:00
--- NOTE | 2023-11-11 14:50 | Infectious Disease Consult ---
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 Per EMR, Granddaughter reported that the patient started to decline shortly after she received her final round of chemotherapy on 10/29, developing a fever that resolved. On 11/03, ureteral stent removal and then placed on cipr ofloxacin prophylactically both 3 days before and after the procedure. Patient has become increasingly confused since that time. Recent urine culture from 10/27 which grew E. coli 20K and Enterobacter cloacae 40 K R DAY CARE PROVIDER, Bactrim, Nitrofurantoin She does report that she had an unwitnessed fall on 11/08. She was using her walker and her legs gave out. No LOC. In the ED, temp 37.6 C, tachypneic at 29 RPM, and hypertensive at 154/89 at time of admission; SpO2 96% on 2 L NC. WBC 7.3, platelets 226, Cr 1.1 LFts normal. Bcx 11/08+ GP bacillus. CT A/P Right-sided hydronephrosis with right ureteral stent in place, stable or minimally progressed in the interval. There is mild enhancement of the wall through the right ureter and urinary bladder wall which may indicate cystitis, correlation with urinalysis recommended. 2. Mild thickening of the wall to the left urinary bladder which may indicate the site of previous neoplasm, combination findings which may indicate residual inflammatory process versus scarring with recurrent neoplasm not entirely excluded. CT Chest Lower lobe segmental and subsegmental pulmonary emboli. No evidence of right-sided cardiac strain. Discussion: Patient with GPR in blood, BCID is negative. Difficult to tell if this is true pathogenic organism vs contaminant, agree with Vancomycin, but would pharm monitor closely in setting of nephrectomy. Agree with Cefepime to cover UTI Recommend: -Repeat blood cultures to document clearance -Follow speciation of Bcx -Follow UCx results -Agree with Vancomycin to cover GPR bacteremia -C/W Cefepime to cover Urine Thank you for this consult. ID will follow Marilin Messer MD Infectious Diseases [facility], [facility] Consultation Information This patient recommendation is based on a telemedicine consult request which was completed asynchronously through chart review and information provided by the primary physician. The patient was not seen or examined today. The evaluation is consultative in nature and all patient care and treatment decisions can either be accepted or rejected by the patient's primary hospital-based treating physician using their own independent medical judgment for their patient. Service Consultant contact information: Please call [facility] Call Center [phone]. (Phone Number For Physician Use Only) Time Spent Reviewing Chart: 31+ minutes History of Present Illness Reason for Consultation: bacteremia Requesting Physician: Dr. 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 Per EMR, Granddaughter reported that the patient started to decline shortly after she received her final round of chemotherapy on 10/29, developing a fever that resolved. On 11/03, ureteral stent removal and then placed on ciprofloxacin prophylactically both 3 days before and after the procedure. Patient has become increasingly confused since that time. Recent urine culture from 10/27 which grew E. coli 20K and Enterobacter cloacae 40 K R DAY CARE PROVIDER, Bactrim, Nitrofurantoin She does report that she had an unwitnessed fall on 11/08. She was using her walker and her legs gave out. No LOC. In the ED, temp 37.6 C, but inc to 39.3 tachypneic at 29 RPM, and hypertensive at 154/89 at time of admission; SpO2 96% on 2 L NC. WBC 7.3, platelets 226, Cr 1.1 LFts normal. Bcx 11/08+ GP bacillus. CT A/P Right-sided hydronephrosis with right ureteral stent in place, stable or minimally progressed in the interval. There is mild enhancement of the wall through the right ureter and urinary bladder wall which may indicate cystitis, correlation with urinalysis recommended. 2. Mild thickening of the wall to the left urinary bladder which may indicate the site of previous neoplasm, combination findings which may indicate residual inflammatory process versus scarring with recurrent neoplasm not entirely excluded. CT Chest Lower lobe segmental and subsegmental pulmonary emboli. No evidence of right-sided cardiac strain. 2. Vascular crowding with suggestion of small airway disease with superimposed scattered pneumonitis not excluded. Allergies Allergy/AdvReac Type Severity Reaction Status Date / Time capsaicin Allergy Unknown Unknown Verified 11/07/23 11:42 house dust Allergy Unknown [place] Verified 11/09/23 19:17 MED LIST mold Allergy Unknown [place] Verified 11/09/23 19:17 MED LIST pollen extracts Allergy Unknown [place] Verified 11/09/23 19:17 MED LIST sulfamethoxazole Allergy Unknown [place] Verified 11/09/23 19:17 [From Bactrim] MED LIST trimethoprim [From Bactrim] Allergy Unknown [place] Verified 11/09/23 19:17 MED LIST SARA Inhibitors AdvReac Intermediate Cough Verified 11/09/23 19:17 ARB-Angiotensin Receptor AdvReac Intermediate Cough Verified 11/09/23 19:17 Antagonist pepper (genus Capsicum) AdvReac Intermediate Gastrointestinal Verified 11/09/23 19:17 Upset prednisone AdvReac Intermediate Dizziness Verified 11/09/23 19:17 & weird dreams tramadol AdvReac Intermediate Vomiting Verified 11/09/23 19:17 gabapentin AdvReac Mild Nausea Verified 11/09/23 19:17 Home Medications Medication Instructions Recorded Confirmed Type multivitamin (Daily Multi-Vitamin 1 tab PO QDL 04/01/19 11/09/23 History tablet) famotidine 20 mg tablet (Pepcid AC) 20 mg PO BID 08/09/21 11/09/23 History ascorbic acid 1,000 1 ea PO QAM 09/26/21 11/09/23 History qm-pihydearkimb-kmmjghst powder effervescent pack (Emergen-C) cholecalciferol (vitamin D3) 25 25 mcg PO QDD 11/19/22 11/09/23 History mcg (1,000 unit) tablet (Vitamin D3) lidocaine-prilocaine 2.5 %-2.5 % 1 applic topical DIRECTED PRN 04/19/23 11/09/23 History topical cream PORT ACCESS acetaminophen 500 mg capsule 1,000 mg PO QAM Pain 04/24/23 11/09/23 History estradiol 0.01% (0.1 mg/gram) 1 g vaginal 3XWK 09/27/23 11/09/23 History vaginal cream (Estrace) levothyroxine 50 mcg tablet 50 mcg PO .DAILY AT 4PM 09/27/23 11/09/23 History vit C 250 mg-E 90 mg-zinc 40 1 tab PO QDL 09/27/23 11/09/23 History mg-copper 1 vt-qkjsnb-dxubjf chew tablet (PreserVision AREDS-2) hydroxyzine HCl 50 mg tablet 50 mg PO HS PRN itching/anxiety 10/22/23 11/09/23 History hydrocortisone 2.5 % topical cream 1 applic topical BID PRN Other 10/23/23 11/09/23 History psyllium husk 0.4 gram capsule 0.4 g PO DAILY PRN Constipation 11/04/23 11/09/23 History (Metamucil) acetaminophen 500 mg tablet 1,000 mg PO Q6H PRN PAIN/FEVER 11/09/23 11/09/23 History (Tylenol Extra Strength) carvedilol 3.125 mg tablet (Coreg) 3.125 mg PO BIDM 11/09/23 11/09/23 History diphenhydramine HCl 25 mg capsule 25 mg PO DIRECTED PRN Itching 11/09/23 11/09/23 History (Benadryl) fexofenadine 180 mg tablet 180 mg PO DAILY PRN Itching 11/09/23 11/09/23 History Patient History Medical History Hypertension History of cellulitis (~09/27/23) abdomen, admit at [facility] x 3days, tx with abx, now resolved History of chemotherapy Hypothyroidism CKD (chronic kidney disease), stage III 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) Ureteral obstruction Admitted to [facility] 01/24/23 and transferred to [facility] ([facility]) 3 with IR for nephrostomy tube placement Anemia Osteopenia Allergic rhinitis Migraines Hyperlipidemia Cardiomyopathy Valvular cardiomyopathy Immunotherapy history of- switched to chemo/no longer on immunotherapy Port-A-Cath in place (~11/14/22) Power Port - implantable port [place] Patient will bring the device card DOS Placed 11/14/2022 at [facility] Bladder carcinoma High grade s/p TURBT>currently on chemo @ [facility] weekly Presence of pessary Anxiety Mitral valve regurgitation Echo 07/2023:Severe MR Follows with Dr. Hernandez Urothelial cancer Dx 07/2021 S/p L nephroureterectomy 10/2021. [id number]. Recurrence/progression 02/2022 > multiple TURBTs Cutaneous metastases On Keytruda in the past- no longer taking per urology records Renal arterial aneurysm Follows with Dr. Archibald- last seen 03/2022- "aneurysm of right renal artery has not changed since her last visit and is only 0.8cm"- follow up in two years Stress incontinence Pessary in place GERD (gastroesophageal reflux disease) Macular degeneration Venous insufficiency Both legs Cystocele with prolapse PMR (polymyalgia rheumatica) Follows with rheum (Dr. Rothman) Sleep apnea CPAP (Compliant) Surgical History History of surgery Resection of uterine fibroid History of dilatation and curettage History of surgery "Power Port, implantable port Zumbrota" H/O nephroureterectomy for ureter cancer > left kidney and ureter at [facility] H/O transurethral resection of bladder tumor (TURBT) multiple>with stent exchanges *last done 08/05/23 at [facility] Nausea and vomiting after administration of anesthetic agent History of surgery nephrostomy tube placement, [facility] 01/2023, subsequent removal S/P biopsy ureter S/p [facility]2021[facility] History of colonoscopy [place] teeth removed Family History Sister Breast cancer Mother , 88yo Stroke Hypertension Father , 54yo Black lung disease Brother Aneurysm Hypertension Brother Lung cancer Brother Addiction Daughter No problems noted. Other No family history of adverse response to anesthesia No pertinent family history Denies family history of Ovarian cancer Prostate cancer Myocardial infarction Colorectal cancer Social History Smoking Status: Never smoker Second Hand Exposure: No; Do You Dip or Chew Tobacco: No; Hx Alcohol Use: No Hx Substance Use: No Preferred Language: Malay Communication Ability: Effective Visual Impairment: No Limitations Hearing Ability: Normal Gas Station Service Attendant Required: No Beliefs That Will Affect Care: None marital status: / Current Living Situation: Personal Care Facility [facility] Comment[facility] current occupational status: retired 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 states they use wheelchair and walker Results & Data Vital Signs (Past 12 Hours) Vital Signs Temp Pulse Pulse Resp BP Pulse Ox O2 Del Method 11/11/23 12:03 37.2 C 75 18 149/65 H 100 Nasal Cannula 11/11/23 07:13 37.2 C 71 18 146/72 H 98 Nasal Cannula 11/11/23 07:00 74 O2 Flow Rate 11/11/23 12:03 5 11/11/23 07:13 5 11/11/23 07:00 Laboratory Results Short CBC 11/10/23 11/11/23 Range/Units 21:29 06:09 WBC 7.18 7.30 (4.8-10.8) K/ul Hgb 9.2 L 9.3 L (12.0-16.0) g/dl Hct 28.5 L 29.2 L (37.0-47.0) % Plt Count 200 226 (130-400) K/uL BMP 11/10/23 11/11/23 21:30 06:09 Sodium 131 L 134 L Potassium 3.9 3.5 Chloride 103 104 Carbon Dioxide 21 24 BUN 26 H 23 Creatinine 1.24 H 1.11 Glucose 112 H 91 Calcium 9.0 9.2 Liver Function 11/10/23 Range/Units 21:30 Total Bilirubin 0.5 (0.2-1.0) mg/dl AST 37 (13-39) U/L ALT 18 (7-52) U/L Alkaline Phosphatase 86 (34-104) U/L Albumin 2.9 L (3.4-5.0) gm/dl Medications Administered Current Inpatient Medications Acetaminophen (Acetaminophen 500 Mg Tab) 1,000 mg PO QAM JACOBY Stop: 12/10/23 08:59 Last Admin: 11/11/23 08:11 Dose: 1,000 mg Acetaminophen (Acetaminophen 500 Mg Tab) 1,000 mg PO Q6H PRN PRN Reason: Pain or Fever Stop: 12/09/23 23:45 Last Admin: 11/10/23 18:29 Dose: 1,000 mg Benzonatate (Benzonatate 100 Mg Capsule) 100 mg PO TID PRN PRN Reason: cough Stop: 12/10/23 08:59 Last Admin: 11/11/23 05:31 Dose: 100 mg Enoxaparin Sodium (Enoxaparin 80 Mg/0.8 Ml Syr) 70 mg SQ Q12H JACOBY Stop: 12/10/23 09:59 Last Admin: 11/11/23 10:45 Dose: 70 mg Famotidine (Famotidine 20 Mg Tab) 20 mg PO BID [facility] Stop: 12/10/23 08:59 Last Admin: 11/11/23 08:11 Dose: 20 mg Heparin Sodium (Porcine) (Heparin 100 Unit/Ml 5ml Flush) 5 ml FLUSH PRN PRN PRN Reason: Flush Stop: 12/10/23 04:40 Hydrocortisone (Hydrocortisone 2.5% Cr 30 Gm Tube) 1 appln EXT BID PRN PRN Reason: Other Stop: 12/09/23 23:45 Last Admin: 11/10/23 20:42 Dose: 1 appln Hydroxyzine HCl (Hydroxyzine Hcl 25 Mg Tab) 50 mg PO HS PRN PRN Reason: itching/anxiety Stop: 12/09/23 23:45 Last Admin: 11/10/23 21:44 Dose: 50 mg Cefepime HCl 2,000 mg/ Syringe 20 mls @ 5 mls/min IV Q12H [facility]; Protocol Stop: 11/20/23 07:59 Last Admin: 11/11/23 08:29 Dose: 5 mls/min Vancomycin HCl 1,000 mg/ (Sodium Chloride) 270 mls @ 200 mls/hr IV Q24H [facility] Stop: 11/25/23 22:59 Levothyroxine Sodium (Levothyroxine Sodium 50 Mcg Tablet) 50 mcg PO DAILY@1600 [facility] Stop: 12/10/23 15:59 Last Admin: 11/10/23 16:22 Dose: 50 mcg Lidocaine/Prilocaine (Lidocaine/Prilocaine 2.5% Ea Crm) 1 each EXT UD PRN PRN Reason: PORT ACCESS Stop: 12/09/23 23:45 Miscellaneous Information (Vancomycin Consult Active) 1 each N/A UD PRN PRN Reason: Consult Stop: 12/11/23 07:48 Ondansetron HCl (Ondansetron Inj 2 Mg/Ml 2 Ml Vial) 4 mg IV Q6H PRN PRN Reason: Nausea Stop: 12/09/23 23:45 (3) Bladder cancer Bladder location: unspecified site Qualified Code(s): C67.9 - Malignant neoplasm of bladder, unspecified
[2023-11-11] MEDS: ACETAMINOPHEN 1,000 MG/100 ML VIAL IV PRN (17:06)
[2023-11-12] MEDS: VANCOMYCIN HCL 1,000 MG in SODIUM CHLORIDE 0.9% 250 ML IV SCH (00:44)
[2023-11-12 02:48] LABS: A calco-baum cmplx NotReported Not Detected (NotDetected); Bact fragilis Not Reported Not Detected (NotDetected); Blood Culture Id Panel PCR Panel Negative (NotDetected); C auris Not Reported Not Detected (NotDetected); Calbicans Not Reported Not Detected (NotDetected); Candida glabrata Not Reported Not Detected (NotDetected); Candida krusei Not Reported Not Detected (NotDetected); Cneoformans/gatti Not Reported Not Detected (NotDetected); Cparapsilosis Not Reported Not Detected (NotDetected); E cloacae compx Not Reported Not Detected (NotDetected); Efaecalis Not Reported Not Detected (NotDetected); Efaecium Not Reported Not Detected (NotDetected); Enterobacterales Not Reported Not Detected (NotDetected); Escherichia coli Not Reported Not Detected (NotDetected); H influenzae Not Reported Not Detected (NotDetected); K aerogenes Not Reported Not Detected (NotDetected); Koxytoca Not Reported Not Detected (NotDetected); Kpneumoniae grp Not Reported Not Detected (NotDetected); Lmonocyt Not Reported Not Detected (NotDetected); N meningitidis Not Reported Not Detected (NotDetected); P aeruginosa Not Reported Not Detected (NotDetected); Proteus spp Not Reported Not Detected (NotDetected); Salmonella spp Not Reported Not Detected (NotDetected); Smarcescens Not Reported Not Detected (NotDetected); Staph lugdunensis Not Reported Not Detected (NotDetected); Staph spp. Not Reported Not Detected (NotDetected); Staphaureus Not Reported Not Detected (NotDetected); Staphepi Not Reported Not Detected (NotDetected); Stenmaltophilia Not Reported Not Detected (NotDetected); Strep agal(GrpB) Not Reported Not Detected (NotDetected); Strep pneum Not Reported Not Detected (NotDetected); Strep pyog (GrpA) Not Reported Not Detected (NotDetected); Strep spp Not Reported Not Detected (NotDetected)
[2023-11-12 07:30] LABS: Basophils # (auto) 0.04 K/uL (0.00-0.20); Basophils % (auto) 0.5 %; Eosinophils % (auto) 2.4 %; Hematocrit (blood only) 28.6 % (37.0-47.0); Hemoglobin 9.4 g/dl (12.0-16.0); Immature Granulocytes # (auto) 0.13 K/uL (0.01-0.20); Immature Granulocytes % (auto) 1.6 %; Lymphocytes # (auto) 0.56 K/uL (1.20-3.40); Lymphocytes % (auto) 6.8 %; Mean Corpuscular Hgb Conc 32.9 g/dL (32.0-36.0); Mean Corpuscular Volume 97.3 fL (80.0-100.0); Mean Platelet Volume 9.5 fL (9.4-12.4); Monocytes # (auto) 1.29 K/uL (0.11-0.59); Monocytes % (auto) 15.6 %; Neutrophils # (auto) 6.03 K/uL (1.40-6.50); Neutrophils % (auto) 73.1 %; Platelet Count 277 K/uL (130-400); RDW Coefficient of Variation 15.7 % (11.5-14.5); RDW Standard Deviation 55.7 fL (36.4-46.3); Red Blood Count 2.94 M/uL (4.20-5.40); White Blood Count 8.25 K/ul (4.8-10.8)
[2023-11-12 07:49] LABS: BUN Creatinine Ratio 21.1 (10-20); Calcium 9.3 mg/dl (8.6-10.3); Creatinine Clr Calc Pharmacy 37.3 ml/min; Est GFR (Non-African American) 53.5 ml/min; Potassium 3.1 mmol/L (3.5-5.1)
[2023-11-12] MEDS: POTASSIUM CHLORIDE / WTR 10 MEQ/100 ML PLCT IV SCH (08:07)
[2023-11-12] MEDS: POTASSIUM CHLORIDE 40 MEQ in SODIUM CHLORIDE 0.9% 1,000 ML IV SCH (09:13)
--- NOTE | 2023-11-12 13:26 | Hospitalist Progress Note ---
Date of Service November 12, 2023 Assessment & Plan (1) Sepsis: Plan: Intermittent fever over the past week and unwitnessed fall on 11/08 No leukocytosis, but elevated from baseline; febrile in the ED at 39.3 C on arrival Bacteremic? Blood culture growing gram-positive organism, possibly contaminant Immunocompromised patient on chemotherapy Added vancomycin Consulted infectious disease Lactate WNL Procalcitonin elevated 1.94 A/P CT showed right-sided hydronephrosis and suggested cystitis In the setting of recent stent removal on 11/03 Urine culture on 10/28/2023 grew E. coli and Enterobacter susceptible to cefepime although urine culture from 11/08 is negative Continue cefepime 2000 mg IV q8h (2) Pulmonary embolism: Plan: Worsening productive cough x 1 week No hemoptysis or pleural CP Elevated troponin at 78.6-->91.5 Trend q6h x 2 Chest CTA revealed lower lobe segmental and subsegmental pulmonary embolism; no evidence of right-sided heart strain Patient is hypercoagulable in setting of recent cancer chemotherapy; Heparin drip converted to Lovenox therapeutic dose Continuous telemetry monitoring Continuous pulse oximetry Supplemental oxygen as needed to maintain SpO2 >94% While no RVSP on prior echo (LVEF 55-60%) caution against fluid overload in the setting of pulmonary edema on CXR and acute PE (3) Fall: Plan: Head/cervical spine CTs revealed no acute abnormalities Fall precautions PT/OT consulted (4) Hyponatremia: Plan: Na 131 on arrival NSS 2000 mL IV given in the ED Sodium now 134. Improved Potassium repleted today (5) Bladder carcinoma: Plan: Follow-up with [facility] oncology/hematology High-grade bladder cell carcinoma with metastasis to left anterior abdominal wall Patient was receiving Keytruda every 3 weeks, and recently finished her last chemotherapy treatment on 10/29 (6) Hypertension: Plan: Will hold carvedilol for now in setting of acute PE to maintain blood pressure (7) Sleep apnea: Plan: CPAP at bedtime (8) Elevated troponin: (9) Aspiration into airway: Plan: Patient is having issues with aspiration. Video swallow done Patient is aspirating her own saliva Family agrees with permissive aspiration Family does not want tube feeds Pured thick liquids ordered with family including with permissive aspiration Family requested palliative care consult to discuss goals of care Plan DNR/DNI VTE PPx: Lovenox therapeutic dose Admission and Anticipated Discharge Date Admission Date: November 09, 2023 Subjective Patient is slightly confused. She had several episodes of aspiration yesterday. She appears to be still aspirating her own saliva. The patient underwent a video swallow test. I had a conversation with the daughter who stated that if the patient will require feeding tube, she would rather want her to be made comfortable. She would like to speak to the palliative team. The daughter understands that at the age of 88, her mom has gone through "a lot", and this may be time to make some decisions about goals of care Review of Systems Review of Systems: Unobtainable due to cognitive status Physical Exam Physical Exam: General: Awake, conversant. Pleasantly confused.. Frail looking Heart: S1, S2/regular rate and rhythm, no murmur rubs or gallops Lungs: Clear to auscultation bilaterally. Normal effort Abdomen: Soft/nontender/nondistended. No hepatosplenomegaly Extremities: No clubbing/cyanosis. No edema Behavior: Appropriate, cooperative Results & Data Results & Data Vital Signs (Past 12 Hours) Vital Signs Temp Pulse Pulse Resp BP Pulse Ox O2 Del Method 11/12/23 11:19 36.7 C 73 18 107/71 98 Nasal Cannula 11/12/23 08:00 Nasal Cannula 11/12/23 08:00 68 11/12/23 07:18 36.9 C 68 18 124/59 L 98 Nasal Cannula 11/12/23 05:14 37.5 C 76 24 142/89 H 99 Nasal Cannula 11/12/23 03:10 63 O2 Flow Rate 11/12/23 11:19 3 11/12/23 08:00 3 11/12/23 08:00 11/12/23 07:18 3 11/12/23 05:14 3.0 11/12/23 03:10 Laboratory Results Abnormal lab results 11/12/23 Range/Units 06:35 RBC 2.94 L (4.20-5.40) M/uL Hgb 9.4 L (12.0-16.0) g/dl Hct 28.6 L (37.0-47.0) % RDW Std Deviation 55.7 H (36.4-46.3) fL RDW Coeff of Cathy 15.7 H (11.5-14.5) % Lymph # (Auto) 0.56 L (1.20-3.40) K/uL Becker # (Auto) 1.29 H (0.11-0.59) K/uL Sodium 135 L (136-145) mmol/L Potassium 3.1 L (3.5-5.1) mmol/L BUN/Creatinine Ratio 21.1 H (10-20) PG Care Time/CCT Total # of Minutes Spent Total Time Spent with Patient: Total time spent is greater than 50% in coordination of care (as documented) at patient's floor/unit and/or counseling patient: Coding Level of Care Code 23758 SUB INP/OBS CARE 2/35MIN Diagnoses Sepsis A41.9 Sepsis acute organ dysfunction status: without acute organ dysfunction Sepsis type: sepsis due to unspecified organism Pulmonary embolism I26.99 Fall W19.XXXA Hyponatremia E87.1 Bladder carcinoma C67.9 Hypertension I10 Sleep apnea G47.30 Elevated troponin R79.89 Aspiration into airway T17.908A (1) Sepsis Sepsis acute organ dysfunction status: without acute organ dysfunction Sepsis type: sepsis due to unspecified organism Qualified Code(s): A41.9 - Sepsis, unspecified organism
--- NOTE | 2023-11-12 13:52 | Infectious Disease Progress Nt ---
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 Per EMR, Granddaughter reported that the patient started to decline shortly after she received her final round of chemotherapy on 10/29, developing a fever that resolved. On 11/03, ureteral stent removal and then placed on ciprofloxacin prophylactically both 3 days before and after the procedure. Patient has become increasingly confused since that time. Recent urine culture from 10/27 which grew E. coli 20K and Enterobacter cloacae 40 K R [employer], Bactrim, Nitrofurantoin She does report that she had an unwitnessed fall on 11/08. She was using her walker and her legs gave out. No LOC. In the ED, temp 37.6 C, tachypneic at 29 RPM, and hypertensive at 154/89 at time of admission; SpO2 96% on 2 L NC. WBC 7.3, platelets 226, Cr 1.1 LFts normal. Bcx 11/08+ GP bacillus. CT A/P Right-sided hydronephrosis with right ureteral stent in place, stable or minimally progressed in the interval. There is mild enhancement of the wall through the right ureter and urinary bladder wall which may indicate cystitis, correlation with urinalysis recommended. 2. Mild thickening of the wall to the left urinary bladder which may indicate the site of previous neoplasm, combination findings which may indicate residual inflammatory process versus scarring with recurrent neoplasm not entirely excluded. CT Chest Lower lobe segmental and subsegmental pulmonary emboli. No evidence of right-sided cardiac strain. Discussion: Patient with GPR in blood, BCID is negative. Difficult to tell if this is true pathogenic organism vs contaminant, agree with Vancomycin, but would pharm monitor closely in setting of nephrectomy. Agree with Cefepime to cover UTI Recommend: -Repeat blood cultures to document clearance 4/30 now in lab -I spoke with Microbiology about blood cultures and BCID is negative for anaerobic culture as well -C/W Cefepime to cover Urine will plan to treat for 7 days (her UCx only with 1K colonies but at risk given her recent stent replacement -Keep on Vancomycin for now pending bcx 11/11 results Spoke with her daughter at length at bedside Marilin Messer MD Infectious Diseases [facility], [facility] Admission and Anticipated Discharge Date Admission Date: November 09, 2023 Subjective Subsequent visit was provided via telemedicine using two-way real-time interactive telecommunication between the patient and the telemedicine provider. For the duration of the visit, the provider was performing the assessment from a different facility than the patient. This includesuse of bluetooth stethoscope forauscultationperformed by the telepresenter that the telemedicine provider can hear if described in the physical exam. [employer] Operator contact information: Please call [facility] . (Phone Number For Physician Use Only) After establishing a telemedicine visit, patient was: Patient was verified with two unique identifiers, Patient/authorized rep acknowledged consent and understanding and Gave permission to continue telehealth session Time Spent with Patient: Subsequent => 35 min Physical Exam Physical Exam: NAD Awakens to name No TTP on abdomen Results & Data Vital Signs (Past 12 Hours) Vital Signs Temp Pulse Pulse Resp BP Pulse Ox O2 Del Method 11/12/23 11:19 36.7 C 73 18 107/71 98 Nasal Cannula 11/12/23 08:00 Nasal Cannula 11/12/23 08:00 68 11/12/23 07:18 36.9 C 68 18 124/59 L 98 Nasal Cannula 11/12/23 05:14 37.5 C 76 24 142/89 H 99 Nasal Cannula 11/12/23 03:10 63 O2 Flow Rate 11/12/23 11:19 3 11/12/23 08:00 3 11/12/23 08:00 11/12/23 07:18 3 11/12/23 05:14 3.0 11/12/23 03:10 Laboratory Results Microbiology 11/09/23 19:09 Blood Aerobic Blood Culture - Preliminary Corynebacterium species 11/09/23 19:09 Blood Anaerobic Blood Culture - Preliminary Gram positive cocci clusters 11/09/23 19:09 Blood Aerobic Blood Culture - Preliminary Corynebacterium species 11/09/23 19:09 Blood Anaerobic Blood Culture - Final 11/09/23 21:35 Urine,Straight Cath Urine Culture - Final No growth - less than 1,000 colonies/mL. Short CBC 11/12/23 Range/Units 06:35 WBC 8.25 (4.8-10.8) K/ul Hgb 9.4 L (12.0-16.0) g/dl Hct 28.6 L (37.0-47.0) % Plt Count 277 (130-400) K/uL BMP 11/12/23 06:35 Sodium 135 L Potassium 3.1 L Chloride 105 Carbon Dioxide 23 BUN 20 Creatinine 0.95 Glucose 91 Calcium 9.3 Medications Administered Current Inpatient Medications Acetaminophen (Acetaminophen 500 Mg Tab) 1,000 mg PO QAM [facility] Stop: 12/10/23 08:59 Last Admin: 11/12/23 08:34 Dose: 1,000 mg Acetaminophen (Acetaminophen 500 Mg Tab) 1,000 mg PO Q6H PRN PRN Reason: Pain or Fever Stop: 12/09/23 23:45 Last Admin: 11/10/23 18:29 Dose: 1,000 mg Benzonatate (Benzonatate 100 Mg Capsule) 100 mg PO TID PRN PRN Reason: cough Stop: 12/10/23 08:59 Last Admin: 11/11/23 05:31 Dose: 100 mg Enoxaparin Sodium (Enoxaparin 80 Mg/0.8 Ml Syr) 70 mg SQ Q12H [facility] Stop: 12/10/23 09:59 Last Admin: 11/12/23 09:13 Dose: 70 mg Famotidine (Famotidine 20 Mg Tab) 20 mg PO BID [facility]AC[facility] Stop: 12/10/23 08:59 Last Admin: 11/12/23 08:34 Dose: 20 mg Heparin Sodium (Porcine) (Heparin 100 Unit/Ml 5ml Flush) 5 ml FLUSH PRN PRN PRN Reason: Flush Stop: 12/10/23 04:40 Hydrocortisone (Hydrocortisone 2.5% Cr 30 Gm Tube) 1 appln EXT BID PRN PRN Reason: Other Stop: 12/09/23 23:45 Last Admin: 11/10/23 20:42 Dose: 1 appln Hydroxyzine HCl (Hydroxyzine Hcl 25 Mg Tab) 50 mg PO HS PRN PRN Reason: itching/anxiety Stop: 12/09/23 23:45 Last Admin: 11/10/23 21:44 Dose: 50 mg Cefepime HCl 2,000 mg/ Syringe 20 mls @ 5 mls/min IV Q12H [facility]; Protocol Stop: 11/20/23 07:59 Last Admin: 11/12/23 08:34 Dose: 5 mls/min Vancomycin HCl 1,000 mg/ (Sodium Chloride) 270 mls @ 200 mls/hr IV Q24H [facility] Stop: 11/25/23 22:59 Last Infusion: 11/12/23 02:08 Dose: Infused Acetaminophen (Ofirmev) 1,000 mg in 100 mls @ 400 mls/hr IV Q8H PRN PRN Reason: Fever Stop: 11/14/23 16:05 Last Infusion: 11/11/23 17:29 Dose: Infused Potassium Chloride 40 meq/ (Sodium Chloride) 1,020 mls @ 100 mls/hr IV .[id number] [facility] Stop: 12/12/23 08:29 Last Admin: 11/12/23 09:13 Dose: 100 mls/hr Levothyroxine Sodium (Levothyroxine Sodium 50 Mcg Tablet) 50 mcg PO DAILY@1600 [facility] Stop: 12/10/23 15:59 Last Admin: 11/11/23 17:01 Dose: Not Given Lidocaine/Prilocaine (Lidocaine/Prilocaine 2.5% Ea Crm) 1 each EXT UD PRN PRN Reason: PORT ACCESS Stop: 12/09/23 23:45 Miscellaneous Information (Vancomycin Consult Active) 1 each N/A UD PRN PRN Reason: Consult Stop: 12/11/23 07:48 Ondansetron HCl (Ondansetron Inj 2 Mg/Ml 2 Ml Vial) 4 mg IV Q6H PRN PRN Reason: Nausea Stop: 12/09/23 23:45 (3) Bladder cancer Bladder location: unspecified site Qualified Code(s): C67.9 - Malignant neoplasm of bladder, unspecified
--- NOTE | 2023-11-12 14:23 | Fluoroscopy Report ---
VIDEO SWALLOW STUDY CLINICAL HISTORY: Aspiration. COMPARISON STUDY: No priors. Fluoroscopy time: 2.16 minutes. Ka,r: 7.89 mGy FINDINGS: Fluoroscopic guidance is provided to the Department of speech pathology in performing a vid eo swallow study. The patient consumed barium-impregnated pudding, cracker with paste, nectar-thick l iquid, and thin barium while the swallowing mechanism was observed in real-time. No penetration or as piration was seen on the initial swallows. The patient had trouble swallowing the cracker with paste texture, and there is aspiration with cough reflex is seen with the subsequent thin barium wash. Ther e is esophageal dysmotility, with delayed esophageal emptying into the stomach. IMPRESSION: Aspiration was seen with the thin-barium wash. See dedicated speech pathology report for detailed findings and recommendations. Dictated: 11/12/2023 10:40 AM Transcribed: 11/12/2023 10:51 AM Tab [id number] [email or web address] Electronically signed by: Eleuterio Orellana M.D. 11/12/2023 2:22 PM
[2023-11-12] MEDS: FAMOTIDINE 20MG IV PUSH 20 MG/5 ML SYR IV SCH (20:40)
[2023-11-12] MEDS: diphenhydrAMINE 50 MG/ML VIAL IV ONE (21:36)
[2023-11-13] MEDS: HEPARIN 100 UNIT/ML 5ML FLUSH FLUSH PRN (06:26)
[2023-11-13 06:42] LABS: Hematocrit (blood only) 28.6 % (37.0-47.0); Hemoglobin 9.1 g/dl (12.0-16.0); Mean Corpuscular Hemoglobin 31.5 pg (25.0-34.0); Mean Corpuscular Hgb Conc 31.8 g/dL (32.0-36.0); Mean Platelet Volume 9.2 fL (9.4-12.4); Platelet Count 293 K/uL (130-400); RDW Coefficient of Variation 15.9 % (11.5-14.5); RDW Standard Deviation 56.8 fL (36.4-46.3); Red Blood Count 2.89 M/uL (4.20-5.40); White Blood Count 7.65 K/ul (4.8-10.8)
[2023-11-13 07:01] LABS: Creatinine Clr Calc Pharmacy 39.1 ml/min; Est GFR (African American) 64.4 ml/min; Est GFR (Non-African American) 55.6 ml/min
--- NOTE | 2023-11-13 11:56 | Palliative Care Consultation ---
Date of Consultation November 13, 2023 Assessment & Plan (1) Weakness generalized: (2) Altered mental status: Altered mental status type: somnolence Qualified Code(s): R40.0 - Somnolence (3) Discussion about advance care planning held with family member: (4) Palliative care by specialist: (5) Aspiration into airway: Encounter type: subsequent encounter Qualified Code(s): T17.908D - Unspecified foreign body in respiratory tract, part unspecified causing other injury, subsequent encounter (6) Encephalopathy: (7) Pulmonary embolism: Acute cor pulmonale presence: without acute cor pulmonale Chronicity: acute Pulmonary embolism type: unspecified Qualified Code(s): I26.99 - Other pulmonary embolism without acute cor pulmonale (8) Bladder carcinoma: Plan * Per medical team, pt family elected return to [facility] with comfort care/hospice * Daughter told primary team they would like to speak with palliative med. She was not in room at time of my visit, though there are belonging (backpacks, etc) noted to be in the room. I called daughter and it went direct to [facility], where I left message. I am available until 1240, then after 115pm to 155pm. I will be in meetings 2-4pm this afternoon. * Plan of care appears to be return to SNF with [facility] and hospice, defer to care mgt for dispo planning. Thank you for allowing us to participate in the ongoing care of this patient. Please don't hesitate to call or page with any additional concerns. Dr. 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 no family present. she is not decisional and cannot engage in discussion I called dtr and it went to [facility] requesting a call back Allergies Allergy/AdvReac Type Severity Reaction Status Date / Time capsaicin Allergy Unknown Unknown Verified 11/07/23 11:42 house dust Allergy Unknown ON [place] Verified 11/09/23 19:17 MED LIST mold Allergy Unknown [place] Verified 11/09/23 19:17 MED LIST pollen extracts Allergy Unknown ON [place] Verified 11/09/23 19:17 MED LIST sulfamethoxazole Allergy Unknown ON [place] Verified 11/09/23 19:17 [From Bactrim] MED LIST trimethoprim [From Bactrim] Allergy Unknown ON [place] Verified 11/09/23 19:17 MED LIST SARA Inhibitors AdvReac Intermediate Cough Verified 11/09/23 19:17 ARB-Angiotensin Receptor AdvReac Intermediate Cough Verified 11/09/23 19:17 Antagonist pepper (genus Capsicum) AdvReac Intermediate Gastrointestinal Verified 11/09/23 19:17 Upset prednisone AdvReac Intermediate Dizziness Verified 11/09/23 19:17 & weird dreams tramadol AdvReac Intermediate Vomiting Verified 11/09/23 19:17 gabapentin AdvReac Mild Nausea Verified 11/09/23 19:17 Home Medications Medication Instructions Recorded Confirmed Type multivitamin (Daily Multi-Vitamin 1 tab PO QDL 04/01/19 11/09/23 History tablet) famotidine 20 mg tablet (Pepcid AC) 20 mg PO BID 08/09/21 11/09/23 History ascorbic acid 1,000 1 ea PO QAM 09/26/21 11/09/23 History bh-nxobiwymcwdh-nkrpnhcc powder effervescent pack (Emergen-C) cholecalciferol (vitamin D3) 25 25 mcg PO QDD 11/19/22 11/09/23 History mcg (1,000 unit) tablet (Vitamin D3) lidocaine-prilocaine 2.5 %-2.5 % 1 applic topical DIRECTED PRN 04/19/23 11/09/23 History topical cream PORT ACCESS acetaminophen 500 mg capsule 1,000 mg PO QAM Pain 04/24/23 11/09/23 History estradiol 0.01% (0.1 mg/gram) 1 g vaginal 3XWK 09/27/23 11/09/23 History vaginal cream (Estrace) levothyroxine 50 mcg tablet 50 mcg PO .DAILY AT 4PM 09/27/23 11/09/23 History vit C 250 mg-E 90 mg-zinc 40 1 tab PO QDL 09/27/23 11/09/23 History mg-copper 1 xp-chovtz-tcqxrs chew tablet (PreserVision AREDS-2) hydroxyzine HCl 50 mg tablet 50 mg PO HS PRN itching/anxiety 10/22/23 11/09/23 History hydrocortisone 2.5 % topical cream 1 applic topical BID PRN Other 10/23/23 11/09/23 History psyllium husk 0.4 gram capsule 0.4 g PO DAILY PRN Constipation 11/04/23 11/09/23 History (Metamucil) acetaminophen 500 mg tablet 1,000 mg PO Q6H PRN PAIN/FEVER 11/09/23 11/09/23 History (Tylenol Extra Strength) carvedilol 3.125 mg tablet (Coreg) 3.125 mg PO BIDM 11/09/23 11/09/23 History diphenhydramine HCl 25 mg capsule 25 mg PO DIRECTED PRN Itching 11/09/23 11/09/23 History (Benadryl) fexofenadine 180 mg tablet 180 mg PO DAILY PRN Itching 11/09/23 11/09/23 History Patient History Medical History (Updated 11/13/23 @ 12:12 by Ana Wang DNP) Palliative care by specialist Discussion about advance care planning held with family member Altered mental status Weakness generalized Hypertension History of cellulitis (~09/27/23) abdomen, admit at [facility] x 3days, tx with abx, now resolved History of chemotherapy Hypothyroidism CKD (chronic kidney disease), stage III 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) Ureteral obstruction Admitted to [facility] 01/24/23 and transferred to [facility] ([facility]) 01/25/23 with IR for nephrostomy tube placement Anemia Osteopenia Allergic rhinitis Migraines Hyperlipidemia Cardiomyopathy Valvular cardiomyopathy Immunotherapy history of- switched to chemo/no longer on immunotherapy Port-A-Cath in place (~11/14/22) Power Port - implantable port [place] Patient will bring the device card DOS Placed 11/14/2022 at [facility] Bladder carcinoma High grade s/p TURBT>currently on chemo @ [facility] weekly Presence of pessary Anxiety Mitral valve regurgitation Echo 07/2023:Severe MR Follows with Dr. Hernandez Urothelial cancer Dx 07/2021 S/p L nephroureterectomy 10/2021. [id number]. Recurrence/progression 02/2022 > multiple TURBTs Cutaneous metastases On Keytruda in the past- no longer taking per urology records Renal arterial aneurysm Follows with Dr. Archibald- last seen 03/2022- "aneurysm of right renal artery has not changed since her last visit and is only 0.8cm"- follow up in two years Stress incontinence Pessary in place GERD (gastroesophageal reflux disease) Macular degeneration Venous insufficiency Both legs Cystocele with prolapse PMR (polymyalgia rheumatica) Follows with rheum (Dr. 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 at [facility] H/O transurethral resection of bladder tumor (TURBT) multiple>with stent exchanges *last done 08/05/23 at [facility] Nausea and vomiting after administration of anesthetic agent History of surgery nephrostomy tube placement, [facility] 01/2023, subsequent removal S/P biopsy ureter S/p nephrectomy (~10/2021[facility] unilateral oophorectomy History of colonoscopy [place] teeth removed Family History Sister Breast cancer Mother , 88yo Stroke Hypertension Father , 54yo Black lung disease Brother Aneurysm Hypertension Brother Lung cancer Brother Addiction Daughter No problems noted. Other No family history of adverse response to anesthesia No pertinent family history Denies family history of Ovarian cancer Prostate cancer Myocardial infarction Colorectal cancer Social History Smoking Status: Never smoker Second Hand Exposure: No; Do You Dip or Chew Tobacco: No; Hx Alcohol Use: No Hx Substance Use: No Preferred Language: Citizen Of [place] Communication Ability: Effective Visual Impairment: No Limitations Hearing Ability: Normal Toilet Attendant Required: No Beliefs That Will Affect Care: None marital status: / Current Living Situation: Personal Care Facility Current Living Situation Comment: Lives at [facility] ([facility]dependent [facility]) 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 How many Children do You have: 1 Feels Safe at Home: Yes Diet: regular caffeine: No during the past year weight has: remained stable Seatbelt Use: always Sunscreen Use: Yes Assistive Devices: Glasses and Walker Review of Systems Review of Systems: Unobtainable due to cognitive status and Unobtainable due to reduced consciousness Physical Exam Physical Exam: lethargic, sleeping chronically ill appearing, frail normal resp effort at rest, no use of accessory muscles, diminished breath sounds bradycardic at 56bpm, no JVD, S1, loud S2, +murmur abd soft, BS diminished no gross fluid overload/peripheral edema skin is pale, cool to touch; there are scattered ecchymoses Results & Data Vital Signs (Past 12 Hours) Vital Signs Temp Pulse Pulse Resp BP Pulse Ox O2 Del Method 11/13/23 11:21 36.6 C 58 L 17 121/77 100 Nasal Cannula 11/13/23 07:28 36.3 C L 60 18 151/79 H 99 Room Air 11/13/23 03:15 36.9 C 65 20 142/80 H 100 CPAP 11/13/23 02:11 71 24 97 O2 Flow Rate 11/13/23 11:21 3 11/13/23 07:28 11/13/23 03:15 11/13/23 02:11 3 Laboratory Results Most recent lab results Calcium 9.3 mg/dl (8.6-10.3) 11/12/23 06:35 Magnesium 1.6 mg/dl (1.7-2.4) L 11/10/23 21:30 11/13/23 11/13/23 11/12/23 Range/Units 11:38 06:25 06:35 WBC 7.65 8.25 (4.8-10.8) K/ul RBC 2.89 L 2.94 L (4.20-5.40) M/uL Hgb 9.1 L 9.4 L (12.0-16.0) g/dl Hct 28.6 L 28.6 L (37.0-47.0) % MCV 99.0 97.3 (80.0-100.0) fL MCH 31.5 32.0 (25.0-34.0) pg MCHC 31.8 L 32.9 (32.0-36.0) g/dL RDW Std Deviation 56.8 H 55.7 H (36.4-46.3) fL RDW Coeff of Cathy 15.9 H 15.7 H (11.5-14.5) % Plt Count 293 277 (130-400) K/uL MPV 9.2 L 9.5 (9.4-12.4) fL Immature Gran % (Auto) 1.6 % Neut % (Auto) 73.1 % Lymph % (Auto) 6.8 % Eddy % (Auto) 15.6 % Eos % (Auto) 2.4 % Baso % (Auto) 0.5 % Neut # (Auto) 6.03 (1.40-6.50) K/uL Lymph # (Auto) 0.56 L (1.20-3.40) K/uL Eddy # (Auto) 1.29 H (0.11-0.59) K/uL Eos # (Auto) 0.20 (0.00-0.50) K/uL Baso # (Auto) 0.04 (0.00-0.20) K/uL Immature Gran # (Auto) 0.13 (0.01-0.20) K/uL PT (9.0-12.0) Seconds INR (0.9-1.1) Heparin Anti-Xa, LM Wt Heparin Anti-Xa, Unfract (0.3-0.7) IU/ml VBG pH (7.36-7.41) VBG pCO2 (38-50) mmHg VBG pO2 mmHg VBG HCO3 mmol/L VBG O2 Saturation % VBG Base Excess mEq/L Sodium 135 L (136-145) mmol/L Potassium 3.1 L (3.5-5.1) mmol/L Chloride 105 (98-107) mmol/L Carbon Dioxide 23 (21-32) mmol/L Anion Gap 7 (3-11) BUN 20 (6-23) mg/dl Creatinine 0.92 0.95 (0.6-1.2) mg/dl Est Cr Clr Drug Dosing 39.1 37.3 ml/min Est GFR ( Amer) 64.4 62.0 ml/min Est GFR (Non-Af Amer) 55.6 53.5 ml/min BUN/Creatinine Ratio 21.1 H (10-20) Glucose 91 (70-99(Fasting)) mg/dl POC Glucose (70-99) mg/dl Lactate (0.4-2.0) mmol/L Calcium 9.3 (8.6-10.3) mg/dl Magnesium (1.7-2.4) mg/dl Total Bilirubin (0.2-1.0) mg/dl Direct Bilirubin (0-0.2) mg/dl AST (13-39) U/L ALT (7-52) U/L Alkaline Phosphatase (34-104) U/L Ammonia (18-72) umol/L Troponin I High Sens (0-14) pg/ml Total Protein (6.0-8.3) gm/dl Albumin (3.4-5.0) gm/dl Globulin (2.5-4.0) gm/dl Albumin/Globulin Ratio (0.9-2) Lipase (11-82) U/L Vitamin B12 (180-914) pg/ml Procalcitonin (0-0.5) ng/ml TSH (0.300-4.500) uIu/ml Urine Color Urine Appearance (Clear) Urine pH (4.5-7.5) Ur Specific [place] (1.000-1.030) Urine Protein (Negative) Urine Glucose (UA) (Negative) Urine Ketones (Negative) Urine Blood (Negative) Urine Nitrite (Negative) Urine Bilirubin (Negative) Urine Urobilinogen (Negative) Ur Leukocyte Esterase (Negative) Urine WBC (Auto) (0-5) /hpf Urine RBC (Auto) (0-2) /hpf U Hyaline Cast (Auto) (0-2) /lpf U Epithel Cells (Auto) (0-2) /hpf Urine Bacteria (Auto) (None Seen) Calcium Oxalate Crystal (None Prsent) Random Vancomycin Pending Adenovirus (PCR) (NotDetected) B. pertussis DNA (PCR) (NotDetected) B.parapertussis DNA PCR (NotDetected) C. pneumoniae DNA (PCR) (NotDetected) Coronavirus OC43 (PCR) (NotDetected) Coronavirus HKU1 (PCR) (NotDetected) Coronavirus 229E (PCR) (NotDetected) SARS-CoV-2 (PCR) (NotDetected) Coronavirus NL63 (PCR) (NotDetected) Human Metapneumovir PCR (NotDetected) Influenza Type A (PCR) (NotDetected) Influenza Type B (PCR) (NotDetected) M. pneumoniae (PCR) (NotDetected) Parainfluenza 1 (PCR) (NotDetected) Parainfluenza 2 (PCR) (NotDetected) Parainfluenza 3 (PCR) (NotDetected) Parainfluenza 4 (PCR) (NotDetected) RSV (PCR) (NotDetected) Entero/Rhino (PCR) (NotDetected) Bld Cult ID Panel PCR (NotDetected) 11/11/23 11/10/23 11/10/23 Range/Units 06:09 21:30 21:29 WBC 7.30 7.18 (4.8-10.8) K/ul RBC 2.99 L 2.87 L (4.20-5.40) M/uL Hgb 9.3 L 9.2 L (12.0-16.0) g/dl Hct 29.2 L 28.5 L (37.0-47.0) % MCV 97.7 99.3 (80.0-100.0) fL MCH 31.1 32.1 (25.0-34.0) pg MCHC 31.8 L 32.3 (32.0-36.0) g/dL RDW Std Deviation 56.5 H 56.7 H (36.4-46.3) fL RDW Coeff of Cathy 15.9 H 16.0 H (11.5-14.5) % Plt Count 226 200 (130-400) K/uL MPV 9.4 9.6 (9.4-12.4) fL Immature Gran % (Auto) 3.3 3.2 % Neut % (Auto) 67.0 71.2 % Lymph % (Auto) 8.1 6.4 % Eddy % (Auto) 16.0 15.7 % Eos % (Auto) 5.1 2.9 % Baso % (Auto) 0.5 0.6 % Neut # (Auto) 4.89 5.11 (1.40-6.50) K/uL Lymph # (Auto) 0.59 L 0.46 L (1.20-3.40) K/uL Eddy # (Auto) 1.17 H 1.13 H (0.11-0.59) K/uL Eos # (Auto) 0.37 0.21 (0.00-0.50) K/uL Baso # (Auto) 0.04 0.04 (0.00-0.20) K/uL Immature Gran # (Auto) 0.24 H 0.23 H (0.01-0.20) K/uL PT (9.0-12.0) Seconds INR (0.9-1.1) Heparin Anti-Xa, LM Wt Heparin Anti-Xa, Unfract (0.3-0.7) IU/ml VBG pH 7.40 (7.36-7.41) VBG pCO2 36 L (38-50) mmHg VBG pO2 48 mmHg VBG HCO3 22 mmol/L VBG O2 Saturation 81.7 % VBG Base Excess -2.0 mEq/L Sodium 134 L 131 L (136-145) mmol/L Potassium 3.5 3.9 (3.5-5.1) mmol/L Chloride 104 103 (98-107) mmol/L Carbon Dioxide 24 21 (21-32) mmol/L Anion Gap 6 7 (3-11) BUN 23 26 H (6-23) mg/dl Creatinine 1.11 1.24 H (0.6-1.2) mg/dl Est Cr Clr Drug Dosing 33.0 29.9 ml/min Est GFR ( Amer) 51.3 44.9 ml/min Est GFR (Non-Af Amer) 44.3 38.8 ml/min BUN/Creatinine Ratio 20.7 H 21.0 H (10-20) Glucose 91 112 H (70-99(Fasting)) mg/dl POC Glucose (70-99) mg/dl Lactate (0.4-2.0) mmol/L Calcium 9.2 9.0 (8.6-10.3) mg/dl Magnesium 1.6 L (1.7-2.4) mg/dl Total Bilirubin 0.5 (0.2-1.0) mg/dl Direct Bilirubin (0-0.2) mg/dl AST 37 (13-39) U/L ALT 18 (7-52) U/L Alkaline Phosphatase 86 (34-104) U/L Ammonia 18.0 (18-72) umol/L Troponin I High Sens (0-14) pg/ml Total Protein 5.7 L (6.0-8.3) gm/dl Albumin 2.9 L (3.4-5.0) gm/dl Globulin 2.8 (2.5-4.0) gm/dl Albumin/Globulin Ratio 1.0 (0.9-2) Lipase (11-82) U/L Vitamin B12 870 (180-914) pg/ml Procalcitonin (0-0.5) ng/ml TSH 1.378 (0.300-4.500) uIu/ml Urine Color Urine Appearance (Clear) Urine pH (4.5-7.5) Ur Specific [place] (1.000-1.030) Urine Protein (Negative) Urine Glucose (UA) (Negative) Urine Ketones (Negative) Urine Blood (Negative) Urine Nitrite (Negative) Urine Bilirubin (Negative) Urine Urobilinogen (Negative) Ur Leukocyte Esterase (Negative) Urine WBC (Auto) (0-5) /hpf Urine RBC (Auto) (0-2) /hpf U Hyaline Cast (Auto) (0-2) /lpf U Epithel Cells (Auto) (0-2) /hpf Urine Bacteria (Auto) (None Seen) Calcium Oxalate Crystal (None Prsent) Random Vancomycin Adenovirus (PCR) (NotDetected) B. pertussis DNA (PCR) (NotDetected) B.parapertussis DNA PCR (NotDetected) C. pneumoniae DNA (PCR) (NotDetected) Coronavirus OC43 (PCR) (NotDetected) Coronavirus HKU1 (PCR) (NotDetected) Coronavirus 229E (PCR) (NotDetected) SARS-CoV-2 (PCR) (NotDetected) Coronavirus NL63 (PCR) (NotDetected) Human Metapneumovir PCR (NotDetected) Influenza Type A (PCR) (NotDetected) Influenza Type B (PCR) (NotDetected) M. pneumoniae (PCR) (NotDetected) Parainfluenza 1 (PCR) (NotDetected) Parainfluenza 2 (PCR) (NotDetected) Parainfluenza 3 (PCR) (NotDetected) Parainfluenza 4 (PCR) (NotDetected) RSV (PCR) (NotDetected) Entero/Rhino (PCR) (NotDetected) Bld Cult ID Panel PCR (NotDetected) 11/10/23 11/10/23 11/10/23 Range/Units 18:37 14:11 09:15 WBC (4.8-10.8) K/ul RBC (4.20-5.40) M/uL Hgb (12.0-16.0) g/dl Hct (37.0-47.0) % MCV (80.0-100.0) fL MCH (25.0-34.0) pg MCHC (32.0-36.0) g/dL RDW Std Deviation (36.4-46.3) fL RDW Coeff of Cathy (11.5-14.5) % Plt Count (130-400) K/uL MPV (9.4-12.4) fL Immature Gran % (Auto) % Neut % (Auto) % Lymph % (Auto) % Eddy % (Auto) % Eos % (Auto) % Baso % (Auto) % Neut # (Auto) (1.40-6.50) K/uL Lymph # (Auto) (1.20-3.40) K/uL Eddy # (Auto) (0.11-0.59) K/uL Eos # (Auto) (0.00-0.50) K/uL Baso # (Auto) (0.00-0.20) K/uL Immature Gran # (Auto) (0.01-0.20) K/uL PT (9.0-12.0) Seconds INR (0.9-1.1) Heparin Anti-Xa, LM Wt Heparin Anti-Xa, Unfract 0.77 H* (0.3-0.7) IU/ml VBG pH (7.36-7.41) VBG pCO2 (38-50) mmHg VBG pO2 mmHg VBG HCO3 mmol/L VBG O2 Saturation % VBG Base Excess mEq/L Sodium (136-145) mmol/L Potassium (3.5-5.1) mmol/L Chloride (98-107) mmol/L Carbon Dioxide (21-32) mmol/L Anion Gap (3-11) BUN (6-23) mg/dl Creatinine (0.6-1.2) mg/dl Est Cr Clr Drug Dosing ml/min Est GFR ( Amer) ml/min Est GFR (Non-Af Amer) ml/min BUN/Creatinine Ratio (10-20) Glucose (70-99(Fasting)) mg/dl POC Glucose 141 H (70-99) mg/dl Lactate (0.4-2.0) mmol/L Calcium (8.6-10.3) mg/dl Magnesium (1.7-2.4) mg/dl Total Bilirubin (0.2-1.0) mg/dl Direct Bilirubin (0-0.2) mg/dl AST (13-39) U/L ALT (7-52) U/L Alkaline Phosphatase (34-104) U/L Ammonia (18-72) umol/L Troponin I High Sens 54.0 H* (0-14) pg/ml Total Protein (6.0-8.3) gm/dl Albumin (3.4-5.0) gm/dl Globulin (2.5-4.0) gm/dl Albumin/Globulin Ratio (0.9-2) Lipase (11-82) U/L Vitamin B12 (180-914) pg/ml Procalcitonin (0-0.5) ng/ml TSH (0.300-4.500) uIu/ml Urine Color Urine Appearance (Clear) Urine pH (4.5-7.5) Ur Specific [place] (1.000-1.030) Urine Protein (Negative) Urine Glucose (UA) (Negative) Urine Ketones (Negative) Urine Blood (Negative) Urine Nitrite (Negative) Urine Bilirubin (Negative) Urine Urobilinogen (Negative) Ur Leukocyte Esterase (Negative) Urine WBC (Auto) (0-5) /hpf Urine RBC (Auto) (0-2) /hpf U Hyaline Cast (Auto) (0-2) /lpf U Epithel Cells (Auto) (0-2) /hpf Urine Bacteria (Auto) (None Seen) Calcium Oxalate Crystal (None Prsent) Random Vancomycin Adenovirus (PCR) (NotDetected) B. pertussis DNA (PCR) (NotDetected) B.parapertussis DNA PCR (NotDetected) C. pneumoniae DNA (PCR) (NotDetected) Coronavirus OC43 (PCR) (NotDetected) Coronavirus HKU1 (PCR) (NotDetected) Coronavirus 229E (PCR) (NotDetected) SARS-CoV-2 (PCR) (NotDetected) Coronavirus NL63 (PCR) (NotDetected) Human Metapneumovir PCR (NotDetected) Influenza Type A (PCR) (NotDetected) Influenza Type B (PCR) (NotDetected) M. pneumoniae (PCR) (NotDetected) Parainfluenza 1 (PCR) (NotDetected) Parainfluenza 2 (PCR) (NotDetected) Parainfluenza 3 (PCR) (NotDetected) Parainfluenza 4 (PCR) (NotDetected) RSV (PCR) (NotDetected) Entero/Rhino (PCR) (NotDetected) Bld Cult ID Panel PCR (NotDetected) 11/10/23 11/09/23 11/09/23 Range/Units 03:35 21:42 21:35 WBC 5.78 (4.8-10.8) K/ul RBC 2.69 L (4.20-5.40) M/uL Hgb 8.8 L (12.0-16.0) g/dl Hct 26.9 L (37.0-47.0) % MCV 100.0 (80.0-100.0) fL MCH 32.7 (25.0-34.0) pg MCHC 32.7 (32.0-36.0) g/dL RDW Std Deviation 58.7 H (36.4-46.3) fL RDW Coeff of Cathy 16.3 H (11.5-14.5) % Plt Count 160 (130-400) K/uL MPV 9.6 (9.4-12.4) fL Immature Gran % (Auto) 4.8 % Neut % (Auto) 62.2 % Lymph % (Auto) 10.7 % Eddy % (Auto) 17.5 % Eos % (Auto) 4.3 % Baso % (Auto) 0.5 % Neut # (Auto) 3.59 (1.40-6.50) K/uL Lymph # (Auto) 0.62 L (1.20-3.40) K/uL Eddy # (Auto) 1.01 H (0.11-0.59) K/uL Eos # (Auto) 0.25 (0.00-0.50) K/uL Baso # (Auto) 0.03 (0.00-0.20) K/uL Immature Gran # (Auto) 0.28 H (0.01-0.20) K/uL PT (9.0-12.0) Seconds INR (0.9-1.1) Heparin Anti-Xa, LM Wt Cancelled Heparin Anti-Xa, Unfract 0.91 H* (0.3-0.7) IU/ml VBG pH (7.36-7.41) VBG pCO2 (38-50) mmHg VBG pO2 mmHg VBG HCO3 mmol/L VBG O2 Saturation % VBG Base Excess mEq/L Sodium 133 L (136-145) mmol/L Potassium 3.5 (3.5-5.1) mmol/L Chloride 105 (98-107) mmol/L Carbon Dioxide 23 (21-32) mmol/L Anion Gap 5 (3-11) BUN 22 (6-23) mg/dl Creatinine 1.03 (0.6-1.2) mg/dl Est Cr Clr Drug Dosing 36.0 ml/min Est GFR ( Amer) 56.2 ml/min Est GFR (Non-Af Amer) 48.5 ml/min BUN/Creatinine Ratio 21.4 H (10-20) Glucose 111 H (70-99(Fasting)) mg/dl POC Glucose (70-99) mg/dl Lactate (0.4-2.0) mmol/L Calcium 8.8 (8.6-10.3) mg/dl Magnesium 1.7 (1.7-2.4) mg/dl Total Bilirubin (0.2-1.0) mg/dl Direct Bilirubin (0-0.2) mg/dl AST (13-39) U/L ALT (7-52) U/L Alkaline Phosphatase (34-104) U/L Ammonia (18-72) umol/L Troponin I High Sens 59.5 H* D 91.5 H* D (0-14) pg/ml Total Protein (6.0-8.3) gm/dl Albumin (3.4-5.0) gm/dl Globulin (2.5-4.0) gm/dl Albumin/Globulin Ratio (0.9-2) Lipase (11-82) U/L Vitamin B12 (180-914) pg/ml Procalcitonin (0-0.5) ng/ml TSH (0.300-4.500) uIu/ml Urine Color Yellow Urine Appearance Cloudy A (Clear) Urine pH 7.5 (4.5-7.5) Ur Specific [place] 1.019 (1.000-1.030) Urine Protein 2+ H (Negative) Urine Glucose (UA) Negative (Negative) Urine Ketones Negative (Negative) Urine Blood 3+ H (Negative) Urine Nitrite Negative (Negative) Urine Bilirubin Negative (Negative) Urine Urobilinogen Negative (Negative) Ur Leukocyte Esterase 2+ H (Negative) Urine WBC (Auto) >50 H (0-5) /hpf Urine RBC (Auto) >20 H (0-2) /hpf U Hyaline Cast (Auto) 0-2 (0-2) /lpf U Epithel Cells (Auto) 0-2 (0-2) /hpf Urine Bacteria (Auto) None Seen (None Seen) Calcium Oxalate Crystal Present A (None Prsent) Random Vancomycin Adenovirus (PCR) (NotDetected) B. pertussis DNA (PCR) (NotDetected) B.parapertussis DNA PCR (NotDetected) C. pneumoniae DNA (PCR) (NotDetected) Coronavirus OC43 (PCR) (NotDetected) Coronavirus HKU1 (PCR) (NotDetected) Coronavirus 229E (PCR) (NotDetected) SARS-CoV-2 (PCR) (NotDetected) Coronavirus NL63 (PCR) (NotDetected) Human Metapneumovir PCR (NotDetected) Influenza Type A (PCR) (NotDetected) Influenza Type B (PCR) (NotDetected) M. pneumoniae (PCR) (NotDetected) Parainfluenza 1 (PCR) (NotDetected) Parainfluenza 2 (PCR) (NotDetected) Parainfluenza 3 (PCR) (NotDetected) Parainfluenza 4 (PCR) (NotDetected) RSV (PCR) (NotDetected) Entero/Rhino (PCR) (NotDetected) Bld Cult ID Panel PCR (NotDetected) 11/09/23 11/09/23 11/09/23 Range/Units 19:51 19:11 19:09 WBC (4.8-10.8) K/ul RBC (4.20-5.40) M/uL Hgb (12.0-16.0) g/dl Hct (37.0-47.0) % MCV (80.0-100.0) fL MCH (25.0-34.0) pg MCHC (32.0-36.0) g/dL RDW Std Deviation (36.4-46.3) fL RDW Coeff of Cathy (11.5-14.5) % Plt Count (130-400) K/uL MPV (9.4-12.4) fL Immature Gran % (Auto) % Neut % (Auto) % Lymph % (Auto) % Eddy % (Auto) % Eos % (Auto) % Baso % (Auto) % Neut # (Auto) (1.40-6.50) K/uL Lymph # (Auto) (1.20-3.40) K/uL Eddy # (Auto) (0.11-0.59) K/uL Eos # (Auto) (0.00-0.50) K/uL Baso # (Auto) (0.00-0.20) K/uL Immature Gran # (Auto) (0.01-0.20) K/uL PT (9.0-12.0) Seconds INR (0.9-1.1) Heparin Anti-Xa, LM Wt Heparin Anti-Xa, Unfract (0.3-0.7) IU/ml VBG pH (7.36-7.41) VBG pCO2 (38-50) mmHg VBG pO2 mmHg VBG HCO3 mmol/L VBG O2 Saturation % VBG Base Excess mEq/L Sodium (136-145) mmol/L Potassium (3.5-5.1) mmol/L Chloride (98-107) mmol/L Carbon Dioxide (21-32) mmol/L Anion Gap (3-11) BUN (6-23) mg/dl Creatinine (0.6-1.2) mg/dl Est Cr Clr Drug Dosing ml/min Est GFR ( Amer) ml/min Est GFR (Non-Af Amer) ml/min BUN/Creatinine Ratio (10-20) Glucose (70-99(Fasting)) mg/dl POC Glucose (70-99) mg/dl Lactate 1.0 (0.4-2.0) mmol/L Calcium (8.6-10.3) mg/dl Magnesium (1.7-2.4) mg/dl Total Bilirubin (0.2-1.0) mg/dl Direct Bilirubin (0-0.2) mg/dl AST (13-39) U/L ALT (7-52) U/L Alkaline Phosphatase (34-104) U/L Ammonia (18-72) umol/L Troponin I High Sens (0-14) pg/ml Total Protein (6.0-8.3) gm/dl Albumin (3.4-5.0) gm/dl Globulin (2.5-4.0) gm/dl Albumin/Globulin Ratio (0.9-2) Lipase (11-82) U/L Vitamin B12 (180-914) pg/ml Procalcitonin (0-0.5) ng/ml TSH (0.300-4.500) uIu/ml Urine Color Urine Appearance (Clear) Urine pH (4.5-7.5) Ur Specific Callaway (1.000-1.030) Urine Protein (Negative) Urine Glucose (UA) (Negative) Urine Ketones (Negative) Urine Blood (Negative) Urine Nitrite (Negative) Urine Bilirubin (Negative) Urine Urobilinogen (Negative) Ur Leukocyte Esterase (Negative) Urine WBC (Auto) (0-5) /hpf Urine RBC (Auto) (0-2) /hpf U Hyaline Cast (Auto) (0-2) /lpf U Epithel Cells (Auto) (0-2) /hpf Urine Bacteria (Auto) (None Seen) Calcium Oxalate Crystal (None Prsent) Random Vancomycin Adenovirus (PCR) Not Detected (NotDetected) B. pertussis DNA (PCR) Not Detected (NotDetected) B.parapertussis DNA PCR Not Detected (NotDetected) C. pneumoniae DNA (PCR) Not Detected (NotDetected) Coronavirus OC43 (PCR) Not Detected (NotDetected) Coronavirus HKU1 (PCR) Not Detected (NotDetected) Coronavirus 229E (PCR) Not Detected (NotDetected) SARS-CoV-2 (PCR) Not Detected (NotDetected) Coronavirus NL63 (PCR) Not Detected (NotDetected) Human Metapneumovir PCR Not Detected (NotDetected) Influenza Type A (PCR) Not Detected (NotDetected) Influenza Type B (PCR) Not Detected (NotDetected) M. pneumoniae (PCR) Not Detected (NotDetected) Parainfluenza 1 (PCR) Not Detected (NotDetected) Parainfluenza 2 (PCR) Not Detected (NotDetected) Parainfluenza 3 (PCR) Not Detected (NotDetected) Parainfluenza 4 (PCR) Not Detected (NotDetected) RSV (PCR) Not Detected (NotDetected) Entero/Rhino (PCR) Not Detected (NotDetected) Bld Cult ID Panel PCR PCR Panel Negative (NotDetected) 11/09/23 11/09/23 Range/Units 19:09 18:45 WBC 8.13 (4.8-10.8) K/ul RBC 3.23 L (4.20-5.40) M/uL Hgb 10.5 L (12.0-16.0) g/dl Hct 31.4 L (37.0-47.0) % MCV 97.2 (80.0-100.0) fL MCH 32.5 (25.0-34.0) pg MCHC 33.4 (32.0-36.0) g/dL RDW Std Deviation 55.8 H (36.4-46.3) fL RDW Coeff of Cathy 15.9 H (11.5-14.5) % Plt Count 171 (130-400) K/uL MPV 10.1 (9.4-12.4) fL Immature Gran % (Auto) 4.1 % Neut % (Auto) 72.4 % Lymph % (Auto) 5.7 % Eddy % (Auto) 13.7 % Eos % (Auto) 3.7 % Baso % (Auto) 0.4 % Neut # (Auto) 5.90 (1.40-6.50) K/uL Lymph # (Auto) 0.46 L (1.20-3.40) K/uL Eddy # (Auto) 1.11 H (0.11-0.59) K/uL Eos # (Auto) 0.30 (0.00-0.50) K/uL Baso # (Auto) 0.03 (0.00-0.20) K/uL Immature Gran # (Auto) 0.33 H (0.01-0.20) K/uL PT 11.7 (9.0-12.0) Seconds INR 1.1 (0.9-1.1) Heparin Anti-Xa, LM Wt Heparin Anti-Xa, Unfract (0.3-0.7) IU/ml VBG pH 7.46 H (7.36-7.41) VBG pCO2 36 L (38-50) mmHg VBG pO2 39 mmHg VBG HCO3 26 mmol/L VBG O2 Saturation 69.7 % VBG Base Excess 2.0 mEq/L Sodium 131 L (136-145) mmol/L Potassium 4.0 (3.5-5.1) mmol/L Chloride 99 (98-107) mmol/L Carbon Dioxide 22 (21-32) mmol/L Anion Gap 10 (3-11) BUN 24 H (6-23) mg/dl Creatinine 1.05 (0.6-1.2) mg/dl Est Cr Clr Drug Dosing 37.6 ml/min Est GFR ( Amer) 54.9 ml/min Est GFR (Non-Af Amer) 47.4 ml/min BUN/Creatinine Ratio 22.9 H (10-20) Glucose 115 H (70-99(Fasting)) mg/dl POC Glucose (70-99) mg/dl Lactate (0.4-2.0) mmol/L Calcium 10.1 (8.6-10.3) mg/dl Magnesium 1.9 (1.7-2.4) mg/dl Total Bilirubin 0.5 (0.2-1.0) mg/dl Direct Bilirubin 0.2 (0-0.2) mg/dl AST 43 H (13-39) U/L ALT 21 (7-52) U/L Alkaline Phosphatase 89 (34-104) U/L Ammonia (18-72) umol/L Troponin I High Sens 78.6 H* (0-14) pg/ml Total Protein 6.5 (6.0-8.3) gm/dl Albumin 3.5 (3.4-5.0) gm/dl Globulin (2.5-4.0) gm/dl Albumin/Globulin Ratio (0.9-2) Lipase 12 (11-82) U/L Vitamin B12 (180-914) pg/ml Procalcitonin 1.94 H (0-0.5) ng/ml TSH (0.300-4.500) uIu/ml Urine Color Urine Appearance (Clear) Urine pH (4.5-7.5) Ur Specific Callaway (1.000-1.030) Urine Protein (Negative) Urine Glucose (UA) (Negative) Urine Ketones (Negative) Urine Blood (Negative) Urine Nitrite (Negative) Urine Bilirubin (Negative) Urine Urobilinogen (Negative) Ur Leukocyte Esterase (Negative) Urine WBC (Auto) (0-5) /hpf Urine RBC (Auto) (0-2) /hpf U Hyaline Cast (Auto) (0-2) /lpf U Epithel Cells (Auto) (0-2) /hpf Urine Bacteria (Auto) (None Seen) Calcium Oxalate Crystal (None Prsent) Random Vancomycin Adenovirus (PCR) (NotDetected) B. pertussis DNA (PCR) (NotDetected) B.parapertussis DNA PCR (NotDetected) C. pneumoniae DNA (PCR) (NotDetected) Coronavirus OC43 (PCR) (NotDetected) Coronavirus HKU1 (PCR) (NotDetected) Coronavirus 229E (PCR) (NotDetected) SARS-CoV-2 (PCR) (NotDetected) Coronavirus NL63 (PCR) (NotDetected) Human Metapneumovir PCR (NotDetected) Influenza Type A (PCR) (NotDetected) Influenza Type B (PCR) (NotDetected) M. pneumoniae (PCR) (NotDetected) Parainfluenza 1 (PCR) (NotDetected) Parainfluenza 2 (PCR) (NotDetected) Parainfluenza 3 (PCR) (NotDetected) Parainfluenza 4 (PCR) (NotDetected) RSV (PCR) (NotDetected) Entero/Rhino (PCR) (NotDetected) Bld Cult ID Panel PCR PCR Panel Negative (NotDetected) Diagnostic Findings Chest X-Ray 11/09/23 18:51 XR chest 1V portable CLINICAL HISTORY: Sepsis. COMPARISON STUDY: Chest CT September 12, 2022. Chest radiograph September 27, 2023. FINDINGS: Right internal jugular Estoop-w-Zcub is in place. Lung volumes are mildly diminished. No pneumothorax or pleural effusion is identified. There is mild fissural thickening. Left basilar opacity is also noted. There is minimal right basilar opacity. Mild cardiomegaly is unchanged. Mediastinal contours are stable. IMPRESSION: Mild interstitial thickening and lower lung airspace opacities. Although possibly related to a hypoventilatory study, pulmonary edema or an infectious process could have this imaging appearance. ACT 112: Negative or not required by law. Electronically signed by: Flip Samayoa M.D. 11/09/2023 7:40 PM Abdomen/Pelvis CT 11/09/23 19:36 Exam(s): CT ABDOMEN + PELVIS With Contrast IV Amt: OPTIRAY 320 93ML EXAM: CT Abdomen and Pelvis With Intravenous Contrast CLINICAL HISTORY: Reason for exam: sepsis, uti, ureteral stent. TECHNIQUE: Axial computed tomography images of the abdomen and pelvis with intravenous contrast. CTDI is 23.51 mGy and DLP is 1182.46 mGy-cm. Automated exposure control was utilized for the study. A dose lowering technique was utilized adhering to the principles of ALARA. CONTRAST: Patient received OPTIRAY 320 93ML of IV contrast COMPARISON: 09/27/2023. FINDINGS: Lung bases: Significant vascular crowding with mild vascular congestion not excluded. Posterior dependent atelectasis. Pleural space: Unremarkable. No pleural effusion or pneumothorax. Heart: Mild cardiomegaly. ABDOMEN: Liver: 2 adjacent cysts within the left liver lobe measuring total dimension of 2.5 cm. Otherwise normal liver. Gallbladder and bile ducts: Over distended gallbladder otherwise unremarkable gallbladder and biliary system. No calcified stones. No ductal dilation. Pancreas: Unremarkable. No mass. No ductal dilation. Spleen: Unremarkable. No splenomegaly. Adrenals: Unremarkable. No mass. Kidneys and ureters: There is moderate to severe right-sided hydronephrosis with right ureteral stent in place. There are right-sided simple renal cysts, largest seen in the lower pole measuring 5.6 x 6.0 cm. There is mild enhancement through the wall of the right renal pelvis and right ureter with mild stranding surrounding the urinary bladder, combination of findings suggestive of cystitis/urothelial infectious process. There is more focal urinary bladder wall thickening on the left side which may indicate the site of previous neoplasm, recurrent process versus scarring/inflammatory changes included in the differential diagnosis. Nonvisualized left kidney suggestive of previous nephrectomy. Stomach and bowel: There is a right para ventral hernia containing several small bowel loops with no signs of obstruction. There is a second umbilical hernia containing small amount of peritoneal fat with vascular structures. Diverticulosis throughout the colon more severe through the sigmoid. There is no focal inflammatory process to suggest diverticulitis, abnormal finding stable in the interval. There is a round structure in the right adnexa junction with the right sigmoid, image 67, series 11 measuring 2.2 cm, stable in the interval which could represent ovarian complex cyst versus prominent sigmoid diverticula. PELVIS: Appendix: No findings to suggest acute appendicitis. Bladder: Small amount of punctate air along the anterior and the dependent portion of the urinary bladder loss, and the associated with post catheterization attempt. Reproductive: The uterus is anteverted. A pessary is seen in place. ABDOMEN and PELVIS: Intraperitoneal space: There is indeterminate stranding in the right side of the peritoneum, unchanged in the interval. No free air. No significant fluid collection. Bones/joints: Degenerative disease of the lumbar spine with multilevel vacuum phenomenon. No acute fracture. No dislocation. Soft tissues: See above. Vasculature: Unremarkable. No abdominal aortic aneurysm. Lymph nodes: Indeterminate scattered lymph nodes along the distal periaortic region, stable in the interval and of indeterminate etiology. Tubes, lines and devices: Right-sided chest port in place. IMPRESSION: 1. Right-sided hydronephrosis with right ureteral stent in place, stable or minimally progressed in the interval. There is mild enhancement of the wall through the right ureter and urinary bladder wall which may indicate cystitis, correlation with urinalysis recommended. 2. Mild thickening of the wall to the left urinary bladder which may indicate the site of previous neoplasm, combination findings which may indicate residual inflammatory process versus scarring with recurrent neoplasm not entirely excluded. 3. Right-sided paracentral hernia containing small bowel loops with no signs of obstruction. No acute appendicitis. 4. Diverticulosis with no signs of diverticulitis. 5. Status post left nephrectomy. Electronically signed by: Elsa Palma MD 11/09/23 21:[address] 11/09/23 19:36 Exam(s): CT C SPINE EXAM: CT Cervical Spine Without Intravenous Contrast CLINICAL HISTORY: Reason for exam: sepsis, fall. TECHNIQUE: Axial computed tomography images of the cervical spine without intravenous contrast. CTDI is 23.74 mGy and DLP is 436.44 mGy-cm. Automated exposure control was utilized for the study. A dose lowering technique was utilized adhering to the principles of ALARA. COMPARISON: None. 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 No acute fracture. Discs/spinal canal/neural foramina: Degenerative disease with significant narrowing of disc height at C6-C7. Multilevel bilateral apophyseal hypertrophy contributing to variable degrees of neuroforaminal encroachment. No central canal stenosis. Soft tissues: Unremarkable. Vasculature: Calcified atherosclerotic disease throughout the bilateral carotid arteries. Lung apices: Question ground glass opacity within the right lung apex which may indicate pneumonitis versus pulmonary contusion in the appropriate clinical context. These findings are described in detail on the accompanying CTA chest. Pleural space: Lung apices revealed no pneumothorax. Tubes, lines and devices: There is a right-sided central line in place. IMPRESSION: Multilevel degenerative disease as described with no acute fracture or subluxation. Underlying osteopenia. Electronically signed by: Elsa Palma MD 11/09/23 20:45 PM Chest CTA 11/09/23 19:36 CR Exam(s): CTA CHEST IV Amt: OPTIRAY 320 93ML EXAM: CT Angiography Chest With Intravenous Contrast CLINICAL HISTORY: Reason for exam: sepsis, elevated trop, sob, r/o PE. TECHNIQUE: Axial computed tomographic angiography images of the chest with intravenous contrast. CTDI is 21.07 mGy and DLP is 627.64 mGy-cm. Automated exposure control was utilized for the study. A dose lowering technique was utilized adhering to the principles of ALARA. MIP reconstructed images were created and reviewed. COMPARISON: 08/20/2023. FINDINGS: Pulmonary arteries: There is filling defect identified within the right posterior proximal segmental pulmonary arteries and within the several additional right lower lobe mid distal subsegmental pulmonary arteries consistent with multiple pulmonary emboli. Aorta: Mild calcified atherosclerotic disease throughout the aorta with no aneurysm or dissection. Lungs: Decreased inspiratory effort with vascular crowding. Areas of myocyte pattern versus groundglass densities most compatible with small airway disease with superimposed pneumonitis not excluded. There is superimposed dependent atelectasis within the bilateral upper lobe and more severe through the bilateral lower lobes. No mass. Pleural space: Unremarkable. No pleural effusion or pneumothorax. Heart: RV/LV ratio is no evidence of right-sided cardiac strain. No cardiomegaly. No significant pericardial effusion. Bones/joints: Multilevel degenerative disease of the spine with no acute fracture or subluxation. Soft tissues: Unremarkable. Lymph nodes: Unremarkable. No enlarged lymph nodes. Liver: There is low attenuation structure at the anterior subcapsular region of the left liver lobe compatible with liver cysts measuring 1.4 and 1.3 cm. Remainder of the upper abdominal structures are unremarkable. Tubes, lines and devices: There is a right-sided chest port in place. IMPRESSION: 1. Lower lobe segmental and subsegmental pulmonary emboli. No evidence of right-sided cardiac strain. 2. Vascular crowding with suggestion of small airway disease with superimposed scattered pneumonitis not excluded. Depending atelectasis within the bilateral upper and lower lobes and more severe in the lower lobes. Communications: Call Doctor Other Electronically signed by: Elsa Palma MD 11/09/23 20:[address] 11/09/23 19:36 Exam(s): CT HEAD Without Contrast EXAM: CT Head Without Intravenous Contrast CLINICAL HISTORY: Reason for exam: sepsis, ams. TECHNIQUE: Axial computed tomography images of the head/brain without intravenous contrast. CTDI is 37.22 mGy and DLP is 546.36 mGy-cm. Automated exposure control was utilized for the study. A dose lowering technique was utilized adhering to the principles of ALARA. COMPARISON: 12/01/2019. FINDINGS: Brain: Mild to moderate generalized brain atrophy. Scattered decreased attenuation within the deep white matter including periventricular region compatible with microangiopathic disease. No hemorrhage. Ventricles: Unremarkable. No ventriculomegaly. Bones/joints: Unremarkable. No acute fracture. Soft tissues: Unremarkable. Sinuses: Unremarkable as visualized. No acute sinusitis. Mastoid air cells: Unremarkable as visualized. No mastoid effusion. IMPRESSION: 1. Chronic changes as described, stable study in the interval. 2. Specifically, no acute intracranial hemorrhage. No intra-parenchymal space-occupying lesion. Electronically signed by: Elsa Palma MD 11/09/23 20:42 PM Venous Doppler Study 11/10/23 00:00 BILATERAL LOWER EXTREMITY VENOUS DOPPLER HISTORY: Pulmonary embolus. Assess for DVT. COMPARISON STUDY: None. FINDINGS: There is normal compressibility, flow, and augmentation within the bilateral lower extremity deep venous systems. Elongated fluid collections within the bilateral popliteal fossa which favor Foster's cysts. IMPRESSION: No DVT within the right or left lower extremity. ACT 112: Negative or not required by law. Electronically signed by: Edvin Tamez M.D. 11/10/2023 7:[address] 11/10/23 18:[address] DOSE: 2034.51 mGy.cm HISTORY: Stroke Like Symptoms TECHNIQUE: Multiaxial CT images of the head were performed without the use of intravenous contrast. Automated exposure control was utilized for this study. A dose lowering technique was utilized adhering to the principles of ALARA. Comparison: Head CT 11/09/2023. Findings: Mild mucosal thickening within the left sphenoid sinus. The remaining paranasal sinuses and mastoid air cells are clear. Motion artifact results in suboptimal evaluation. Stable 6 mm calcification along the right tentorium. There is no mass, hematoma, midline shift, acute infarct. Mild atrophy and microvascular ischemic changes are again noted. Impression: Suboptimal evaluation due to motion artifact. However, no definite acute intracranial abnormality. ACT 112: Negative or not required by law. Electronically signed by: Edvin Tamez M.D. 11/10/2023 6:56 PM Carotid Doppler Study 11/11/23 21:19 US carotid doppler BI CLINICAL HISTORY: 88 years-old Female with Evalaution carotid stenosis. COMPARISON: None TECHNIQUE: Multiple real time sonographic images of the carotid bifurcations were obtained assessing morales scale, color Doppler and spectral wave form appearance FINDINGS: RIGHT CAROTID: The peak systolic velocity measured within the right ICA is 77 cm/sec. The end diastolic velocity measured 15 cm/sec. The ICA to CCA ratio measured 1.3 which correlates with a stenosis of 0-50%. LEFT CAROTID: The peak systolic velocity measured in the left ICA is 66 cm/sec. The end diastolic velocity measured 10 cm/sec. The ICA to CCA ratio measured 1.6 which correlates with a stenosis of 0-50%. Minimal atherosclerosis of the carotid bulb. There is normal antegrade vertebral flow bilaterally. IMPRESSION: 1. No hemodynamically significant stenosis or significant atherosclerotic plaquing. 2. Normal antegrade vertebral flow bilaterally. ACT 112: Negative or not required by law. The above report was generated using voice recognition software. It may contain grammatical, syntax or spelling errors. Electronically signed by: Carrington Flynn M.D. 11/11/2023 9:19 AM Videofluoroscopic Swallow 11/12/23 11:00 VIDEO SWALLOW STUDY CLINICAL HISTORY: Aspiration. COMPARISON STUDY: No priors. Fluoroscopy time: 2.16 minutes. Ka,r: 7.89 mGy FINDINGS: Fluoroscopic guidance is provided to the Department of speech pathology in performing a video swallow study. The patient consumed barium- impregnated pudding, cracker with paste, nectar-thick liquid, and thin barium while the swallowing mechanism was observed in real-time. No penetration or aspiration was seen on the initial swallows. The patient had trouble swallowing the cracker with paste texture, and there is aspiration with cough reflex is seen with the subsequent thin barium wash. There is esophageal dysmotility, with delayed esophageal emptying into the stomach. IMPRESSION: Aspiration was seen with the thin-barium wash. See dedicated speech pathology report for detailed findings and recommendations. Dictated: 11/12/2023 10:40 AM Transcribed: 11/12/2023 10:51 AM Tab [id number] [email or web address] Electronically signed by: Eleuterio Orellana M.D. 11/12/2023 2:22 PM PG Care Time/CCT Total # of Minutes Spent Total Time Spent with Patient: Total time spent is greater than 50% in coordination of care (as documented) at patient's floor/unit and/or counseling patient: I spent 55 minutes overall addressing this case: 20 min in medical data review/discussion with referring provider(s) and/or preparation for the visit 15 min in direct interaction with the patient/exam 00 min in Advance Care Planning/Goals of Care discussions as detailed above in note (must be >16min) 5 min in subsequent review and synthesis of assessment and plan 15 min communicating with other providers regarding the patient's case: [place] [address] IN/OBS CONSULT LVL 4,60M Patient Type New History Comprehensive Exam Comprehensive Medical Decision Making High Complexity Diagnoses Weakness generalized R53.1 Somnolence R40.0 Altered mental status type: somnolence Discussion about advance care planning held with family member Z71.0 Palliative care by specialist Z51.5 Aspiration into airway, subsequent encounter T17.908D Encounter type: subsequent encounter Encephalopathy G93.40 Pulmonary embolism I26.99 Acute cor pulmonale presence: without acute cor pulmonale Chronicity: acute Pulmonary embolism type: unspecified Bladder carcinoma C67.9
[2023-11-13] MEDS ORDERED: LORazepam 0.5 MG TAB PO PRN (12:03)
[2023-11-13] MEDS ORDERED: ONDANSETRON 4 MG OD TAB SL PRN (12:03)
[2023-11-13] MEDS ORDERED: MoRPHine SULFATE 10 MG/0.5 ML UDP PO PRN (12:03)
[2023-11-13] MEDS ORDERED: GLYCOPYRROLATE 0.2 MG/ML VIAL IV PRN (12:03)
--- NOTE | 2023-11-13 13:07 | Pharmacy Report ---
Pharmacy PK ABX Note - Date of Service November 13, 2023 - Assessment and Plan Assessment 11/12: 2/2 aerobic blood culture bottles growing corynebacterium; 1 anaerobic bottle growing gram positive cocci in clusters with not identification per BCID2. ID following, continuing cefepime and vancomycin currently. Possible transition to hospice/MANAGER QA. Random level this afternoon predicts therapeutic AUC/PRASHANT at steady state, will continue current dosing 11/10 88 year old F receiving cefepime/vancomycin for treatment of sepsis/bacteremia. Patient previously receiving keyturda, finished last chemo on 10/29. Found to have a PE, normal WBC, febrile on admission with elevated procalcitonin. Poss ible cystitis on CT, no growth from urine culture. Both aerobic blood culture bottles are now growing a gram positive bacilli- vancomycin added to cefepime for coverage. BCID2 did not identify species. SCr increased yesterday, does seem to be downtrending today. Plan Vancomycin * Loading dose: 1500 mg IV x 1 * Maintenance dose: 1000 mg IV every 24 hours * Regimen is predicted to achieve target AUC/PRASHANT of 400-600 mg/L.hr * Random level in 2-3 days or sooner with renal function change. Pharmacy will continue to follow and will adjust dose/frequency as necessary. Thank you. Pharmacy has transitioned to AUC monitoring for vancomycin. AUC/PRASHANT is the preferred PK/PD target and is associated with decreased risk of nephrotoxicity compared to traditional trough targets.
--- NOTE | 2023-11-13 14:01 | Hospitalist Progress Note ---
Date of Service November 13, 2023 Assessment & Plan (1) Sepsis: Plan: Intermittent fever over the past week and unwitnessed fall on 11/08 No leukocytosis, but elevated from baseline; febrile in the ED at 39.3 C on arrival Bacteremic? Blood culture growing gram-positive organism, possibly contaminant Immunocompromised patient on chemotherapy Added vancomycin Consulted infectious disease Lactate WNL Procalcitonin elevated 1.94 A/P CT showed right-sided hydronephrosis and suggested cystitis In the setting of recent stent removal on 11/03 Urine culture on 10/28/2023 grew E. coli and Enterobacter susceptible to cefepime although urine culture from 11/08 is negative Continue cefepime 2000 mg IV q8h and IV vancomycin for now. Will switch to p.o. Levaquin at the time of discharge and potentially stop vancomycin. (2) Pulmonary embolism: Plan: Worsening productive cough x 1 week No hemoptysis or pleural CP Elevated troponin at 78.6-->91.5 Trend q6h x 2 Chest CTA revealed lower lobe segmental and subsegmental pulmonary embolism; no evidence of right-sided heart strain Patient is hypercoagulable in setting of recent cancer chemotherapy; Heparin drip converted to Lovenox therapeutic dose Continuous telemetry monitoring Continuous pulse oximetry Supplemental oxygen as needed to maintain SpO2 >94% Family chose comfort care. They are leaning towards stopping Lovenox upon discharge but would like to keep it going for now. (3) Fall: Plan: Head/cervical spine CTs revealed no acute abnormalities Fall precautions PT/OT consulted [facility] (4) Hyponatremia: Plan: Na 131 on arrival NSS 2000 mL IV given in the ED Sodium now 134. 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 Comfort care orders placed with morphine and Ativan (6) Hypertension: Plan: Will hold carvedilol (7) Sleep apnea: Plan: CPAP at bedtime (8) Elevated troponin: (9) Aspiration into airway: Plan: Patient is having issues with aspiration. Video swallow done Patient is aspirating her own saliva Family agrees with permissive aspiration Family does not want tube feeds Pured thick liquids ordered with family including with permissive aspiration Family decided on comfort care Plan DNR/DNI VTE PPx: Lovenox therapeutic dose Admission and Anticipated Discharge Date Admission Date: November 09, 2023 Subjective Family decided on comfort care. They would like the patient to [facility] discharge with comfort measures. Comfort care orders were just placed. The patient was restless through the night. Review of Systems Review of Systems: Unobtainable due to cognitive status Physical Exam Physical Exam: General: Awake, conversant. Pleasantly confused.. Frail looking Heart: S1, S2/regular rate and rhythm, no murmur rubs or gallops Lungs: Clear to auscultation bilaterally. Normal effort Abdomen: Soft/nontender/nondistended. No hepatosplenomegaly Extremities: No clubbing/cyanosis. No edema Behavior: Appropriate, cooperative Results & Data Results & Data Vital Signs (Past 12 Hours) Vital Signs Temp Pulse Pulse Resp BP Pulse Ox O2 Del Method 11/13/23 11:21 36.6 C 58 L 17 121/77 100 Nasal Cannula 11/13/23 07:30 Nasal Cannula 11/13/23 07:28 36.3 C L 60 18 151/79 H 99 Room Air 11/13/23 06:00 40 L 11/13/23 03:15 36.9 C 65 20 142/80 H 100 CPAP 11/13/23 02:11 71 24 97 O2 Flow Rate 11/13/23 11:21 3 11/13/23 07:30 3 11/13/23 07:28 11/13/23 06:00 11/13/23 03:15 11/13/23 02:11 3 Laboratory Results Abnormal lab results 11/13/23 Range/Units 06:25 RBC 2.89 L (4.20-5.40) M/uL Hgb 9.1 L (12.0-16.0) g/dl Hct 28.6 L (37.0-47.0) % MCHC 31.8 L (32.0-36.0) g/dL RDW Std Deviation 56.8 H (36.4-46.3) fL RDW Coeff of Cathy 15.9 H (11.5-14.5) % MPV 9.2 L (9.4-12.4) fL Diagnostic Findings Videofluoroscopic Swallow 04/30/24 11:00 VIDEO SWALLOW STUDY CLINICAL HISTORY: Aspiration. COMPARISON STUDY: No priors. Fluoroscopy time: 2.16 minutes. Ka,r: 7.89 mGy FINDINGS: Fluoroscopic guidance is provided to the Department of speech pathology in performing a video swallow study. The patient consumed barium- impregnated pudding, cracker with paste, nectar-thick liquid, and thin barium while the swallowing mechanism was observed in real-time. No penetration or aspiration was seen on the initial swallows. The patient had trouble swallowing the cracker with paste texture, and there is aspiration with cough reflex is seen with the subsequent thin barium wash. There is esophageal dysmotility, with delayed esophageal emptying into the stomach. IMPRESSION: Aspiration was seen with the thin-barium wash. See dedicated speech pathology report for detailed findings and recommendations. Dictated: 11/12/2023 10:40 AM Transcribed: 11/12/2023 10:51 AM Tab [id number] [email or web address] Electronically signed by: Eleuterio Orellana M.D. 11/12/2023 2:22 PM PG Care Time/CCT Total # of Minutes Spent Total Time Spent with Patient: Total time spent is greater than 50% in coordination of care (as documented) at patient's floor/unit and/or counseling patient: Coding Level of Care Code 93042 SUB INP/OBS CARE 2/35MIN Diagnoses Sepsis A41.9 Sepsis acute organ dysfunction status: without acute organ dysfunction Sepsis type: sepsis due to unspecified organism Pulmonary embolism I26.99 Fall W19.XXXA Hyponatremia E87.1 Bladder carcinoma C67.9 Hypertension I10 Sleep apnea G47.30 Elevated troponin R79.89 Aspiration into airway, subsequent encounter T17.908D Encounter type: subsequent encounter (1) Sepsis Sepsis acute organ dysfunction status: without acute organ dysfunction Sepsis type: sepsis due to unspecified organism Qualified Code(s): A41.9 - Sepsis, unspecified organism (9) Aspiration into airway Encounter type: subsequent encounter Qualified Code(s): T17.908D - Unspecified foreign body in respiratory tract, part unspecified causing other injury, subsequent encounter
[2023-11-13] MEDS: LORazepam 0.5 MG in SYRINGE 0.25 ML IV PRN (17:01)
--- NOTE | 2023-11-14 11:33 | Discharge Summary ---
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 She presented via BLS from [place] at [facility] for fever, weakness, and fall on 11/08. Patient's granddaughter (Ashley) is present at the bedside and provides additional history. Granddaughter reports that the patient started to decline shortly after she received her final round of chemotherapy on October 29. She developed a fever after chemotherapy that resolved. The patient also had a ureteral stent removed with Dr. Wang on November 03; was placed on ciprofloxacin prophylactically both 3 days before and after the procedure. Patient has become increasingly confused since that time, and often reports that she cannot get her legs to move. Patient is mentating well in the room and is A&O x 3. She does report that she had an unwitnessed fall on 11/08. She was using her walker to get to the bathroom around 6:30 PM, and reports that her legs gave out. No lightheadedness prior to fall. No LOC. No head strike. She reports that she might have hurt her shoulder, and was unable to get off the ground; eventually a automotive maintenance technician came by and helped her get up. No history of blood thinners. No history of bleeding disorders. No history of prior DVT/PE. No supplemental oxygen at baseline, but patient does use CPAP at night. She denies smoking, tobacco use, and recent alcohol use. Patient is febrile at 37.6 C, tachypneic at 29 RPM, and hypertensive at 154/89 at time of admission; SpO2 96% on 2 L NC. ED course: Cefepime 2000 mg IV Acetaminophen 1000 mg IV Heparin IV drip NSS 1000 mL IV ROS: Patient endorses intermittent fever over the past week, runny nose, productive cough that has been worsening this past week, and lower extremity weakness. Patient denies chills, night sweats, body aches, dizziness, lightheadedness, headache, SOB at rest or with exertion, chest pain, pleuritic chest pain, chest palpitations, hemoptysis, abdominal pain, N/V/D, dysuria, burning with urination, or numbness or tingling in arms or legs. Spoke to patient's daughter on the phone and provided update regarding admi ssion. Patient's daughter reconfirms that the patient is a DNR/DNI. She also notes that while her productive cough has been ongoing, she may have noted one instance of dark red blood in a napkin recently to suggest hemoptysis. Admission Exam Per Admitting Provider General: no acute distress; pleasant affect; well-nourished; frail appearing; cooperative; SpO2 98% on 2 L NC HEENT: normocephalic, atraumatic; no scleral icterus; PERRLA w/ EOMs intact; moist mucus membrane; vision and hearing grossly intact Neck: supple; no lymphadenopathy; trachea midline Skin: Hot to touch; warm, dry without signs of tenting; no cyanosis; no rashes, bruising, lesions, or erythema noted CV: chest wall NTP; arterial port without signs of erythema or infection; RRR; S1/S2 normal; no murmurs/rubs/gallops; pulses intact and symmetric at radial, DP, and PT Lungs: no acute respiratory distress; symmetrical chest wall expansion; clear b reath sounds across all lung lewis w/o adventitious sounds; no wheezing ABD: Soft, NTP; BS present; no rebound/guarding; no distention MSK: no tics or fasciculations; nonpitting edema noted in the LEs b/l, nonerythematous Neuro: A&Ox3; normal mood and affect; fluent speech; no focal deficits; sensation grossly intact in the LEs b/l Principal Diagnosis Sepsis most likely UTI Pulmonary embolus Fall Bladder carcinoma Hyponatremia Aspiration Discharge Exam General: Sleeping, appears comfortable. Discharge Data Allergies Allergy/AdvReac Type Severity Reaction Status Date / Time capsaicin Allergy Unknown Unknown Verified 11/07/23 11:42 house dust Allergy Unknown [place] Verified 11/09/23 19:17 MED LIST mold Allergy Unknown [place] Verified 11/09/23 19:17 MED LIST pollen extracts Allergy Unknown [place] Verified 11/09/23 19:17 MED LIST sulfamethoxazole Allergy Unknown [place] Verified 11/09/23 19:17 [From Bactrim] MED LIST trimethoprim [From Bactrim] Allergy Unknown [place] Verified 11/09/23 19:17 MED LIST SARA Inhibitors AdvReac Intermediate Cough Verified 11/09/23 19:17 ARB-Angiotensin Receptor AdvReac Intermediate Cough Verified 11/09/23 19:17 Antagonist pepper (genus Capsicum) AdvReac Intermediate Gastrointestinal Verified 11/09/23 19:17 Upset prednisone AdvReac Intermediate Dizziness Verified 11/09/23 19:17 & weird dreams tramadol AdvReac Intermediate Vomiting Verified 11/09/23 19:17 gabapentin AdvReac Mild Nausea Verified 11/09/23 19:17 Consultations 11/09/23 21:02 ED Decision to Admit Stat 11/10/23 21:19 Consult Neurology Routine 11/11/23 07:50 Consult Infectious Diseases Routine 11/12/23 13:44 Consult Palliative Care Routine Ordered Studies 11/09/23 19:36 CT abd pelvis IV con only Stat CT angio chest PE protocol Stat CT cervical spine wo con Stat CT head/brain wo con Stat 11/10/23 US venous doppler LE BI Routine 11/10/23 18:37 CT head/brain wo con Stat 11/11/23 21:19 US carotid doppler BI Routine 11/12/23 11:00 Fluoro video [FL video swallow] Routine Hospital Course (1) Sepsis: Intermittent fever over the past week and unwitnessed fall on 11/08 No leukocytosis, but elevated from baseline; febrile in the ED at 39.3 C on arrival Bacteremic? Blood culture growing gram-positive organism, possibly contaminant Immunocompromised patient on chemotherapy Added vancomycin Consulted infectious disease Lactate WNL Procalcitonin elevated 1.94 A/P CT showed right-sided hydronephrosis and suggested cystitis In the setting of recent stent removal on 11/03 Urine culture on 10/28/2023 grew E. coli and Enterobacter susceptible to cefepime although urine culture from 11/08 is negative Continue cefepime 2000 mg IV q8h and IV vancomycin for now. Switch to p.o. Keflex. The patient is comfort care (2) Pulmonary embolism: Worsening productive cough x 1 week No hemoptysis or pleural CP Elevated troponin at 78.6-->91.5 Trend q6h x 2 Chest CTA revealed lower lobe segmental and subsegmental pulmonary embolism; no evidence of right-sided heart strain Patient is hypercoagulable in setting of recent cancer chemotherapy; Heparin drip converted to Lovenox therapeutic dose Continuous telemetry monitoring Continuous pulse oximetry Supplemental oxygen as needed to maintain SpO2 >94% Family chose comfort care. Decision was made to stop the Lovenox upon discharge. (3) Fall: Head/cervical spine CTs revealed no acute abnormalities Fall precautions PT/OT consulted [facility] with [facility] (4) Hyponatremia: Na 131 on arrival NSS 2000 mL IV given in the ED (5) Bladder carcinoma: Follow-up with 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 Comfort care orders placed with morphine and Ativan (6) Hypertension: Will hold carvedilol (7) Sleep apnea: CPAP at bedtime (8) Elevated troponin: (9) Aspiration into airway: Patient is having issues with aspiration. Video swallow done Patient is aspirating her own saliva Family agrees with permissive aspiration Family does not want tube feeds Pured thick liquids ordered with family including with permissive aspiration Family decided on comfort care Plan Plan is to discharge the patient with [facility] to [facility] Total Time Total Time Spent Total Time Spent (In Minutes): 35 Discharge Plan Discharge Items Patient Disposition: Transfer Halfway Fac Reason For Visit: FALL, COUGH, FEVER Discharge Diagnosis: Sepsis most likely UTI Pulmonary embolus Fall Bladder carcinoma Hyponatremia Aspiration Activity: As commented below Activity Comment: Bed rest Non-emergency contact: Primary Care Provider Call non-emergency contact if: you have any medication questions Follow-up/Referrals: Megan Escalona MD [Primary Care Provider] - Diet: Other - See Diet Comment Diet Texture: Pureed (blended smooth) Liquid Consistency: [place] thick Diet Comment: Per comfort Addtl Attending Provider Instructions: Advised to note that you are being discharged with comfort care measures only Pending Studies at Discharge: No Stand-Alone Forms: My [employer] Skilled Items Patient informed of condition?: Yes DNR: Yes Discharge Level of Care: Skilled Communicable Disease: No Discharge Prognosis: Stable Lines: None Urinary Catheter: No Medications and DC Order Prescriptions: New morphine concentrate 100 mg/5 mL (20 mg/mL) Solution 5 mg PO Q3H PRN (Reason: pain) Qty: 15 0RF lorazepam 0.5 mg Tablet 0.5 mg PO Q4H PRN (Reason: anxiety) Qty: 10 0RF cephalexin 500 mg capsule 500 mg PO BID 5 Days Qty: 10 0RF Continued lidocaine-prilocaine 2.5-2.5 % Cream 1 applic topical DIRECTED PRN (Reason: PORT ACCESS) Rx Instructions: prior to port access hydroxyzine HCl 50 mg tablet 50 mg PO HS PRN (Reason: itching/anxiety) psyllium husk [Metamucil] 0.4 gram Capsule 0.4 g PO DAILY PRN (Reason: Constipation) acetaminophen 500 mg capsule 1,000 mg PO QAM fexofenadine 180 mg Tablet 180 mg PO DAILY PRN (Reason: Itching) acetaminophen [Tylenol Extra Strength] 500 mg Tablet 1,000 mg PO Q6H PRN (Reason: PAIN/FEVER) diphenhydramine HCl [Benadryl] 25 mg Capsule 25 mg PO DIRECTED PRN (Reason: Itching) hydrocortisone 2.5 % cream 1 applic TOPICAL BID PRN (Reason: Other) Rx Instructions: a-port area Discontinued multivitamin [Daily Multi-Vitamin] tablet 1 tab PO QDL famotidine [Pepcid AC] 20 mg Tablet 20 mg PO BID Hold Instructions: pt not taking Rx Instructions: TAKES QDL & HS Emergen-C 1,000 mg Powder Effervescent In Packet 1 ea PO QAM cholecalciferol (vitamin D3) [Vitamin D3] 25 mcg (1,000 unit) Tablet 25 mcg PO QDD carvedilol [Coreg] 3.125 mg tablet 3.125 mg PO BIDM estradiol [Estrace] 0.01 % (0.1 mg/gram) cream 1 g PV [id number] levothyroxine 50 mcg tablet 50 mcg PO .DAILY AT 4PM PreserVision AREDS-2 250-90-40-1 mg Tablet,Chewable 1 tab PO QDL Discharge Orders: Discharge Order (Routine); Ordered 11/14/23 Ordered By: Parag [place]/Other Patient Handouts: What Is Palliative Care Admission Data Admit Date/Time: 11/09/23 22:15 Attending Provider: Parag Kurtz Admit Provider: Reginaldo Marinelli Primary Care Provider: Megan Escalona [facility]; Reginaldo Marinelli; Ramin Ruby; Rupal Christensen; Ana Wang Other Interventions: Discharge Summary Assessment (RN) Last Done: 11/14/23 11:35 Coding Level of Care Code 65706 INP/OBS DISCH >30 MIN Diagnoses Sepsis A41.9 Sepsis acute organ dysfunction status: without acute organ dysfunction Sepsis type: sepsis due to unspecified organism Pulmonary embolism I26.99 Fall W19.XXXA Hyponatremia E87.1 Bladder carcinoma C67.9 Hypertension I10 Sleep apnea G47.30 Elevated troponin R79.89 Aspiration into airway, subsequent encounter T17.908D Encounter type: subsequent encounter
== END 2023-11-14 15:15 | disposition hospice, inpatient (51) | DRG 871 ==
LOC: ED 18:30 → SUATTDRO 22:15 → 2E 22:15 → 3E 11-13 18:35